=== PATIENT | female | born 1965 | race Caucasian/White ===

== ENCOUNTER → 2016-07-14 08:57 | Day surgery (SDC) | payer BC, MEDICARE ==
[~2016-07-14 08:57] MED LIST: Buffered Lidocaine 1% SYRIN* 3 ML/SYR SYRINGE INTRADERM ONE; Bupivacaine 0.25% EPI 200,000* 30 ML SDV ONE; DiMENhydriNATE IV* 50 MG/ML VIAL IV PUSH PRN; HYDROmorphone* 1 MG/ML 1 ML SYR IV PRN; Insulin REGULAR(*) 1 UNITS UNIT ONE; Midazolam* 1 MG/ML 5 ML VIAL (5 MG) ONE; Ondansetron INJ* 2 MG/ML VIAL IV PRN; fentaNYL* 50 MCG/ML 2 ML VIAL (100 MCG VIAL) IV PRN; fentaNYL* 50 MCG/ML 2 ML VIAL (100 MCG VIAL) ONE; oxyCODONE TAB* 5 MG TAB PO PRN
--- NOTE | 2016-07-14 12:57 | SURGPN ---
Brief Operative Note - Surgery Procedures: Procedures Pre-OP Diagnoses: Unused peritoneal dialysis catheter Post-op Diagnosis: same Procedure: removal of dialysis catheter Surgeon: Cristofer Asst: none Anethesia: local MARLON Cao EBL: minimal IVF: crystalloid Specimen: none Drains: none
[2016-07-14 13:49] VITALS: BP 143/73
--- NOTE | 2016-07-22 14:07 | OP ---
DATE OF OPERATION: 07/14/16 - [facility] DATE OF : 61 SURGEON: Fam Cleveland MD WEB CONTENT MANAGER: None. ANESTHESIOLOGIST: Dr. Cao. ANESTHESIA: Local MAC. PRE-OP DIAGNOSIS: Unused peritoneal dialysis catheter. POST-OP DIAGNOSIS: Unused peritoneal dialysis catheter. OPERATIVE PROCEDURE: Removal of dialysis catheter. ESTIMATED BLOOD LOSS: Minimal blood loss. FLUIDS: Minimal crystalloid fluid given. SPECIMEN: None. DRAINS: None. DESCRIPTION OF PROCEDURE: The patient was identified in the preoperative area, brought to the OR, placed on the operating table in supine position. Gentle sedation was given. The patient's abdomen was prepped and draped in the standard surgical fashion. A time-out was performed. Previously noted peritoneal dialysis catheter was held with gentle tension. We made an incision along the left rectus. This was deepened through the subcutaneous tissue. One cuff was identified in the subcutaneous tissue and cleared off. We entered through the fascia of the rectus pillar and the second cuff was then removed. Catheter was removed in its entirety. The wound was irrigated. Hemostasis achieved and the defect was reapproximated with skin gloria followed by sterile dressing. The patient tolerated the procedure well , was woken up in the OR, and transferred to the PACU in stable condition. CC: [facility]; Dr. Dipak Valiente* [id number]/[facility] #: [id number] MTDD
== END | disposition home or self-care (01) ==
LOC: OR 08:57
PROVIDERS: ATTEND Surgery
DX: N18.6 End stage renal disease (principal); E11.8 Type 2 diabetes mellitus with unspecified complications; Z79.4 Long term (current) use of insulin; J44.9 Chronic obstructive pulmonary disease, unspecified; Z87.891 Personal history of nicotine dependence; Z99.2 Dependence on renal dialysis
CPT/HCPCS: J2250; J3010

== ENCOUNTER 2016-10-09 11:12 | Emergency (ER) | payer BC, MEDICARE ==
[2016-10-09 12:37] LABS: Hematocrit 29 % (35-47); Hemoglobin 9.3 g/dl (12.0-16.0); Mean Corpuscular HGB Conc 33 g/dl (31-36); Mean Corpuscular Hemoglobin 29 pg (27-31); Mean Corpuscular Volume 90 fL (80-97); Mean Platelet Volume 9 um3 (7.4-10.4); Red Blood Count 3.16 10^6/ul (4.0-5.4); Red Cell Distribution Width 16 % (10.5-15); White Blood Count 13.9 10^3/ul (3.5-10.8)
--- NOTE | 2016-10-09 12:52 | RAD ---
HISTORY: Right foot numbness, right leg pain COMPARISONS: None TECHNIQUE: Multiple contiguous axial CT scans were obtained of the lumbar spine without intravenous contrast, with coronal and sagittal multiplanar reformations. FINDINGS: SPINAL CANAL: Evaluation of the central canal is limited on CT technique; however, there is no obvious canalicular mass or epidural hemorrhage. ALIGNMENT: The alignment is normal. VERTEBRAL BODIES: The vertebral bodies are preserved in height. The bones are normal in attenuation. JOINTS: There is facet hypertrophic change along the lower lumbar spine MUSCULATURE: Unremarkable INTERVERTEBRAL DISCS: There is diffuse loss of intervertebral disc height throughout the spine. AXIAL IMAGES: T11-T12: There is no osseous neural foraminal area or central canal stenosis T12-L1: There is no osseous neural foraminal narrowing or central canal stenosis. L1-L2: There is no osseous neural foraminal narrowing or central canal stenosis. L2-L3: There is no osseous neural foraminal narrowing or central canal stenosis. L3-L4: There is no osseous neural foraminal narrowing or central canal stenosis. L4-L5: There is mild disc bulge. There is bilateral facet hypertrophy. There is mild bilateral neural foraminal narrowing. There is mild narrowing of the central canal. L5-S1: There is bilateral facet hypertrophy. There is no significant neural foraminal narrowing or central canal stenosis SOFT TISSUES: The visualized soft tissues of the abdomen are unremarkable. OTHER: None IMPRESSION: DEGENERATIVE DISC DISEASE AND OSTEOARTHRITIS MOST PRONOUNCED AT L4-L5 AND L5-S1. THERE IS MILD NEURAL FORAMINAL NARROWING AND MILD NARROWING OF THE CENTRAL CANAL AT L4-L5.
[2016-10-09 12:53] LABS: Albumin 3.3 g/dL (3.2-5.2); BUN/Creatinine Ratio 8.8 (8-20); Calcium 8.8 mg/dL (8.6-10.3); EGFR African American 22.5 (>60); EGFR Non-African American 17.5 (>60); Globulin 3.7 g/dL (2-4); Magnesium 1.8 mg/dL (1.9-2.7); Potassium 4.5 mmol/L (3.5-5.0); Total Bilirubin 0.2 mg/dL (0.2-1.0)
--- NOTE | 2016-10-09 13:53 | RAD ---
HISTORY: Right calf pain COMPARISONS: None relevant TECHNIQUE: Multiple transverse and longitudinal ultrasound images were obtained of the right lower extremity from the level of the common femoral vein inferiorly through to the infrapopliteal veins using grayscale, color Doppler, and spectral Doppler imaging with and without compression and with augmentation. Comparison images were obtained of the contralateral common femoral vein. FINDINGS: VEINS: The venous system of the right lower extremity is compressible throughout its course, with normal flow on color Doppler imaging and normal response to augmentation on spectral Doppler imaging. SOFT TISSUES: Unremarkable. OTHER FINDINGS: Also noted is a calcified popliteal artery with monophasic arterial flow IMPRESSION: 1. NO RIGHT LOWER EXTREMITY DEEP VEIN THROMBOSIS. 2. PERIPHERAL ARTERIAL DISEASE WITH MONOPHASIC ARTERIAL FLOW NOTED IN THE POPLITEAL ARTERY
--- NOTE | 2016-10-09 14:24 | ED ---
Lower Extremity - HPI Summary HPI Summary: 50F w/ PMH of DM and ESRD presents with right leg numbness for a day. She also noticed some redness to her right calf at dialysis today. She states she has a history of sciatica but no history of back pain. She states that she has been having pain in her calf when she walks. She denies any tingling. She denies any injury to the area. She denies any fever. She denies any tingling. She denies any loss of bowel or bladder or saddle anaesthesia. She denies any fever. She had dialysis today which is her normal day for dialysis. - History of Current Complaint Chief Complaint: EDExtremityLower Stated Complaint: RT LEG NUMBNESS Time Seen by Provider: 10/09/16 11:51 Pain Intensity: 0 - Allergies/Home Medications Allergies/Adverse Reactions: Allergies Allergy/AdvReac Type Severity Reaction Status Date / Time Penicillins [PCN] Allergy Unknown Hives Verified 07/14/16 09:10 PMH/Surg Hx/FS Hx/Imm Hx Endocrine/Hematology History: Reports: Hx Diabetes - TYPE II- ON INSULIN, Hx Anemia - R/T KIDNEY FAILURE Cardiovascular History: Reports: Hx Hypertension - ON MEDS Denies: Hx Angina, Hx Pacemaker/ICD, Other Cardiovascular Problems/Disorders Respiratory History: Reports: Hx Asthma - HX OF WHEN WAS A SMOKER GI History: Reports: Hx Gastroesophageal Reflux Disease - ON MEDICATION FOR Denies: Other GI Disorders History: Reports: Hx Dialysis, Hx Kidney Stones - HX OF, Other Problems/ Disorders - HX OF RIGHT NEPHRECTOMY <1 YEAR OF AGE; ESRD - dialysis Musculoskeletal History: Reports: Hx Arthritis - KNEES, ELBOW, FINGERS Denies: Other Musculoskeletal History Sensory History: Reports: Hx Contacts or Glasses - INSTRUCTS GIVEN Denies: Hx Hearing Aid Opthamlomology History: Reports: Hx Contacts or Glasses - INSTRUCTS GIVEN Neurological History: Denies: Hx CVA Psychiatric History: Reports: Hx Anxiety, Hx Depression - Surgical History Surgery Procedure, Year, and Place: ESWL APPROX 2004. RIGHT NEPHRECTOMY AN INFANT. 2 CARPAL TUNNELS, ONESIMO, 2013 , 2014. HEMODIALYSIS CATH, 12/2015. peritoneal dialysis catheter 01/2016. LUE fistula 11/2015 Hx Anesthesia Reactions: No Infectious Disease History: No Infectious Disease History: Denies: Traveled Outside the [place] in Last 30 Days - Family History Known Family History: Positive: Diabetes - MGF, Father - Social History Alcohol Use: None Substance Use Type: Reports: None Smoking Status (MU): Former Smoker Type: Cigarettes Amount Used/How Often: 1 PPD X 20 YEARS Length of Time of Smoking/Using Tobacco: 34 YEARS Have You Smoked in the Last Year: No Review of Systems Negative: Fever Negative: Chest Pain Negative: Shortness Of Breath Positive: Myalgia - right calf numbness All Other Systems Reviewed And Are Negative: Yes Physical Exam Triage Information Reviewed: Yes Vital Signs On Initial Exam: Initial Vitals Temp Pulse Resp BP Pulse Ox 98.4 F 99 16 169/66 91 10/09/16 11:21 10/09/16 11:21 10/09/16 11:21 10/09/16 11:21 10/09/16 11:21 Vital Signs Reviewed: Yes Appearance: Positive: Well-Appearing Skin: Positive: Warm, Dry, Other - area of erythema on right calf that is not warm to touch Head/Face: Positive: Normal Head/Face Inspection Eyes: Positive: Normal, Conjunctiva Clear Respiratory/Lung Sounds: Positive: Clear to Auscultation, Breath Sounds Present Cardiovascular: Positive: Normal, RRR Musculoskeletal: Positive: Strength/ROM Intact - left leg, Other - good pulses, capillary refill< 2secs, no sensation along medial ascpect of calf, - Suzette Coma Scale Coma Scale Total: 15 Diagnostics - Vital Signs Vital Signs Temp Pulse Resp BP Pulse Ox 10/09/16 11:25 98.6 F 96 16 169/66 90 10/09/16 11:21 98.4 F 99 16 169/66 91 - Laboratory Lab Results: Lab Results 10/09/16 10/09/16 10/09/16 Range/Units 12:25 12:25 12:25 WBC 13.9 H (3.5-10.8) 10^3/ul RBC 3.16 L (4.0-5.4) 10^6/ul Hgb 9.3 L (12.0-16.0) g/dl Hct 29 L (35-47) % MCV 90 (80-97) fL MCH 29 (27-31) pg MCHC 33 (31-36) g/dl RDW 16 H (10.5-15) % Plt Count 398 (150-450) 10^3/ul MPV 9 (7.4-10.4) um3 Neut % (Auto) 77.9 (38-83) % Lymph % (Auto) 10.3 L (25-47) % Larue % (Auto) 9.3 H (1-9) % Eos % (Auto) 1.6 (0-6) % Baso % (Auto) 0.9 (0-2) % Absolute Neuts (auto) 10.8 H (1.5-7.7) 10^3/ul Absolute Lymphs (auto) 1.4 (1.0-4.8) 10^3/ul Absolute Monos (auto) 1.3 H (0-0.8) 10^3/ul Absolute Eos (auto) 0.2 (0-0.6) 10^3/ul Absolute Basos (auto) 0.1 (0-0.2) 10^3/ul Absolute Nucleated RBC 0 10^3/ul Nucleated RBC % 0 INR (Anticoag Therapy) 1.04 (0.89-1.11) Sodium 134 (133-145) mmol/L Potassium 4.5 (3.5-5.0) mmol/L Chloride 94 L (101-111) mmol/L Carbon Dioxide 32 (22-32) mmol/L Anion Gap 8 (2-11) mmol/L BUN 25 H (6-24) mg/dL Creatinine 2.84 H (0.51-0.95) mg/dL Est GFR ( Amer) 22.5 (>60) Est GFR (Non-Af Amer) 17.5 (>60) BUN/Creatinine Ratio 8.8 (8-20) Glucose 183 H (70-100) mg/dL Calcium 8.8 (8.6-10.3) mg/dL Magnesium 1.8 L (1.9-2.7) mg/dL Total Bilirubin 0.20 (0.2-1.0) mg/dL AST 13 (13-39) U/L ALT 9 (7-52) U/L Alkaline Phosphatase 110 H (34-104) U/L C-React Prot High Sens 59.69 mg/L Total Protein 7.0 (6.4-8.9) g/dL Albumin 3.3 (3.2-5.2) g/dL Globulin 3.7 (2-4) g/dL Albumin/Globulin Ratio 0.9 L (1-3) Result Diagrams: 10/09/16 12:25 10/09/16 12:25 Lab Statement: Any lab studies that have been ordered have been reviewed, and results considered in the medical decision making process. - Ultrasound No standard instances Ultrasound Interpretation: Positive (See Comments) - IMPRESSION: 1. NO RIGHT LOWER EXTREMITY DEEP VEIN THROMBOSIS. 2. PERIPHERAL ARTERIAL DISEASE WITH MONOPHASIC ARTERIAL FLOW NOTED IN THE POPLITEAL ARTERY Ultrasound Interpretation Completed By: Radiologist Lower Extremity Course/Dx - Course Course Of Treatment: 50F w/ PMH of DM and ESRD presents with right leg numbness for a day. She also noticed some redness to her right calf at dialysis today. She states she has a history of sciatica but no history of back pain. She states that she has been having pain in her calf when she walks. She denies any tingling. She denies any injury to the area. She denies any fever. She denies any tingling. has neg SLR and back nontender. good pulses, u/s show PAD so will have follow up with vascular. CT shows narrow at L4-L5 which is where numbness is so could be sciatica related numbness. due to redness will treat with cellulitis as is DM. patient understands and agrees with plan - Diagnoses Differential Diagnosis/HQI/PQRI: Positive: Cellulitis, DVT, Fracture (Closed), Sprain, Strain Provider Diagnoses: Peripheral arterial disease, Numbness of right lower extremity, Cellulitis of right leg Discharge - Discharge Plan Condition: Good Disposition: HOME Prescriptions: Clindamycin CAP* [Cleocin 150 MG CAP*] 300 mg PO TID #60 cap Patient Education Materials: Peripheral Vascular Disease (ED) Referrals: Dipak Fontenot MD [Primary Care Provider] - Ashley York MD [Medical Doctor] - Additional Instructions: Follow up with Dr York for peripheral arterial disease Warm compresses for back and stretch Take antibiotic two tablets three times a day for 10 days for possible cellulitis Follow up with primary within 5 days Return to ED if develop fever or any new or worsening symptoms
[2016-10-09 15:42] VITALS: BP 132/88
== END 2016-10-09 15:41 | disposition home or self-care (01) ==
LOC: ED 11:12
DX: I73.9 Peripheral vascular disease, unspecified (principal); M79.1 Myalgia; L03.115 Cellulitis of right lower limb; Z87.891 Personal history of nicotine dependence
CPT/HCPCS: 36415; 72131; 80053; 83735; 85025; 85610; 86141; 99282

== ENCOUNTER 2016-12-13 20:32 | Inpatient (IN) | payer BC, MEDICARE ==
--- NOTE | 2016-12-13 21:45 | RAD ---
Indication: Weakness. Former tobacco use. Hypertension. On dialysis. Comparison: March 02, 2016 Technique: AP and lateral chest views. Report: Cardiomegaly. Prominent ill-defined central pulmonary vasculature. Mild prominence of interstitial markings. Grossly clear pleural spaces. Negative for pneumothorax. IMPRESSION: Mild pulmonary vascular congestion and interstitial edema.
[2016-12-13 22:01] LABS: Hematocrit 15 % (35-47); Mean Corpuscular HGB Conc 33 g/dl (31-36); Mean Corpuscular Hemoglobin 29 pg (27-31); Mean Corpuscular Volume 89 fL (80-97); Mean Platelet Volume 8 um3 (7.4-10.4); Red Blood Count 1.63 10^6/ul (4.0-5.4); Red Cell Distribution Width 18 % (10.5-15); White Blood Count 12.8 10^3/ul (3.5-10.8)
[2016-12-13 22:02] LABS: Comments Flag Yes
--- NOTE | 2016-12-13 22:02 | ED ---
Shira Hanks Emily, scribed for Fritz Singh MD on 12/13/16 at 205 . Complex/Multi-Sys Presentation - HPI Summary HPI Summary: This patient is a 51 year old F BIBA from [facility] accompanied by with a chief complaint of weakness since yesterday. She states I was not able to walk any distance at all my legs would not support me. She reports a bypass in her RLE on 11/24 done at [facility]. The patient rates the pain 0/10 in severity. Symptoms aggravated by nothing. Symptoms alleviated by nothing. Patient reports a fall (this morning getting out of bed and while at dialysis at 1000 today), SOB, disorientation (this morning), right foot pain, and feeling frightened. Patient denies head trauma, syncope, cough, and urinary symptoms. She is currently on 4L NC O2. She is on dialysis 3 times a week. PMHx includes DMII and HTN. - History Of Current Complaint Chief Complaint: EDWeakness Time Seen by Provider: 12/13/16 20:38 Hx Obtained From: Patient Onset/Duration: Sudden Onset, Lasting Days - yesterday, Still Present Timing: Constant Severity Currently: Moderate Severity Initially: Moderate Aggravating Factor(s): Nothing Alleviating Factor(s): Nothing Associated Signs And Symptoms: Positive: Other - fall (this morning getting out of bed and while at dialysis at 1000 today), SOB, disorientation (this morning) , right foot pain, and feeling frightened. Patient denies head trauma, syncope , cough, and urinary symptoms. - Allergies/Home Medications Allergies/Adverse Reactions: Allergies Allergy/AdvReac Type Severity Reaction Status Date / Time Penicillins [PCN] Allergy Unknown Hives Verified 07/14/16 09:10 PMH/Surg Hx/FS Hx/Imm Hx Endocrine/Hematology History: Reports: Hx Diabetes - TYPE II- ON INSULIN, Hx Anemia - R/T KIDNEY FAILURE Cardiovascular History: Reports: Hx Hypertension - ON MEDS Denies: Hx Angina, Hx Pacemaker/ICD, Other Cardiovascular Problems/Disorders Respiratory History: Reports: Hx Asthma - HX OF WHEN WAS A SMOKER GI History: Reports: Hx Gastroesophageal Reflux Disease - ON MEDICATION FOR Denies: Other GI Disorders History: Reports: Hx Dialysis, Hx Kidney Stones - HX OF, Other Problems/ Disorders - HX OF RIGHT NEPHRECTOMY <1 YEAR OF AGE; ESRD - dialysis Musculoskeletal History: Reports: Hx Arthritis - KNEES, ELBOW, FINGERS Denies: Other Musculoskeletal History Sensory History: Reports: Hx Contacts or Glasses - INSTRUCTS GIVEN Denies: Hx Hearing Aid Opthamlomology History: Reports: Hx Contacts or Glasses - INSTRUCTS GIVEN Neurological History: Denies: Hx CVA Psychiatric History: Reports: Hx Anxiety, Hx Depression - Surgical History Surgery Procedure, Year, and Place: ESWL APPROX 2005. RIGHT NEPHRECTOMY AN . 2 CARPAL TUNNELS, ONESIMO, 2013 , 2014. HEMODIALYSIS CATH, 12/2015. peritoneal dialysis catheter 01/2016. LUE fistula 11/2015 Hx Anesthesia Reactions: No Infectious Disease History: Yes Infectious Disease History: Denies: Traveled Outside the [place] in Last 30 Days - Family History Known Family History: Positive: Diabetes - MGF, Father - Social History Alcohol Use: None Substance Use Type: Reports: None Smoking Status (MU): Former Smoker Type: Cigarettes Amount Used/How Often: 1 PPD X 20 YEARS Length of Time of Smoking/Using Tobacco: 34 YEARS Have You Smoked in the Last Year: No Review of Systems Positive: Shortness Of Breath. Negative: Cough Positive: no symptoms reported Positive: Other - fall (this morning getting out of bed and while at dialysis at 1000 today), right foot pain Neurological: Other - weakness, disorientation (this morning), feeling frightened. Negative head trauma, syncope All Other Systems Reviewed And Are Negative: Yes Physical Exam Triage Information Reviewed: Yes Vital Signs On Initial Exam: Initial Vitals Temp Pulse Resp BP Pulse Ox 97.3 F 76 21 103/59 100 12/13/16 20:40 12/13/16 20:40 12/13/16 20:40 12/13/16 20:40 12/13/16 20:40 Vital Signs Reviewed: Yes Appearance: Positive: Well-Appearing, No Pain Distress, Obese Skin: Positive: Warm, Skin Color Reflects Adequate Perfusion, Dry, Other - Healing ulcer at right lateral heel. Head/Face: Positive: Normal Head/Face Inspection Eyes: Positive: Normal ENT: Positive: Normal ENT inspection Neck: Positive: Supple, Nontender Respiratory/Lung Sounds: Positive: Breath Sounds Present, Other - Crackles at left base. Cardiovascular: Positive: RRR, Other - Left sided fistula with a good and thrill bruit. Loud systolic ejection murmur. Abdomen Description: Positive: Nontender, Soft Bowel Sounds: Positive: Present Musculoskeletal: Positive: Normal Neurological: Positive: Normal, Sensory/Motor Intact, Alert, Oriented to Person Place, Time, CN Intact II-III Psychiatric: Positive: Affect/Mood Appropriate Diagnostics - Vital Signs Vital Signs Temp Pulse Resp BP Pulse Ox 12/13/16 20:40 97.3 F 76 21 103/59 100 - Laboratory Lab Statement: Any lab studies that have been ordered have been reviewed, and results considered in the medical decision making process. - Radiology CXR Radiology Interpretation Completed By: Radiologist - Mild pulmonary vascular congestion and interstitial edema. ED physician has reviewed this radiology report and agrees. Complex Multi-Symp Course/Dx Course Of Treatment: Ms. Suero presented C/O weakness for a day or so. Her oxygenation is marginal and she has some rales. She says her diuretic was recently stopped. She is getting W/U for her weakness at this time. - Diagnoses Provider Diagnoses: Weakness, Pulmonary edema - Physician Notifications Discussed Care Of Patient With: Dr. Cornelius at change of shift Discharge - Discharge Plan Condition: Stable Disposition: OTHER Discharge Disposition Comment: Change of Shift The documentation as recorded by the Shira toro Emily accurately reflects the service I personally performed and the decisions made by me, Fritz Singh MD.
[2016-12-13 22:03] LABS: Add Diff/Slide Review? Slide Review Added
[2016-12-13 22:06] LABS: Hemoglobin 4.8 g/dl (12.0-16.0)
[2016-12-13 22:13] LABS: Albumin 2.8 g/dL (3.2-5.2); BUN/Creatinine Ratio 7.9 (8-20); C Reactive Protein 73.3 mg/L (< 5.00); Calcium 7.8 mg/dL (8.6-10.3); EGFR African American 15.9 (>60); EGFR Non-African American 12.4 (>60); Globulin 2.8 g/dL (2-4); Potassium 4.8 mmol/L (3.5-5.0); Total Bilirubin 0.3 mg/dL (0.2-1.0); Total Protein 5.6 g/dL (6.4-8.9)
[2016-12-13 22:36] LABS: TSH (Thyroid Stimulating Horm) 0.91 mcIU/mL (0.34-5.60)
[2016-12-13] MEDS ORDERED: oxyCODONE TAB* 5 MG TAB PO ONE (22:44)
[2016-12-13] MEDS ORDERED: oxyCODONE TAB* 5 MG TAB ONE (22:47)
[2016-12-13] MEDS ORDERED: Ondansetron INJ* 2 MG/ML VIAL IV PRN (23:20)
[2016-12-13] MEDS ORDERED: Cetirizine* 10 MG TAB PO PRN (23:28)
[2016-12-13] MEDS ORDERED: Albuterol HFA INHALER* 8 gm MDI INH PRN (23:28)
[2016-12-13 23:34] LABS: Immature Retic Fraction 0.73
[2016-12-13] MEDS ORDERED: Dextrose 50% Syringe 50 ML* 25 GM/50 ML SYRINGE IV PUSH PRN (23:38)
[2016-12-13 23:52] LABS: Corrected Retic Count 2.5 % (0.5-1.5); Maturation Factor Retic 2.5
[2016-12-14] MEDS: Morphine INJ* 2 MG/ML 1 ML CARPUJECT IV PRN ×4 (01:30→19:57)
[2016-12-14 01:59] LABS: Ferritin 1801.8 ng/mL (11-307)
--- NOTE | 2016-12-14 02:37 | HP ---
HISTORY AND PHYSICAL: ADDENDUM: HISTORY OF PRESENT ILLNESS: Preliminary read from imaging on-call for CT lower extremity indicates 10 x 4 x 2 fluid collection within the medial surgical wound , which may represent abscess or hematoma, but suboptimally evaluated without contrast. [id number]/[facility] #: [id number] [facility]
--- NOTE | 2016-12-14 02:37 | HP ---
ADDENDUM NOW INCLUDED ON THIS REPORT ADMISSION HISTORY AND PHYSICAL: DATE OF ADMISSION: 12/13/16 PRIMARY CARE PROVIDER: Dipak Fontenot MD. RECOVERY SPECIALIST: Sarah Kowalski MD. VASCULAR SURGEON: Dr. York in [facility]. HEALTHCARE PROXY: Her present during this interview. CODE STATUS: Full. Discussed with the patient and her . SOURCE OF INFORMATION: History obtained from interview with the patient and her . RELIABILITY: Fair. CHIEF COMPLAINT: Right leg pain as well as weakness. HISTORY OF PRESENT ILLNESS: This is a 51-year-old female, past medical history includes end-stage renal disease, on hemodialysis Tuesday, Tuesday, Tuesday, who recently underwent a femoropopliteal bypass on 11/24/16 in [place] at [facility]. Was in their hospital for about 1 week and then discharged to [facility] [place] for rehab. She has noted increasing pain in her right leg more located in the ankle and the foot and has been concerned that the leg has not been wrapped appropriately. Yesterday, she felt "extremely weak," was able to stand up; however, used a walker which is unusual for her. Today, she still felt weak which was worse than yesterday, proceeded to hemodialysis and after standing up, she fell to the floor where she remained for about approximately 5 minutes. She noticed that they took off approximately 3.6 L at dialysis today which is slightly more than usual, but she tolerated it well. She went back to [facility] [place] utilizing [employer] and while there wanted to use the bathroom; however, felt too weak to get out of bed, attempted to do so herself and "slid down/collapsed to the floor." She notes increasing swelling in her leg as well as worsening pain, again predominantly located towards the foot and not the thigh or leg. She notes antibiotics approximately 1 week ago secondary to concern for infection in her leg. She denies fevers, chills, or night sweats. She denies any melena; however, notes 1 episode of "possibly blood" in her stool. She had 1 episode of emesis yesterday. No other episodes of nausea or vomiting. No headache, no lightheadedness, no chest pain. She notes intermittent shortness of breath for which she has been utilizing oxygen at [facility] [place]. No abdominal pain, diarrhea, or other skin changes other than noted above for potential infection. PAST MEDICAL HISTORY: 1. End-stage renal disease. The patient has 1 right kidney. The other was removed as an infant. She has a left fistula. 2. Hypertension. 3. Hyperlipidemia. 4. Obesity. 5. Type 2 diabetes. 6. Dyspepsia. 7. Depression. 8. Anxiety. 9. COPD. 10. Tubal ligation. 11. Fem-pop bypass, 11/24/16, Dr. York at [facility]. She had an AV fistula. 12. History of kidney stones. MEDICATIONS: Reviewed. 1. Torsemide 20 mg twice daily, although she thinks she may have been taking a higher dose prior to this. 2. Sevelamer 800 mg 3 times a day with meals. 3. Zoloft 50 mg in the evening. 4. Lyrica 75 mg 3 times a day. 5. Oxycodone IR 5 mg every 6 hours as needed for pain. 6. Omeprazole 20 mg in the morning. 7. Lisinopril 20 mg daily. 8. Lactulose 20 g 3 times daily. 9. Insulin glargine 18 units in the evening. 10. Docusate 100 mg twice daily. 11. Sensipar 60 mg daily. 12. Cetirizine 10 mg as needed in the morning. 13. Aspirin 81 mg daily. 14. Amlodipine 2.5 mg at bedtime. 15. Amitriptyline 25 mg in the evening. 16. Albuterol HFA 2 puffs every 4 hours as needed for shortness of breath. 17. Acetaminophen 975 mg daily as needed. ALLERGIES: PENICILLIN, environmental allergies. FAMILY HISTORY: Type 2 diabetes. Mother with seizures. SOCIAL HISTORY: , unemployed. Quit tobacco in 2013. Previously smoked 1 pack per day for 20 years. No alcohol. REVIEW OF SYSTEMS: As per HPI. Otherwise, all other systems negative. PHYSICAL EXAMINATION GENERAL: Obese woman, lying 30 degrees in bed, interactive, pleasant, no apparent distress. VITAL SIGNS: When seen by this author 122/69, heart rate 77, respiratory rate 16, she is 100% on 2 L nasal cannula, T-max in the emergency room is 98.4. HEENT: Oropharynx is clear. She has dry mucous membranes. Her sclerae are anicteric. She has conjunctival pallor. Non-elevated JVD. No cervical or supraclavicular lymphadenopathy. She has 2/6 systolic ejection murmur, loudest in the left upper sternal border. LUNGS: Have rales in bilateral bases approximately one-quarter of the way up. ABDOMEN: Soft, nontender, nondistended. EXTREMITIES: Her extremities are warm. Dopplerable pulses in bilateral legs, DP and TP. She has 2+ pitting edema, worse on the right up to the inguinal ligament. She has healing surgical site. The site is clean, dry, and intact. Minimal erythema, worse in the thigh. She has an area of firmness in her right lateral thigh. She has fistula in her left forearm. NEUROLOGIC: No apparent anxiety, agitation, or depression. SKIN: Has an ulcer on her right heel as well as surgical incision site from right thigh to calf. DIAGNOSTIC STUDIES/LAB DATA: Pertinent labs reviewed, white blood cell count 12.8 with 81% neutrophils. Her hemoglobin is 4.8, last was 9.3 on October 09. Platelets 384. INR 1.1, BUN 30, creatinine 3.82, lactic acid 0.7, CRP is 73. Chest x-ray, impression: Mild pulmonary vascular congestion and interstitial edema. EKG, sinus tachycardia, ventricular rate 76. Normal limit access. Normal R- wave progression. No ST or T wave changes. ASSESSMENT AND PLAN: This is a 51-year-old female with past medical history of end- stage renal disease, undergoing hemodialysis Tuesday, Tuesday, Tuesday status post recent fem-pop bypass, 11/24/16, presenting with increased right lower extremity pain, found to have significant anemia. 1. Anemia. Except for 1 episode of questionable blood in stool, has not noticed any blood loss. In the setting of recent surgery with potential surgical site infection 1 week ago according to the patient superimposed with chronic kidney disease, potentially decreased production could be contributing. However, would like to rule out blood loss into the right thigh with a CAT scan non-con of the right thigh. We will give 1 unit of packed red blood cells now. Repeat H and H 1 hour after. Check stool for occult blood. Add on iron studies to ED labs prior to blood being collected. 2. Pain. We will continue oxycodone; however, increase to 4 q.4 hours with additional morphine 2 mg IV breakthrough. 3. End-stage renal disease, continue dialysis. 4. Diabetes. Continue Lantus. Add a medium dose lispro sliding scale. Fingersticks with meals and in the evening. 5. Hypertension. Holding home medications except for torsemide. 6. Chronic obstructive pulmonary disease, only on albuterol inhaler, continue. No evidence of exacerbation. 7. Depression and anxiety. Continue amitriptyline and Zoloft. 8. Femoral-popliteal bypass, important to control swelling in the leg. Continue to wrap with Eligio wrap from foot to groin. 9. DVT prophylaxis, holding in the setting of severe anemia. ADDENDUM: HISTORY OF PRESENT ILLNESS: Preliminary read from imaging on-call for CT lower extremity indicates 10 x 4 x 2 fluid collection within the medial surgical wound , which may represent abscess or hematoma, but suboptimally evaluated without contrast. [id number]/[facility]PS #: [id number]/CPS #: [id number] [facility]
[2016-12-14 05:21] LABS: Hematocrit 17 % (35-47)
[2016-12-14 05:23] LABS: Comments Flag Yes
[2016-12-14 05:27] LABS: Hemoglobin 5.5 g/dl (12.0-16.0)
[2016-12-14] MEDS: Sevelamer TAB* 800 MG PO SCH ×3 (07:51→17:27)
[2016-12-14] MEDS: Insulin LISPRO* 1 UNITS UNIT SUBCUT SCH ×4 (08:21→21:20)
--- NOTE | 2016-12-14 08:27 | PN ---
Subjective Date of Service: 12/14/16 Interval History: Pt is feeling ok this AM. Still tired. She has more pain in her R foot than she has been and request improved pain control. Nursing contacted me to evaluate her surgical wound as it was found to be erythematous and with some purulent drainage. Objective Active Medications: Acetaminophen (Tylenol Tab*) 650 mg PO Q4H PRN PRN Reason: FEVER/PAIN Albuterol (Ventolin Hfa Inhaler*) 2 puff INH Q4HR PRN PRN Reason: WHEEZING Amitriptyline HCl (Elavil Tab*) 25 mg PO QPM [facility] Aspirin (Aspirin Ec Low Dose*) 81 mg PO QAM [facility] Cetirizine HCl (Zyrtec*) 10 mg PO QAM PRN PRN Reason: allergies Cinacalcet (Sensipar Tab*) 60 mg PO DAILY [facility] Dextrose (D50w Syringe 50 Ml*) 12.5 gm IV PUSH .FOR FS < 60 - SS PRN PRN Reason: FS < 60 Docusate Sodium (Colace Cap*) 100 mg PO BID [facility] Insulin Glargine (Lantus(*)) 18 units SUBCUT QPM [facility] Insulin Human Lispro (Humalog*) 0 units SUBCUT ACHS [facility] PRN Reason: Protocol Last Admin: 12/14/16 08:21 Dose: Not Given Morphine Sulfate (Morphine Inj (Syringe)*) 2 mg IV Q4H PRN PRN Reason: PAIN Last Admin: 12/14/16 01:30 Dose: 2 mg Omeprazole (Prilosec Cap*) 20 mg PO QAM [facility] Ondansetron HCl (Zofran Inj*) 4 mg IV Q4H PRN PRN Reason: NAUSEA/VOMITING Oxycodone HCl (Roxycodone Tab*) 5 mg PO Q4H PRN PRN Reason: PAIN Pregabalin (Lyrica Cap(*)) 75 mg PO TID [facility] Sertraline HCl (Zoloft*) 50 mg PO QPM [facility] Sevelamer Carbonate (Renvela Tab*) 800 mg PO TID WITH MEALS [facility] Last Admin: 12/14/16 07:51 Dose: 800 mg Torsemide (Demadex*) 20 mg PO BID [facility] Vital Signs 12/14/16 12/14/16 12/14/16 00:07 00:11 01:30 Temperature 97.6 F 97.6 F Pulse Rate 77 77 77 Respiratory 16 16 16 Rate Blood Pressure 118/59 126/67 118/59 (mmHg) O2 Sat by Pulse 99 98 99 Oximetry 12/14/16 12/14/16 12/14/16 01:45 02:30 03:56 Temperature 98.1 F Pulse Rate 78 76 Respiratory 16 16 16 Rate Blood Pressure 121/66 126/51 (mmHg) O2 Sat by Pulse 100 98 Oximetry Oxygen Devices in Use Now: None Appearance: Middle aged female lying in bed, NAD Eyes: No Scleral Icterus Ears/Nose/Mouth/Throat: Mucous Membranes Moist Respiratory: Symmetrical Chest Expansion and Respiratory Effort, Clear to Auscultation - diminished breath sounds in all lung [place] Cardiovascular: RRR, - - III/ systolic murmur, trace-1+ B/L LE pitting edema; R DP pulse 2+ Abdominal: NL Sounds; No Tenderness; No Distention - obese, bruising noted to abdominal wall. Extremities: No Clubbing, Cyanosis Skin: No Nodules or Sclerosis, - - R fem pop bypass incision inspected: distal end sutures are intact with no surrounding erythema or drainage, proximal end of incision has surrounding erythema and scant purulent drainage; R heel with unstagable pressure ulceration and shallow, scabbed over ulcerations noted on dorsum of R foot by toes. Neurological: Alert and Oriented x 3 Result Diagrams: 12/14/16 05:12 12/13/16 21:30 Assess/Plan/Problems-Billing Ms Suero is a 51 yo F with a h/o R fem-pop bypass 11/24/[address] York at [facility], HTN, HLD, type II DM and ESRD who presented to the ER with c/o worsened pain in her R ankle/foot and generalized weakness and was found to be severely anemic with a Hb of 4.8. - Patient Problems (1) Severe anemia Current Visit: Yes Status: Acute Code(s): D64.9 - ANEMIA, UNSPECIFIED SNOMED Code(s): 736979525 Comment: The patient was found to be severely anemic on presentation to the ER. She is anemic at baseline with a Hb around 8-9 likely secondary to her ESRD. CT of the leg revealed a "10.8x4.2x1.8 fluid collection within the medial surgical wound which could represent abscess or hematoma." Given the drop in H/ H I am most suspicious this represents hematoma however the proximal incision appears erythematous and there is some purulence. I have a call out to Dr. York to discuss. She is currently receiving her 2nd unit of blood. Will get follow up CBC 1hr after it completes though I suspect she will need 1-2 units more. (2) Superficial postoperative wound infection Current Visit: Yes Status: Acute Code(s): T81.4XXA - INFECTION FOLLOWING A PROCEDURE, INITIAL ENCOUNTER SNOMED Code(s): 939029970 Comment: I am concerned that the patient's incision is infected given the appearance and mildly elevated WBC count. I have a call out to Dr. York and will request ID consultation especially given the graft material present. Will start ceftriaxone while awaiting the ID evaluation. (3) HTN (hypertension) Current Visit: Yes Status: Acute Code(s): I10 - ESSENTIAL (PRIMARY) HYPERTENSION SNOMED Code(s): 77213147 Comment: BP is under good control. Her lisinopril and amlodipine were held on admission likely secondary to her severe anemia. Will monitor her pressures through today and if BP starts to climb will add them back. (4) HLD (hyperlipidemia) Current Visit: Yes Status: Acute Code(s): E78.5 - HYPERLIPIDEMIA, UNSPECIFIED SNOMED Code(s): 25032982 Comment: The patient's last lipid profile here was 09/2015 and unfavorable with a total cholesterol >300 and LDL >200 and Trig >300. Will recheck and start lipitor as she is not on any lipid lowering medications at this time. (5) Type 2 DM with hypertension and ESRD on dialysis Current Visit: Yes Status: Acute Code(s): E11.22 - TYPE 2 DIABETES MELLITUS W DIABETIC CHRONIC KIDNEY DISEASE; I12.0 - HYP CHR KIDNEY DISEASE W STAGE 5 CHR KIDNEY DISEASE OR ESRD; N18.6 - END STAGE RENAL DISEASE; Z99.2 - DEPENDENCE ON RENAL DIALYSIS SNOMED Code(s): 26975505 Comment: The patient's sugars are under good control on lantus 18units SQ qHS. Continue this and lispro sliding scale. (6) ESRD (end stage renal disease) on dialysis Current Visit: Yes Status: Acute Code(s): N18.6 - END STAGE RENAL DISEASE; Z99.2 - DEPENDENCE ON RENAL DIALYSIS SNOMED Code(s): 992320916 Comment: Continue MWF dialysis. Continue sevelamer and sensipar. (7) COPD (chronic obstructive pulmonary disease) Current Visit: Yes Status: Acute Code(s): J44.9 - CHRONIC OBSTRUCTIVE PULMONARY DISEASE, UNSPECIFIED SNOMED Code(s): 80264175 Comment: No signs of acute exacerbation. Continue prn albuterol. (8) Depression with anxiety Current Visit: Yes Status: Acute Comment: Continue sertraline. (9) DVT prophylaxis Current Visit: Yes Status: Acute Code(s): XAH3768 - SNOMED Code(s): 497613989 Comment: SCD to L leg (not on right given wound) and no heparin secondary to severe anemia. (10) Full code status Current Visit: Yes Status: Acute Code(s): Z78.9 - OTHER SPECIFIED HEALTH STATUS SNOMED Code(s): 442190062
[2016-12-14] MEDS ORDERED: cefTRIAXone VIAL(*) 1,000 MG in NS 0.9% 50 ML* 50 ML IVPB SCH (09:00)
--- NOTE | 2016-12-14 09:16 | RAD ---
Indication: Hematoma, status post femoral-popliteal bypass graft. CT of the right lower extremity was obtained in the axial plane. Coronal and sagittal reconstructed images were obtained. No IV contrast was given. Degenerative changes of the right hip are noted. Subcutaneous edema is noted in the right thigh. In the medial thigh in the region of surgery, there is a fluid collection measuring 10.2 x 4.3 x 1.8 cm. This is nonspecific and may represent seroma, although the possibility of abscess or hematoma is not totally excluded. Extensive vascular calcifications are noted. No evidence of osteomyelitis is noted. The visualized retroperitoneal structures are otherwise unremarkable. IMPRESSION: Diffuse subcutaneous edema. Fluid collection in the medial thigh measures 10.2 x 4.3 x 1.8 cm. This is nonspecific and may represent seroma, hematoma or abscess. This is in the region of prior surgery.
[2016-12-14] MEDS: Pregabalin CAP(*) 25 MG PO SCH ×3 (09:46→21:19)
[2016-12-14] MEDS: Omeprazole CAP* 20 MG PO SCH (09:47)
[2016-12-14] MEDS: Docusate CAP* 100 MG PO SCH ×2 (09:47→21:20)
[2016-12-14] MEDS: Cinacalcet TAB* 30 MG PO SCH (09:47)
[2016-12-14] MEDS: Torsemide TAB* 20 MG PO SCH ×2 (09:48→21:18)
[2016-12-14] MEDS: oxyCODONE TAB* 5 MG TAB PO PRN ×3 (09:54→21:18)
[2016-12-14] MEDS: Aspirin EC Low Dose* 81 MG TAB.EC PO SCH (09:54)
[2016-12-14] MEDS ORDERED: Vancomycin(*) 1,000 MG in NS 0.9% 250 ML* 250 ML IVPB SCH (11:00)
[2016-12-14 11:16] LABS: Hematocrit 20 % (35-47); Mean Platelet Volume 8 um3 (7.4-10.4)
[2016-12-14 11:18] LABS: Mean Corpuscular HGB Conc 31 g/dl (31-36); Mean Corpuscular Hemoglobin 27 pg (27-31); Mean Corpuscular Volume 87 fL (80-97); Red Blood Count 2.24 10^6/ul (4.0-5.4); Red Cell Distribution Width 17 % (10.5-15); White Blood Count 12.7 10^3/ul (3.5-10.8)
[2016-12-14 11:20] LABS: Comments Flag Yes
[2016-12-14] MEDS ORDERED: Vancomycin 1500 MG IV - x ONCE IVPB ONE ×2 (12:00)
--- NOTE | 2016-12-14 16:29 | RAD ---
CPT II Codes: 6100F INDICATION: Fluid collection tracking along the medial thigh musculature and subcutaneous fat identified on same-day CT examination in a woman 10 days status post left femoropopliteal bypass surgery. COMPARISON: CT of the thigh dated December 13, 2016 The benefits and risks of procedure explained to the patient and the patient signed informed consent. Multiple images of the medial left thigh were obtained. The fluid collection in question was identified and a percutaneous tract was determined. A time out was performed before beginning the procedure. The patient was prepped and draped in the usual sterile fashion. The skin and tissue overlying the fluid collection were anesthetized with 1% lidocaine. Percutaneously, approximately 10 mL of serosanguineous fluid was obtained with with a 5-[place] Skater catheter. The catheter was removed and the specimen was labeled and packaged and sent to the laboratory. The post procedure ultrasound demonstrates no evidence for hematoma. The patient tolerated procedure well without incident. IMPRESSION: Uncomplicated ultrasound-guided fine-needle aspiration of left medial thigh postsurgical seroma.
[2016-12-14] MEDS: Insulin GLARGINE(*) 1 UNITS UNIT SUBCUT SCH (18:01)
[2016-12-14] MEDS: Sertraline* 50 MG TAB PO SCH (18:02)
[2016-12-14] MEDS: Amitriptyline TAB* 50 MG PO SCH (18:02)
[2016-12-14] MEDS ORDERED: Atorvastatin* 40 MG TAB PO SCH (21:00)
[2016-12-14 22:09] LABS: Urine Bacteria 3+ (Absent); Urine Bilirubin Negative (Negative); Urine Glucose 1+(50 mg/dL) (Negative); Urine Nitrite Negative (Negative)
--- NOTE | 2016-12-14 23:52 | CONS ---
CONSULTATION REPORT: DATE OF CONSULT: 12/14/16 REQUESTING PHYSICIAN: Dr. Orozco. CONSULTING SERVICE: Infectious Disease. REASON FOR CONSULT: Right leg infection. IMPRESSION: 1. Status post right femoral popliteal bypass, 11/24/16, now with erythema along the length of incision, small amounts of purulent drainage. There is apparently a tribal vein graft and there is no prosthetic graft material present. She had a CT scan of the right leg because of swelling throughout the leg, it showed 10 x 4 x 1.8 cm fluid collection in the medial thigh. It was aspirated under ultrasound guidance today, serous fluid was removed. The fluid analysis included a Gram stain that showed no neutrophils, no organisms. It could be seroma, it could be infected seroma. She does have cellulitis associated with the incision. Given vascular surgery, there is a risk of resistant gram-negatives being part of the microbiologic differential. 2. End-stage renal disease, on hemodialysis via left upper extremity fistula. 3. PENICILLIN ALLERGY, tolerating cephalosporins. 4. Type 2 diabetes. RECOMMENDATION: I agree with broad-spectrum antibiotics, cefepime 1 g once a day, and vancomycin dose for hemodialysis while awaiting blood cultures and results of the right thigh fluid aspiration. We will also need to follow the incisional cellulitis assuming there is no microbiologic data to follow. HISTORY OF PRESENT ILLNESS: This is a 51-year-old on hemodialysis admitted with right leg pain and swelling. She was apparently admitted for weakness, however, and found to have hemoglobin of 4.8. She had a reticulocyte count of 7.6, her bilirubin is normal. She had been transfused. Her hemoglobin is 6 today. Mid November, she had a right femoral popliteal bypass with the tribal vein, was doing well initially, although had right leg swelling and so had various directions from Dr. York on wrapping the leg while she was at [facility]. She also had an oral antibiotic for an outpatient for possible cellulitis. She was admitted because of her weakness and anemia, and incidental note was made of her right leg finding, the CT scan was done with findings above, the fluid collections aspirated today. She thinks the swelling is a little bit less. Her strength is a bit better corresponding with her hemoglobin being up to 6 today. She has had no fevers, chills, or sweats. Her appetite has been good. PAST MEDICAL HISTORY: 1. End-stage renal disease, on hemodialysis via left upper extremity AV fistula. 2. Hypertension. 3. Hyperlipidemia. 4. Obesity. 5. Type 2 diabetes. 6. Gastroesophageal reflux disease. 7. Depression. 8. Anxiety. 9. COPD. 10. Status post tubal ligation. 11. Status post right femoral popliteal bypass, 11/23/16. 12. History of nephrolithiasis. MEDICATIONS: 1. Tylenol. 2. Albuterol. 3. Amitriptyline. 4. Aspirin. 5. Lipitor. 6. Cinacalcet. 7. Insulin glargine. 8. Cefepime 1 g a day. 9. Zofran. 10. Omeprazole. 11. Sertraline. 12. Sevelamer. 13. Oxycodone. ALLERGIES: To PENICILLIN. FAMILY HISTORY: Mother with seizures and diabetes. SOCIAL HISTORY: She lives in [place] with her . She had no travel or sick contacts. She was in a hospital in [place] and then was at [facility] for the last couple of weeks. She is a past smoker. REVIEW OF SYSTEMS: All negative to full review of systems except as noted above. PHYSICAL EXAM: Vital Signs: Temperature 37, heart rate 80, respiratory rate 20 , blood pressure 140/60, and O2 sat 100% on room air. In general, she is awake and not in distress. HEENT: There is no conjunctival hemorrhage. Oropharynx without lesions. Neurologic: She is oriented x3. Follows all commands. Moves all 4 extremities. Neck is supple. Lymph Nodes: There is no cervical, supraclavicular, inguinal, axillary, or epitrochlear lymphadenopathy. Heart has regular rate and rhythm with a systolic murmur, may correspond to her fistula. Lungs: Clear to auscultation bilaterally. Abdomen: Soft, nontender , nondistended. There are bowel sounds present. Skin: There is no rash or splinter hemorrhages. Musculoskeletal: There is no spine tenderness to palpation or joint synovitis. Right thigh incision is intact. There are some areas of eschar in the incision with a rim of intense erythema running along the length of the incision and small amount of seropurulent drainage from the distal aspect. LABORATORY DATA: White blood cell count 12.7, hemoglobin 6, platelets 386, MCV is 87. Creatinine is 3.8, potassium 4.8. CRP 87. Please see impressions and recommendations as outlined above, which I have discussed with Dr. Orozco. Thanks for asking me to see Ms. Suero in consultation. [id number]/[facility] #: [id number] [facility]
[2016-12-15] MEDS: Vancomycin Random Level* NOTE FOLLOW UP SCH (05:46)
[2016-12-15] MEDS: Morphine INJ* 2 MG/ML 1 ML CARPUJECT IV PRN ×4 (06:18→21:55)
[2016-12-15 06:20] LABS: Hematocrit 24 % (35-47); Hemoglobin 8.1 g/dl (12.0-16.0); Mean Corpuscular HGB Conc 33 g/dl (31-36); Mean Corpuscular Hemoglobin 30 pg (27-31); Mean Corpuscular Volume 88 fL (80-97); Mean Platelet Volume 7 um3 (7.4-10.4); Red Blood Count 2.75 10^6/ul (4.0-5.4); Red Cell Distribution Width 17 % (10.5-15); White Blood Count 12.6 10^3/ul (3.5-10.8)
[2016-12-15 06:39] LABS: BUN/Creatinine Ratio 8.5 (8-20); EGFR African American 10.3 (>60); HDL Cholesterol 24.5 mg/dL; Potassium 5.6 mmol/L (3.5-5.0)
[2016-12-15 06:55] LABS: Vancomycin Random 20.6 mcg/mL
[2016-12-15] MEDS: Docusate CAP* 100 MG PO SCH ×2 (08:20→20:47)
[2016-12-15] MEDS: Sevelamer TAB* 800 MG PO SCH ×3 (08:20→18:20)
[2016-12-15] MEDS: Pregabalin CAP(*) 25 MG PO SCH ×3 (08:20→20:45)
[2016-12-15] MEDS: Torsemide TAB* 20 MG PO SCH ×2 (08:20→20:47)
[2016-12-15] MEDS: Omeprazole CAP* 20 MG PO SCH (08:20)
[2016-12-15] MEDS: Aspirin EC Low Dose* 81 MG TAB.EC PO SCH (08:20)
[2016-12-15] MEDS: Insulin LISPRO* 1 UNITS UNIT SUBCUT SCH ×4 (08:24→21:51)
[2016-12-15] MEDS: oxyCODONE TAB* 5 MG TAB PO PRN ×2 (08:28→20:41)
--- NOTE | 2016-12-15 08:50 | PN ---
Subjective Date of Service: 12/15/16 Interval History: Pt is feeling better today than she did yesterday. She feels more awake. She continues to have severe pain in her R foot. She states the dressing overlying the ulcerations is very painful. Objective Active Medications: Acetaminophen (Tylenol Tab*) 650 mg PO Q4H PRN PRN Reason: FEVER/PAIN Albuterol (Ventolin Hfa Inhaler*) 2 puff INH Q4HR PRN PRN Reason: WHEEZING Amitriptyline HCl (Elavil Tab*) 25 mg PO QPM [facility] Last Admin: 12/14/16 18:02 Dose: 25 mg Aspirin (Aspirin Ec Low Dose*) 81 mg PO QAM [facility] Last Admin: 12/14/16 09:54 Dose: 81 mg Atorvastatin Calcium (Lipitor*) 40 mg PO 2100 [facility] Last Admin: 12/14/16 21:19 Dose: 40 mg Cetirizine HCl (Zyrtec*) 10 mg PO QAM PRN PRN Reason: allergies Cinacalcet (Sensipar Tab*) 60 mg PO DAILY [facility] Last Admin: 12/14/16 09:47 Dose: 60 mg Dextrose (D50w Syringe 50 Ml*) 12.5 gm IV PUSH .FOR FS < 60 - SS PRN PRN Reason: FS < 60 Docusate Sodium (Colace Cap*) 100 mg PO BID [facility] Last Admin: 12/14/16 21:20 Dose: 100 mg Cefepime HCl 1 gm/ Sodium (Chloride) 50 mls @ 100 mls/hr IVPB Q24HR [facility] Insulin Glargine (Lantus(*)) 18 units SUBCUT QPM [facility] Last Admin: 12/14/16 18:01 Dose: 18 unit Insulin Human Lispro (Humalog*) 0 units SUBCUT ACHS [facility] PRN Reason: Protocol Last Admin: 12/14/16 21:20 Dose: 1 unit Morphine Sulfate (Morphine Inj (Syringe)*) 2 mg IV Q4H PRN PRN Reason: PAIN Last Admin: 12/15/16 06:18 Dose: 2 mg Omeprazole (Prilosec Cap*) 20 mg PO QAM [facility] Last Admin: 12/14/16 09:47 Dose: 20 mg Ondansetron HCl (Zofran Inj*) 4 mg IV Q4H PRN PRN Reason: NAUSEA/VOMITING Oxycodone HCl (Roxycodone Tab*) 5 mg PO Q4H PRN PRN Reason: PAIN Last Admin: 12/14/16 21:18 Dose: 5 mg Pharmacy Consult (Vancomycin Random Level*) 1 note FOLLOW UP 0600 [facility] Last Admin: 12/15/16 05:46 Dose: Not Given Pregabalin (Lyrica Cap(*)) 75 mg PO TID [facility] Last Admin: 12/14/16 21:19 Dose: 75 mg Sertraline HCl (Zoloft*) 50 mg PO QPM [facility] Last Admin: 12/14/16 18:02 Dose: 50 mg Sevelamer Carbonate (Renvela Tab*) 800 mg PO TID WITH MEALS [facility] Last Admin: 12/14/16 17:27 Dose: 800 mg Torsemide (Demadex*) 20 mg PO BID [facility] Last Admin: 12/14/16 21:18 Dose: 20 mg Vital Signs 12/14/16 12/14/16 12/14/16 09:46 09:52 09:54 Temperature 97.5 F Pulse Rate 81 Respiratory 22 16 22 Rate Blood Pressure 122/63 (mmHg) O2 Sat by Pulse 95 Oximetry 12/14/16 12/14/16 12/14/16 11:12 11:26 12:30 Temperature 97.8 F 98.8 F Pulse Rate 84 80 Respiratory 22 20 16 Rate Blood Pressure 131/67 132/71 (mmHg) O2 Sat by Pulse 95 97 Oximetry 12/14/16 12/14/16 12/14/16 12:46 13:04 13:37 Temperature 98.8 F 98.1 F Pulse Rate 80 81 Respiratory 16 18 16 Rate Blood Pressure 132/71 126/59 (mmHg) O2 Sat by Pulse 97 96 Oximetry 12/14/16 12/14/16 12/14/16 14:00 14:40 14:47 Temperature 97.8 F Pulse Rate 81 Respiratory 16 18 16 Rate Blood Pressure 105/56 (mmHg) O2 Sat by Pulse 100 Oximetry 12/14/16 12/14/16 12/14/16 15:04 15:40 15:56 Temperature 98.2 F Pulse Rate 80 Respiratory 20 20 20 Rate Blood Pressure 140/63 (mmHg) O2 Sat by Pulse 100 Oximetry 12/14/16 12/14/16 12/14/16 16:47 19:44 19:57 Temperature 98.3 F Pulse Rate 77 Respiratory 20 16 18 Rate Blood Pressure 131/65 (mmHg) O2 Sat by Pulse 99 Oximetry 12/14/16 12/14/16 12/14/16 20:25 20:57 21:18 Temperature Pulse Rate Respiratory 18 16 18 Rate Blood Pressure (mmHg) O2 Sat by Pulse Oximetry 12/14/16 12/14/16 12/14/16 21:19 23:10 23:18 Temperature 97.3 F Pulse Rate 80 Respiratory 18 18 16 Rate Blood Pressure 140/75 (mmHg) O2 Sat by Pulse 99 Oximetry 12/14/16 12/15/16 12/15/16 23:19 06:18 06:29 Temperature 98.0 F Pulse Rate 85 Respiratory 16 18 16 Rate Blood Pressure 141/64 (mmHg) O2 Sat by Pulse 95 Oximetry Oxygen Devices in Use Now: None Appearance: Middle aged female sitting up in a chair, NAD Eyes: No Scleral Icterus Ears/Nose/Mouth/Throat: Mucous Membranes Moist Respiratory: Symmetrical Chest Expansion and Respiratory Effort, Clear to Auscultation Cardiovascular: NL Sounds; No Murmurs; No JVD, RRR, - - 2-3+ B/L LE edema Abdominal: NL Sounds; No Tenderness; No Distention - abdominal wall edema Extremities: No Clubbing, Cyanosis Skin: No Nodules or Sclerosis, - - Proximal R thigh incision with increased purulence, persistent erythema of the proximal incision and medial thigh Neurological: Alert and Oriented x 3 - more alert today than yesterday Result Diagrams: 12/15/16 06:13 12/15/16 06:13 Microbiology and Other Data: Microbiology 12/14/16 14:30 Stool Occult Blood ([facility]) - Final Stool 12/14/16 12:45 Gram Stain - Final Misc Fluid (See Comment) - Aspirate Assess/Plan/Problems-Billing Ms Suero is a 51 yo F with a h/o R fem-pop bypass 11/24/[address] York at [facility], HTN, HLD, type II DM and ESRD who presented to the ER with c/o worsened pain in her R ankle/foot and generalized weakness and was found to be severely anemic with a Hb of 4.8. - Patient Problems (1) Severe anemia Current Visit: Yes Status: Acute Code(s): D64.9 - ANEMIA, UNSPECIFIED SNOMED Code(s): 407198693 Comment: H/H improved after 4 units PRBC. The fluid collection in the R thigh is not a hematoma. ? "where the patient's blood went." She has heme positive stool but denies seen bright red blood in her stool or even melena which I would have expected as her H/H dropped so significantly. She may need GI eval (EGD). Will continue omeprazole and consider GI eval tomorrow. Repeat H/ H this afternoon pending. ? marrow suppression secondary to infection as cause of anemia in the setting of chronic anemia secondary to ESRD. (2) Superficial postoperative wound infection Current Visit: Yes Status: Acute Code(s): T81.4XXA - INFECTION FOLLOWING A PROCEDURE, INITIAL ENCOUNTER SNOMED Code(s): 386058330 Comment: Continue broad spectrum Abx per Dr. Recinos. He will follow back up tomorrow. Await culture of aspirated fluid. If she fails to respond the incision may need to be opened up and the fluid collection cleaned out. (3) HTN (hypertension) Current Visit: Yes Status: Acute Code(s): I10 - ESSENTIAL (PRIMARY) HYPERTENSION SNOMED Code(s): 80233899 Comment: BP is moderately elevated today. Will add back amlodipine. If still high tomorrow will add back lisinopril. (4) HLD (hyperlipidemia) Current Visit: Yes Status: Acute Code(s): E78.5 - HYPERLIPIDEMIA, UNSPECIFIED SNOMED Code(s): 37635377 Comment: Lipid profile now is better than 09/2015 but will still continue lipitor. (5) Type 2 DM with hypertension and ESRD on dialysis Current Visit: Yes Status: Acute Code(s): E11.22 - TYPE 2 DIABETES MELLITUS W DIABETIC CHRONIC KIDNEY DISEASE; I12.0 - HYP CHR KIDNEY DISEASE W STAGE 5 CHR KIDNEY DISEASE OR ESRD; N18.6 - END STAGE RENAL DISEASE; Z99.2 - DEPENDENCE ON RENAL DIALYSIS SNOMED Code(s): 46576098 Comment: The patient's sugars are under good control on lantus 18units SQ qHS. Continue this and lispro sliding scale. (6) ESRD (end stage renal disease) on dialysis Current Visit: Yes Status: Acute Code(s): N18.6 - END STAGE RENAL DISEASE; Z99.2 - DEPENDENCE ON RENAL DIALYSIS SNOMED Code(s): 595705430 Comment: Continue MWF dialysis. Continue sevelamer and sensipar. (7) COPD (chronic obstructive pulmonary disease) Current Visit: Yes Status: Acute Code(s): J44.9 - CHRONIC OBSTRUCTIVE PULMONARY DISEASE, UNSPECIFIED SNOMED Code(s): 53962081 Comment: No signs of acute exacerbation. Continue prn albuterol. (8) Depression with anxiety Current Visit: Yes Status: Acute Comment: Continue sertraline. (9) DVT prophylaxis Current Visit: Yes Status: Acute Code(s): [id number] - SNOMED Code(s): 862974237 Comment: SCD to L leg (not on right given wound) and no heparin secondary to severe anemia. (10) Full code status Current Visit: Yes Status: Acute Code(s): Z78.9 - OTHER SPECIFIED HEALTH STATUS SNOMED Code(s): 557267623
[2016-12-15] MEDS: Cinacalcet TAB* 30 MG PO SCH (09:04)
[2016-12-15 14:09] LABS: Albumin 3.1 g/dL (3.2-5.2); Phosphorus 5.3 mg/dL (2.5-5.0)
[2016-12-15] MEDS ORDERED: Epoetin Alfa* 10,000 UNITS/ML VIAL IV ONE (16:00)
[2016-12-15 17:56] LABS: Hematocrit 26 % (35-47); Hemoglobin 8.6 g/dl (12.0-16.0)
[2016-12-15] MEDS: Cefepime(*) 1 GM in NS 0.9% 50 ML* 50 ML IVPB SCH (18:15)
[2016-12-15] MEDS: Amitriptyline TAB* 50 MG PO SCH (18:20)
[2016-12-15] MEDS: Sertraline* 50 MG TAB PO SCH (18:21)
[2016-12-15] MEDS: Insulin GLARGINE(*) 1 UNITS UNIT SUBCUT SCH (18:22)
[2016-12-15] MEDS: amLODIPine TAB* 5 MG PO SCH (20:43)
[2016-12-15] MEDS: Acetaminophen TAB* 325 MG PO PRN (20:46)
[2016-12-15] MEDS: Atorvastatin* 20 MG TAB PO SCH (20:48)
[2016-12-16] MEDS: oxyCODONE TAB* 5 MG TAB PO PRN ×4 (00:41→20:15)
[2016-12-16] MEDS: Morphine INJ* 2 MG/ML 1 ML CARPUJECT IV PRN ×4 (05:41→23:05)
[2016-12-16] MEDS: Vancomycin Random Level* NOTE FOLLOW UP SCH (06:20)
[2016-12-16] MEDS: Aspirin EC Low Dose* 81 MG TAB.EC PO SCH (08:10)
[2016-12-16] MEDS: Torsemide TAB* 20 MG PO SCH ×2 (08:10→20:15)
[2016-12-16] MEDS: Omeprazole CAP* 20 MG PO SCH (08:10)
[2016-12-16] MEDS: Pregabalin CAP(*) 25 MG PO SCH ×3 (08:12→20:14)
[2016-12-16] MEDS: Insulin LISPRO* 1 UNITS UNIT SUBCUT SCH ×4 (08:13→21:09)
[2016-12-16] MEDS: Cefepime(*) 1 GM in NS 0.9% 50 ML* 50 ML IVPB SCH (08:13)
[2016-12-16] MEDS: Docusate CAP* 100 MG PO SCH ×2 (08:13→20:15)
[2016-12-16] MEDS: Sevelamer TAB* 800 MG PO SCH ×3 (09:03→18:02)
[2016-12-16] MEDS ORDERED: Vancomycin(*) 1,000 MG in NS 0.9% 250 ML* 250 ML IVPB ONE (10:30)
--- NOTE | 2016-12-16 11:02 | PN ---
Subjective Date of Service: 12/16/16 Interval History: Pt is feeling about the same today. She continues to complain of severe pain in her R foot (especially the heel). She denies any diarrhea. No SOB or CP. Objective Active Medications: Acetaminophen (Tylenol Tab*) 650 mg PO Q4H PRN PRN Reason: FEVER/PAIN Last Admin: 12/15/16 20:46 Dose: 650 mg Albuterol (Ventolin Hfa Inhaler*) 2 puff INH Q4HR PRN PRN Reason: WHEEZING Amitriptyline HCl (Elavil Tab*) 25 mg PO QPM [facility] Last Admin: 12/15/16 18:20 Dose: 25 mg Amlodipine Besylate (Norvasc Tab*) 2.5 mg PO BEDTIME [facility] Last Admin: 12/15/16 20:43 Dose: 2.5 mg Aspirin (Aspirin Ec Low Dose*) 81 mg PO QAM [facility] Last Admin: 12/16/16 08:10 Dose: 81 mg Atorvastatin Calcium (Lipitor*) 20 mg PO BEDTIME [facility] Last Admin: 12/15/16 20:48 Dose: 20 mg Cetirizine HCl (Zyrtec*) 10 mg PO QAM PRN PRN Reason: allergies Cinacalcet (Sensipar Tab*) 60 mg PO 1700 [facility] Dextrose (D50w Syringe 50 Ml*) 12.5 gm IV PUSH .FOR FS < 60 - SS PRN PRN Reason: FS < 60 Docusate Sodium (Colace Cap*) 100 mg PO BID [facility] Last Admin: 12/16/16 08:13 Dose: 100 mg Cefepime HCl 1 gm/ Sodium (Chloride) 50 mls @ 100 mls/hr IVPB Q24HR [facility] Last Admin: 12/16/16 08:13 Dose: 100 mls/hr Vancomycin HCl 1,000 mg/ (Sodium Chloride) 250 mls @ 166.667 mls/hr IVPB ONCE ONE Stop: 12/16/16 11:59 Insulin Glargine (Lantus(*)) 18 units SUBCUT QPM [facility] Last Admin: 12/15/16 18:22 Dose: 18 unit Insulin Human Lispro (Humalog*) 0 units SUBCUT ACHS [facility] PRN Reason: Protocol Last Admin: 12/16/16 08:13 Dose: Not Given Morphine Sulfate (Morphine Inj (Syringe)*) 2 mg IV Q4H PRN PRN Reason: PAIN Last Admin: 12/16/16 05:41 Dose: 2 mg Omeprazole (Prilosec Cap*) 20 mg PO QAM [facility] Last Admin: 12/16/16 08:10 Dose: 20 mg Ondansetron HCl (Zofran Inj*) 4 mg IV Q4H PRN PRN Reason: NAUSEA/VOMITING Oxycodone HCl (Roxycodone Tab*) 5 mg PO Q4H PRN PRN Reason: PAIN Last Admin: 12/16/16 08:09 Dose: 5 mg Pharmacy Consult (Vancomycin Random Level*) 1 note FOLLOW UP 0600 [facility] Last Admin: 12/16/16 06:20 Dose: Not Given Pregabalin (Lyrica Cap(*)) 75 mg PO TID [facility] Last Admin: 12/16/16 08:12 Dose: 75 mg Sertraline HCl (Zoloft*) 50 mg PO QPM [facility] Last Admin: 12/15/16 18:21 Dose: 50 mg Sevelamer Carbonate (Renvela Tab*) 800 mg PO TID WITH MEALS [facility] Last Admin: 12/16/16 09:03 Dose: 800 mg Torsemide (Demadex*) 20 mg PO BID [facility] Last Admin: 12/16/16 08:10 Dose: 20 mg Vital Signs 12/15/16 12/15/16 12/15/16 11:49 12:20 13:11 Temperature 97.9 F Pulse Rate 83 Respiratory 17 20 20 Rate Blood Pressure 153/66 (mmHg) O2 Sat by Pulse 93 Oximetry 12/15/16 12/15/16 12/15/16 18:10 19:10 20:00 Temperature Pulse Rate Respiratory 20 20 20 Rate Blood Pressure (mmHg) O2 Sat by Pulse Oximetry 12/15/16 12/15/16 12/15/16 20:27 20:41 20:45 Temperature 100.3 F Pulse Rate 95 Respiratory 18 16 16 Rate Blood Pressure 142/78 (mmHg) O2 Sat by Pulse 91 Oximetry 12/15/16 12/15/16 12/15/16 21:55 22:45 22:55 Temperature Pulse Rate Respiratory 20 16 16 Rate Blood Pressure (mmHg) O2 Sat by Pulse Oximetry 12/15/16 12/16/16 12/16/16 23:39 00:41 02:41 Temperature 98.1 F Pulse Rate 92 Respiratory 14 16 16 Rate Blood Pressure 133/59 (mmHg) O2 Sat by Pulse 91 Oximetry 12/16/16 12/16/16 12/16/16 03:35 04:00 05:41 Temperature 98.0 F Pulse Rate 85 85 Respiratory 18 16 16 Rate Blood Pressure 123/62 (mmHg) O2 Sat by Pulse 80 92 Oximetry 12/16/16 12/16/16 12/16/16 06:41 08:09 08:12 Temperature Pulse Rate Respiratory 14 14 14 Rate Blood Pressure (mmHg) O2 Sat by Pulse Oximetry Oxygen Devices in Use Now: None Appearance: Middle aged female sitting up in a chair, walks to bed, NAD Eyes: No Scleral Icterus Ears/Nose/Mouth/Throat: Mucous Membranes Moist Respiratory: Symmetrical Chest Expansion and Respiratory Effort, Clear to Auscultation Cardiovascular: RRR, - - III/ systolic murmur, continued 3+ LE edema Abdominal: NL Sounds; No Tenderness; No Distention Extremities: No Clubbing, Cyanosis Skin: No Nodules or Sclerosis, - - Slightly less erythema of the proximal R thigh incision, still purulence in the incision Neurological: Alert and Oriented x 3 Result Diagrams: 12/15/16 17:00 12/15/16 06:13 Microbiology and Other Data: Microbiology 12/14/16 14:30 Stool Occult Blood ([facility]) - Final Stool 12/14/16 12:45 Gram Stain - Final Misc Fluid (See Comment) - Aspirate Assess/Plan/Problems-Billing Ms Suero is a 51 yo F with a h/o R fem-pop bypass 11/24/[address] York at [facility], HTN, HLD, type II DM and ESRD who presented to the ER with c/o worsened pain in her R ankle/foot and generalized weakness and was found to be severely anemic with a Hb of 4.8. - Patient Problems (1) Severe anemia Current Visit: Yes Status: Acute Code(s): D64.9 - ANEMIA, UNSPECIFIED SNOMED Code(s): 807823442 Comment: The patient has acute on chronic anemia. Her chronic anemia is secondary to ESRD. The cause of her acute anemia is not completely clear. I suspect she has some blood loss secondary to GI loss (heme positive stool) but I also suspect she likely has some marrow suppression secondary to the infection. H/H remains stable after receiving 4 units PRBC. Follow up level for today is pending. Will ask for GI evaluation. (2) Superficial postoperative wound infection Current Visit: Yes Status: Acute Code(s): T81.4XXA - INFECTION FOLLOWING A PROCEDURE, INITIAL ENCOUNTER SNOMED Code(s): 989221086 Comment: The patient's wound infection appears slightly better today. Will continue vancomycin and cefepime for now. Culture from aspirate is still negative. Will watch through the weekened and monitor for continued improvment. (3) HTN (hypertension) Current Visit: Yes Status: Acute Code(s): I10 - ESSENTIAL (PRIMARY) HYPERTENSION SNOMED Code(s): 29776523 Comment: BP is under fair control. Continue amlodipine. Will likely add back lisinopril in next couple days. (4) HLD (hyperlipidemia) Current Visit: Yes Status: Acute Code(s): E78.5 - HYPERLIPIDEMIA, UNSPECIFIED SNOMED Code(s): 24954936 Comment: Lipid profile now is better than 09/2015 but will still continue lipitor. (5) Type 2 DM with hypertension and ESRD on dialysis Current Visit: Yes Status: Acute Code(s): E11.22 - TYPE 2 DIABETES MELLITUS W DIABETIC CHRONIC KIDNEY DISEASE; I12.0 - HYP CHR KIDNEY DISEASE W STAGE 5 CHR KIDNEY DISEASE OR ESRD; N18.6 - END STAGE RENAL DISEASE; Z99.2 - DEPENDENCE ON RENAL DIALYSIS SNOMED Code(s): 44426174 Comment: The patient's sugars are under good control on lantus 18units SQ qHS. Continue this and lispro sliding scale. (6) ESRD (end stage renal disease) on dialysis Current Visit: Yes Status: Acute Code(s): N18.6 - END STAGE RENAL DISEASE; Z99.2 - DEPENDENCE ON RENAL DIALYSIS SNOMED Code(s): 516621782 Comment: Continue MWF dialysis. Continue sevelamer and sensipar. (7) COPD (chronic obstructive pulmonary disease) Current Visit: Yes Status: Acute Code(s): J44.9 - CHRONIC OBSTRUCTIVE PULMONARY DISEASE, UNSPECIFIED SNOMED Code(s): 72570534 Comment: No signs of acute exacerbation. Continue prn albuterol. (8) Depression with anxiety Current Visit: Yes Status: Acute Comment: Continue sertraline. (9) DVT prophylaxis Current Visit: Yes Status: Acute Code(s): LLU5262 - SNOMED Code(s): 633505056 Comment: SCD to L leg (not on right given wound) and no heparin secondary to severe anemia. (10) Full code status Current Visit: Yes Status: Acute Code(s): Z78.9 - OTHER SPECIFIED HEALTH STATUS SNOMED Code(s): 068784622
[2016-12-16 11:36] LABS: Hematocrit 21 % (35-47); Mean Corpuscular HGB Conc 33 g/dl (31-36); Mean Corpuscular Hemoglobin 30 pg (27-31); Mean Corpuscular Volume 90 fL (80-97); Mean Platelet Volume 7 um3 (7.4-10.4); Red Blood Count 2.35 10^6/ul (4.0-5.4); Red Cell Distribution Width 17 % (10.5-15); White Blood Count 8.9 10^3/ul (3.5-10.8)
--- NOTE | 2016-12-16 15:21 | CONS ---
CC: Dr. Fontenot* GASTROENTEROLOGY CONSULTATION DATE OF CONSULTATION: 12/16/2016. REQUESTING PHYSICIAN: Dr. Orozco. REASON FOR CONSULT: Worsening anemia. HISTORY OF PRESENT ILLNESS: Ms. Suero is a 51-year-old female with multiple medical issues who was admitted for weakness and leg pain. She underwent a fem pop bypass a few weeks ago at [facility]. Upon admission, she was found to be more anemic than normal. She had seen Dr. Cohn in the past. He saw her in June of this year for an EGD and colonoscopy for iron deficiency anemia. Colonoscopy was normal except for a small polyp that was benign. No cause for her anemia. Her EGD showed mild erythema. He thought that her anemia was due to chronic PPI use, end-stage renal disease, erythema in the stomach, and the aspirin use. She denied any abdominal pain, no lightheadedness or dizziness. She does take aspirin every day; no other nonsteroidals. PAST MEDICAL HISTORY: Significant for end-stage renal disease, she is on hemodialysis Tuesday, Tuesday and Tuesday, hypertension, obesity, type 2 diabetes, dyspepsia, depression, hyperlipidemia, anxiety, COPD, tubal ligation, fem pop bypass, and kidney stones. PAST SURGICAL HISTORY: Fem pop bypass, AV fistula. MEDICATIONS: Torsemide, Zoloft, Lyrica, Oxycodone, Omeprazole, Lisinopril, Lactulose, insulin, Docusate, Sensipar, Cetirizine, aspirin, Amlodipine, Amitriptyline, Albuterol and acetaminophen. ALLERGIES: PENICILLIN. FAMILY HISTORY: Diabetes and seizures. SOCIAL HISTORY: She smoked for 20 years; she quit in 2013. No alcohol. REVIEW OF SYSTEMS: Twelve systems were reviewed. Other than that mentioned in the HPI were unremarkable. PHYSICAL EXAM: General: Chronically ill-appearing female who appears her stated age. Alert, oriented, pleasant, fluent, slightly sleepy. Vital signs: Temperature 98.0, blood pressure 123/62, pulse 85. HEENT : Mucus membranes are moist. Heart: Regular rate and rhythm. Lungs: Clear to auscultation. Skin: Warm and dry. Abdomen: Obese, positive bowel sounds, soft, nontender, nondistended. Extremities: She has a large fem pop scar on her right lower extremity. DIAGNOSTIC STUDIES/LAB DATA: Labs of note: Hemoglobin 4.8, her baseline is around 8, white count 8.9, platelets 305. INR 1.18. ASSESSMENT AND PLAN: Vefef[age]srbep[age]-old female with a work-up for iron deficiency anemia in June which included EGD and colonoscopy with no real significant findings. She is admitted now for weakness and other issues, however was found to be much more anemic than before. I think at this point we should repeat her endoscopy since that is where there was some slight erythema in the past. If this is unremarkable, we should consider capsule endoscopy. [id number]/[facility] #: [id number] [facility]
[2016-12-16] MEDS: Cinacalcet TAB* 30 MG PO SCH (18:01)
[2016-12-16] MEDS: Amitriptyline TAB* 50 MG PO SCH (18:02)
[2016-12-16] MEDS: Insulin GLARGINE(*) 1 UNITS UNIT SUBCUT SCH (18:03)
[2016-12-16] MEDS: Sertraline* 50 MG TAB PO SCH (18:04)
[2016-12-16 19:30] LABS: Hematocrit 23 % (35-47); Hemoglobin 7.7 g/dl (12.0-16.0)
[2016-12-16] MEDS: amLODIPine TAB* 5 MG PO SCH (20:14)
[2016-12-16] MEDS: Atorvastatin* 20 MG TAB PO SCH (20:15)
[2016-12-17] MEDS: Vancomycin Random Level* NOTE FOLLOW UP SCH ×2 (00:23→12:02)
[2016-12-17 06:48] LABS: Hematocrit 24 % (35-47); Mean Corpuscular HGB Conc 33 g/dl (31-36); Mean Corpuscular Hemoglobin 30 pg (27-31); Mean Corpuscular Volume 90 fL (80-97); Mean Platelet Volume 8 um3 (7.4-10.4); Red Blood Count 2.71 10^6/ul (4.0-5.4); Red Cell Distribution Width 18 % (10.5-15); White Blood Count 9.8 10^3/ul (3.5-10.8)
[2016-12-17 07:06] LABS: BUN/Creatinine Ratio 7.8 (8-20); EGFR African American 10.1 (>60); EGFR Non-African American 7.8 (>60)
[2016-12-17 07:26] LABS: Vancomycin Random 21.8 mcg/mL
[2016-12-17] MEDS: Insulin LISPRO* 1 UNITS UNIT SUBCUT SCH ×4 (08:06→22:06)
[2016-12-17] MEDS: Pregabalin CAP(*) 25 MG PO SCH ×3 (08:36→21:45)
[2016-12-17] MEDS: Torsemide TAB* 20 MG PO SCH ×2 (08:37→21:44)
[2016-12-17] MEDS: oxyCODONE TAB* 5 MG TAB PO PRN ×2 (08:38→21:53)
[2016-12-17] MEDS: Sevelamer TAB* 800 MG PO SCH ×3 (08:38→18:51)
[2016-12-17] MEDS: Docusate CAP* 100 MG PO SCH ×2 (08:38→21:44)
[2016-12-17] MEDS: Aspirin EC Low Dose* 81 MG TAB.EC PO SCH (08:38)
[2016-12-17] MEDS: Omeprazole CAP* 20 MG PO SCH (08:38)
[2016-12-17] MEDS: Cefepime(*) 1 GM in NS 0.9% 50 ML* 50 ML IVPB SCH (09:26)
[2016-12-17] MEDS: Morphine INJ* 2 MG/ML 1 ML CARPUJECT IV PRN (12:53)
[2016-12-17] MEDS ORDERED: Meperidine SYRINGE* 50 MG/ML ONE (14:32)
[2016-12-17] MEDS ORDERED: Midazolam* 1 MG/ML 10 ML VIAL (10 MG) ONE (14:33)
[2016-12-17] MEDS ORDERED: Epoetin Alfa* 10,000 UNITS/ML VIAL IV ONE (18:00)
[2016-12-17] MEDS: Amitriptyline TAB* 50 MG PO SCH (18:51)
[2016-12-17] MEDS: Insulin GLARGINE(*) 1 UNITS UNIT SUBCUT SCH (18:51)
[2016-12-17] MEDS: Cinacalcet TAB* 30 MG PO SCH (18:51)
[2016-12-17] MEDS: Sertraline* 50 MG TAB PO SCH (18:53)
--- NOTE | 2016-12-17 20:33 | PN ---
Subjective Date of Service: 12/17/16 Interval History: Pt is feeling ok. She is sleepy as she recently completed her EGD. She continues to c/o pain in her R heel. She denies any chest pain or SOB. Objective Active Medications: Acetaminophen (Tylenol Tab*) 650 mg PO Q4H PRN PRN Reason: FEVER/PAIN Last Admin: 12/15/16 20:46 Dose: 650 mg Albuterol (Ventolin Hfa Inhaler*) 2 puff INH Q4HR PRN PRN Reason: WHEEZING Amitriptyline HCl (Elavil Tab*) 25 mg PO QPM [facility] Last Admin: 12/17/16 18:51 Dose: 25 mg Amlodipine Besylate (Norvasc Tab*) 2.5 mg PO BEDTIME [facility] Last Admin: 12/16/16 20:14 Dose: 2.5 mg Aspirin (Aspirin Ec Low Dose*) 81 mg PO QAM [facility] Last Admin: 12/17/16 08:38 Dose: 81 mg Atorvastatin Calcium (Lipitor*) 20 mg PO BEDTIME [facility] Last Admin: 12/16/16 20:15 Dose: 20 mg Cetirizine HCl (Zyrtec*) 10 mg PO QAM PRN PRN Reason: allergies Cinacalcet (Sensipar Tab*) 60 mg PO 1700 [facility] Last Admin: 12/17/16 18:51 Dose: 60 mg Dextrose (D50w Syringe 50 Ml*) 12.5 gm IV PUSH .FOR FS < 60 - SS PRN PRN Reason: FS < 60 Docusate Sodium (Colace Cap*) 100 mg PO BID [facility] Last Admin: 12/17/16 08:38 Dose: 100 mg Cefepime HCl 1 gm/ Sodium (Chloride) 50 mls @ 100 mls/hr IVPB Q24HR [facility] Last Admin: 12/17/16 09:26 Dose: 100 mls/hr Vancomycin HCl 1,000 mg/ (Sodium Chloride) 250 mls @ 166.667 mls/hr IVPB 1200 ONE Stop: 12/18/16 13:29 Insulin Glargine (Lantus(*)) 18 units SUBCUT QPM [facility] Last Admin: 12/17/16 18:51 Dose: 18 unit Insulin Human Lispro (Humalog*) 0 units SUBCUT ACHS [facility] PRN Reason: Protocol Last Admin: 12/17/16 16:58 Dose: Not Given Morphine Sulfate (Morphine Inj (Syringe)*) 2 mg IV Q4H PRN PRN Reason: PAIN Last Admin: 12/17/16 12:53 Dose: 2 mg Omeprazole (Prilosec Cap*) 20 mg PO QAM [facility] Last Admin: 12/17/16 08:38 Dose: 20 mg Ondansetron HCl (Zofran Inj*) 4 mg IV Q4H PRN PRN Reason: NAUSEA/VOMITING Oxycodone HCl (Roxycodone Tab*) 5 mg PO Q4H PRN PRN Reason: PAIN Last Admin: 12/17/16 08:38 Dose: 5 mg Pharmacy Consult (Vancomycin Random Level*) 1 note FOLLOW UP 0600 [facility] Last Admin: 12/17/16 12:02 Dose: 1 note Pregabalin (Lyrica Cap(*)) 75 mg PO TID [facility] Last Admin: 12/17/16 16:57 Dose: Not Given Sertraline HCl (Zoloft*) 50 mg PO QPM [facility] Last Admin: 12/17/16 18:53 Dose: 50 mg Sevelamer Carbonate (Renvela Tab*) 800 mg PO TID WITH MEALS [facility] Last Admin: 12/17/16 18:51 Dose: 800 mg Torsemide (Demadex*) 20 mg PO BID [facility] Last Admin: 12/17/16 08:37 Dose: 20 mg Vital Signs 12/16/16 12/16/16 12/16/16 20:56 22:14 22:15 Temperature 97.9 F Pulse Rate 79 Respiratory 16 16 16 Rate Blood Pressure 124/56 (mmHg) O2 Sat by Pulse 99 Oximetry 12/16/16 12/16/16 12/17/16 23:05 23:30 00:05 Temperature 98.1 F Pulse Rate 82 Respiratory 16 16 16 Rate Blood Pressure 119/56 (mmHg) O2 Sat by Pulse 92 Oximetry 12/17/16 12/17/16 12/17/16 03:28 08:00 08:03 Temperature 99.1 F 98.4 F Pulse Rate 81 80 Respiratory 16 17 17 Rate Blood Pressure 127/62 132/59 (mmHg) O2 Sat by Pulse 96 98 Oximetry 12/17/16 12/17/16 12/17/16 08:36 08:38 10:36 Temperature Pulse Rate Respiratory 16 16 16 Rate Blood Pressure (mmHg) O2 Sat by Pulse Oximetry 12/17/16 12/17/16 12:17 12:53 Temperature 98.0 F Pulse Rate 81 Respiratory 14 18 Rate Blood Pressure 109/51 (mmHg) O2 Sat by Pulse 100 Oximetry Oxygen Devices in Use Now: None Appearance: Middle aged female sitting in dialysis chair, receiving dialysis, NAD Eyes: No Scleral Icterus Ears/Nose/Mouth/Throat: Mucous Membranes Moist Respiratory: Symmetrical Chest Expansion and Respiratory Effort, Clear to Auscultation - anteriorly Cardiovascular: NL Sounds; No Murmurs; No JVD, RRR, - - marked lower extremity edema Abdominal: NL Sounds; No Tenderness; No Distention Extremities: No Clubbing, Cyanosis Skin: - - R leg wound not inspected today as pt seen during dialysis Neurological: - - sleepy but arousable Result Diagrams: 12/17/16 06:15 12/17/16 06:15 Microbiology and Other Data: Microbiology 12/14/16 14:30 Stool Occult Blood (MADAY) - Final Stool 12/14/16 12:45 Gram Stain - Final Misc Fluid (See Comment) - Aspirate Assess/Plan/Problems-Billing Ms Suero is a 51 yo F with a h/o R fem-pop bypass 11/24/[address] York at [facility], HTN, HLD, type II DM and ESRD who presented to the ER with c/o worsened pain in her R ankle/foot and generalized weakness and was found to be severely anemic with a Hb of 4.8. - Patient Problems (1) Severe anemia Current Visit: Yes Status: Acute Code(s): D64.9 - ANEMIA, UNSPECIFIED SNOMED Code(s): 995744712 Comment: Pt underwent EGD which showed gastritis. Dr. Cohn questioned early watermelon stomach. ? need for colonoscopy. Continue to follow H/H. (2) Superficial postoperative wound infection Current Visit: Yes Status: Acute Code(s): T81.4XXA - INFECTION FOLLOWING A PROCEDURE, INITIAL ENCOUNTER SNOMED Code(s): 457976905 Comment: The patient's wound was not inspected today as she was seen in dialysis. Plan will be for the patient to receive IV Abx through the weekend and reassess with Dr. Recinos on 12/20/16. The aspirated fluid from the R thigh collection did not grow any bacteria. (3) HTN (hypertension) Current Visit: Yes Status: Acute Code(s): I10 - ESSENTIAL (PRIMARY) HYPERTENSION SNOMED Code(s): 59569408 Comment: BP is under fair control. Continue amlodipine. Monitor BP. (4) HLD (hyperlipidemia) Current Visit: Yes Status: Acute Code(s): E78.5 - HYPERLIPIDEMIA, UNSPECIFIED SNOMED Code(s): 29320894 Comment: Lipid profile now is better than 09/2015 but will still continue lipitor. (5) Type 2 DM with hypertension and ESRD on dialysis Current Visit: Yes Status: Acute Code(s): E11.22 - TYPE 2 DIABETES MELLITUS W DIABETIC CHRONIC KIDNEY DISEASE; I12.0 - HYP CHR KIDNEY DISEASE W STAGE 5 CHR KIDNEY DISEASE OR ESRD; N18.6 - END STAGE RENAL DISEASE; Z99.2 - DEPENDENCE ON RENAL DIALYSIS SNOMED Code(s): 08096888 Comment: The patient's sugars are under good control on lantus 18units SQ qHS. Continue this and lispro sliding scale. (6) ESRD (end stage renal disease) on dialysis Current Visit: Yes Status: Acute Code(s): N18.6 - END STAGE RENAL DISEASE; Z99.2 - DEPENDENCE ON RENAL DIALYSIS SNOMED Code(s): 809567337 Comment: Continue MWF dialysis. Continue sevelamer and sensipar. (7) COPD (chronic obstructive pulmonary disease) Current Visit: Yes Status: Acute Code(s): J44.9 - CHRONIC OBSTRUCTIVE PULMONARY DISEASE, UNSPECIFIED SNOMED Code(s): 79645082 Comment: No signs of acute exacerbation. Continue prn albuterol. (8) Depression with anxiety Current Visit: Yes Status: Acute Comment: Continue sertraline. (9) DVT prophylaxis Current Visit: Yes Status: Acute Code(s): QVS7560 - SNOMED Code(s): 559591023 Comment: SCD to L leg (not on right given wound) and no heparin secondary to severe anemia. (10) Full code status Current Visit: Yes Status: Acute Code(s): Z78.9 - OTHER SPECIFIED HEALTH STATUS SNOMED Code(s): 948161487
[2016-12-17] MEDS: Atorvastatin* 20 MG TAB PO SCH (21:44)
[2016-12-17] MEDS: amLODIPine TAB* 5 MG PO SCH (21:45)
[2016-12-17] MEDS: Acetaminophen TAB* 325 MG PO PRN (21:54)
[2016-12-18] MEDS: oxyCODONE TAB* 5 MG TAB PO PRN ×5 (07:06→17:41)
[2016-12-18] MEDS: Insulin LISPRO* 1 UNITS UNIT SUBCUT SCH ×4 (08:38→21:50)
[2016-12-18] MEDS: Omeprazole CAP* 20 MG PO SCH (08:55)
[2016-12-18] MEDS: Vancomycin Random Level* NOTE FOLLOW UP SCH (08:55)
[2016-12-18] MEDS: Cefepime(*) 1 GM in NS 0.9% 50 ML* 50 ML IVPB SCH (08:55)
[2016-12-18] MEDS: Sevelamer TAB* 800 MG PO SCH ×3 (08:56→17:39)
[2016-12-18] MEDS: Pregabalin CAP(*) 25 MG PO SCH ×3 (08:56→21:29)
[2016-12-18] MEDS: Torsemide TAB* 20 MG PO SCH ×2 (08:56→21:29)
[2016-12-18] MEDS: Docusate CAP* 100 MG PO SCH ×2 (08:56→21:30)
[2016-12-18] MEDS: Aspirin EC Low Dose* 81 MG TAB.EC PO SCH (08:56)
[2016-12-18] MEDS: Morphine INJ* 2 MG/ML 1 ML CARPUJECT IV PRN ×3 (10:29→21:24)
[2016-12-18] MEDS ORDERED: oxyCODONE TAB* 5 MG TAB PO PRN (10:36)
--- NOTE | 2016-12-18 10:40 | PRO ---
DATE: 12/17/16 - ROOM #422 REFERRING PHYSICIAN: Dipak Valiente * PROCEDURE: Upper gastrointestinal endoscopy to the distal duodenum. INDICATION: This 51-year-old woman who has been on hemodialysis since December 2015, developed profound weakness while in rehab, convalescing from an aortofemoral bypass 3 weeks ago. She had the bypass at [facility] 11/24/[address] Ashley York. After a week, she was transferred to [facility] where she has been convalescing until transferred to [facility] for admission when she was weak and syncopal. CBCs in the dialysis unit document that her hemoglobin on 11/23 the day before surgery was 7.9; on 12/02, 7.1; and on 12/08, 6.4. In the emergency room here on 12/13/16, hemoglobin was 4.8. She has been transfused back to 8.0. She had been known to have a declining hemoglobin and iron saturation in the spring and thus had bidirectional endoscopy in June that showed mild antral erythema (possible early vascular ectasias) and an unremarkable colonoscopy where diverticula were not seen and no blood was seen. She has been getting Venofer every 2 weeks 200 mg during dialysis but also receiving Venofer sequential infusions 200 mg x5 sessions on 2 occasions. Nonetheless, her iron saturations have been running low at 11% to 13% according to Dr. Valiente. At the rehab facility, she has been eating okay and had no vomiting until the day of admission and she was quite weak. She had been having regular stools and says there was no blood, except for once just a couple of days before admission. ENDOSCOPIST: Dr. Cohn. MEDICATIONS: Midazolam 3, meperidine 25. FINDINGS: She is an overweight woman appearing older than stated age and in chronically ill health as expected. She has been diabetic since at least 2004. ESOPHAGOGASTRODUODENOSCOPY: Larynx - symmetric, limited views. Esophagus - easily entered. Mucosa is normal in the upper, mid, and lower esophagus, the EG junction at 39 to 40, having no hiatal hernia and no erosions. Stomach - mucosa appears generally normal with no erosions in the cardia, fundus , or body. In the antrum, there is some minimal erythema but no erosions and no ulcer. There is a small amount of retained food in the gastric fundus. Duodenum - the pylorus, bulb, and second through fourth portions appear normal. Digital rectal exam revealed maroon greasy stool. IMPRESSION: 1. Antral gastritis -a still early vascular ectasia is a consideration. 2. Chronic anemia and iron deficiency - which suggests a very slow leak and other sources in the small bowel or right colonic arteriovenous malformation is a consideration. 3. Gastrointestinal bleeding acuity unclear - although she has maroon stool. She has not had a bowel movement per nursing notes in 2-1/2 to 3 days. The appearance of the stool suggests a more acute bleed (her historythan her chronic hemoglobin drift downward would suggest. This will be tracked. Another colonoscopy may be in order as right colonic arteriovenous malformations cannot always be ruled out with a single procedure. [id number]/CPS #: [id number] [facility]
--- NOTE | 2016-12-18 10:43 | PN ---
Subjective Date of Service: 12/18/16 Interval History: Pt is feeling ok. She continues to have severe pain in her R foot. She requests her pain medication regimen be looked at. She denies any SOB. After the dressing is removed, she thinks the edema may be slightly better. Objective Active Medications: Acetaminophen (Tylenol Tab*) 650 mg PO Q4H PRN PRN Reason: FEVER/PAIN Last Admin: 12/17/16 21:54 Dose: 650 mg Albuterol (Ventolin Hfa Inhaler*) 2 puff INH Q4HR PRN PRN Reason: WHEEZING Amitriptyline HCl (Elavil Tab*) 25 mg PO QPM [facility] Last Admin: 12/17/16 18:51 Dose: 25 mg Amlodipine Besylate (Norvasc Tab*) 2.5 mg PO BEDTIME [facility] Last Admin: 12/17/16 21:45 Dose: 2.5 mg Aspirin (Aspirin Ec Low Dose*) 81 mg PO QAM [facility] Last Admin: 12/18/16 08:56 Dose: 81 mg Atorvastatin Calcium (Lipitor*) 20 mg PO BEDTIME [facility] Last Admin: 12/17/16 21:44 Dose: 20 mg Cetirizine HCl (Zyrtec*) 10 mg PO QAM PRN PRN Reason: allergies Cinacalcet (Sensipar Tab*) 60 mg PO 1700 [facility] Last Admin: 12/17/16 18:51 Dose: 60 mg Dextrose (D50w Syringe 50 Ml*) 12.5 gm IV PUSH .FOR FS < 60 - SS PRN PRN Reason: FS < 60 Docusate Sodium (Colace Cap*) 100 mg PO BID [facility] Last Admin: 12/18/16 08:56 Dose: 100 mg Cefepime HCl 1 gm/ Sodium (Chloride) 50 mls @ 100 mls/hr IVPB Q24HR [facility] Last Admin: 12/18/16 08:55 Dose: 100 mls/hr Vancomycin HCl 1,000 mg/ (Sodium Chloride) 250 mls @ 166.667 mls/hr IVPB 1200 ONE Stop: 12/18/16 13:29 Insulin Glargine (Lantus(*)) 18 units SUBCUT QPM [facility] Last Admin: 12/17/16 18:51 Dose: 18 unit Insulin Human Lispro (Humalog*) 0 units SUBCUT ACHS [facility] PRN Reason: Protocol Last Admin: 12/18/16 08:38 Dose: Not Given Morphine Sulfate (Morphine Inj (Syringe)*) 2 mg IV Q4H PRN PRN Reason: PAIN Last Admin: 12/18/16 10:29 Dose: 2 mg Omeprazole (Prilosec Cap*) 20 mg PO QAM [facility] Last Admin: 12/18/16 08:55 Dose: 20 mg Ondansetron HCl (Zofran Inj*) 4 mg IV Q4H PRN PRN Reason: NAUSEA/VOMITING Oxycodone HCl (Roxycodone Tab*) 5 mg PO Q4H PRN PRN Reason: PAIN Last Admin: 12/18/16 07:06 Dose: 5 mg Pharmacy Consult (Vancomycin Random Level*) 1 note FOLLOW UP 0600 [facility] Last Admin: 12/18/16 08:55 Dose: 1 note Pregabalin (Lyrica Cap(*)) 75 mg PO TID [facility] Last Admin: 12/18/16 08:56 Dose: 75 mg Sertraline HCl (Zoloft*) 50 mg PO QPM [facility] Last Admin: 12/17/16 18:53 Dose: 50 mg Sevelamer Carbonate (Renvela Tab*) 800 mg PO TID WITH MEALS [facility] Last Admin: 12/18/16 08:56 Dose: 800 mg Torsemide (Demadex*) 20 mg PO BID [facility] Last Admin: 12/18/16 08:56 Dose: 20 mg Vital Signs 12/17/16 12/17/16 12/17/16 10:36 12:17 12:53 Temperature 98.0 F Pulse Rate 81 Respiratory 16 14 18 Rate Blood Pressure 109/51 (mmHg) O2 Sat by Pulse 100 Oximetry 12/17/16 12/17/16 12/17/16 21:45 21:53 22:00 Temperature 98.5 F Pulse Rate 89 Respiratory 16 18 17 Rate Blood Pressure 126/53 (mmHg) O2 Sat by Pulse 97 Oximetry 12/17/16 12/17/16 12/18/16 23:45 23:53 03:31 Temperature Pulse Rate 76 Respiratory 17 17 18 Rate Blood Pressure 100/45 (mmHg) O2 Sat by Pulse 100 Oximetry 12/18/16 12/18/16 12/18/16 03:58 07:06 08:00 Temperature Pulse Rate Respiratory 18 18 Rate Blood Pressure 106/46 (mmHg) O2 Sat by Pulse Oximetry 12/18/16 12/18/16 12/18/16 08:03 08:56 09:06 Temperature 98.0 F Pulse Rate 82 Respiratory 22 18 20 Rate Blood Pressure 122/58 (mmHg) O2 Sat by Pulse 100 Oximetry 12/18/16 10:29 Temperature Pulse Rate Respiratory 20 Rate Blood Pressure (mmHg) O2 Sat by Pulse Oximetry Oxygen Devices in Use Now: None Appearance: Middle aged female sitting up in a chair, NAD Eyes: No Scleral Icterus Ears/Nose/Mouth/Throat: Mucous Membranes Moist Respiratory: Symmetrical Chest Expansion and Respiratory Effort, Clear to Auscultation Cardiovascular: RRR, - - III/ systolic murmur, continued marked LE edema, ? slightly better today-thigh is softer Extremities: No Clubbing, Cyanosis Skin: No Nodules or Sclerosis, - - perhaps slightly less erythema of the R medial thigh, the incision is no worse proximally, there remains slough in the incision and incisional ulcers, ulcerations to the dorsum of the R foot and heel are dry, there is eschar present Neurological: Alert and Oriented x 3 Result Diagrams: 12/17/16 06:15 12/17/16 06:15 Microbiology and Other Data: Microbiology 12/14/16 14:30 Stool Occult Blood (MADAY) - Final Stool 12/14/16 12:45 Gram Stain - Final Misc Fluid (See Comment) - Aspirate Assess/Plan/Problems-Billing Ms Suero is a 51 yo F with a h/o R fem-pop bypass 11/24/[address] York at [facility], HTN, HLD, type II DM and ESRD who presented to the ER with c/o worsened pain in her R ankle/foot and generalized weakness and was found to be severely anemic with a Hb of 4.8. - Patient Problems (1) Severe anemia Current Visit: Yes Status: Acute Code(s): D64.9 - ANEMIA, UNSPECIFIED SNOMED Code(s): 886865126 Comment: Pt underwent EGD which showed gastritis. Dr. Cohn questioned early watermelon stomach. Will likely get prepped for colonoscopy for tomorrow. Will need to discuss the need for this with the patient as she is hesitant because of her lack of motility. Repeat H/H tomorrow AM. (2) Superficial postoperative wound infection Current Visit: Yes Status: Acute Code(s): T81.4XXA - INFECTION FOLLOWING A PROCEDURE, INITIAL ENCOUNTER SNOMED Code(s): 319917837 Comment: Wound looks slightly better today. Less erythema of the proximal medial R thigh. There is new erythema of the R calf. Continue cefepime and vancomycin. She will be on Abx through the weekend and will re-evaluate Tuesday for continued improvement. Will get wound consult. (3) HTN (hypertension) Current Visit: Yes Status: Acute Code(s): I10 - ESSENTIAL (PRIMARY) HYPERTENSION SNOMED Code(s): 56881761 Comment: BP is under fair control. Continue amlodipine. Monitor BP. (4) HLD (hyperlipidemia) Current Visit: Yes Status: Acute Code(s): E78.5 - HYPERLIPIDEMIA, UNSPECIFIED SNOMED Code(s): 11739212 Comment: Lipid profile now is better than 09/2015 but will still continue lipitor. (5) Type 2 DM with hypertension and ESRD on dialysis Current Visit: Yes Status: Acute Code(s): E11.22 - TYPE 2 DIABETES MELLITUS W DIABETIC CHRONIC KIDNEY DISEASE; I12.0 - HYP CHR KIDNEY DISEASE W STAGE 5 CHR KIDNEY DISEASE OR ESRD; N18.6 - END STAGE RENAL DISEASE; Z99.2 - DEPENDENCE ON RENAL DIALYSIS SNOMED Code(s): 23388002 Comment: The patient's sugars are under good control on lantus 18units SQ qHS. Continue this and lispro sliding scale. (6) ESRD (end stage renal disease) on dialysis Current Visit: Yes Status: Acute Code(s): N18.6 - END STAGE RENAL DISEASE; Z99.2 - DEPENDENCE ON RENAL DIALYSIS SNOMED Code(s): 460372735 Comment: Continue MWF dialysis. Continue sevelamer and sensipar. (7) COPD (chronic obstructive pulmonary disease) Current Visit: Yes Status: Acute Code(s): J44.9 - CHRONIC OBSTRUCTIVE PULMONARY DISEASE, UNSPECIFIED SNOMED Code(s): 94341820 Comment: No signs of acute exacerbation. Continue prn albuterol. (8) Depression with anxiety Current Visit: Yes Status: Acute Comment: Continue sertraline. (9) DVT prophylaxis Current Visit: Yes Status: Acute Code(s): HDD7100 - SNOMED Code(s): 705330691 Comment: SCD to L leg (not on right given wound) and no heparin secondary to severe anemia. (10) Full code status Current Visit: Yes Status: Acute Code(s): Z78.9 - OTHER SPECIFIED HEALTH STATUS SNOMED Code(s): 094460425
[2016-12-18] MEDS ORDERED: Vancomycin(*) 1,000 MG in NS 0.9% 250 ML* 250 ML IVPB ONE (12:00)
[2016-12-18 12:27] LABS: Hematocrit 27 % (35-47); Hemoglobin 8.8 g/dl (12.0-16.0); Mean Corpuscular HGB Conc 33 g/dl (31-36); Mean Corpuscular Hemoglobin 30 pg (27-31); Mean Corpuscular Volume 90 fL (80-97); Mean Platelet Volume 7 um3 (7.4-10.4); Red Blood Count 2.95 10^6/ul (4.0-5.4); Red Cell Distribution Width 17 % (10.5-15); White Blood Count 9.8 10^3/ul (3.5-10.8)
--- NOTE | 2016-12-18 16:11 | RAD ---
HISTORY: Right lower extremity pain and edema. The patient has surgical history includes recent right femoral bypass surgery TECHNIQUE: Multiple transverse and longitudinal ultrasound images were obtained of the veins of the right lower extremity using grayscale, color Doppler, and spectral Doppler imaging with and without compression and with augmentation. FINDINGS: VEINS: The common femoral vein, deep femoral vein, proximal and mid level femoral vein and popliteal vein are compressible throughout their course, with normal flow on color Doppler imaging and normal response to augmentation on spectral Doppler imaging. Due to overlying edema reliable visualization of the mid-level and distal femoral vein could not be acquired. SOFT TISSUES: There is subcutaneous edema with a 1 cm thick fluid collection between the perimuscular fascia and subcutaneous fat. IMPRESSION: 1. No sonographic evidence of deep vein thrombosis although the mid-level and distal femoral vein are incompletely evaluated due to overlying edema. 2. Subcutaneous edema with persistent fluid collection between the subcutaneous fat and perimuscular fascia.
[2016-12-18] MEDS: Cinacalcet TAB* 30 MG PO SCH (17:38)
[2016-12-18] MEDS: Sertraline* 50 MG TAB PO SCH (17:38)
[2016-12-18] MEDS: Amitriptyline TAB* 50 MG PO SCH (17:39)
[2016-12-18] MEDS: Insulin GLARGINE(*) 1 UNITS UNIT SUBCUT SCH (17:41)
[2016-12-18] MEDS: PEG 3000 GI LAVAGE* 1 GALLON PO SCH ×2 (20:00→23:47)
[2016-12-18] MEDS: Atorvastatin* 20 MG TAB PO SCH (21:29)
[2016-12-18] MEDS: amLODIPine TAB* 5 MG PO SCH (21:30)
[2016-12-19] MEDS: Morphine INJ* 2 MG/ML 1 ML CARPUJECT IV PRN ×2 (02:40→10:20)
[2016-12-19 05:32] LABS: Hematocrit 24 % (35-47); Hemoglobin 7.8 g/dl (12.0-16.0); Mean Corpuscular HGB Conc 33 g/dl (31-36); Mean Corpuscular Hemoglobin 30 pg (27-31); Mean Corpuscular Volume 89 fL (80-97); Mean Platelet Volume 8 um3 (7.4-10.4); Red Blood Count 2.64 10^6/ul (4.0-5.4); Red Cell Distribution Width 17 % (10.5-15); White Blood Count 9.2 10^3/ul (3.5-10.8)
[2016-12-19 05:47] LABS: BUN/Creatinine Ratio 6.5 (8-20); Calcium 7.6 mg/dL (8.6-10.3); EGFR Non-African American 8.5 (>60); Potassium 4.1 mmol/L (3.5-5.0); Vancomycin Random 21.5 mcg/mL
[2016-12-19] MEDS: Vancomycin Random Level* NOTE FOLLOW UP SCH (05:52)
[2016-12-19] MEDS: Aspirin EC Low Dose* 81 MG TAB.EC PO SCH (07:37)
[2016-12-19] MEDS: oxyCODONE TAB* 5 MG TAB PO PRN ×3 (07:38→17:20)
[2016-12-19] MEDS: Pregabalin CAP(*) 25 MG PO SCH ×3 (07:38→21:14)
[2016-12-19] MEDS: Sevelamer TAB* 800 MG PO SCH ×4 (07:38→17:19)
[2016-12-19] MEDS: Docusate CAP* 100 MG PO SCH ×2 (07:39→21:15)
[2016-12-19] MEDS: Torsemide TAB* 20 MG PO SCH ×2 (07:39→21:15)
[2016-12-19] MEDS: Omeprazole CAP* 20 MG PO SCH (07:39)
[2016-12-19] MEDS: Insulin LISPRO* 1 UNITS UNIT SUBCUT SCH ×4 (08:35→22:08)
--- NOTE | 2016-12-19 10:17 | PN ---
Subjective Date of Service: 12/19/16 Interval History: Pt is feeling ok. She has been drinking the golytely but has not had a BM yet. She states she did notice some blood on the toilet paper when she tried to go earlier this AM. The pain in her heel is slightly better today with the increased dose of oxycodone. Objective Active Medications: Acetaminophen (Tylenol Tab*) 650 mg PO Q4H PRN PRN Reason: FEVER/PAIN Last Admin: 12/17/16 21:54 Dose: 650 mg Albuterol (Ventolin Hfa Inhaler*) 2 puff INH Q4HR PRN PRN Reason: WHEEZING Amitriptyline HCl (Elavil Tab*) 25 mg PO QPM [facility] Last Admin: 12/18/16 17:39 Dose: 25 mg Amlodipine Besylate (Norvasc Tab*) 2.5 mg PO BEDTIME [facility] Last Admin: 12/18/16 21:30 Dose: 2.5 mg Aspirin (Aspirin Ec Low Dose*) 81 mg PO QAM [facility] Last Admin: 12/19/16 07:37 Dose: 81 mg Atorvastatin Calcium (Lipitor*) 20 mg PO BEDTIME [facility] Last Admin: 12/18/16 21:29 Dose: 20 mg Cetirizine HCl (Zyrtec*) 10 mg PO QAM PRN PRN Reason: allergies Cinacalcet (Sensipar Tab*) 60 mg PO 1700 [facility] Last Admin: 12/18/16 17:38 Dose: 60 mg Dextrose (D50w Syringe 50 Ml*) 12.5 gm IV PUSH .FOR FS < 60 - SS PRN PRN Reason: FS < 60 Docusate Sodium (Colace Cap*) 100 mg PO BID [facility] Last Admin: 12/19/16 07:39 Dose: 100 mg Cefepime HCl 1 gm/ Sodium (Chloride) 50 mls @ 100 mls/hr IVPB Q24HR [facility] Last Admin: 12/18/16 08:55 Dose: 100 mls/hr Insulin Glargine (Lantus(*)) 18 units SUBCUT QPM [facility] Last Admin: 12/18/16 17:41 Dose: 18 unit Insulin Human Lispro (Humalog*) 0 units SUBCUT ACHS KEVIN PRN Reason: Protocol Last Admin: 12/19/16 08:35 Dose: Not Given Morphine Sulfate (Morphine Inj (Syringe)*) 2 mg IV Q4H PRN PRN Reason: PAIN Last Admin: 12/19/16 02:40 Dose: 2 mg Omeprazole (Prilosec Cap*) 20 mg PO QAM [facility] Last Admin: 12/19/16 07:39 Dose: 20 mg Ondansetron HCl (Zofran Inj*) 4 mg IV Q4H PRN PRN Reason: NAUSEA/VOMITING Oxycodone HCl (Roxycodone Tab*) 5 mg PO Q4H PRN PRN Reason: Pain 1-5 Last Admin: 12/18/16 17:41 Dose: 5 mg Oxycodone HCl (Roxycodone Tab*) 10 mg PO Q4H PRN PRN Reason: Pain 6-10 Last Admin: 12/19/16 07:38 Dose: 10 mg Pharmacy Consult (Vancomycin Random Level*) 1 note FOLLOW UP 0600 [facility] Last Admin: 12/19/16 05:52 Dose: 1 note Polyethylene Glycol/Electrolytes (Golytely*) 0 ml PO ONCE [facility] Stop: 12/19/16 12:00 Last Admin: 12/18/16 20:00 Dose: 4,000 ml Pregabalin (Lyrica Cap(*)) 75 mg PO TID [facility] Last Admin: 12/19/16 07:38 Dose: 75 mg Sertraline HCl (Zoloft*) 50 mg PO QPM [facility] Last Admin: 12/18/16 17:38 Dose: 50 mg Sevelamer Carbonate (Renvela Tab*) 800 mg PO TID WITH MEALS [facility] Last Admin: 12/19/16 08:35 Dose: Not Given Torsemide (Demadex*) 20 mg PO BID [facility] Last Admin: 12/19/16 07:39 Dose: 20 mg Vital Signs 12/18/16 12/18/16 12/18/16 10:29 12:06 12:34 Temperature 98.7 F Pulse Rate 81 Respiratory 20 20 20 Rate Blood Pressure 130/59 (mmHg) O2 Sat by Pulse 100 Oximetry 12/18/16 12/18/16 12/18/16 12:35 13:15 15:09 Temperature Pulse Rate Respiratory 20 20 22 Rate Blood Pressure (mmHg) O2 Sat by Pulse Oximetry 12/18/16 12/18/16 12/18/16 16:09 16:22 17:40 Temperature 99.1 F Pulse Rate 87 Respiratory 18 18 22 Rate Blood Pressure 128/59 (mmHg) O2 Sat by Pulse 100 Oximetry 12/18/16 12/18/16 12/18/16 17:41 19:40 19:41 Temperature Pulse Rate Respiratory 22 16 16 Rate Blood Pressure (mmHg) O2 Sat by Pulse Oximetry 12/18/16 12/18/16 12/18/16 20:00 20:24 21:24 Temperature 98.9 F Pulse Rate 84 Respiratory 16 20 18 Rate Blood Pressure 129/56 (mmHg) O2 Sat by Pulse 96 Oximetry 12/18/16 12/18/16 12/18/16 21:29 22:24 23:29 Temperature Pulse Rate Respiratory 17 15 15 Rate Blood Pressure (mmHg) O2 Sat by Pulse Oximetry 12/18/16 12/19/16 12/19/16 23:33 02:40 03:40 Temperature 98.4 F Pulse Rate 78 Respiratory 16 16 14 Rate Blood Pressure 107/51 (mmHg) O2 Sat by Pulse 91 Oximetry 12/19/16 12/19/16 03:47 07:38 Temperature 98.0 F Pulse Rate 73 Respiratory 16 16 Rate Blood Pressure 117/55 (mmHg) O2 Sat by Pulse 91 Oximetry Oxygen Devices in Use Now: None Appearance: Middle aged female sitting up in bed, NAD Eyes: No Scleral Icterus Ears/Nose/Mouth/Throat: Mucous Membranes Moist Respiratory: Symmetrical Chest Expansion and Respiratory Effort, Clear to Auscultation Cardiovascular: NL Sounds; No Murmurs; No JVD, RRR, - - marked LE edema-no better Abdominal: NL Sounds; No Tenderness; No Distention Extremities: No Clubbing, Cyanosis Skin: No Nodules or Sclerosis, - - erythema at proximal R thigh incision slightly better today, the R groin is very moist, ulcerations on feet essentially unchanged Neurological: Alert and Oriented x 3 Result Diagrams: 12/19/16 04:57 12/19/16 04:57 Microbiology and Other Data: Microbiology 12/14/16 14:30 Stool Occult Blood (MADAY) - Final Stool 12/14/16 12:45 Gram Stain - Final Misc Fluid (See Comment) - Aspirate Assess/Plan/Problems-Billing Ms Suero is a 51 yo F with a h/o R fem-pop bypass 11/24/[address] York at [facility], HTN, HLD, type II DM and ESRD who presented to the ER with c/o worsened pain in her R ankle/foot and generalized weakness and was found to be severely anemic with a Hb of 4.8. - Patient Problems (1) Severe anemia Current Visit: Yes Status: Acute Code(s): D64.9 - ANEMIA, UNSPECIFIED SNOMED Code(s): 240203439 Comment: Plan is for colonoscopy today however the patient has not had a BM yet today however and I do not think she will be able to under go colonoscopy today. Continue to follow H/H. (2) Superficial postoperative wound infection Current Visit: Yes Status: Acute Code(s): T81.4XXA - INFECTION FOLLOWING A PROCEDURE, INITIAL ENCOUNTER SNOMED Code(s): 188548850 Comment: Wound looks slightly better today. Less erythema of the proximal medial R thigh. Continue cefepime and vanco. She has mild erythema of the R calf that is more today than yesterday. Await further recommendations from Dr. Recinos. Wound consult pending. (3) HTN (hypertension) Current Visit: Yes Status: Acute Code(s): I10 - ESSENTIAL (PRIMARY) HYPERTENSION SNOMED Code(s): 28333179 Comment: BP is under good control. Continue amlodipine. Monitor BP. (4) HLD (hyperlipidemia) Current Visit: Yes Status: Acute Code(s): E78.5 - HYPERLIPIDEMIA, UNSPECIFIED SNOMED Code(s): 32888734 Comment: Lipid profile now is better than 09/2015 but will still continue lipitor. (5) Type 2 DM with hypertension and ESRD on dialysis Current Visit: Yes Status: Acute Code(s): E11.22 - TYPE 2 DIABETES MELLITUS W DIABETIC CHRONIC KIDNEY DISEASE; I12.0 - HYP CHR KIDNEY DISEASE W STAGE 5 CHR KIDNEY DISEASE OR ESRD; N18.6 - END STAGE RENAL DISEASE; Z99.2 - DEPENDENCE ON RENAL DIALYSIS SNOMED Code(s): 22209744 Comment: The patient's sugars are low this AM. If they remain low or if she is not going to get scoped will start D5 or let the patient have clears. (6) ESRD (end stage renal disease) on dialysis Current Visit: Yes Status: Acute Code(s): N18.6 - END STAGE RENAL DISEASE; Z99.2 - DEPENDENCE ON RENAL DIALYSIS SNOMED Code(s): 011343581 Comment: Continue MWF dialysis. Continue sevelamer and sensipar. (7) COPD (chronic obstructive pulmonary disease) Current Visit: Yes Status: Acute Code(s): J44.9 - CHRONIC OBSTRUCTIVE PULMONARY DISEASE, UNSPECIFIED SNOMED Code(s): 48733636 Comment: No signs of acute exacerbation. Continue prn albuterol. (8) Depression with anxiety Current Visit: Yes Status: Acute Comment: Continue sertraline. (9) DVT prophylaxis Current Visit: Yes Status: Acute Code(s): XPL4895 - SNOMED Code(s): 312894716 Comment: SCD to L leg (not on right given wound) and no heparin secondary to severe anemia. (10) Full code status Current Visit: Yes Status: Acute Code(s): Z78.9 - OTHER SPECIFIED HEALTH STATUS SNOMED Code(s): 070684834
[2016-12-19] MEDS: Cefepime(*) 1 GM in NS 0.9% 50 ML* 50 ML IVPB SCH (10:20)
[2016-12-19] MEDS ORDERED: Midazolam* 1 MG/ML 10 ML VIAL (10 MG) ONE (14:03)
[2016-12-19] MEDS ORDERED: Meperidine SYRINGE* 50 MG/ML ONE (14:03)
--- NOTE | 2016-12-19 14:06 | RAD ---
Indication: Severe anemia. Abdominal pain. Evaluate for volume of stool in colon. Comparison: November 03, 2016 CT. Technique: Supine and upright views of the abdomen. Report: No radiographic evidence for free air. Unremarkable bowel gas pattern. Moderate stool in the colon without significant rectal distension. Suggestion of a few fluid levels at the transverse and LEFT colon on the upright view. Peripheral vascular calcifications noted. Unremarkable soft tissue contours accounting for large body habitus. IMPRESSION: Only a moderate volume of stool is visualized within the colon. Suggestion of a few fluid levels at the transverse and descending colon; consider potential gastroenteritis.
[2016-12-19] MEDS: Cinacalcet TAB* 30 MG PO SCH (17:15)
[2016-12-19] MEDS: Amitriptyline TAB* 50 MG PO SCH (17:20)
[2016-12-19] MEDS: Sertraline* 50 MG TAB PO SCH (17:20)
[2016-12-19] MEDS: amLODIPine TAB* 5 MG PO SCH (21:15)
[2016-12-19] MEDS: Atorvastatin* 20 MG TAB PO SCH (21:15)
[2016-12-19] MEDS: Insulin GLARGINE(*) 1 UNITS UNIT SUBCUT SCH (22:07)
[2016-12-20] MEDS: Vancomycin Random Level* NOTE FOLLOW UP SCH (06:41)
[2016-12-20] MEDS: Insulin LISPRO* 1 UNITS UNIT SUBCUT SCH ×4 (07:16→22:30)
[2016-12-20] MEDS: oxyCODONE TAB* 5 MG TAB PO PRN ×3 (07:29→17:01)
[2016-12-20] MEDS: Aspirin EC Low Dose* 81 MG TAB.EC PO SCH (07:30)
[2016-12-20] MEDS: Torsemide TAB* 20 MG PO SCH ×2 (07:30→22:27)
[2016-12-20] MEDS: Sevelamer TAB* 800 MG PO SCH ×3 (07:30→16:55)
[2016-12-20] MEDS: Pregabalin CAP(*) 25 MG PO SCH ×3 (07:30→22:30)
[2016-12-20] MEDS: Docusate CAP* 100 MG PO SCH ×2 (07:30→22:29)
[2016-12-20] MEDS: Omeprazole CAP* 20 MG PO SCH (07:30)
[2016-12-20] MEDS: Cefepime(*) 1 GM in NS 0.9% 50 ML* 50 ML IVPB SCH (07:37)
--- NOTE | 2016-12-20 09:17 | PRO ---
DATE: 12/19/16 - ROOM #422 REFERRING PHYSICIANS: Dr. Dipak Fontenot, Dr. Dipak Valiente * PROCEDURES: Colonoscopy to cecum and non-electrified snare excision ileocecal bifid, 7 mm polyp with subsequent clipping. INDICATION: This 51-year-old woman has had hemoglobin trend downward, it has been unexplained. It has been slow and sequential and then during this hospitalization digital rectal has revealed a maroon stool. This has potentially suggested patterns of bleeding. A colonoscopy June 2016, which was somewhat limited and difficult, did not disclose any source of chronic gastrointestinal blood loss or potential acute blood loss. Upper endoscopy yesterday likewise showed a little bit of gastric retention, but no source of any kind of blood loss. Colonoscopy in June 2016, which was somewhat limited and difficult, did not disclose any source of chronic gastrointestinal blood loss or potential acute blood loss. Upper endoscopy yesterday and likewise showed a little bit of gastric retention , but no source of any kind of blood loss. ENDOSCOPIST: Dr. Cohn. MEDICATIONS: Midazolam 4, meperidine 25. FINDINGS: She is a chronically ill-appearing woman, moderately overweight. She had been given CoLyte last night and took it. She had 1 small stool. She was drinking this morning, then it was observed that she was not having any stool. She was given extra time and encouraged to complete the prep. Stools began occurring at around 9:30 and then 10 and 10:30 a.m. She was given an additional time. She had multiple passages. I could say that it was clear, but it was a liquid. As a diabetic with interruption in her diet, which is important to finds a independent infection in her leg and elected to get whatever information was possible at this time at around 2:30 p.m. the procedure began. She was positioned left side down. Small amount of sedative was given. Initial views showed a poor prep, but the stool is liquid. Extensive suctioning done and views appeared adequate to exclude any active bleeding, recent clots, obstructing lesion or major polyp. Passing through the sigmoid, some lavage did reveal small diverticuli. The extent could not be accurately said, but would either be mild to mild to moderate. No haustral changes consistent with severe diverticulosis were seen. The scope advanced into the descending then transverse and right colon. There were areas with deep of fluid that did have particulate debris and thus views were probably 85 to 90%. Over the ileocecal valve a bifid small clearly benign appearing polyp is seen 7 to 8 mm. Views are obtained of the cecum with patient taking a deep breath and cecal views were 90% seen. No blood was seen and no AVM. Lavage was done. The polyps were removed and there was an expected 30 to 45 seconds of blood oozing. The bleeding ceased. Given her dialysis and anticipated need for anticoagulation at times 2 clips were applied for prevention. This was at a time with no active bleeding, but for prevention. During slow withdrawal, as best could be done, no additional lesions were seen. IMPRESSION: 1. Mild sigmoid diverticulosis. 2. Ileocecal polyp - removed and clipped. 3. Anemia and gastrointestinal bleeding - interplay of factors causing them remained to be determined and follow up hemoccults will be important along with the course of her hemoglobin. [id number]/CPS #: [id number] LILLY
--- NOTE | 2016-12-20 09:42 | PN ---
Subjective Date of Service: 12/20/16 Interval History: Pt seen in dialysis. She asks that I get ahold of her nurse to ask her to bring morphine IV to her as her heel pain is currently bad. She denies any SOB. No other issues. Objective Active Medications: Acetaminophen (Tylenol Tab*) 650 mg PO Q4H PRN PRN Reason: FEVER/PAIN Last Admin: 12/17/16 21:54 Dose: 650 mg Albuterol (Ventolin Hfa Inhaler*) 2 puff INH Q4HR PRN PRN Reason: WHEEZING Amitriptyline HCl (Elavil Tab*) 25 mg PO QPM [facility] Last Admin: 12/19/16 17:20 Dose: 25 mg Amlodipine Besylate (Norvasc Tab*) 2.5 mg PO BEDTIME [facility] Last Admin: 12/19/16 21:15 Dose: 2.5 mg Aspirin (Aspirin Ec Low Dose*) 81 mg PO QAM [facility] Last Admin: 12/20/16 07:30 Dose: 81 mg Atorvastatin Calcium (Lipitor*) 20 mg PO BEDTIME [facility] Last Admin: 12/19/16 21:15 Dose: 20 mg Cetirizine HCl (Zyrtec*) 10 mg PO QAM PRN PRN Reason: allergies Cinacalcet (Sensipar Tab*) 60 mg PO 1700 [facility] Last Admin: 12/19/16 17:15 Dose: 60 mg Dextrose (D50w Syringe 50 Ml*) 12.5 gm IV PUSH .FOR FS < 60 - SS PRN PRN Reason: FS < 60 Docusate Sodium (Colace Cap*) 100 mg PO BID [facility] Last Admin: 12/20/16 07:30 Dose: 100 mg Cefepime HCl 1 gm/ Sodium (Chloride) 50 mls @ 100 mls/hr IVPB Q24HR [facility] Last Admin: 12/20/16 07:37 Dose: 100 mls/hr Insulin Glargine (Lantus(*)) 18 units SUBCUT QPM [facility] Last Admin: 12/19/16 22:07 Dose: Not Given Insulin Human Lispro (Humalog*) 0 units SUBCUT ACHS KEVIN PRN Reason: Protocol Last Admin: 12/20/16 07:16 Dose: Not Given Methadone HCl (Dolophine Tab*) 5 mg PO Q12H [facility] Morphine Sulfate (Morphine Inj (Syringe)*) 2 mg IV Q4H PRN PRN Reason: PAIN Last Admin: 12/19/16 10:20 Dose: 2 mg Omeprazole (Prilosec Cap*) 20 mg PO QAM [facility] Last Admin: 12/20/16 07:30 Dose: 20 mg Ondansetron HCl (Zofran Inj*) 4 mg IV Q4H PRN PRN Reason: NAUSEA/VOMITING Oxycodone HCl (Roxycodone Tab*) 5 mg PO Q4H PRN PRN Reason: Pain 1-5 Last Admin: 12/18/16 17:41 Dose: 5 mg Oxycodone HCl (Roxycodone Tab*) 10 mg PO Q4H PRN PRN Reason: Pain 6-10 Last Admin: 12/20/16 07:29 Dose: 10 mg Pharmacy Consult (Vancomycin Random Level*) 1 note FOLLOW UP 0600 [facility] Last Admin: 12/20/16 06:41 Dose: Not Given Pregabalin (Lyrica Cap(*)) 75 mg PO TID [facility] Last Admin: 12/20/16 07:30 Dose: 75 mg Sertraline HCl (Zoloft*) 50 mg PO QPM [facility] Last Admin: 12/19/16 17:20 Dose: 50 mg Sevelamer Carbonate (Renvela Tab*) 800 mg PO TID WITH MEALS [facility] Last Admin: 12/20/16 07:30 Dose: 800 mg Torsemide (Demadex*) 20 mg PO BID [facility] Last Admin: 12/20/16 07:30 Dose: 20 mg Vital Signs 12/19/16 12/19/16 12/19/16 09:38 10:20 11:41 Temperature Pulse Rate Respiratory 16 16 16 Rate Blood Pressure (mmHg) O2 Sat by Pulse Oximetry 12/19/16 12/19/16 12/19/16 12:54 17:20 19:20 Temperature Pulse Rate Respiratory 19 16 16 Rate Blood Pressure (mmHg) O2 Sat by Pulse Oximetry 12/19/16 12/19/16 12/19/16 19:46 20:00 21:14 Temperature 97.7 F Pulse Rate 84 Respiratory 16 16 16 Rate Blood Pressure 120/57 (mmHg) O2 Sat by Pulse 93 Oximetry 12/19/16 12/19/16 12/19/16 23:14 23:20 23:30 Temperature 98.0 F Pulse Rate 81 Respiratory 16 16 16 Rate Blood Pressure 132/59 (mmHg) O2 Sat by Pulse 100 Oximetry 12/20/16 12/20/16 12/20/16 03:23 07:29 07:30 Temperature 98.0 F Pulse Rate 76 Respiratory 16 22 22 Rate Blood Pressure 125/63 (mmHg) O2 Sat by Pulse 97 Oximetry 12/20/16 12/20/16 12/20/16 07:31 07:48 07:54 Temperature 98.4 F Pulse Rate 84 Respiratory 21 20 20 Rate Blood Pressure 144/66 (mmHg) O2 Sat by Pulse 95 Oximetry Oxygen Devices in Use Now: None Appearance: Middle aged female sitting up in the dialysis chair currently receiving her treatment, NAD Eyes: No Scleral Icterus Ears/Nose/Mouth/Throat: Mucous Membranes Moist Respiratory: Symmetrical Chest Expansion and Respiratory Effort, Clear to Auscultation Cardiovascular: - - RRR, III/ systolic murmur, marked LE edema unchanged from prior. Abdominal: NL Sounds; No Tenderness; No Distention Extremities: No Clubbing, Cyanosis Skin: No Nodules or Sclerosis, - - Wounds not inspected at this time as she is in dialysis. Will see pt later today to re-evaluate her wounds Neurological: Alert and Oriented x 3 Result Diagrams: 12/19/16 04:57 12/19/16 04:57 Microbiology and Other Data: Microbiology 12/14/16 14:30 Stool Occult Blood (MADAY) - Final Stool 12/14/16 12:45 Gram Stain - Final Misc Fluid (See Comment) - Aspirate Assess/Plan/Problems-Billing Ms Suero is a 51 yo F with a h/o R fem-pop bypass 11/24/[address] York at [facility], HTN, HLD, type II DM and ESRD who presented to the ER with c/o worsened pain in her R ankle/foot and generalized weakness and was found to be severely anemic with a Hb of 4.8. - Patient Problems (1) Severe anemia Current Visit: Yes Status: Acute Code(s): D64.9 - ANEMIA, UNSPECIFIED SNOMED Code(s): 569140947 Comment: No clear source of bleeding has been identified. Repeat H/H being sent down now. Will get repeat stool guaiac with next BM. (2) Superficial postoperative wound infection Current Visit: Yes Status: Acute Code(s): T81.4XXA - INFECTION FOLLOWING A PROCEDURE, INITIAL ENCOUNTER SNOMED Code(s): 199124513 Comment: Await further recommendations from Dr. Recinos on duration of therapy (IV and oral). Wound consult pending for today. Will see the patient again later today to eval the wounds. (3) HTN (hypertension) Current Visit: Yes Status: Acute Code(s): I10 - ESSENTIAL (PRIMARY) HYPERTENSION SNOMED Code(s): 08594485 Comment: BP is under good control. Continue amlodipine. Monitor BP. (4) HLD (hyperlipidemia) Current Visit: Yes Status: Acute Code(s): E78.5 - HYPERLIPIDEMIA, UNSPECIFIED SNOMED Code(s): 33481711 Comment: Continue lipitor. (5) Type 2 DM with hypertension and ESRD on dialysis Current Visit: Yes Status: Acute Code(s): E11.22 - TYPE 2 DIABETES MELLITUS W DIABETIC CHRONIC KIDNEY DISEASE; I12.0 - HYP CHR KIDNEY DISEASE W STAGE 5 CHR KIDNEY DISEASE OR ESRD; N18.6 - END STAGE RENAL DISEASE; Z99.2 - DEPENDENCE ON RENAL DIALYSIS SNOMED Code(s): 88942049 Comment: Sugars are under good control today despite not getting lantus last night due to low sugars. Will monitor and resume lantus tonight. (6) ESRD (end stage renal disease) on dialysis Current Visit: Yes Status: Acute Code(s): N18.6 - END STAGE RENAL DISEASE; Z99.2 - DEPENDENCE ON RENAL DIALYSIS SNOMED Code(s): 771264311 Comment: Continue MWF dialysis. Continue sevelamer and sensipar. (7) COPD (chronic obstructive pulmonary disease) Current Visit: Yes Status: Acute Code(s): J44.9 - CHRONIC OBSTRUCTIVE PULMONARY DISEASE, UNSPECIFIED SNOMED Code(s): 71409595 Comment: No signs of acute exacerbation. Continue prn albuterol. (8) Depression with anxiety Current Visit: Yes Status: Acute Comment: Continue sertraline. (9) DVT prophylaxis Current Visit: Yes Status: Acute Code(s): [id number] - SNOMED Code(s): 796105438 Comment: SCD to L leg (not on right given wound) and no heparin secondary to severe anemia. (10) Full code status Current Visit: Yes Status: Acute Code(s): Z78.9 - OTHER SPECIFIED HEALTH STATUS SNOMED Code(s): 924397819
[2016-12-20] MEDS: Morphine INJ* 4 MG/ML 1 ML CARPUJECT IV PRN ×2 (09:47→15:29)
[2016-12-20 09:56] LABS: Hematocrit 24 % (35-47); Hemoglobin 8.1 g/dl (12.0-16.0)
[2016-12-20] MEDS ORDERED: Epoetin Alfa* 10,000 UNITS/ML VIAL IV ONE (10:00)
[2016-12-20 10:11] LABS: Albumin 2.8 g/dL (3.2-5.2); BUN/Creatinine Ratio 6.2 (8-20); Calcium 7.5 mg/dL (8.6-10.3); EGFR African American 8.9 (>60); EGFR Non-African American 6.9 (>60); Globulin 3.1 g/dL (2-4); One Over Creatinine 0.15 mg/dL (0.51-0.95); Phosphorus 6.4 mg/dL (2.5-5.0); Potassium 4.9 mmol/L (3.5-5.0); Total Bilirubin 0.4 mg/dL (0.2-1.0); Total Protein 5.9 g/dL (6.4-8.9)
[2016-12-20] MEDS: Methadone TAB* 5 MG PO SCH ×2 (10:12→22:27)
[2016-12-20] MEDS ORDERED: Vancomycin(*) 1,000 MG in NS 0.9% 250 ML* 250 ML IVPB ONE (14:00)
[2016-12-20] MEDS: Insulin GLARGINE(*) 1 UNITS UNIT SUBCUT SCH (16:55)
[2016-12-20] MEDS: Cinacalcet TAB* 30 MG PO SCH (16:55)
[2016-12-20] MEDS: Sertraline* 50 MG TAB PO SCH (16:55)
[2016-12-20] MEDS: Amitriptyline TAB* 50 MG PO SCH (16:55)
--- NOTE | 2016-12-20 20:58 | PN ---
Progress Note - Progress Note Date of Service: 12/20/16 Note: Brief Surgery Note (consult dictated): S: asked to see this 51 yo female, now almost 4 wks s/p femoral-popliteal bypass w/ Dr. York (in situ saph vein?) w/ concerns re: her surgical wounds. Seen earlier by [facility] RN (see separate note). Patient's main c/o is pain in the R foot where there appear to be a couple of chronic-appearing ischemic wounds. She was admitted after a couple of falls and found to be severely anemic and also w/ signs of cellulitis of the RLE. She is currently receiving Vanco and Cefipime. Current wound dsg had been Aquacel Ag and JASON wrap to entire LE. Recommendation by RN was for change to Santyl and consider removing some of her sutures. O: patient seen and her RLE was examined. The foot is warm but tender to palp, such that patient does not want me to attempt to palpate a DP pulse. There are wounds of the right foot, especially at the heal and small wound on the dorsum of the foot. There is some dull erythema of both the leg as well as the medial thigh where there is a healing surgical wound with intact sutures. Proximally, near the groin, there is an open wound measuring ~ 2cm in diameter w/ some fibrinous slough in the base. There appears to be some serous drainage. There is no significant tenderness. Somewhat more distal is a smaller (1cm) open wound with similar appearance. The remainder of the surgical wound is intact, though most in the distal thigh has intact dried eschar present. There is no evidence of undrained infection. In the medial thigh is an indurated, mildly tender "mass", previously imaged and aspirated by Dr. Lewis, likely a resolving hematoma/seroma. Overall, per the patient, the previous erythema of both proximal and distal LE has improved. A/P: open surgical wound Right proximal thigh. Agree w/ current abx therapy and JASON wrap of entire LE. Would encourage gradual increase in ambulation as tolerated. I do not have a strong feeling that we need to change her open wound to Santyl, though it would an appropriate choice. Because of the slow healing in the face of significant edema and recent infection, I would leave her sutures intact for the near future. At this point they are not interferring with her wound healing. Case was discussed w/ Dr. Colin. Will follow while she is in house.
--- NOTE | 2016-12-20 22:18 | CONS ---
CC: Dr. Fontenot; Dr. York, Vascular Surgery at [facility] * SURGICAL CONSULT NOTE: DATE OF CONSULT: 12/20/16 ATTENDING SURGEON: Dr. Roland Colin. CHIEF COMPLAINT: Right lower extremity wounds. HISTORY OF PRESENT ILLNESS: This is a 51-year-old female, who underwent right femoral popliteal bypass on 11/24/[address] York at [facility]. She has been at [facility] for rehab, but had 2 recent falls and was admitted on 12/13/16 and found to be severely anemic with a hemoglobin of 4.8. She has received blood transfusions and undergone workup for her acute anemia. She was also found on admission to have erythema of the right lower extremity indicating probable cellulitis and/or wound infection. She has been on vancomycin and cefepime. We were asked to take a look at the wound as well as the wound care clinic nurse, who saw the patient earlier today (see separate note). The patient's main complaint is pain in the right foot, which was present prior to her bypass. She denies any significant pain in the leg or thigh. The open wound in the proximal thigh has been dressed with Aquacel Ag and the entire leg has been wrapped with Eligio wraps to help control her moderately severe edema. She did undergo CT of the extremity on 12/13/16 showing a 10.2 x 4.3 x 1.8 cm collection. This was aspirated the following day for 10 mL of serosanguineous fluid. Culture showed no growth. PHYSICAL EXAM: She is afebrile with stable vital signs. Exam is otherwise limited to the right lower extremity, where the right foot is notable for multiple chronic- appearing wounds including one on the heel and lateral hindfoot as well as one on the dorsum of the foot. The foot itself is warm, but tender enough that she does not permit me to attempt to palpate the dorsalis pedis pulse. Pulses have apparently been dopplerable. There is some dull erythema in the leg itself but no significant tenderness. The thigh is notable for some mild erythema and a palpable indurated mass in the mid thigh consistent with resolving hematoma/seroma; this is mildly tender. There are two open wounds, one proximally almost at the groin measuring 2 cm in diameter and with some fibrinous slough in the base. There is a similar appearing wound measuring approximately 1 cm, somewhat distal. Sutures are intact. The remainder of the medial thigh surgical wound is covered with dry eschar without significant drainage and without evidence of active infection. IMPRESSION: Surgical wound with open areas as noted above. Infection appears to be well-controlled with current vancomycin and cefepime regimen. PLAN: Agree with current antibiotic therapy as well as Eligio wrap of the entire lower extremity to help control edema. Local wound care could be continued with the Aquacel Ag though Santyl as recommended by the wound care nurse would not be inappropriate. At this point, sutures will be left in place as they are not interfering with wound healing. Case was discussed with Dr. Colin. We will follow her while she is an inpatient. IVAN GUIDRY [id number]/C[facility] #: [id number] MTDD
[2016-12-20] MEDS: Atorvastatin* 20 MG TAB PO SCH (22:27)
[2016-12-20] MEDS: amLODIPine TAB* 5 MG PO SCH (22:28)
[2016-12-21] MEDS: oxyCODONE TAB* 5 MG TAB PO PRN ×4 (04:10→21:38)
[2016-12-21 05:48] LABS: Hematocrit 25 % (35-47); Mean Corpuscular HGB Conc 32 g/dl (31-36); Mean Corpuscular Hemoglobin 29 pg (27-31); Mean Corpuscular Volume 89 fL (80-97); Mean Platelet Volume 8 um3 (7.4-10.4); Red Blood Count 2.76 10^6/ul (4.0-5.4); Red Cell Distribution Width 17 % (10.5-15); White Blood Count 8.9 10^3/ul (3.5-10.8)
[2016-12-21 06:04] LABS: BUN/Creatinine Ratio 4.9 (8-20); Calcium 7.8 mg/dL (8.6-10.3); EGFR African American 11.8 (>60); EGFR Non-African American 9.2 (>60); Potassium 3.9 mmol/L (3.5-5.0)
[2016-12-21 06:07] LABS: Vancomycin Random 23.6 mcg/mL
[2016-12-21] MEDS: Vancomycin Random Level* NOTE FOLLOW UP SCH (06:16)
[2016-12-21] MEDS: Morphine INJ* 4 MG/ML 1 ML CARPUJECT IV PRN (06:20)
[2016-12-21] MEDS: Omeprazole CAP* 20 MG PO SCH (07:22)
[2016-12-21] MEDS: Aspirin EC Low Dose* 81 MG TAB.EC PO SCH (07:22)
[2016-12-21] MEDS: Sevelamer TAB* 800 MG PO SCH ×3 (07:23→17:39)
[2016-12-21] MEDS: Torsemide TAB* 20 MG PO SCH ×2 (07:23→21:31)
[2016-12-21] MEDS: Cefepime(*) 1 GM in NS 0.9% 50 ML* 50 ML IVPB SCH (07:23)
[2016-12-21] MEDS: Docusate CAP* 100 MG PO SCH ×2 (07:23→21:34)
[2016-12-21] MEDS: Pregabalin CAP(*) 25 MG PO SCH ×3 (07:23→21:31)
[2016-12-21] MEDS: Insulin LISPRO* 1 UNITS UNIT SUBCUT SCH ×4 (07:24→21:23)
--- NOTE | 2016-12-21 09:03 | PN ---
Subjective Date of Service: 12/21/16 Interval History: C/O "excrutiating" pain R foot. No bowel c/o. Less SOB after her HD yesterday. Objective Active Medications: Acetaminophen (Tylenol Tab*) 650 mg PO Q4H PRN PRN Reason: FEVER/PAIN Last Admin: 12/17/16 21:54 Dose: 650 mg Albuterol (Ventolin Hfa Inhaler*) 2 puff INH Q4HR PRN PRN Reason: WHEEZING Amitriptyline HCl (Elavil Tab*) 25 mg PO QPM [facility] Last Admin: 12/20/16 16:55 Dose: 25 mg Amlodipine Besylate (Norvasc Tab*) 2.5 mg PO BEDTIME [facility] Last Admin: 12/20/16 22:28 Dose: 2.5 mg Aspirin (Aspirin Ec Low Dose*) 81 mg PO QAM [facility] Last Admin: 12/21/16 07:22 Dose: 81 mg Atorvastatin Calcium (Lipitor*) 20 mg PO BEDTIME [facility] Last Admin: 12/20/16 22:27 Dose: 20 mg Cetirizine HCl (Zyrtec*) 10 mg PO QAM PRN PRN Reason: allergies Cinacalcet (Sensipar Tab*) 60 mg PO 1700 [facility] Last Admin: 12/20/16 16:55 Dose: 60 mg Dextrose (D50w Syringe 50 Ml*) 12.5 gm IV PUSH .FOR FS < 60 - SS PRN PRN Reason: FS < 60 Docusate Sodium (Colace Cap*) 100 mg PO BID [facility] Last Admin: 12/21/16 07:23 Dose: 100 mg Cefepime HCl 1 gm/ Sodium (Chloride) 50 mls @ 100 mls/hr IVPB Q24HR [facility] Last Admin: 12/21/16 07:23 Dose: 100 mls/hr Insulin Glargine (Lantus(*)) 16 units SUBCUT QPM [facility] Insulin Human Lispro (Humalog*) 0 units SUBCUT ACHS KEVIN PRN Reason: Protocol Last Admin: 12/21/16 07:24 Dose: Not Given Methadone HCl (Dolophine Tab*) 5 mg PO Q12H [facility] Last Admin: 12/20/16 22:27 Dose: 5 mg Omeprazole (Prilosec Cap*) 20 mg PO QAM [facility] Last Admin: 12/21/16 07:22 Dose: 20 mg Ondansetron HCl (Zofran Inj*) 4 mg IV Q4H PRN PRN Reason: NAUSEA/VOMITING Oxycodone HCl (Roxycodone Tab*) 5 mg PO Q4H PRN PRN Reason: Pain 1-5 Last Admin: 12/20/16 12:21 Dose: 5 mg Oxycodone HCl (Roxycodone Tab*) 10 mg PO Q4H PRN PRN Reason: Pain 6-10 Last Admin: 12/21/16 04:10 Dose: 10 mg Pharmacy Consult (Vancomycin Random Level*) 1 note FOLLOW UP 0600 [facility] Last Admin: 12/21/16 06:16 Dose: 1 note Pregabalin (Lyrica Cap(*)) 75 mg PO TID [facility] Last Admin: 12/21/16 07:23 Dose: 75 mg Sertraline HCl (Zoloft*) 50 mg PO QPM [facility] Last Admin: 12/20/16 16:55 Dose: 50 mg Sevelamer Carbonate (Renvela Tab*) 800 mg PO TID WITH MEALS [facility] Last Admin: 12/21/16 07:23 Dose: 800 mg Torsemide (Demadex*) 20 mg PO BID [facility] Last Admin: 12/21/16 07:23 Dose: 20 mg Vital Signs 12/20/16 12/20/16 12/20/16 09:29 09:30 09:47 Temperature Pulse Rate Respiratory 20 20 20 Rate Blood Pressure (mmHg) O2 Sat by Pulse Oximetry 12/20/16 12/20/16 12/20/16 10:12 10:47 12:12 Temperature Pulse Rate Respiratory 20 20 20 Rate Blood Pressure (mmHg) O2 Sat by Pulse Oximetry 12/20/16 12/20/16 12/20/16 12:21 14:05 14:21 Temperature Pulse Rate Respiratory 20 20 20 Rate Blood Pressure (mmHg) O2 Sat by Pulse Oximetry 12/20/16 12/20/16 12/20/16 15:13 15:29 15:45 Temperature 98.3 F Pulse Rate 95 Respiratory 20 18 20 Rate Blood Pressure 138/65 (mmHg) O2 Sat by Pulse 93 Oximetry 12/20/16 12/20/16 12/20/16 16:29 17:01 19:01 Temperature Pulse Rate Respiratory 20 20 18 Rate Blood Pressure (mmHg) O2 Sat by Pulse Oximetry 12/20/16 12/20/16 12/20/16 19:48 22:27 22:30 Temperature 99.2 F Pulse Rate 94 Respiratory 20 18 18 Rate Blood Pressure 125/60 (mmHg) O2 Sat by Pulse 95 Oximetry 12/20/16 12/21/16 12/21/16 23:25 00:27 00:30 Temperature 98.1 F Pulse Rate 82 Respiratory 16 16 16 Rate Blood Pressure 106/50 (mmHg) O2 Sat by Pulse 99 Oximetry 12/21/16 12/21/16 12/21/16 03:50 03:54 04:10 Temperature 98.1 F Pulse Rate 83 Respiratory 16 16 18 Rate Blood Pressure 127/58 (mmHg) O2 Sat by Pulse 97 Oximetry 12/21/16 12/21/16 12/21/16 06:10 06:20 07:23 Temperature Pulse Rate Respiratory 18 18 20 Rate Blood Pressure (mmHg) O2 Sat by Pulse Oximetry Oxygen Devices in Use Now: None Appearance: Alert, in a chair. In good spirits. Looks comfortable. Eyes: No Scleral Icterus Neck: NL Appearance and Movements; NL JVP, No Thyroid Enlargement, Masses Respiratory: Symmetrical Chest Expansion and Respiratory Effort, Clear to Auscultation, Clear to Percussion Cardiovascular: RRR, No Edema, - - 3/6 systolic murmur R>L Extremities: No Edema, No Clubbing, Cyanosis Skin: No Nodules or Sclerosis, - - Incision above wrapping sl red. Neurological: Alert and Oriented x 3, NL Sensation Result Diagrams: 12/21/16 05:20 12/21/16 05:20 Microbiology and Other Data: Microbiology 12/14/16 14:30 Stool Occult Blood (MADAY) - Final Stool 12/14/16 12:45 Gram Stain - Final Misc Fluid (See Comment) - Aspirate Assess/Plan/Problems-Billing Ms Suero is a 51 yo F with a h/o R fem-pop bypass 11/24/[address] York at [facility], HTN, HLD, type II DM and ESRD who presented to the ER with c/o worsened pain in her R ankle/foot and generalized weakness and was found to be severely anemic with a Hb of 4.8. - Patient Problems (1) Superficial postoperative wound infection Current Visit: Yes Status: Acute Code(s): T81.4XXA - INFECTION FOLLOWING A PROCEDURE, INITIAL ENCOUNTER SNOMED Code(s): 085252225 Comment: Continue cefepime and vanco. Check vanco level post-hd 12/22. I will examine wound when all dressings removed 12/21. (2) COPD (chronic obstructive pulmonary disease) Current Visit: Yes Status: Acute Code(s): J44.9 - CHRONIC OBSTRUCTIVE PULMONARY DISEASE, UNSPECIFIED SNOMED Code(s): 95832556 Comment: No signs of acute exacerbation. Continue prn albuterol. Quit smoking 3 yrs ago. (3) ESRD (end stage renal disease) on dialysis Current Visit: Yes Status: Acute Code(s): N18.6 - END STAGE RENAL DISEASE; Z99.2 - DEPENDENCE ON RENAL DIALYSIS SNOMED Code(s): 040957813 Comment: Continue MWF dialysis. Continue sevelamer and sensipar. (4) Severe anemia Current Visit: Yes Status: Acute Code(s): D64.9 - ANEMIA, UNSPECIFIED SNOMED Code(s): 049145235 Comment: No clear source of bleeding has been identified. Had 3 U PC's 12/14. Re-check H&H about 12/28. (5) Type 2 DM with hypertension and ESRD on dialysis Current Visit: Yes Status: Acute Code(s): E11.22 - TYPE 2 DIABETES MELLITUS W DIABETIC CHRONIC KIDNEY DISEASE; I12.0 - HYP CHR KIDNEY DISEASE W STAGE 5 CHR KIDNEY DISEASE OR ESRD; N18.6 - END STAGE RENAL DISEASE; Z99.2 - DEPENDENCE ON RENAL DIALYSIS SNOMED Code(s): 38710589 Comment: Lantus reduced to 16 U 12/21. Continue SSI and Lantus. (6) HTN (hypertension) Current Visit: Yes Status: Acute Code(s): I10 - ESSENTIAL (PRIMARY) HYPERTENSION SNOMED Code(s): 07325794 Comment: BP is under good control. Continue amlodipine. Monitor BP.
[2016-12-21] MEDS: Methadone TAB* 5 MG PO SCH ×2 (09:41→21:32)
--- NOTE | 2016-12-21 15:48 | PN ---
Progress Note - Progress Note Date of Service: 12/21/16 SOAP: Subjective: CC: R leg infection HPI: 51 yo woman recent RLE bypass with vein; incision is intact had some drainage and rim of redness proximally. Redness and pain better. No fever, rash, or diarrhea. Objective: [] Vital Signs Temp 36.9 C 12/21/16 10:59 Pulse 79 12/21/16 10:59 Resp 20 12/21/16 14:07 BP 118/50 12/21/16 10:59 Pulse Ox 94 12/21/16 12:50 Intake & Output 12/20/16 12/21/16 12/21/16 18:59 06:59 18:59 Intake Total 90 0 250 Output Total 0 Balance 90 0 250 Weight 216 lb 3.2 oz Intake: Oral 90 0 250 Output: Urine 0 Other: # Bowel Movements 0 1 Estimated Stool Amount Small # Voids 0 Gen:awake, no distress HEENT:PERRL, MMM Neck:Supple Heart:RRR no murmur Lungs:CTA BL Abd:+BS NTND soft Skin: No rash; R medial leg incision intact, sutures, thin rim erythema top 1/ Laboratory Results - last 24 hr 12/20/16 12/20/16 12/21/16 16:19 20:33 05:20 WBC RBC Hgb Hct MCV MCH MCHC RDW Plt Count MPV Sodium 127 L Potassium 3.9 Chloride 85 L Carbon Dioxide 34 H Anion Gap 8 BUN 24 Creatinine 4.94 H Est GFR ( Amer) 11.8 Est GFR (Non-Af Amer) 9.2 BUN/Creatinine Ratio 4.9 L Glucose 121 H POC Glucose (mg/dL) 144 H 161 H Calcium 7.8 L Random Vancomycin 23.6 12/21/16 12/21/16 12/21/16 05:20 07:21 12:02 WBC 8.9 RBC 2.76 L Hgb 8.0 L Hct 25 L MCV 89 MCH 29 MCHC 32 RDW 17 H Plt Count 354 MPV 8 Sodium Potassium Chloride Carbon Dioxide Anion Gap BUN Creatinine Est GFR ( Amer) Est GFR (Non-Af Amer) BUN/Creatinine Ratio Glucose POC Glucose (mg/dL) 129 H 107 H Calcium Random Vancomycin Assessment: 1. Right leg incision, cellulitis, slowly improving 2. R thigh seroma 3. PAD s/p fem-pop bypass; no prosthetic material 4. T2DM 4. ESRD/HD Plan: 1. change vanco to doxycycline 100 mg po bid, change cefepime to levaquin 750 mg Q48hrs for discharge; follow up with Dr York scheduled for this week.
--- NOTE | 2016-12-21 16:14 | PN ---
Progress Note - Progress Note Date of Service: 12/21/16 SOAP: Subjective: Patient seen and examined at bedside. Reports no new complaints. Still has right heel pain on and off, relived with narcotics. Denies fever or chills. Objective: Awake and alert, in NAD VSS, afebrile RLE with multiple small wounds along prior fem-pop bypass incision, covered with scanty fibrino-purulent exudate. Minimal mid-incision erythema and induration noted. No active discharge. Assessment: Multiple RLE wounds after a fem-pop bypass at [facility] 2 weeks ago Plan: Continue wound management with Aquacell Ag 3 times weekly. D/C plans per medicine Would like patient to F/U with wound clinic after d/c
[2016-12-21] MEDS: Cinacalcet TAB* 30 MG PO SCH (17:38)
[2016-12-21] MEDS: Sertraline* 50 MG TAB PO SCH (17:38)
[2016-12-21] MEDS: Amitriptyline TAB* 50 MG PO SCH (17:39)
[2016-12-21] MEDS ORDERED: Insulin GLARGINE(*) 1 UNITS UNIT SUBCUT SCH (18:00)
[2016-12-21] MEDS: amLODIPine TAB* 5 MG PO SCH (21:33)
[2016-12-21] MEDS: Atorvastatin* 20 MG TAB PO SCH (21:34)
[2016-12-22] MEDS: Insulin LISPRO* 1 UNITS UNIT SUBCUT SCH ×2 (08:06→12:24)
[2016-12-22] MEDS: Pregabalin CAP(*) 25 MG PO SCH ×2 (08:30→14:15)
[2016-12-22] MEDS: Omeprazole CAP* 20 MG PO SCH (08:30)
[2016-12-22] MEDS: Sevelamer TAB* 800 MG PO SCH ×2 (08:30→12:21)
[2016-12-22] MEDS: Docusate CAP* 100 MG PO SCH (08:30)
[2016-12-22] MEDS: Torsemide TAB* 20 MG PO SCH (08:30)
[2016-12-22] MEDS: Aspirin EC Low Dose* 81 MG TAB.EC PO SCH (08:30)
[2016-12-22] MEDS: Cefepime(*) 1 GM in NS 0.9% 50 ML* 50 ML IVPB SCH (08:30)
[2016-12-22] MEDS ORDERED: DOXYcycline CAP(*) 100 MG PO SCH (09:00)
[2016-12-22] MEDS: Methadone TAB* 5 MG PO SCH (09:33)
[2016-12-22] MEDS: oxyCODONE TAB* 5 MG TAB PO PRN (09:33)
--- NOTE | 2016-12-22 11:52 | PN ---
Progress Note - Progress Note Date of Service: 12/22/16 Note: Time spent on discharge 55 minutes.
--- NOTE | 2016-12-22 11:57 | DCNOTE ---
Subjective Date of Service: 12/22/16 Interval History: No new c/o. Anxious to go home. Objective Active Medications: Acetaminophen (Tylenol Tab*) 650 mg PO Q4H PRN PRN Reason: FEVER/PAIN Last Admin: 12/17/16 21:54 Dose: 650 mg Albuterol (Ventolin Hfa Inhaler*) 2 puff INH Q4HR PRN PRN Reason: WHEEZING Amitriptyline HCl (Elavil Tab*) 25 mg PO QPM [facility] Last Admin: 12/21/16 17:39 Dose: 25 mg Amlodipine Besylate (Norvasc Tab*) 2.5 mg PO BEDTIME [facility] Last Admin: 12/21/16 21:33 Dose: 2.5 mg Aspirin (Aspirin Ec Low Dose*) 81 mg PO QAM [facility] Last Admin: 12/22/16 08:30 Dose: 81 mg Atorvastatin Calcium (Lipitor*) 20 mg PO BEDTIME [facility] Last Admin: 12/21/16 21:34 Dose: 20 mg Cetirizine HCl (Zyrtec*) 10 mg PO QAM PRN PRN Reason: allergies Cinacalcet (Sensipar Tab*) 60 mg PO 1700 [facility] Last Admin: 12/21/16 17:38 Dose: 60 mg Dextrose (D50w Syringe 50 Ml*) 12.5 gm IV PUSH .FOR FS < 60 - SS PRN PRN Reason: FS < 60 Docusate Sodium (Colace Cap*) 100 mg PO BID [facility] Last Admin: 12/22/16 08:30 Dose: 100 mg Doxycycline Hyclate (Vibramycin Cap(*)) 100 mg PO BID [facility] Last Admin: 12/22/16 08:31 Dose: 100 mg Cefepime HCl 1 gm/ Sodium (Chloride) 50 mls @ 100 mls/hr IVPB Q24HR [facility] Last Admin: 12/22/16 08:30 Dose: 100 mls/hr Insulin Glargine (Lantus(*)) 16 units SUBCUT QPM [facility] Last Admin: 12/21/16 17:46 Dose: 16 units Insulin Human Lispro (Humalog*) 0 units SUBCUT ACHS KEVIN PRN Reason: Protocol Last Admin: 12/22/16 08:06 Dose: Not Given Methadone HCl (Dolophine Tab*) 5 mg PO Q12H [facility] Last Admin: 12/22/16 09:33 Dose: 5 mg Omeprazole (Prilosec Cap*) 20 mg PO QAM [facility] Last Admin: 12/22/16 08:30 Dose: 20 mg Ondansetron HCl (Zofran Inj*) 4 mg IV Q4H PRN PRN Reason: NAUSEA/VOMITING Oxycodone HCl (Roxycodone Tab*) 5 mg PO Q4H PRN PRN Reason: Pain 1-5 Last Admin: 12/22/16 09:33 Dose: 5 mg Oxycodone HCl (Roxycodone Tab*) 10 mg PO Q4H PRN PRN Reason: Pain 6-10 Last Admin: 12/21/16 21:38 Dose: 10 mg Pregabalin (Lyrica Cap(*)) 75 mg PO TID [facility] Last Admin: 12/22/16 08:30 Dose: 75 mg Sertraline HCl (Zoloft*) 50 mg PO QPM [facility] Last Admin: 12/21/16 17:38 Dose: 50 mg Sevelamer Carbonate (Renvela Tab*) 800 mg PO TID WITH MEALS [facility] Last Admin: 12/22/16 08:30 Dose: 800 mg Torsemide (Demadex*) 20 mg PO BID [facility] Last Admin: 12/22/16 08:30 Dose: 20 mg Vital Signs 12/21/16 12/21/16 12/21/16 12:23 12:50 13:27 Temperature Pulse Rate Respiratory 20 20 Rate Blood Pressure (mmHg) O2 Sat by Pulse 94 Oximetry 12/21/16 12/21/16 12/21/16 14:07 15:12 15:27 Temperature 98.2 F Pulse Rate 84 Respiratory 20 18 20 Rate Blood Pressure 126/61 (mmHg) O2 Sat by Pulse 95 Oximetry 12/21/16 12/21/16 12/21/16 19:23 21:31 21:32 Temperature 98.9 F Pulse Rate 83 Respiratory 20 16 16 Rate Blood Pressure 106/48 (mmHg) O2 Sat by Pulse 94 Oximetry 12/21/16 12/21/16 12/21/16 21:38 21:46 23:27 Temperature 98.3 F Pulse Rate 80 Respiratory 18 18 16 Rate Blood Pressure 116/60 (mmHg) O2 Sat by Pulse 91 Oximetry 12/21/16 12/21/16 12/21/16 23:31 23:32 23:38 Temperature Pulse Rate Respiratory 18 16 16 Rate Blood Pressure (mmHg) O2 Sat by Pulse Oximetry 12/22/16 12/22/16 12/22/16 02:00 02:02 02:28 Temperature 98.1 F 97.6 F Pulse Rate 93 85 82 Respiratory 17 16 16 Rate Blood Pressure 160/85 133/69 126/64 (mmHg) O2 Sat by Pulse 96 94 100 Oximetry 12/22/16 12/22/16 12/22/16 02:45 02:55 03:24 Temperature Pulse Rate 82 84 81 Respiratory 16 16 14 Rate Blood Pressure 123/54 125/56 125/61 (mmHg) O2 Sat by Pulse 89 87 79 Oximetry 12/22/16 12/22/16 12/22/16 03:59 04:58 08:30 Temperature Pulse Rate 82 85 Respiratory 16 16 17 Rate Blood Pressure 134/65 131/70 (mmHg) O2 Sat by Pulse 80 81 Oximetry 12/22/16 09:33 Temperature Pulse Rate Respiratory 19 Rate Blood Pressure (mmHg) O2 Sat by Pulse Oximetry Oxygen Devices in Use Now: None Appearance: Alert, in a chair. In good spirits. Looks comfortable. Extremities: No Edema, No Clubbing, Cyanosis Neurological: Alert and Oriented x 3, NL Sensation Result Diagrams: 12/21/16 05:20 12/21/16 05:20 Microbiology and Other Data: Microbiology 12/14/16 14:30 Stool Occult Blood (MADAY) - Final Stool 12/14/16 12:45 Gram Stain - Final Misc Fluid (See Comment) - Aspirate Assess/Plan/Problems-Billing Ms Suero is a 51 yo F with a h/o R fem-pop bypass 11/24/[address] York at [facility], HTN, HLD, type II DM and ESRD who presented to the ER with c/o worsened pain in her R ankle/foot and generalized weakness and was found to be severely anemic with a Hb of 4.8. - Patient Problems (1) Superficial postoperative wound infection Current Visit: Yes Status: Acute Code(s): T81.4XXA - INFECTION FOLLOWING A PROCEDURE, INITIAL ENCOUNTER SNOMED Code(s): 410766660 Comment: I examined wound 12/21 along with the surgical PA. He recommended dressing changes tiw as outpt, fup in Wound Clinic, oral antibiotics. I advised pt to use the minimum amount of oxycodone she can and to try to taper it. (2) COPD (chronic obstructive pulmonary disease) Current Visit: Yes Status: Acute Code(s): J44.9 - CHRONIC OBSTRUCTIVE PULMONARY DISEASE, UNSPECIFIED SNOMED Code(s): 85591477 Comment: No signs of acute exacerbation. Continue prn albuterol. Quit smoking 3 yrs ago. (3) ESRD (end stage renal disease) on dialysis Current Visit: Yes Status: Acute Code(s): N18.6 - END STAGE RENAL DISEASE; Z99.2 - DEPENDENCE ON RENAL DIALYSIS SNOMED Code(s): 104438084 Comment: Continue MWF dialysis. Continue sevelamer and sensipar. (4) Severe anemia Current Visit: Yes Status: Acute Code(s): D64.9 - ANEMIA, UNSPECIFIED SNOMED Code(s): 606808733 Comment: No clear source of bleeding has been identified. Had 3 U PC's 12/14. Re-check H&H about 12/28. (5) Type 2 DM with hypertension and ESRD on dialysis Current Visit: Yes Status: Acute Code(s): E11.22 - TYPE 2 DIABETES MELLITUS W DIABETIC CHRONIC KIDNEY DISEASE; I12.0 - HYP CHR KIDNEY DISEASE W STAGE 5 CHR KIDNEY DISEASE OR ESRD; N18.6 - END STAGE RENAL DISEASE; Z99.2 - DEPENDENCE ON RENAL DIALYSIS SNOMED Code(s): 82566651 Comment: Lantus reduced to 16 U 12/21. Continue SSI and Lantus. (6) HTN (hypertension) Current Visit: Yes Status: Acute Code(s): I10 - ESSENTIAL (PRIMARY) HYPERTENSION SNOMED Code(s): 51636699 Comment: BP is under good control. Continue amlodipine. Monitor BP. (7) Hypoxia Current Visit: Yes Status: Acute Code(s): R09.02 - HYPOXEMIA SNOMED Code(s ): 130219394 Comment: OVernight oximetry showed she desaturated under 80% 18.8% of the time. Home O2 arranged. Status and Disposition: Discharge after HD session today. Full supply of doxy and levo to be dispensed here, plus 2 methadone tabs and 4 oxycodone tabs. Fup Drs. York, Corie, and Wound Clinic.
[2016-12-22 13:48] VITALS: BP 114/60
[2016-12-22] MEDS ORDERED: Epoetin Alfa* 10,000 UNITS/ML VIAL IV ONE (16:00)
--- NOTE | 2016-12-23 04:29 | DS ---
CC: Dr. Fontenot; Dr. Escobedo * DISCHARGE SUMMARY: DATE OF ADMISSION: 12/13/16 DATE OF DISCHARGE: 12/22/16 HISTORY: This 51-year-old woman presented with right leg pain and weakness. She had a femoropopliteal bypass on 11/24/16 at [facility] in [place]. She was discharged to [facility] after about a week for rehabilitation. At [facility], she noted increased pain in her right leg and felt extremely weak. She had her scheduled hemodialysis and on returning back to [facility], felt too weak to get out of the bed and collapsed to the floor. There was increased swelling and pain on her leg. She was very anemic with hematocrit of 15 and had 3 units of packed cells transfused. She was found to have infection of her right leg. She was seen in consultation by both Dr. Escobedo and by the surgical PA, Margarito Puentes. Dr. Escobedo noted that she had a workup for iron deficiency anemia in June of this year including EGD and colonoscopy with no significant findings. Dr. Cohn did a colonoscopy on 12/19/16. There was mild sigmoid diverticulosis and an ileocecal polyp was removed and clipped. The patient was treated with intravenous antibiotics since the surgical staff felt that she could be treated with wound dressing changes and oral antibiotics. She is referred to the wound clinic as well as she will be seen by her surgeon within a week of discharge. She should follow up with Dr. Escobedo and Dr. Cohn for possible capsule endoscopy. I note her hematocrit with transfusion olga from 15 to 25, which is her usual range. She had hemodialysis throughout her hospital stay. She had overnight oximetry on room air, which showed she desaturated below 80%, 18.8% of the time, home oxygen was arranged. At some time, a formal sleep lab evaluation would be recommended. FINAL DIAGNOSES: 1. Postoperative wound infection. 2. Chronic obstructive pulmonary disease. 3. End-stage renal disease. 4. Anemia with iron deficiency. 5. Diabetes. 6. Hypertension. 7. Hypoxia. DISCHARGE MEDICATIONS: 1. Acetaminophen 650 mg every 4 hours p.r.n. 2. Atorvastatin 20 mg h.s. 3. Methadone 5 mg b.i.d. 4. Oxycodone 5 mg every 4 hours p.r.n. 5. Levofloxacin 750 mg every 48 hours for 4 doses. 6. Doxycycline 100 mg b.i.d. for 8 days. 7. Sertraline 50 mg h.s. 8. Amitriptyline 25 mg h.s. 9. Pregabalin 75 mg t.i.d. 10. Aspirin 81 mg daily. 11. Lisinopril 20 mg daily. 12. Glargine insulin 18 units subcu every evening. 13. Sevelamer 800 mg t.i.d. with meals. 14. Omeprazole 20 mg daily. 15. Torsemide 20 mg b.i.d. 16. Cetirizine 10 mg q.a.m. p.r.n. 17. Docusate 100 mg b.i.d. 18. Lactulose 20 mg t.i.d. 19. Cinacalcet 60 mg daily. 20. Amlodipine 2.5 mg daily. [id number]/[facility] #: [id number] MTDD
== END 2016-12-22 17:30 | disposition home health service (06) | DRG 711 ==
LOC: ED 20:32 → MED 23:20
PROVIDERS: ADMIT Internal Medicine; ATTEND Internal Medicine
PROC: 30233N1 Transfusion of Nonautologous Red Blood Cells into Peripheral Vein, Percutaneous Approach (ICD-10-PCS; 2016-12-14)
PROC: 0J9M3ZX Drainage of Left Upper Leg Subcutaneous Tissue and Fascia, Percutaneous Approach, Diagnostic (ICD-10-PCS; 2016-12-14)
PROC: 5A1D60Z (ICD-10-PCS; principal; 2016-12-15)
PROC: 0DJ08ZZ Inspection of Upper Intestinal Tract, Via Natural or Artificial Opening Endoscopic (ICD-10-PCS; 2016-12-17)
PROC: 0DBC8ZZ Excision of Ileocecal Valve, Via Natural or Artificial Opening Endoscopic (ICD-10-PCS; 2016-12-19)
DX: T81.4XXA Infection following a procedure, initial encounter (principal); N18.6 End stage renal disease; E11.22 Type 2 diabetes mellitus with diabetic chronic kidney disease; L76.34 Postprocedural seroma of skin and subcutaneous tissue following other procedure; I12.0 Hypertensive chronic kidney disease with stage 5 chronic kidney disease or end stage renal disease; K92.2 Gastrointestinal hemorrhage, unspecified; Z68.41 Body mass index [BMI] 40.0-44.9, adult; L03.115 Cellulitis of right lower limb; E78.5 Hyperlipidemia, unspecified; E66.9 Obesity, unspecified; J44.9 Chronic obstructive pulmonary disease, unspecified; W17.89XA Other fall from one level to another, initial encounter; M17.0 Bilateral primary osteoarthritis of knee; M19.029 Primary osteoarthritis, unspecified elbow; M19.049 Primary osteoarthritis, unspecified hand; F41.8 Other specified anxiety disorders; D63.1 Anemia in chronic kidney disease; E11.51 Type 2 diabetes mellitus with diabetic peripheral angiopathy without gangrene; K21.9 Gastro-esophageal reflux disease without esophagitis; K57.30 Diverticulosis of large intestine without perforation or abscess without bleeding; K63.5 Polyp of colon; K29.70 Gastritis, unspecified, without bleeding; Y83.2 Surgical operation with anastomosis, bypass or graft as the cause of abnormal reaction of the patient, or of later complication, without mention of misadventure at the time of the procedure; R09.02 Hypoxemia; D50.9 Iron deficiency anemia, unspecified; Y92.9 Unspecified place or not applicable; Z99.81 Dependence on supplemental oxygen; Z79.82 Long term (current) use of aspirin; Z79.4 Long term (current) use of insulin; Z99.2 Dependence on renal dialysis; Z90.5 Acquired absence of kidney; Z98.51 Tubal ligation status; Z87.442 Personal history of urinary calculi; Z88.0 Allergy status to penicillin; Z91.048 Other nonmedicinal substance allergy status; Z83.3 Family history of diabetes mellitus; Z82.0 Family history of epilepsy and other diseases of the nervous system; Z56.0 Unemployment, unspecified; Z87.891 Personal history of nicotine dependence; Y92.89 Other specified places as the place of occurrence of the external cause
CPT/HCPCS: 10022; 36415; 71020; 74020; 76942; 80048; 80053; 80061; 80202; 81003; 81015; 82040; 82272; 82728; 83036; 83540; 83550; 83605; 83735; 84100; 84443; 84484; 85014; 85018; 85025; 85027; 85045; 85060; 85610; 86140; 86850; 86900; 86901; 86922; 87040; 87070; 87086; 87205; 88305; 90935; 93005; 94762; 99156; 99157; A9270-GY; G0257; J0692; J0696; J0885; J2250; J2270; J2310; J3370; P9040

== ENCOUNTER → 2016-12-28 08:58 | Emergency (ER) | payer BC, MEDICARE ==
[~2016-12-28 08:58] MED LIST changes: +Acetaminophen TAB* 325 MG PO PRN; -Buffered Lidocaine 1% SYRIN* 3 ML/SYR SYRINGE INTRADERM ONE; -Bupivacaine 0.25% EPI 200,000* 30 ML SDV ONE; +Cefepime(*) 1 GM in NS 0.9% 50 ML* 50 ML IVPB SCH; +Dextrose 50% Syringe 50 ML* 25 GM/50 ML SYRINGE IV PUSH PRN; -DiMENhydriNATE IV* 50 MG/ML VIAL IV PUSH PRN; -HYDROmorphone* 1 MG/ML 1 ML SYR IV PRN; +Insulin LISPRO* 1 UNITS UNIT SUBCUT SCH; -Insulin REGULAR(*) 1 UNITS UNIT ONE; -Midazolam* 1 MG/ML 5 ML VIAL (5 MG) ONE; +NS 0.9% 1000 ML* 1,000 ML IV ONE; +Vancomycin 1500 MG IV - x ONCE IVPB ONE; +Vancomycin(*) 1,000 MG in NS 0.9% 250 ML* 250 ML IVPB SCH; -fentaNYL* 50 MCG/ML 2 ML VIAL (100 MCG VIAL) IV PRN; -fentaNYL* 50 MCG/ML 2 ML VIAL (100 MCG VIAL) ONE; -oxyCODONE TAB* 5 MG TAB PO PRN
[2016-12-28 09:45] LABS: Comments Flag Yes; Hematocrit 25 % (35-47); Hemoglobin 7.9 g/dl (12.0-16.0); Mean Corpuscular HGB Conc 32 g/dl (31-36); Mean Corpuscular Hemoglobin 29 pg (27-31); Mean Corpuscular Volume 90 fL (80-97); Mean Platelet Volume 8 um3 (7.4-10.4); Red Blood Count 2.77 10^6/ul (4.0-5.4); Red Cell Distribution Width 17 % (10.5-15); White Blood Count 11.5 10^3/ul (3.5-10.8)
[2016-12-28 09:59] LABS: Albumin 3.2 g/dL (3.2-5.2); BUN/Creatinine Ratio 5.4 (8-20); C Reactive Protein 105.76 mg/L (< 5.00); Calcium 8.3 mg/dL (8.6-10.3); EGFR African American 11.8 (>60); EGFR Non-African American 9.1 (>60); Globulin 3.1 g/dL (2-4); Total Bilirubin 0.3 mg/dL (0.2-1.0); Total Protein 6.3 g/dL (6.4-8.9)
[2016-12-28 14:10] VITALS: BP 133/60
--- NOTE | 2016-12-28 14:12 | ED ---
Lucrecia Hanks Thomas, scribed for Sandoval Méndez MD on 12/28/16 at 1003 . Lower Extremity - HPI Summary HPI Summary: The pt is a 51 y/o F presenting to the ED c/o a reopening of her incision site in her RLE from a Fem-pop bypass on 11/24/16. The wound did not excessively bleed until this AM at 07:30. The wound has had a dressing since the surgery. She was admitted [place] [facility] [place] 12[place]13[place]16 for anemia, for which she was given blood transfusion. Per patient, workup was negative for findings regarding etiology. There are incisions to her right groin and her upper medial RLE. She rates her pain 7/10. She also complains of an infection to the toes of her right foot. She was given antibiotics on 12/13/16 for this infection. Pt additionally c/o tiredness, pallor, diaphoresis, and pain to her upper thigh. Pt denies CP, SOB, and lightheadedness. She is a dialysis patient on , although they were going to do an extra one today. She sees Dr. Valiente. PMHx: DM, HTN, dialysis. PSHx: fem-pop bypass (11/24/16). SHx: former smoker (quit 3 years ago), rare alcohol use, no illicit drug use. FHx: DM. - History of Current Complaint Chief Complaint: EDExtremityLower Stated Complaint: INCESION SITE REOPENED Hx Obtained From: Patient Onset of Pain: Hours - onset this AM Onset/Duration: Still Present Pain Intensity: 7 Pain Scale Used: 0-10 Numeric Timing: Constant Location: Is Discrete @ - RLE Associated Signs And Symptoms: Positive: Weakness, Other - POS: tiredness, pallor, diaphoresis, pain to upper thigh; NEG: CP, SOB, lightheadedness Aggravating Factor(s): Nothing Alleviating Factor(s): Nothing - Allergies/Home Medications Allergies/Adverse Reactions: Allergies Allergy/AdvReac Type Severity Reaction Status Date / Time Penicillins [PCN] Allergy Unknown Hives Verified 12/28/16 09:16 PMH/Surg Hx/FS Hx/Imm Hx Previously Healthy: No Endocrine/Hematology History: Reports: Hx Diabetes, Hx Anemia - R/T KIDNEY FAILURE Cardiovascular History: Reports: Hx Hypertension Denies: Hx Angina, Hx Pacemaker/ICD, Other Cardiovascular Problems/Disorders Respiratory History: Reports: Hx Asthma - HX OF WHEN WAS A SMOKER, Hx Chronic Obstructive Pulmonary Disease (COPD) GI History: Reports: Hx Gastroesophageal Reflux Disease - ON MEDICATION FOR Denies: Other GI Disorders History: Reports: Hx Dialysis, Hx Kidney Stones - HX OF, Other Problems/ Disorders - HX OF RIGHT NEPHRECTOMY <1 YEAR OF AGE; ESRD - dialysis Musculoskeletal History: Reports: Hx Arthritis - KNEES, ELBOW, FINGERS Denies: Other Musculoskeletal History Sensory History: Reports: Hx Contacts or Glasses Denies: Hx Cataracts, Hx Hearing Aid Opthamlomology History: Reports: Hx Contacts or Glasses Denies: Hx Cataracts Neurological History: Denies: Hx CVA Psychiatric History: Reports: Hx Anxiety, Hx Depression - Surgical History Surgery Procedure, Year, and Place: ESWL APPROX 2004. RIGHT NEPHRECTOMY AN . 2 CARPAL TUNNELS, [place], 2013 , 2014. HEMODIALYSIS CATH, 12/2015. peritoneal dialysis catheter 01/2016. LUE fistula 11/2015 Hx Anesthesia Reactions: No Infectious Disease History: No Infectious Disease History: Denies: Traveled Outside the [place] in Last 30 Days - Family History Known Family History: Positive: Diabetes - MGF, Father - Social History Alcohol Use: Rare Substance Use Type: Reports: None Smoking Status (MU): Former Smoker Type: Cigarettes Amount Used/How Often: 1 PPD X 20 YEARS Length of Time of Smoking/Using Tobacco: 34 YEARS Have You Smoked in the Last Year: No Review of Systems Positive: Skin Diaphoresis, Other - POS: pallor. Negative: Fever Negative: Chest Pain Negative: Shortness Of Breath Positive: Other - POS: bleeding incision site to RLE, pain to upper thigh Neurological: Other - POS: tiredness; NEG: lightheadedness All Other Systems Reviewed And Are Negative: Yes Physical Exam - Summary Physical Exam Summary: The patient is well-nourished in no acute distress and in no acute pain. The skin is warm and diaphoretic. She looks pale HEENT: ~The head is normocephalic and atraumatic. The pupils are equal and reactive. The conjunctivae are clear and without drainage. ~The sclera is pale. Nares are patent and without drainage. ~Mouth reveals dry mucous membranes and the throat is without erythema and exudate. ~The external ears are intact. The ear canals are patent and without drainage. The tympanic membranes are intact. Neck is supple with full range of motion and non-tender. There are no carotid bruits. ~There is no neck vein distension. Respiratory: Chest is non-tender. ~Lungs are clear to auscultation and breath sounds are symmetrical and equal. Cardiovascular: Heart is regular rate and rhythm. ~There is no murmur or rub auscultated. ~~There is no peripheral edema and pulses are symmetrical and equal. Abdomen: The abdomen is obese, soft and non-tender. ~There are normal bowel sounds heard in all four quadrants and there is no organomegaly palpated. Musculoskeletal: There is no back pain noted. ~Extremities are non-tender with full range of motion. ~There is good capillary refill. ~There is no peripheral edema or calf tenderness elicited. In the distal right thigh, there is an area of erythema on the proximal aspect and there is a wound that is actively bleeding. Below her knees, she has an area of open wound. The rest of the wound is OK. There is a wound on her hell. There is a wound on the dorsum of her foot with dry skin. Neurological: Patient is alert and oriented to person, place and time. ~The patient has symmetrical motor strength in all four extremities. ~Cranial nerves are grossly intact. Deep tendon reflexes are symmetrical and equal in all four extremities. Psychiatric: The patient has an appropriate affect and does not exhibit any anxiety or depression. Triage Information Reviewed: Yes Vital Signs On Initial Exam: Initial Vitals Temp Pulse Resp BP Pulse Ox 98.7 F 79 16 134/67 91 12/28/16 09:17 12/28/16 09:17 12/28/16 09:17 12/28/16 09:17 12/28/16 09:17 Vital Signs Reviewed: Yes Diagnostics - Vital Signs Vital Signs Temp Pulse Resp BP Pulse Ox 12/28/16 09: 98.7 F 79 16 134/67 91 - Laboratory Lab Results: Lab Results 12/28/16 12/28/16 12/28/16 Range/Units 09:00 09:00 09:00 WBC 11.5 H (3.5-10.8) 10^3/ul RBC 2.77 L (4.0-5.4) 10^6/ul Hgb 7.9 L (12.0-16.0) g/dl Hct 25 L (35-47) % MCV 90 (80-97) fL MCH 29 (27-31) pg MCHC 32 (31-36) g/dl RDW 17 H (10.5-15) % Plt Count 351 (150-450) 10^3/ul MPV 8 (7.4-10.4) um3 Neut % (Auto) 70.4 (38-83) % Lymph % (Auto) 11.8 L (25-47) % Grainger % (Auto) 14.6 H (1-9) % Eos % (Auto) 2.2 (0-6) % Baso % (Auto) 1.0 (0-2) % Absolute Neuts (auto) 8.1 H (1.5-7.7) 10^3/ul Absolute Lymphs (auto) 1.4 (1.0-4.8) 10^3/ul Absolute Monos (auto) 1.7 H (0-0.8) 10^3/ul Absolute Eos (auto) 0.2 (0-0.6) 10^3/ul Absolute Basos (auto) 0.1 (0-0.2) 10^3/ul Absolute Nucleated RBC 0.01 10^3/ul Nucleated RBC % 0 INR (Anticoag Therapy) 1.25 H (0.89-1.11) APTT 40.5 H (26.0-36.3) seconds Sodium 134 (133-145) mmol/L Potassium 5.0 (3.5-5.0) mmol/L Chloride 91 L (101-111) mmol/L Carbon Dioxide 33 H (22-32) mmol/L Anion Gap 10 (2-11) mmol/L BUN 27 H (6-24) mg/dL Creatinine 4.96 H (0.51-0.95) mg/dL Est GFR ( Amer) 11.8 (>60) Est GFR (Non-Af Amer) 9.1 (>60) BUN/Creatinine Ratio 5.4 L (8-20) Glucose 126 H (70-100) mg/dL Lactic Acid (0.5-2.0) mmol/L Calcium 8.3 L (8.6-10.3) mg/dL Total Bilirubin 0.30 (0.2-1.0) mg/dL AST 10 L (13-39) U/L ALT 6 L (7-52) U/L Alkaline Phosphatase 91 (34-104) U/L Troponin I 0.00 (<0.04) ng/mL C-Reactive Protein 105.76 H (< 5.00) mg/L Total Protein 6.3 L (6.4-8.9) g/dL Albumin 3.2 (3.2-5.2) g/dL Globulin 3.1 (2-4) g/dL Albumin/Globulin Ratio 1.0 (1-3) Lipase 36 (11.0-82.0) U/L 12/28/16 Range/Units 09:00 WBC (3.5-10.8) 10^3/ul RBC (4.0-5.4) 10^6/ul Hgb (12.0-16.0) g/dl Hct (35-47) % MCV (80-97) fL MCH (27-31) pg MCHC (31-36) g/dl RDW (10.5-15) % Plt Count (150-450) 10^3/ul MPV (7.4-10.4) um3 Neut % (Auto) (38-83) % Lymph % (Auto) (25-47) % Grainger % (Auto) (1-9) % Eos % (Auto) (0-6) % Baso % (Auto) (0-2) % Absolute Neuts (auto) (1.5-7.7) 10^3/ul Absolute Lymphs (auto) (1.0-4.8) 10^3/ul Absolute Monos (auto) (0-0.8) 10^3/ul Absolute Eos (auto) (0-0.6) 10^3/ul Absolute Basos (auto) (0-0.2) 10^3/ul Absolute Nucleated RBC 10^3/ul Nucleated RBC % INR (Anticoag Therapy) (0.89-1.11) APTT (26.0-36.3) seconds Sodium (133-145) mmol/L Potassium (3.5-5.0) mmol/L Chloride (101-111) mmol/L Carbon Dioxide (22-32) mmol/L Anion Gap (2-11) mmol/L BUN (6-24) mg/dL Creatinine (0.51-0.95) mg/dL Est GFR ( Amer) (>60) Est GFR (Non-Af Amer) (>60) BUN/Creatinine Ratio (8-20) Glucose (70-100) mg/dL Lactic Acid 0.7 (0.5-2.0) mmol/L Calcium (8.6-10.3) mg/dL Total Bilirubin (0.2-1.0) mg/dL AST (13-39) U/L ALT (7-52) U/L Alkaline Phosphatase (34-104) U/L Troponin I (<0.04) ng/mL C-Reactive Protein (< 5.00) mg/L Total Protein (6.4-8.9) g/dL Albumin (3.2-5.2) g/dL Globulin (2-4) g/dL Albumin/Globulin Ratio (1-3) Lipase (11.0-82.0) U/L Result Diagrams: 12/28/16 09:00 12/28/16 09:00 Lab Statement: Any lab studies that have been ordered have been reviewed, and results considered in the medical decision making process. - EKG 09:48 Cardiac Rate: NL - 77 BPM EKG Interpretation: Normal sinus. Nml axis. Poor R wave progression. No STEMI. Lower Extremity Course/Dx - Course Assessment/Plan: The pt is a 51 y/o F presenting to the ED c/o a reopening of her incision site in her RLE from a Fem-pop bypass on 11/24/16. The wound did not excessively bleed until this AM at 07:30. The wound has had a dressing since the surgery. She was admitted [place] [facility] [place]16 for anemia, for which she was given blood transfusion. Per patient, workup was negative for findings regarding etiology. There are incisions to her right groin and her upper medial RLE. She rates her pain 7/10. She also complains of an infection to the toes of her right foot. She was given antibiotics on 12/13/16 for this infection. Pt additionally c/o tiredness, pallor, diaphoresis, and pain to her upper thigh. Pt denies CP, SOB, and lightheadedness. She is a dialysis patient on /, although they were going to do an extra one today. She sees Dr. Valiente. PMHx : DM, HTN, dialysis. PSHx: fem-pop bypass (11/24/16). SHx: former smoker (quit 3 years ago), rare alcohol use, no illicit drug use. FHx: DM. In the ED course the patient was given IV fluids. Bloodwork was obtained and it shows WBC 11.5, RBC 2.77, INR 1.25, chloride 91, CO2 33, BUN 27, creatinine 4.96, calcium 8.3, CRP 105.76, BNP 635. EKG shows NSR with no ST elevations, poor R wave progression, and no STEMI. I consulted with Dr. Marin, who will come to the ED to assess if the patient will be admitted to [facility] or not. After hospitalists assessed the patient, they recommended she be transferred to higher level of care. She is diagnosed with infected wound right leg, right leg bleeding, chronic renal failure, and anemia. She will be transferred to [facility] for higher level of care. - Diagnoses Differential Diagnosis/HQI/PQRI: Positive: Cellulitis, Infection, Other - open wound, bleeding right leg, poor hemeostasis, abscess, poor circulation Provider Diagnoses: Infected wound, right leg, Bleeding from right leg, CRF (chronic renal failure) , Anemia - Physician Notifications Discussed Care Of Patient With: Sanjuanita Marin Time Discussed With Above Provider: 11:22 Instructed by Provider To: Other - I consulted with Dr. Marin, hospitalist, regarding patient care. She will come to the ED to evaluate the patient. She advises transfer. - Critical Care Time Critical Care Time: 30-74 min - 45 minutes Discharge - Discharge Plan Condition: Fair Disposition: OTHER Discharge Disposition Comment: Transferred to higher level of care to [facility] Referrals: Dipak Fontenot MD [Primary Care Provider] - The documentation as recorded by the Lucrecia toro Thomas accurately reflects the service I personally performed and the decisions made by me, Sandoval Méndez MD.
--- NOTE | 2016-12-28 16:29 | CONS ---
CC: Dr. Méndez; Dr. York; Dr. Fontenot; Dr. Recinos; Dr. Valiente * CONSULTATION REPORT: DATE OF CONSULT: 12/28/16 - EMERGENCY DEPT REQUESTING PHYSICIAN FOR CONSULT: Dr. Méndez. ACCEPTING PHYSICIAN IN TRANSFER: Dr. York at [facility]. PRIMARY CARE PROVIDER: Dr. Fontenot. MY ATTENDING PHYSICIAN WHILE IN THE HOSPITAL: Sanjuanita Augustine MD (report dictated by Harjeet Rousseau NP). REASON FOR MEDICAL CONSULTATION: Evaluation for admission. HISTORY OF PRESENT ILLNESS: Mrs. Suero is a 51-year-old female patient, who about a month ago underwent a fem-pop bypass under the care of Dr. York. She was doing well initially postoperatively, she went to [facility], but after being discharged from [facility], it was noted that she was profoundly anemic. She actually was admitted here on 12/14/16 and she was discharged a week ago on 12/22/16. She saw Dr. York on 12/24/16 who gave her and the wound care explicit wound care instructions. The patient was going to the wound center today on 12/28/16 and to get dialysis. Unfortunately, the patient noticed that her dress was sticking to her leg and to her dressing and she noticed that she was having a significant amount of blood coming from the dressing that was dripping and she had blood in her house. She was concerned and came into the hospital. She was evaluated by Dr. Méndez in the ED, the dressing was removed by Dr. Méndez and the patient's bleeding was controlled and there was concern because it appeared that the wound appeared to be infected again. She was here again last week, was found to have an infection, put on antibiotics, sent home on doxycycline and Levaquin, but despite this, it appears that she has another infection. The patient when asking her if she has noticed any erythema, she said no, the wound has been dressed. She has not noticed any pus coming out of the wound and there was concern because of infection. The patient does state that she did not have any fevers, but we were asked to evaluate in admission for wound care and treatment of a possible cellulitis surrounding the wound. PAST MEDICAL HISTORY: Significant for: 1. End-stage renal disease. 2. Hypertension. 3. Hyperlipidemia. 4. Obesity. 5. Diabetes. 6. Dyspepsia. 7. Depression. 8. Anxiety. 9. COPD. 10. History of nephrolithiasis. 11. . PAST SURGICAL HISTORY: 1. She has had an AV fistula. 2. Tubal ligation. 3. Fem-pop bypass on 11/24/16. MEDICATIONS: According to our records include: 1. Oxycodone 5 mg every 4 hours as needed. 2. Demadex 20 mg p.o. b.i.d. 3. Renvela 800 mg p.o. t.i.d. with meals. 4. Zoloft 50 mg daily. 5. Lyrica 75 mg p.o. t.i.d. 6. Omeprazole 20 mg daily. 7. Methadone 5 mg every 12 hours. 8. Lisinopril 20 mg daily. 9. Levaquin 750 mg p.o. every 48 hours. 10. Lactulose 20 mg p.o. t.i.d. 11. Lantus 18 units subcu q.p.m. 12. Colace 100 mg p.o. b.i.d. 13. Doxycycline 100 mg p.o. b.i.d. 14. Sensipar 60 mg daily. 15. Cetirizine 10 mg daily. 16. Lipitor 20 mg daily. 17. Aspirin 81 mg daily. 18. Norvasc 2.5 mg at bedtime. 19. Amitriptyline 25 mg daily. 20. Ventolin 2 puffs inhaled every 4 hours as needed. 21. Tylenol 650 mg every 4 hours as needed. ALLERGIES TO MEDICATIONS: Include PENICILLIN. FAMILY HISTORY: Mother had a history of seizures and epilepsy. Father had a history of diabetes. SOCIAL HISTORY: She is a former smoker, does not drink alcohol. She is . Surrogate decision maker is her . REVIEW OF SYSTEMS: The patient denies any documented fever. She is unaware of any weight changes. She denies having any double vision, no ear discharge, no rhinorrhea. No sore throat. No thyroid enlargement. She denies having any chest pain. No orthopnea. No nocturnal dyspnea. There is no abdominal pain. There was no nausea or vomiting. No dysuria. No frequency. No loss of consciousness. No pruritus and no skin ulcerations. Review of 14 systems completed, all others negative. PHYSICAL EXAM: Vital Signs: Blood pressure 131/70, pulse of 88, respirations 18, O2 sat 96%, temperature 98.7. General: At this time, Mrs. Suero is a 51- year-old female patient. She is chronically ill appearing. She is sitting in the ER stretcher. She does not appear to be in any acute distress. HEENT: Head is atraumatic. Eyes: EOMs are intact. Sclerae anicteric. Neck: Supple. Throat: Oral mucosa appears to be moist. No oropharyngeal erythema. Heart: Sounds S1, S2. Regular rate and rhythm. She did have a grade 2 to 3 aortic murmur. Lungs: Clear to auscultation. No wheezes, rales, or rhonchi. Abdomen: Soft, flat, and nontender. Extremities: Pulses were dopplerable on the right lower extremity, on the posterior tibial and the dorsalis pedis. She does have a wound extending from the groin just above the knee on the right leg that is again medial. The wound at its widest is approximately 2 cm. It does appear to be above 2 cm deep and it runs again the length from the groin down to the knee. She does have erythema surrounding the lower extremity. She also does have erythema on the top part of the wound as well and there does appear to be some necrosis along the edges of the wound as well. No sudha bleeding or pus was noted, otherwise, and she does have ulcers noted to the dorsum of her foot. Neurologically, she is awake, alert, and oriented x3. Skin is otherwise intact with the exception of the aforementioned wound. DIAGNOSTIC STUDIES/LABORATORY DATA: Her labs reveal WBC of 11.5, RBC 2.77, hemoglobin 7.5, hematocrit 25, platelets count of 351,000. INR 1.25, PTT of 40.5. The sodium of 144, potassium 5, chloride 91, bicarb 33, BUN 27, creatinine 4.96, glucose 126, lactic 0.7, calcium 8.3, total bili 0.3. AST 10, ALT 6, alk phos 91, troponin 0.00, CRP 105, albumin of 3.2. She did have an EKG obtained today as well, which revealed normal sinus rhythm, rate 77, no ST elevations or T-wave inversions. Old medical records were reviewed. ASSESSMENT AND PLAN: Mrs. Suero is a 51-year-old female patient with a complex wound from a fem-pop bypass about a month ago, now appearing to have a recurrent infection and possible worsening dehiscence secondary to the patient' s noncompliance, though she does have significant positive gain of weight and noncompliance due to fluid restriction secondary to her end-stage renal disease. Initially, I was going to accept the patient and put her on IV antibiotics. Unfortunately, in discussion further with Dr. Recinos, it was felt that the wound may need to be further explored by Dr. York, the patient's primary vascular surgeon. I touched base with Dr. York who graciously accepted the patient as she felt that she could better manage the patient herself with the patient in [facility]. She felt that the patient may need wound debridement, which she would not expect our surgeons to perform down here. She performed the surgery about a month ago, so she accepted the patient. I did touch base with Dr. Méndez who will be transferring the patient to the ED and then Dr. York will be taking the patient in the ED. In the meantime, Dr. York had recommend putting Aquacel silver along the wound edge and covering that with ABDs, wrapping in Kerlix and Eligio bandages. I did relay these instructions to Dr. Méndez and the patient will be transferred to [facility]. TIME SPENT: On the consult was approximately 90 minutes, greater than half that time was spent [id number] with the patient obtaining my history and physical, the other half of the time spent was planning, coordinating the care for the patient. HARJEET ROUSSEAU NP [id number]/[facility] #: [id number] LILLY
== END ==
LOC: ED 08:58
DX: S81.801D Unspecified open wound, right lower leg, subsequent encounter (principal); Z87.891 Personal history of nicotine dependence; D64.9 Anemia, unspecified; N18.9 Chronic kidney disease, unspecified; L08.9 Local infection of the skin and subcutaneous tissue, unspecified; X58.XXXD Exposure to other specified factors, subsequent encounter
CPT/HCPCS: 36415; 80053; 83605; 83690; 83880; 84484; 85025; 85610; 85730; 86140; 86850; 86900; 86901; 87040; 93005; 96365; 99284; J0692; J3370

== ENCOUNTER 2017-01-13 18:17 | Observation (INO) | payer BC, MEDICARE ==
--- NOTE | 2017-01-13 20:21 | RAD ---
INDICATION: Shortness of breath COMPARISON: Chest x-ray dated December 13, 2016 TECHNIQUE: Single AP portable view of the chest was obtained. FINDINGS: Image quality is compromised due to the relative inferiority of a portable chest x-ray. There is been slight interval worsening of the degree of cardiomegaly. The pulmonary vasculature is engorged and indistinct. There are linear densities overlying the right lower lung. Bilaterally there is costophrenic angle blunting. Visualized bones are normal for the patient's age. IMPRESSION: Chest x-ray findings are most consistent with cardiogenic pulmonary edema.
[2017-01-13 20:29] LABS: Albumin 3.7 g/dL (3.2-5.2); BUN/Creatinine Ratio 5.8 (8-20); C Reactive Protein 73.18 mg/L (< 5.00); Calcium 8.6 mg/dL (8.6-10.3); EGFR African American 12.6 (>60); EGFR Non-African American 9.8 (>60); Globulin 3.4 g/dL (2-4); Potassium 4.7 mmol/L (3.5-5.0); Total Bilirubin 0.5 mg/dL (0.2-1.0); Total Protein 7.1 g/dL (6.4-8.9)
[2017-01-13 20:31] LABS: Troponin I 0.01 ng/mL (<0.04)
[2017-01-13 20:35] LABS: Hematocrit 26 % (35-47); Hemoglobin 8.5 g/dl (12.0-16.0); Mean Corpuscular HGB Conc 32 g/dl (31-36); Mean Corpuscular Hemoglobin 29 pg (27-31); Mean Corpuscular Volume 89 fL (80-97); Mean Platelet Volume 8 um3 (7.4-10.4); Red Blood Count 2.94 10^6/ul (4.0-5.4); Red Cell Distribution Width 17 % (10.5-15); White Blood Count 14.3 10^3/ul (3.5-10.8)
[2017-01-13] MEDS ORDERED: Iodixanol* (CONTRAST) 320 MG/ML 100 ML SDV IV ONE (21:12)
--- NOTE | 2017-01-13 22:04 | RAD ---
INDICATION: Difficulty breathing in a dialysis patient. COMPARISON: Noncontrast CT the chest dated July 19, 2007 TECHNIQUE: Axial source images were acquired following the administration of 85 mL Visipaque [address] angiographic technique. Coronal and sagittal reconstructed images were constructed and reviewed. FINDINGS: There there are no filling defects in the pulmonary arteries to indicate acute pulmonary embolic disease. The lungs exhibit diffuse mild groundglass density with pleural-based more confluent densities in the bilateral lung bases. There are small bilateral pleural effusions. The heart is mildly enlarged. There is coarse calcification at the mitral valve, coronary arteries, aortic ring and arch of the aorta. Mildly enlarged mediastinal lymph nodes include a preaortic lymph node measuring just under 1 cm in short access diameter (image 100). A subcarinal lymph node measures 1.7 x 2.8 cm in the axial plane (image 131). A right of midline posterior tracheal lymph node measures 9 mm in short access (image 60). A right hilar lymph node measures 1.1 cm in short axis diameter (image 120). Multilevel degenerative changes of the thoracic spine includes loss of intervertebral disc height and mild marginal osteophyte formation. Limited views of the upper abdomen show no abnormalities. IMPRESSION: 1. No CT of evidence of pulmonary embolism. 2. There is been interval development of mild mediastinal lymphadenopathy relative to the July 19, 2007 CT of the chest. 3. CT findings are most indicative, considering the patient's dialysis status, of fluid overload pulmonary edema with small bibasilar pleural effusions. 4. Additional chronic and degenerative changes are described in more detail the by the report.
[2017-01-13] MEDS ORDERED: Albuterol HFA INHALER* 8 gm MDI INH PRN (23:13)
[2017-01-13] MEDS ORDERED: Acetaminophen TAB* 325 MG PO PRN (23:17)
[2017-01-13] MEDS ORDERED: Melatonin (NF) 3 MG TAB PO PRN (23:17)
[2017-01-13] MEDS ORDERED: Morphine INJ* 2 MG/ML 1 ML SYRINGE (TWO MG - NEW SYRINGE VERSION) IV PRN (23:18)
[2017-01-13] MEDS ORDERED: Ondansetron INJ* 2 MG/ML VIAL IV PRN (23:18)
--- NOTE | 2017-01-13 23:40 | HP ---
H&P (Free Text) History and Physical: PCP: Shivani Fontenot MD Nephrology: Shivani Valiente MD Date/Time: 01/13/2017 2200 CC: SOB HPI: Mrs Suero is a 51YO female HX ESRD-HD, DM2, COPD, PAOD s/p R fem-pop bypass complicated by RLE wound infection currently with wound vac who noted exertional dyspnea this AM for which she started using her home oxygen. At Dr Recinos's office she was noted to have an saO2 reportedly in the 70% range and referred to [facility] where work up reveals volume overload and hypoxia. She had some abdominal cramping through the day, but denies chest pain, palpitations, F/ C, cough/congestion, N/V, diarrhea, or other issues. She reports compliance with her 1500cc daily fluid restriction, sodium avoidance, and dialysis attendance. PMedHx ESRD-HD HTN PAOD/HLD DM2 GERD COPD urolithiasis depression anxiety Ambulatory Orders Albuterol HFA INHALER* [Ventolin HFA Inhaler*] 2 puff INH Q4HR PRN 09/14/12 Amitriptyline TAB* [Elavil TAB*] 25 mg PO QPM 09/14/12 Sertraline* [Zoloft*] 50 mg PO QPM 09/14/12 Pregabalin CAP(*) [Lyrica CAP(*)] 150 mg PO TID 12/26/14 Aspirin [Aspirin Adult Low Dose 81 MG] 81 mg PO QAM 01/09/15 Lisinopril [Lisinopril 20 MG-] 20 mg PO DAILY 08/19/15 Insulin GLARGINE(*) [Lantus(*)] 20 units SUBCUT QPM #0 11/14/15 Cetirizine HCl [Zyrtec Allergy 10 MG TAB] 10 mg PO QAM 02/04/16 Omeprazole CAP* [Prilosec CAP* 20 MG] 20 mg PO QAM 02/04/16 Sevelamer TAB* [Renvela TAB*] 2,400 mg PO TID WITH MEALS 02/04/16 Torsemide TAB* [Demadex 20 MG*] 80 mg PO BID 02/04/16 Amlodipine Besylate [Norvasc 2.5 mg tab] 2.5 mg PO BEDTIME 12/13/16 Acetaminophen TAB* [Tylenol TAB*] 650 mg PO Q4H PRN #0 tab 12/22/16 Albuterol Sulfate [Proventil Hfa] 90 mcg IN Q4HR PRN 01/13/17 Gemfibrozil TAB* [Lopid TAB*] 600 mg PO BID 01/13/17 Insulin Lispro [Humalog] 20 unit SUBCUT AC 01/13/17 Levofloxacin TAB* [Levaquin 750 MG TAB*] 500 mg PO EVERY OTHER DAY 01/13/17 Metolazone 5 mg PO DAILY 01/13/17 Metronidazole [Flagyl 500 MG TAB] 500 mg PO Q8HR 01/13/17 Ondansetron ODT TAB* [Zofran 4 MG Odt TAB*] 4 mg PO Q8H PRN 01/13/17 Allergies Penicillins [PCN] Allergy (Unknown, Verified 01/13/17 21:41) Hives Gabapentin [From Neurontin] Allergy (Verified 01/13/17 22:52) Hallucinations PSurgHx L nephrectomy as an infant RLE fem-pop bypass complicated by wound infection 11/2016 tubal ligation SocHx: quit smoking [id number], denies alcohol and recreational drugs; lives with her ; unemployed; full code status FamHx: positive for seizures, DM2 ROS: as above, otherwise reviewed and all were negative vitals: Vital Signs Temp 37.4 C 01/13/17 18:20 Pulse 95 01/14/17 00:01 Resp 21 01/14/17 00:01 BP 165/77 01/14/17 00:01 Pulse Ox 97 01/14/17 00:01 Intake & Output 01/13/17 01/13/17 01/14/17 11:59 23:59 11:59 Weight 91.626 kg Constitutional: NAD, normally developed, obese white female HEENM: atraumatic; sclera/conjunctiva: non-icteric/clear; hearing: clinically intact; oropharynx: clear, mucosa moist Neck: soft tissue: non-tender; thyroid: normal Pulmonary: fine cellophane crackles B bases, fair to good aeration, no accessory muscle use CV: RR/RR, normal S1S2, no carotid bruit, no jugular venous distention, 2+ B DP/ PT, 2-3+ RLE edema Abdominal: soft, non-distended, non-tender, no rebound/guarding/rigidity, normoactive bowel sounds, no hepatosplenomegaly or masses, no costovertebral angle tenderness Musculoskeletal: general: grossly intact; gait: stable Integumental: RLE with extensive length wound and wound vac in place, RLE is swollen and mildly tender throughout Psychiatric orientation: AA&O to PPS affect: calm mood: cooperative eye contact: fair to good content: reliable responses: timely insight: fair Testing: Lab Results 01/13/17 01/13/17 01/13/17 Range/Units 20:03 20:03 20:03 WBC (3.5-10.8) 10^3/ul RBC (4.0-5.4) 10^6/ul Hgb (12.0-16.0) g/dl Hct (35-47) % MCV (80-97) fL MCH (27-31) pg MCHC (31-36) g/dl RDW (10.5-15) % Plt Count (150-450) 10^3/ul MPV (7.4-10.4) um3 Neut % (Auto) (38-83) % Lymph % (Auto) (25-47) % [place] % (Auto) (1-9) % Eos % (Auto) (0-6) % Baso % (Auto) (0-2) % Absolute Neuts (auto) (1.5-7.7) 10^3/ul Absolute Lymphs (auto) (1.0-4.8) 10^3/ul Absolute Monos (auto) (0-0.8) 10^3/ul Absolute Eos (auto) (0-0.6) 10^3/ul Absolute Basos (auto) (0-0.2) 10^3/ul Absolute Nucleated RBC 10^3/ul Nucleated RBC % INR (Anticoag Therapy) 1.11 (0.89-1.11) APTT 43.3 H (26.0-36.3) seconds D-Dimer, Quantitative 452 H (Less Than 230) ng/mL Sodium 137 (133-145) mmol/L Potassium 4.7 (3.5-5.0) mmol/L Chloride 98 L (101-111) mmol/L Carbon Dioxide 29 (22-32) mmol/L Anion Gap 10 (2-11) mmol/L BUN 27 H (6-24) mg/dL Creatinine 4.67 H (0.51-0.95) mg/dL Est GFR ( Amer) 12.6 (>60) Est GFR (Non-Af Amer) 9.8 (>60) BUN/Creatinine Ratio 5.8 L (8-20) Glucose 194 H (70-100) mg/dL Lactic Acid (0.5-2.0) mmol/L Calcium 8.6 (8.6-10.3) mg/dL Total Bilirubin 0.50 (0.2-1.0) mg/dL AST 8 L (13-39) U/L ALT 4 L (7-52) U/L Alkaline Phosphatase 102 (34-104) U/L Total Creatine Kinase 55 (10-223) U/L CK-MB (CK-2) 3.6 (0.6-6.3) ng/mL Troponin I 0.01 (<0.04) ng/mL C-Reactive Protein 73.18 H (< 5.00) mg/L B-Natriuretic Peptide 1675 H ( - 100) pg/mL Total Protein 7.1 (6.4-8.9) g/dL Albumin 3.7 (3.2-5.2) g/dL Globulin 3.4 (2-4) g/dL Albumin/Globulin Ratio 1.1 (1-3) Influenza A (Rapid) (Negative) Influenza B (Rapid) (Negative) 01/13/17 01/13/17 01/13/17 Range/Units 20:03 20:03 21:06 WBC 14.3 H (3.5-10.8) 10^3/ul RBC 2.94 L (4.0-5.4) 10^6/ul Hgb 8.5 L (12.0-16.0) g/dl Hct 26 L (35-47) % MCV 89 (80-97) fL MCH 29 (27-31) pg MCHC 32 (31-36) g/dl RDW 17 H (10.5-15) % Plt Count 441 (150-450) 10^3/ul MPV 8 (7.4-10.4) um3 Neut % (Auto) 77.6 (38-83) % Lymph % (Auto) 9.5 L (25-47) % [place] % (Auto) 11.7 H (1-9) % Eos % (Auto) 0.5 (0-6) % Baso % (Auto) 0.7 (0-2) % Absolute Neuts (auto) 11.1 H (1.5-7.7) 10^3/ul Absolute Lymphs (auto) 1.4 (1.0-4.8) 10^3/ul Absolute Monos (auto) 1.7 H (0-0.8) 10^3/ul Absolute Eos (auto) 0.1 (0-0.6) 10^3/ul Absolute Basos (auto) 0.1 (0-0.2) 10^3/ul Absolute Nucleated RBC 0.01 10^3/ul Nucleated RBC % 0.1 INR (Anticoag Therapy) (0.89-1.11) APTT (26.0-36.3) seconds D-Dimer, Quantitative (Less Than 230) ng/mL Sodium (133-145) mmol/L Potassium (3.5-5.0) mmol/L Chloride (101-111) mmol/L Carbon Dioxide (22-32) mmol/L Anion Gap (2-11) mmol/L BUN (6-24) mg/dL Creatinine (0.51-0.95) mg/dL Est GFR ( Amer) (>60) Est GFR (Non-Af Amer) (>60) BUN/Creatinine Ratio (8-20) Glucose (70-100) mg/dL Lactic Acid 0.7 (0.5-2.0) mmol/L Calcium (8.6-10.3) mg/dL Total Bilirubin (0.2-1.0) mg/dL AST (13-39) U/L ALT (7-52) U/L Alkaline Phosphatase (34-104) U/L Total Creatine Kinase (10-223) U/L CK-MB (CK-2) (0.6-6.3) ng/mL Troponin I (<0.04) ng/mL C-Reactive Protein (< 5.00) mg/L B-Natriuretic Peptide ( - 100) pg/mL Total Protein (6.4-8.9) g/dL Albumin (3.2-5.2) g/dL Globulin (2-4) g/dL Albumin/Globulin Ratio (1-3) Influenza A (Rapid) Negative (Negative) Influenza B (Rapid) Negative (Negative) ECG, personally reviewed: NSR rate 92, no ischemia CXR, personally reviewed: IMPRESSION: Chest x-ray findings are most consistent with cardiogenic pulmonary edema. CTA chest, personally reviewed: IMPRESSION: 1. No CT of evidence of pulmonary embolism. 2. There is been interval development of mild mediastinal lymphadenopathy relative to the July 19, 2007 CT of the chest. 3. CT findings are most indicative, considering the patient's dialysis status , of fluid overload pulmonary edema with small bibasilar pleural effusions. 4. Additional chronic and degenerative changes are described in more detail the by the report. Impression: 51F HX ESRD-HD MWF presents with volume overload and hypoxia DIAGNOSIS & PLAN Primary volume overload w/ hypoxia : HX ESRD-HD MWF : supplemental oxygen : change fluid restriction from 1500cc/day to 1200cc/day : supportive care : Shivani Valiente MD consulted by Shea Resendez MD ED; will arrange inpatient dialysis in AM Secondary HTN : review meds once reconciled PAOD/HLD : review meds once reconciled DM2 : review meds once reconciled : A1c 12/2016 6.0 : continue glargine : consistent carbohydrate diet : correctional insulin GERD : review meds once reconciled COPD : review meds once reconciled depression : review meds once reconciled anxiety : review meds once reconciled Admission Rational: observation for volume overload w/ hypoxia DVTp: heparin SQ Code Status: full HCP:
[2017-01-14] MEDS ORDERED: metroNIDAZOLE TAB* 250 MG PO SCH
[2017-01-14] MEDS: metroNIDAZOLE TAB* 250 MG PO SCH ×2 (05:14→14:32)
[2017-01-14] MEDS: Heparin VIAL(*) 5000 UNITS/ML VIAL (FIVE THOUSAND) SUBCUT SCH ×2 (05:14→14:33)
[2017-01-14 06:14] LABS: BUN/Creatinine Ratio 6.5 (8-20); Calcium 8.7 mg/dL (8.6-10.3); EGFR African American 11.5 (>60); EGFR Non-African American 8.9 (>60); Magnesium 2.1 mg/dL (1.9-2.7); Phosphorus 5.1 mg/dL (2.5-5.0); Potassium 4.6 mmol/L (3.5-5.0)
[2017-01-14 06:27] LABS: Hematocrit 31 % (35-47); Hemoglobin 9.7 g/dl (12.0-16.0); Mean Corpuscular HGB Conc 31 g/dl (31-36); Mean Corpuscular Hemoglobin 28 pg (27-31); Mean Corpuscular Volume 90 fL (80-97); Mean Platelet Volume 8 um3 (7.4-10.4); Red Blood Count 3.46 10^6/ul (4.0-5.4); Red Cell Distribution Width 17 % (10.5-15); White Blood Count 14.6 10^3/ul (3.5-10.8)
[2017-01-14] MEDS ORDERED: Docusate CAP* 100 MG PO SCH (09:00)
[2017-01-14] MEDS ORDERED: Metolazone TAB* 5 MG PO SCH (09:00)
[2017-01-14] MEDS ORDERED: Aspirin EC Low Dose* 81 MG TAB.EC PO SCH (09:00)
[2017-01-14] MEDS ORDERED: Omeprazole CAP* 20 MG PO SCH (09:00)
[2017-01-14] MEDS ORDERED: Gemfibrozil TAB* 600 MG PO SCH (09:00)
[2017-01-14] MEDS: Insulin LISPRO* 1 UNITS UNIT SUBCUT SCH ×3 (09:00→17:19)
[2017-01-14] MEDS ORDERED: Torsemide TAB* 20 MG PO SCH (09:00)
[2017-01-14] MEDS: Sevelamer TAB* 800 MG PO SCH ×3 (09:00→17:54)
[2017-01-14] MEDS ORDERED: Lisinopril TAB* 10 MG PO SCH (09:00)
[2017-01-14] MEDS: Pregabalin CAP(*) 50 MG PO SCH ×2 (09:02→14:32)
[2017-01-14] MEDS ORDERED: Epoetin Alfa* 4,000 UNITS/ML VIAL IV ONE (11:00)
[2017-01-14] MEDS ORDERED: Heparin DIALYSIS ONLY(*) 1,000 UNITS/ML VIAL DIALYSIS ONE (11:00)
--- NOTE | 2017-01-14 14:35 | ED ---
Oscar Hanks Rebecca, scribed for Vidya Resendez MD on 01/13/17 at 1951 . Shortness of Breath - HPI Summary HPI Summary: Pt is a 51 y/o F who presents to ED after being referred by Dr. Recinos for SOB. SOB characterized as dyspnea at rest/very mild exertion, of sudden onset at 0900, stating that is when she first noticed the sx, while walking. Sx aggravated by nothing, alleviated by O2. Denies any CP. PSHx bypass in the upper RLE due to an angioplasty being ineffective, per pt. She has been seen multiple times for complications and in the last few weeks, the wound has opened and begun bleeding. She was seen by Dr. Recinos today for E. Coli growth in the wound, though he was unable to give her much information as he sent her to the ED due to O2 saturation being in the 80s. She is on 2 Abx ( Levaquin and Metronidazole) and Zofran. Pt is currently on dialysis with her last treatment yesterday, as she has it done on , and . Her dry weight is 91.5 kg and she came off dialysis at 91.8 kg yesterday. - History of Current Complaint Chief Complaint: EDShortnessOfBreath Time Seen by Provider: 01/13/17 19:37 Hx Obtained From: Patient Onset/Duration: Lasting Hours, Still Present Dyspnea At: Rest Aggrevating Factors: Nothing Alleviating Factors: Oxygen - Allergy/Home Medications Allergies/Adverse Reactions: Allergies Allergy/AdvReac Type Severity Reaction Status Date / Time Penicillins [PCN] Allergy Unknown Hives Verified 01/13/17 21:41 Gabapentin [From Neurontin] Allergy Hallucinati Verified 01/13/17 22:52 ons Home Medications: Home Medications Albuterol Sulfate [Proventil Hfa] 90 mcg IN Q4HR PRN 01/13/17 [History Confirmed 01/13/17] Gemfibrozil TAB* [Lopid TAB*] 600 mg PO BID 01/13/17 [History Confirmed ] Insulin Lispro [Humalog] 20 unit SUBCUT AC 01/13/17 [History Confirmed 01/13/17] Levofloxacin TAB* [Levaquin 750 MG TAB*] 500 mg PO EVERY OTHER DAY 01/13/17 [ History Confirmed 01/13/17] Metolazone 5 mg PO DAILY 01/13/17 [History Confirmed 01/13/17] Metronidazole [Flagyl 500 MG TAB] 500 mg PO Q8HR 01/13/17 [History Confirmed 08/25] Ondansetron ODT TAB* [Zofran 4 MG Odt TAB*] 4 mg PO Q8H PRN 01/13/17 [History Confirmed 01/13/17] PMH/Surg Hx/FS Hx/Imm Hx Endocrine/Hematology History: Reports: Hx Diabetes, Hx Anemia - R/T KIDNEY FAILURE Cardiovascular History: Reports: Hx Hypertension Denies: Hx Angina, Hx Pacemaker/ICD, Other Cardiovascular Problems/Disorders Respiratory History: Reports: Hx Asthma - HX OF WHEN WAS A SMOKER, Hx Chronic Obstructive Pulmonary Disease (COPD) GI History: Reports: Hx Gastroesophageal Reflux Disease - ON MEDICATION FOR Denies: Other GI Disorders History: Reports: Hx Dialysis, Hx Kidney Stones - HX OF, Other Problems/ Disorders - HX OF RIGHT NEPHRECTOMY <1 YEAR OF AGE; ESRD - dialysis Musculoskeletal History: Reports: Hx Arthritis - KNEES, ELBOW, FINGERS Denies: Other Musculoskeletal History Sensory History: Reports: Hx Contacts or Glasses Denies: Hx Cataracts, Hx Hearing Aid Opthamlomology History: Reports: Hx Contacts or Glasses Denies: Hx Cataracts Neurological History: Denies: Hx CVA Psychiatric History: Reports: Hx Anxiety, Hx Depression - Surgical History Surgery Procedure, Year, and Place: ESWL APPROX 2004. RIGHT NEPHRECTOMY AN . 2 CARPAL TUNNELS, ONESIMO, 2013 , 2014. HEMODIALYSIS CATH, 12/2015. peritoneal dialysis catheter 01/2016. LUE fistula 11/2015 Hx Anesthesia Reactions: No Infectious Disease History: No Infectious Disease History: Denies: Traveled Outside the [place] in Last 30 Days - Family History Known Family History: Positive: Diabetes - MGF, Father - Social History Alcohol Use: Rare Substance Use Type: Reports: None Smoking Status (MU): Former Smoker Type: Cigarettes Amount Used/How Often: 1 PPD X 20 YEARS Length of Time of Smoking/Using Tobacco: 34 YEARS Have You Smoked in the Last Year: No Review of Systems Negative: Chest Pain Positive: Shortness Of Breath All Other Systems Reviewed And Are Negative: Yes Physical Exam Triage Information Reviewed: Yes Vital Signs On Initial Exam: Initial Vitals Temp Pulse Resp BP Pulse Ox 99.3 F 99 20 156/72 92 01/13/17 18:20 01/13/17 18:20 01/13/17 18:20 01/13/17 18:20 01/13/17 18:20 Vital Signs Reviewed: Yes Appearance: Positive: No Pain Distress, Well-Nourished, Ill-Appearing Skin: Positive: Warm, Other - Edema and redness with diffuse swelling of the right lower leg laceration with a wound vac in place that is operational and the surgical site is covered with Tegaderm with no drainage. Head/Face: Positive: Normal Head/Face Inspection Eyes: Positive: Conjunctiva Clear ENT: Positive: Normal ENT inspection Neck: Positive: Supple Respiratory/Lung Sounds: Positive: Clear to Auscultation, Breath Sounds Present , Other - No respiratory distress, her O2 saturation was 97 during evaluation while on O2 Cardiovascular: Positive: RRR, Pulses are Symmetrical in both Upper and Lower Extremities, Other - Brisk capillary refill. Negative: Murmur Abdomen Description: Positive: Nontender, Soft Bowel Sounds: Positive: Present Musculoskeletal: Positive: Strength/ROM Intact, Other - Fistula in the L arm that has a good thrill Neurological: Positive: Sensory/Motor Intact, Alert, Oriented to Person Place, Time, Facial Symmetry, Speech Normal Psychiatric: Positive: Normal - Suzette Coma Scale Coma Scale Total: 15 Diagnostics - Vital Signs Vital Signs Temp Pulse Resp BP Pulse Ox 01/13/17 19:10 20 01/13/17 18:20 99.3 F 99 20 156/72 92 - Laboratory Lab Results: Lab Results 01/13/17 01/13/17 01/13/17 Range/Units 20:03 20:03 20:03 WBC (3.5-10.8) 10^3/ul RBC (4.0-5.4) 10^6/ul Hgb (12.0-16.0) g/dl Hct (35-47) % MCV (80-97) fL MCH (27-31) pg MCHC (31-36) g/dl RDW (10.5-15) % Plt Count (150-450) 10^3/ul MPV (7.4-10.4) um3 Neut % (Auto) (38-83) % Lymph % (Auto) (25-47) % [place] % (Auto) (1-9) % Eos % (Auto) (0-6) % Baso % (Auto) (0-2) % Absolute Neuts (auto) (1.5-7.7) 10^3/ul Absolute Lymphs (auto) (1.0-4.8) 10^3/ul Absolute Monos (auto) (0-0.8) 10^3/ul Absolute Eos (auto) (0-0.6) 10^3/ul Absolute Basos (auto) (0-0.2) 10^3/ul Absolute Nucleated RBC 10^3/ul Nucleated RBC % INR (Anticoag Therapy) 1.11 (0.89-1.11) APTT 43.3 H (26.0-36.3) seconds D-Dimer, Quantitative 452 H (Less Than 230) ng/mL Sodium 137 (133-145) mmol/L Potassium 4.7 (3.5-5.0) mmol/L Chloride 98 L (101-111) mmol/L Carbon Dioxide 29 (22-32) mmol/L Anion Gap 10 (2-11) mmol/L BUN 27 H (6-24) mg/dL Creatinine 4.67 H (0.51-0.95) mg/dL Est GFR ( Amer) 12.6 (>60) Est GFR (Non-Af Amer) 9.8 (>60) BUN/Creatinine Ratio 5.8 L (8-20) Glucose 194 H (70-100) mg/dL Lactic Acid (0.5-2.0) mmol/L Calcium 8.6 (8.6-10.3) mg/dL Total Bilirubin 0.50 (0.2-1.0) mg/dL AST 8 L (13-39) U/L ALT 4 L (7-52) U/L Alkaline Phosphatase 102 (34-104) U/L Total Creatine Kinase 55 (10-223) U/L CK-MB (CK-2) 3.6 (0.6-6.3) ng/mL Troponin I 0.01 (<0.04) ng/mL C-Reactive Protein 73.18 H (< 5.00) mg/L B-Natriuretic Peptide 1675 H ( - 100) pg/mL Total Protein 7.1 (6.4-8.9) g/dL Albumin 3.7 (3.2-5.2) g/dL Globulin 3.4 (2-4) g/dL Albumin/Globulin Ratio 1.1 (1-3) Influenza A (Rapid) (Negative) Influenza B (Rapid) (Negative) 01/13/17 01/13/17 01/13/17 Range/Units 20:03 20:03 21:06 WBC 14.3 H (3.5-10.8) 10^3/ul RBC 2.94 L (4.0-5.4) 10^6/ul Hgb 8.5 L (12.0-16.0) g/dl Hct 26 L (35-47) % MCV 89 (80-97) fL MCH 29 (27-31) pg MCHC 32 (31-36) g/dl RDW 17 H (10.5-15) % Plt Count 441 (150-450) 10^3/ul MPV 8 (7.4-10.4) um3 Neut % (Auto) 77.6 (38-83) % Lymph % (Auto) 9.5 L (25-47) % [place] % (Auto) 11.7 H (1-9) % Eos % (Auto) 0.5 (0-6) % Baso % (Auto) 0.7 (0-2) % Absolute Neuts (auto) 11.1 H (1.5-7.7) 10^3/ul Absolute Lymphs (auto) 1.4 (1.0-4.8) 10^3/ul Absolute Monos (auto) 1.7 H (0-0.8) 10^3/ul Absolute Eos (auto) 0.1 (0-0.6) 10^3/ul Absolute Basos (auto) 0.1 (0-0.2) 10^3/ul Absolute Nucleated RBC 0.01 10^3/ul Nucleated RBC % 0.1 INR (Anticoag Therapy) (0.89-1.11) APTT (26.0-36.3) seconds D-Dimer, Quantitative (Less Than 230) ng/mL Sodium (133-145) mmol/L Potassium (3.5-5.0) mmol/L Chloride (101-111) mmol/L Carbon Dioxide (22-32) mmol/L Anion Gap (2-11) mmol/L BUN (6-24) mg/dL Creatinine (0.51-0.95) mg/dL Est GFR ( Amer) (>60) Est GFR (Non-Af Amer) (>60) BUN/Creatinine Ratio (8-20) Glucose (70-100) mg/dL Lactic Acid 0.7 (0.5-2.0) mmol/L Calcium (8.6-10.3) mg/dL Total Bilirubin (0.2-1.0) mg/dL AST (13-39) U/L ALT (7-52) U/L Alkaline Phosphatase (34-104) U/L Total Creatine Kinase (10-223) U/L CK-MB (CK-2) (0.6-6.3) ng/mL Troponin I (<0.04) ng/mL C-Reactive Protein (< 5.00) mg/L B-Natriuretic Peptide ( - 100) pg/mL Total Protein (6.4-8.9) g/dL Albumin (3.2-5.2) g/dL Globulin (2-4) g/dL Albumin/Globulin Ratio (1-3) Influenza A (Rapid) Negative (Negative) Influenza B (Rapid) Negative (Negative) Result Diagrams: 01/14/17 04:52 01/14/17 04:52 Lab Statement: Any lab studies that have been ordered have been reviewed, and results considered in the medical decision making process. - Radiology CXR Xray Interpretation: Positive (See Comments) - Chest x-ray findings are most consistent with cardiogenic pulmonary edema. ED physician reviewed radiology report and agrees. Radiology Interpretation Completed By: Radiologist - CT Chest/Thorax CTA CT Interpretation: No Acute Changes - 1. No CT of evidence of pulmonary embolism. 2. There is been interval development of mild mediastinal lymphadenopathy relative to the July 19, 2007 CT of the chest. 3. CT findings are most indicative, considering the patient's dialysis status, of fluid overload pulmonary edema with small bibasilar pleural effusions. 4. Additional chronic and degenerative changes are described in more detail the by the report. ED physician reviewed radiology report and agrees. CT Interpretation Completed By: Radiologist - EKG 2003 Cardiac Rate: NL - 92 bpm EKG Rhythm: Sinus Rhythm EKG Interpretation: Nl AV/IV CT, nl QTC, nl axis EKG Comparison: No Significant Change - Unchanged from EKG on 12/28/2016 Re-Evaluation - Re-Evaluation First Eval Re-Evaluation Time: 22:14 Change: Improved Comment: Discussed CTA results with the pt. She confirms that her RLE is not more swollen or painful than it is at baseline. Pt denies feeling SOB at this moment and has continued to be free of chest pain. O2 saturation is between 93 and 95. Reports she has a visiting nurse coming tomorrow to change her wound dressing and that she has O2 at home. Answered all questions that the pt had. Second Eval Re-Evaluation Time: 22:44 Change: Worse Comment: Pt has an O2 sat of 86% on RA with no CP and repsirations are unlabored.Calling Dr. Valiente to determine disposition. Course/Dx - Course Assessment/Plan: Pt is a 51 y/o F who presents to ED after being referred by Dr. Recinos for SOB. SOB characterized as dyspnea at rest/very mild exertion, of sudden onset at 0900, stating that is when she first noticed the sx, while walking. Sx aggravated by nothing, alleviated by O2. Denies any CP. PSHx bypass in the upper RLE due to an angioplasty being ineffective, per pt. She has been seen multiple times for complications and in the last few weeks, the wound has opened and begun bleeding. She was seen by Dr. Recinos today for E. Coli growth in the wound, though he was unable to give her much information as he sent her to the ED due to O2 saturation being in the 80s. She is on 2 Abx ( Levaquin and Metronidazole) and Zofran. Pt is currently on dialysis with her last treatment yesterday, as she has it done on , and . Her dry weight is 91.5 kg and she came off dialysis at 91.8 kg yesterday. CXR reveals cardiogenic pulmonary edema. Chest/thorax CTA is negative for PE. EKG is sinus rhythm with no acute changes. Influenza A and B were both negative. Discussed care of pt with Dr. Recinos who reported that the patient was tachycardic and hypoxic in the low 80s while in the office today. Discussed care of pt with Dr. Valiente at 2057 who stated that because Visipaque is being used for the CTA she does not need to be dialysed after it. He stated that if the CTA is negative, she is alright to be D/C to home and follow up tomorrow for outpatient dialysis, as scheduled. On reevaluation, pt's O2 saturation is between 93 and 95. Prior to discharge her O2 saturation dropped to 86% on RA. Discussed care of pt with Dr. Valeinte again who advised admission. Discussed with Dr. Martinez who accepts pt for admission. Pt will be admitted with Dx of hypoxia and CHF. She understands and agrees. Allergies noted. High BP noted. Pt medications reviewed this visit. - Diagnoses Provider Diagnoses: Elevated BP under poor control, CHF (congestive heart failure), Hypoxia - Physician Notifications Discussed Care of Patient With: Kkie Recinos MD Time Discussed With Above Provider: 20:53 Instructed by Provider To: Other - He reported that the patient was tachycardic and hypoxic in the low 80s while in the office today. Discussed care of pt with Dr. Valiente at 2057 who stated that because Visipaque is being used for the CTA she does not need to be dialysed after it. He stated that if the CTA is negative , she is alright to be D/C to home and follow up tomorrow for outpatient dialysis, as scheduled. Discussed care of pt with Dr. Valiente again at 2246 who advised admission. Discussed care of pt with Dr. Martinez at 2307 who accepts pt for admission. Discharge - Discharge Plan Condition: Stable Disposition: ADMITTED TO [facility] The documentation as recorded by the Oscar toro Rebecca accurately reflects the service I personally performed and the decisions made by me, Vidya Resendez MD.
[2017-01-14] MEDS ORDERED: Vancomycin(*) 1,000 MG in NS 0.9% 250 ML* 250 ML IVPB ONE (15:00)
[2017-01-14 16:15] VITALS: BP 162/78
--- NOTE | 2017-01-14 17:57 | DCNOTE ---
Patient seen on HD and again later in the day. After HD breathing is much improved however still requiring O2. Reported some dysuria today. On exam (on HD), rales in B/L lower lung [place], B/L LE edema, RRR, [place], R thigh wound vac in place, does not appear to have active infection Patient eager to go home. She has home O2 that she usually uses prn. OK to discharge with continued increased UF removal with HD. Having trouble providing urine sample at this time but unlikely she has UTI with her broad spectrum ABx.
[2017-01-14] MEDS ORDERED: Amitriptyline TAB* 25 MG PO SCH (18:00)
[2017-01-14] MEDS ORDERED: Sertraline* 50 MG TAB PO SCH (18:00)
[2017-01-14] MEDS ORDERED: Insulin GLARGINE(*) 1 UNITS UNIT SUBCUT SCH (18:00)
[2017-01-14] MEDS ORDERED: amLODIPine TAB* 5 MG PO SCH (21:00)
--- NOTE | 2017-01-15 07:46 | DS ---
CC: Dr. Fontenot * DISCHARGE SUMMARY: DATE OF ADMISSION: 01/13/17. DATE OF DISCHARGE: 01/14/17. PRIMARY CARE PHYSICIAN: Dr. Fontenot. PRINCIPAL DISCHARGE DIAGNOSIS: Acute hypoxic respiratory failure secondary to fluid overload. SECONDARY DIAGNOSES: 1. End-stage renal disease, on hemodialysis. 2. Hypertension. 3. Peripheral artery disease. 4. Recent fem-pop bypass complicated by right lower extremity wound infection with wound VAC in place. STUDIES DONE DURING HOSPITALIZATION: Chest x-ray impression: Chest x-rays findings are most consistent with cardiogenic pulmonary edema. CTA of the chest, impression: No CT evidence of pulmonary embolism, interval development of mild mediastinal lymphadenopathy, relative to the 07/19/07 CT of the chest. CT findings most indicative considering the patient's dialysis status of fluid overload, pulmonary edema, with small bibasilar pleural effusions, additional chronic and degenerative changes are described in more detail by the report. HISTORY OF PRESENT ILLNESS AND HOSPITAL SUMMARY: Please see the full history and physical by Dr. Gwyn Martinez for full details. Briefly, Ms. Suero is a 51- year-old female with a past medical history as above who presented to the hospital with exertional dyspnea and was found to be hypoxic at an outpatient physician appointment. She was sent to the hospital and had evidence of fluid overload on exam as well as significantly elevated B-natriuretic peptide, which was up 1000 points from just a month ago. It was felt that the patient was fluid overloaded, however, it is unclear what the trigger was. She has been compliant with her HD appointments. She underwent dialysis as scheduled today on 01/14/17 with additional fluid removed, specifically 2.5 L of ultrafiltrate. After dialysis, her symptoms improved significantly. She did not feel short of breath, however, she was still requiring oxygen. At home, she normally uses oxygen as needed and at night, but I felt it was fine for her to go home on oxygen at this time and she may potentially need additional fluids removed in her next hemodialysis session. The patient did complain of one episode of dysuria during the hospitalization; however, with her broad spectrum antibiotics, I think it is unlikely she has any kind of urinary tract infection. She did not want to stay any longer to give a urine sample. DISCHARGE MEDICATIONS REGIMEN: 1. Tylenol 650 mg by mouth every 4 hours as needed for pain. 2. Albuterol two puffs inhaled every 4 hours as needed for shortness of breath or wheezing. 3. Amitriptyline 25 mg by mouth nightly. 4. Amlodipine 2.5 mg by mouth at bedtime. 5. Aspirin 81 mg by mouth daily. 6. Cetirizine 10 mg by mouth daily. 7. Gemfibrozil 600 mg by mouth three times daily. 8. Lantus 20 units subcutaneous every night. 9. Lispro 20 units subcutaneous with each meal. 10. Levaquin 500 mg by mouth every other day. 11. Lisinopril 20 mg by mouth daily. 12. Metolazone 5 mg by mouth daily. 13. Flagyl 500 mg by mouth every 8 hours. 14. Omeprazole 20 mg by mouth daily. 15. Zofran 4 mg by mouth every 8 hours as needed for nausea. 16. Lyrica 150 mg by mouth three times daily. 17. Zoloft 50 mg by mouth daily. 18. Sevelamer 2400 mg by mouth 3 times daily with meals. 19. Torsemide 80 mg by mouth 2 times daily. 20. Vancomycin to be given after dialysis, Tuesday, Tuesday, and Tuesday. TIME SPENT: Total time spent on this discharge is 50 minutes. This is a summary of this hospitalization. Please see the full medical record for further details. [id number]/[facility] #: [id number] MTDD
[2017-01-15] MEDS ORDERED: Levofloxacin TAB* 500 MG PO SCH (09:00)
[2017-01-17] MEDS ORDERED: Vancomycin Random Level* NOTE FOLLOW UP ONE (06:00)
[2017-01-17] MEDS ORDERED: Vancomycin(*) 1,000 MG in NS 0.9% 250 ML* 250 ML IVPB SCH (15:00)
== END 2017-01-14 20:05 | disposition home or self-care (01) ==
LOC: ED 18:17 → MEDTELE 23:07
PROVIDERS: ADMIT Hospitalist; ATTEND Hospitalist
DX: J96.01 Acute respiratory failure with hypoxia (principal); E87.70 Fluid overload, unspecified; E78.5 Hyperlipidemia, unspecified; R06.02 Shortness of breath; E11.9 Type 2 diabetes mellitus without complications; K21.9 Gastro-esophageal reflux disease without esophagitis; J44.9 Chronic obstructive pulmonary disease, unspecified; F32.9 Major depressive disorder, single episode, unspecified; F41.9 Anxiety disorder, unspecified; I73.9 Peripheral vascular disease, unspecified; I12.0 Hypertensive chronic kidney disease with stage 5 chronic kidney disease or end stage renal disease; N18.6 End stage renal disease; Z99.2 Dependence on renal dialysis; Z79.899 Other long term (current) drug therapy; Z79.4 Long term (current) use of insulin; Z79.82 Long term (current) use of aspirin; Z87.891 Personal history of nicotine dependence
CPT/HCPCS: 36415; 71010; 71275; 80048; 80053; 82550; 82553; 83605; 83735; 83880; 84100; 84484; 85025; 85379; 85610; 85730; 86140; 87040; 87502; 90935; 93005; 96365; 96372; 99284; A9270-GY; G0378; J0885; J1644; J3370; Q9967

== ENCOUNTER 2017-01-26 12:31 | Inpatient (IN) | payer BC, MEDICARE ==
[2017-01-26 13:27] LABS: Albumin 3.7 g/dL (3.2-5.2); BUN/Creatinine Ratio 9.4 (8-20); C Reactive Protein 11.28 mg/L (< 5.00); EGFR African American 11.1 (>60); EGFR Non-African American 8.6 (>60); Globulin 3.5 g/dL (2-4); Total Bilirubin 0.4 mg/dL (0.2-1.0); Total Protein 7.2 g/dL (6.4-8.9)
[2017-01-26 13:40] LABS: Hematocrit 32 % (35-47); Hemoglobin 10.4 g/dl (12.0-16.0); Mean Corpuscular HGB Conc 32 g/dl (31-36); Mean Corpuscular Hemoglobin 29 pg (27-31); Mean Corpuscular Volume 89 fL (80-97); Mean Platelet Volume 9 um3 (7.4-10.4); Red Blood Count 3.64 10^6/ul (4.0-5.4); Red Cell Distribution Width 18 % (10.5-15); White Blood Count 8.8 10^3/ul (3.5-10.8)
[2017-01-26] MEDS ORDERED: Insulin REGULAR(*) 1 UNITS UNIT IV PUSH ONE (14:01)
[2017-01-26] MEDS ORDERED: Dextrose 50% Syringe 50 ML* 25 GM/50 ML SYRINGE IV PUSH PRN ×2 (14:01→17:08)
--- NOTE | 2017-01-26 14:06 | RAD ---
Indication: Shortness of breath. Dialysis on Tuesday and do again today. Former tobacco use. Chronic obstructive pulmonary disease. Comparison: January 13, [address] Technique: Sitting AP and lateral chest views. Report: Upper normal heart size. Mild prominence of the central pulmonary vasculature decreased from the prior exam. Mild to moderate prominence of the mid to basilar interstitial markings with interval improvement. Minimal pleural effusions without gross change. IMPRESSION: Mild pulmonary vascular congestion and interstitial edema with improvement compared with the January 13, 2017 exams. Persistent small pleural effusions.
[2017-01-26 15:40] LABS: Urine Bacteria Absent (Absent); Urine Bilirubin Negative (Negative); Urine Glucose 3+(>=500 mg/dL) (Negative); Urine Nitrite Negative (Negative)
[2017-01-26] MEDS ORDERED: LORazepam INJ* 2 MG/ML 1 ML VIAL ONE (16:27)
[2017-01-26] MEDS ORDERED: Ondansetron INJ* 2 MG/ML VIAL IV PRN (17:08)
[2017-01-26] MEDS ORDERED: oxyCODONE TAB* 5 MG TAB PO PRN (17:10)
[2017-01-26] MEDS ORDERED: Albuterol HFA INHALER* 8 gm MDI INH PRN (17:28)
[2017-01-26] MEDS ORDERED: Vancomycin(*) 1,000 MG in NS 0.9% 250 ML* 250 ML IVPB ONE (18:00)
[2017-01-26 18:56] LABS: Potassium 5.9 mmol/L (3.5-5.0)
[2017-01-26 18:57] LABS: Troponin I 0.07 ng/mL (<0.04)
[2017-01-26] MEDS: metroNIDAZOLE TAB* 250 MG PO SCH ×2 (19:46→20:08)
[2017-01-26] MEDS: Docusate CAP* 100 MG PO SCH (20:06)
[2017-01-26] MEDS ORDERED: Torsemide TAB* 20 MG PO SCH (21:00)
[2017-01-26] MEDS: Torsemide TAB* 20 MG PO SCH (21:00)
[2017-01-26] MEDS ORDERED: Pregabalin CAP(*) 50 MG PO SCH (21:00)
[2017-01-26] MEDS ORDERED: Methadone TAB* 5 MG PO SCH (21:00)
[2017-01-26] MEDS: Gemfibrozil TAB* 600 MG PO SCH (21:01)
[2017-01-26] MEDS: Amitriptyline TAB* 25 MG PO SCH (21:01)
[2017-01-26] MEDS: Pregabalin CAP(*) 50 MG PO SCH (21:01)
[2017-01-26] MEDS: Atorvastatin* 20 MG TAB PO SCH (21:01)
[2017-01-26] MEDS: Sertraline* 50 MG TAB PO SCH (21:01)
[2017-01-26] MEDS: Levofloxacin TAB* 500 MG PO SCH (21:01)
[2017-01-26] MEDS: Acetaminophen TAB* 325 MG PO PRN (21:06)
[2017-01-26] MEDS: Sevelamer TAB* 800 MG PO SCH (21:07)
[2017-01-26] MEDS: Heparin VIAL(*) 5000 UNITS/ML VIAL (FIVE THOUSAND) SUBCUT SCH (21:50)
--- NOTE | 2017-01-26 23:06 | HP ---
CC: Dr. Fontenot; Dr. Valiente * HISTORY AND PHYSICAL: DATE OF ADMISSION: 01/26/17 PRIMARY CARE PROVIDER: Dr. Fontenot. ATTENDING PHYSICIAN WHILE IN THE HOSPITAL: Dr. Coleman * (report dictated by Augie Rousseau NP). CHIEF COMPLAINT: Shortness of breath. HISTORY OF PRESENT ILLNESS: Mrs. Suero is a 51-year-old female patient with an extensive past medical history who most recently has been recovering from a recent I and D from a fem-pop bypass surgery. She has a wound VAC now intact and has been doing well at home. Unfortunately though, she came in today with complaints of shortness of breath. She does have a history of end-stage renal disease, diabetes type 2, COPD, peripheral arterial disease, again hyperlipidemia, history of chronic pain, GERD, hypertension, depression, anxiety and again chronic wound. She underwent a fem-pop bypass earlier this fall in December. She was seen here in the middle of December. She was sent back up to [facility] for further evaluation. The wound was opened up and a wound VAC was placed and the wound is healing now with the wound VAC. She states today that she was getting the wound VAC changed. She was on her back for 2 hours straight with her 1 leg elevated on pillows as they were changing it. The initial nurse that was there was not really familiar with the dressing change, so it took her some time. She actually ended up having to call someone in to help her. The patient noted that after being quiet for so long that she was feeling more short of breath. She was having no chest pressure. She states that she has not been feeling short of breath until today. She does state that she was concerned because last night she ate a bowl full of grapes and was worried about the extra fluid. She denies having any abdominal pain or nausea, vomiting. No fevers, no cough and she says that days leading up to this , she had been feeling well. She does state her allergies have been acting up. She states she has been having running nose at times and watery itchy eyes. She came into the ED. She had unfortunately missed her dialysis appointment today because the dressing change had taken so long. She called dialysis and tried to get the dialysis appointment changed, but because of the shortness of breath she actually checked her oxygen levels twice at home and they were noted to be in the 70s, so she became concerned obviously and called 911 and she came into the ED. She was evaluated in the ED and it was felt that she required dialysis. She was sent upstairs for dialysis treatment. While up there in dialysis, she had an episode where she became altered. She had staring off, was minimally responsive for about 20 seconds and it was noted that her sugar was 47. An amp of D50 was given and she improved dramatically. She was given insulin and D50 in the ED for hyperkalemia because of the missed dialysis. Because of the need for dialysis, the shortness of breath and the fact that she had this episode upstairs, we were asked to evaluate in consult for admission. PAST MEDICAL HISTORY: Significant for: 1. End-stage renal disease. 2. Diabetes. 3. COPD. 4. Peripheral arterial disease. 5. Hyperlipidemia. 6. History of GERD. 7. Depression. 8. Anxiety. 9. Hypertension. PAST SURGICAL HISTORY: 1. She has had a fem-pop bypass, now status post I and D with a wound VAC intact. 2. AV fistula. 3. Tubal ligation. HOME MEDICATIONS: According to the last discharge summary on the include: 1. Amlodipine 2.5 mg daily. 2. Vancomycin 1000 mg IV with dialysis days. 3. Demadex 80 mg p.o. twice a day. 4. Sodium polystyrene 15 g p.o., take as directed. 5. Renvela 2400 mg p.o. t.i.d. with meals. 6. Zoloft 50 mg at bedtime. 7. Lyrica 150 mg p.o. t.i.d. 8. Zofran ODT 4 mg every 8 hours as needed for nausea. 9. Prilosec 20 mg daily. 10. Multivitamin one tablet daily. 11. Flagyl 500 mg p.o. t.i.d. 12. Zaroxolyn 5 mg daily. 13. Lisinopril 20 mg daily. 14. EMLA one application topically 3 times a week prior to dialysis. 15. Levaquin 500 mg every 48 hours. 16. Insulin lispro 20 units subcu q.a.c. 17. Lantus 20 units subcu q.p.m. 18. Lopid 600 mg t.i.d. 19. Colace 100 mg p.o. b.i.d. 20. Sensipar 60 mg daily. 21. Zyrtec 10 mg daily. 22. Lipitor 20 mg daily. 23. Aspirin 81 mg daily. 24. Amitriptyline 25 mg at bedtime. 25. Ventolin 2 puffs inhaled every 4 hours as needed. 26. Tylenol 650 mg every 4 hours as needed. ALLERGIES: Include PENICILLIN and GABAPENTIN. FAMILY HISTORY: Mother had a history of seizures. Father had diabetes. SOCIAL HISTORY: She is a former smoker. She no longer smokes, she does not drink alcohol. Surrogate decision maker is her . REVIEW OF SYSTEMS: There is no documented fever. She denied having any significant weight change. There was no double vision. She denies having any ear discharge. There is no rhinorrhea. There is no sore throat, no thyroid enlargement. She denied any chest pain currently. She denies having any abdominal pain. There was no nausea. There is no vomiting. There is no dysuria. She denied having any loss of conscious, no pruritus. She denied having any skin ulcerations. Again, there was the altered mental status noticed upstairs. She denied having any recent seizure-like activity. Review of 14 systems completed, all others negative. PHYSICAL EXAMINATION GENERAL: At this time, Mrs. Suero is a 51-year-old female patient. She is sitting in the dialysis bed. She does not appear to be in any acute distress. VITAL SIGNS: Blood pressure 159/74, pulse 90, respirations 18, O2 sat 98%, and temperature 98.6. HEENT: Head: Atraumatic, normocephalic. Eyes: EOMs intact. Sclerae anicteric, not pale. Throat: Oral mucosa appears to be dry. No oropharyngeal erythema. NECK: Supple. LUNGS: Clear. No wheezes, rales or rhonchi. HEART: Sounds S1, S2. She does have a pansystolic murmur noted. No rubs, or gallops. ABDOMEN: Soft, flat, nontender. Bowel sounds were present. EXTREMITIES: Pulses 2+ throughout. She had no edema noted here today. She had 5/5 strength. NEUROLOGIC: She is awake, alert and oriented x3. No gross focal deficits. SKIN: Intact. LABORATORY DATA/DIAGNOSTIC DATA: WBC is 8.8, RBC is 3.64, hemoglobin 10.4, hematocrit 32, platelet count 375,000. Sodium 138, potassium was noted to be 5.9, chloride was 95, bicarb 32, BUN 49, creatinine 5.21, glucose 136, calcium 8 , total bili 0.4, AST 9, ALT 4, alk phos 91, CK 80. Troponin was 0.07. BNP was 1066. Albumin 3.7. Urine obtained was negative. She had a chest x-ray obtained today, impression: Mild pulmonary vascular congestion and interstitial edema with improvement compared to 01/13/17 exam. She had an EKG obtained today, which showed normal sinus rhythm, rate of 82, no ST elevations or T-wave inversions were noted. It was reviewed with the previous EKG, it appears to be similar. Old medical records were reviewed. PLAN/RECOMMENDATIONS: Mrs. Suero is a 51-year-old female patient coming into the ED today with complaints of shortness of breath. On evaluation today, we did see that she had some pulmonary edema on x-ray. She will be admitted under observation status for: 1. Shortness of breath. Again, this could be from pulmonary edema secondary to missing the dialysis; however, she was flat on her back for an extended period of time with her legs elevated. That certainly could have caused this episode. She is going to get dialysis today. It has been scheduled. I do feel that we should an echo and cycle her troponins, I do want to make sure that there is not anything else going on cardiac ortiz. We will get the echo, if the EF is low, I will get a cardiology consult, we will dialyze her, re- evaluate her tomorrow. We also will check her O2 saturations with ambulation on room air. She may need O2 consistently. We also may need to consider pulmonology consult, but that could be done probably outpatient. 2. Altered mental status probably secondary to the patient's hypoglycemia. We will monitor. Should she have any more episodes, I would certainly get imaging of her brain. She has improved rapidly after we corrected her sugar. I would consider imaging of the brain and neuro consult if she does not improve. 3. End-stage renal disease. She is getting dialyzed now. 4. Status post fem-pop bypass with chronic wound. Wound VAC is being changed out today through our system. She is also going to continue her antibiotics and she can follow with Dr. Recinos, Dr. York in the outpatient setting. 5. Peripheral arterial disease. Continue her meds as described. 6. Diabetes. Again, lispro sliding scale has been ordered. I am holding on her Lantus because this was low today. 7. Chronic obstructive pulmonary disease. P.r.n. albuterol is made available. 8. Hyperlipidemia. Continue statin therapy. 9. Gastroesophageal reflux disease. PPI therapy has been ordered. 10. Depression and anxiety. Continue meds as prescribed. 11. Hypertension. Continue meds as prescribed. 12. DVT prophylaxis. She is high risk and we will place her on heparin subcu. 13. Code status. She is a full code. 14. Fluids, electrolytes, and nutrition. She can have a renal diet. TIME SPENT: Time spent on admission was 60 minutes, greater than half that time was spent [id number] with the patient obtaining my history and physical, the other half time was spent going over the plan of care with the patient and implementing plan of care. I did discuss the plan of care with my attending, Dr. Coleman, he is in agreement. AUGIE ROUSSEAU, ANDREA [id number]/[facility] #: [id number] LILLY
[2017-01-27] MEDS: Heparin VIAL(*) 5000 UNITS/ML VIAL (FIVE THOUSAND) SUBCUT SCH ×3 (06:04→21:04)
[2017-01-27 07:03] LABS: Hematocrit 32 % (35-47); Hemoglobin 10.2 g/dl (12.0-16.0); Mean Corpuscular HGB Conc 32 g/dl (31-36); Mean Corpuscular Hemoglobin 29 pg (27-31); Mean Corpuscular Volume 89 fL (80-97); Mean Platelet Volume 9 um3 (7.4-10.4); Red Blood Count 3.53 10^6/ul (4.0-5.4); Red Cell Distribution Width 18 % (10.5-15); White Blood Count 5.9 10^3/ul (3.5-10.8)
[2017-01-27 07:18] LABS: BUN/Creatinine Ratio 8.4 (8-20); Calcium 8.1 mg/dL (8.6-10.3); EGFR African American 15.5 (>60); Potassium 4.7 mmol/L (3.5-5.0)
[2017-01-27] MEDS: amLODIPine TAB* 5 MG PO SCH (07:20)
[2017-01-27] MEDS: Sevelamer TAB* 800 MG PO SCH ×4 (07:21→21:00)
[2017-01-27] MEDS: Torsemide TAB* 20 MG PO SCH ×2 (07:22→20:55)
[2017-01-27] MEDS: metroNIDAZOLE TAB* 250 MG PO SCH ×3 (07:22→21:04)
[2017-01-27] MEDS: Pregabalin CAP(*) 50 MG PO SCH ×3 (07:22→21:01)
[2017-01-27] MEDS: Docusate CAP* 100 MG PO SCH ×2 (07:23→21:04)
[2017-01-27] MEDS: Metolazone TAB* 5 MG PO SCH (07:23)
[2017-01-27] MEDS: Cetirizine* 10 MG TAB PO SCH (07:23)
[2017-01-27] MEDS: Omeprazole CAP* 20 MG PO SCH (07:23)
[2017-01-27] MEDS: Aspirin EC Low Dose* 81 MG TAB.EC PO SCH (07:23)
[2017-01-27] MEDS: Lisinopril TAB* 10 MG PO SCH (07:23)
[2017-01-27] MEDS ORDERED: Sevelamer TAB* 800 MG PO SCH (08:00)
[2017-01-27] MEDS: Insulin LISPRO* 1 UNITS UNIT SUBCUT SCH ×3 (08:36→16:48)
[2017-01-27] MEDS: Cinacalcet TAB* 30 MG PO SCH (08:36)
[2017-01-27] MEDS: Gemfibrozil TAB* 600 MG PO SCH ×3 (08:36→21:02)
--- NOTE | 2017-01-27 08:36 | ED ---
Larry Hanks Angela, scribed for Jonatan Barboza MD on 01/26/17 at 1249 . Shortness of Breath - HPI Summary HPI Summary: This pt is a 51 y/o female presenting to [facility] c/o SOB since today. Pt reports that while she was getting her dressing changed by a visiting nurse this morning and was laying on her back. The nurse was unable to change her dressing after 40 minutes of laying down, and the pt began to feel SOB. The visiting nurse called a second nurse to change the dressing. At this point, pt called dialysis to re-schedule her dialysis for tomorrow. The second nurse came to change her dressing and pt spent another 40 minutes on her back. She states she had increased SOB again. Pt notes her SOB is alleviated when sitting up. Pt had a vascular surgery bypass on November 24, 2016 (in [facility]) . Pt notes she saw her surgeon 2 days ago. She last had dialysis 2 days ago and was scheduled for one today but she had to reschedule for tomorrow. PMHx: COPD, diabetes. - History of Current Complaint Chief Complaint: EDShortnessOfBreath Time Seen by Provider: 01/26/17 12:33 Hx Obtained From: Patient Onset/Duration: Lasting Hours, Still Present Timing: Intermittent Episodes Lasting: - while laying down Dyspnea At: Orthopena Aggrevating Factors: Recumbent Position Alleviating Factors: Upright Position - Allergy/Home Medications Allergies/Adverse Reactions: Allergies Allergy/AdvReac Type Severity Reaction Status Date / Time Penicillins [PCN] Allergy Unknown Hives Verified 01/26/17 12:34 Gabapentin [From Neurontin] Allergy Hallucinati Verified 01/26/17 12:34 ons Home Medications: Home Medications Albuterol HFA INHALER* [Ventolin HFA Inhaler*] 2 puff INH Q4H PRN 01/26/17 [ History Confirmed 01/26/17] Amitriptyline TAB* [Elavil TAB*] 25 mg PO BEDTIME 01/26/17 [History Confirmed ] Aspirin EC Low Dose* [Ecotrin EC Low Dose 81 MG*] 81 mg PO DAILY 01/26/17 [ History Confirmed 01/26/17] Atorvastatin* [Lipitor*] 20 mg PO BEDTIME 01/26/17 [History Confirmed 01/26/17] Cetirizine* [ZyrTEC 10 MG TAB*] 10 mg PO QAM 01/26/17 [History Confirmed ] Cinacalcet TAB* [Sensipar TAB*] 60 mg PO DAILY 01/26/17 [History Confirmed 01/26] Docusate CAP* [Colace Cap*] 100 mg PO BID 01/26/17 [History Confirmed 01/26/17] Gemfibrozil TAB* [Lopid TAB*] 600 mg PO TID 01/26/17 [History Confirmed ] Insulin Lispro [Humalog Kwikpen] 20 unit SUBCUT AC 01/26/17 [History Confirmed 01/26/17] Levofloxacin TAB* [Levaquin TAB*] 500 mg PO Q48H 01/26/17 [History Confirmed ] Lidocaine 2.5%/Prilocain 2.5%* [Emla 5 GM*] 1 applic TOPICAL .3 TIMES A WEEK [History Confirmed 01/26/17] Lisinopril TAB* [Prinivil TAB*] 20 mg PO DAILY 01/26/17 [History Confirmed 01/26] Metolazone TAB* [Zaroxolyn TAB*] 5 mg PO DAILY 01/26/17 [History Confirmed 01/26] Metronidazole [Flagyl 500 MG TAB] 500 mg PO TID 01/26/17 [History Confirmed ] Multivitamins/Minerals TAB* [Theragran/minerals TAB*] 1 tab PO DAILY 01/26/17 [ History Confirmed 01/26/17] Ondansetron ODT TAB* [Zofran 4 MG Odt TAB*] 4 mg PO Q8H PRN 01/26/17 [History Confirmed 01/26/17] Pregabalin CAP(*) [Lyrica CAP(*)] 150 mg PO TID 01/26/17 [History Confirmed ] Sodium Polystyrene Sulfonate [Sps] 15 gm PO SEE INSTRUCTIONS 01/26/17 [History Confirmed 01/26/17] Vancomycin(*) 1,000 mg IV SEE INSTRUCTIONS 01/26/17 [History Confirmed 01/26/17] amLODIPine TAB* [Norvasc 5 mg TAB*] 2.5 mg PO DAILY 01/26/17 [History Confirmed 01/26/17] PMH/Surg Hx/FS Hx/Imm Hx Endocrine/Hematology History: Reports: Hx Diabetes, Hx Anemia - R/T KIDNEY FAILURE Cardiovascular History: Reports: Hx Hypertension Denies: Hx Angina, Hx Pacemaker/ICD, Other Cardiovascular Problems/Disorders Respiratory History: Reports: Hx Asthma - HX OF WHEN WAS A SMOKER, Hx Chronic Obstructive Pulmonary Disease (COPD) GI History: Reports: Hx Gastroesophageal Reflux Disease - ON MEDICATION FOR Denies: Other GI Disorders History: Reports: Hx Chronic Renal Failure, Hx Dialysis, Hx Kidney Stones - HX OF, Other Problems/Disorders - HX OF RIGHT NEPHRECTOMY <1 YEAR OF AGE; ESRD - dialysis Musculoskeletal History: Reports: Hx Arthritis - KNEES, ELBOW, FINGERS Denies: Other Musculoskeletal History Sensory History: Reports: Hx Contacts or Glasses Denies: Hx Cataracts, Hx Hearing Aid Opthamlomology History: Reports: Hx Contacts or Glasses Denies: Hx Cataracts Neurological History: Denies: Hx CVA Psychiatric History: Reports: Hx Anxiety, Hx Depression - Surgical History Surgery Procedure, Year, and Place: ESWL APPROX 2004. RIGHT NEPHRECTOMY AN INFANT. 2 CARPAL TUNNELS, ONESIMO, 2013 , 2014. HEMODIALYSIS CATH, 12/2015. peritoneal dialysis catheter 01/2016. LUE fistula 11/2015 Hx Anesthesia Reactions: No Infectious Disease History: No Infectious Disease History: Denies: Traveled Outside the [place] in Last 30 Days - Family History Known Family History: Positive: Diabetes - MGF, Father - Social History Alcohol Use: Rare Substance Use Type: Reports: None Smoking Status (MU): Former Smoker Type: Cigarettes Amount Used/How Often: 1 PPD X 20 YEARS Length of Time of Smoking/Using Tobacco: 34 YEARS Have You Smoked in the Last Year: No Review of Systems Negative: Fever, Chills Eyes: Negative ENT: Negative Negative: Chest Pain Positive: Shortness Of Breath Genitourinary: Negative Positive: Other - healing wound on right thigh Skin: Negative All Other Systems Reviewed And Are Negative: Yes Physical Exam - Summary Physical Exam Summary: VITAL SIGNS: Reviewed. GENERAL: Patient is a well-developed and nourished female who is lying comfortable in the stretcher. Patient is not in any acute respiratory distress. Pt is comfortable now and is able to speak in full sentences. Pt's saturation is 98% on 3 L of O2. HEAD AND FACE: No signs of trauma. No ecchymosis, hematomas or skull depressions. No sinus tenderness. EYES: PERRLA, EOMI x 2, No injected conjunctiva, no nystagmus. EARS: Hearing grossly intact. Ear canals and tympanic membranes are within normal limits. MOUTH: Oropharynx within normal limits. NECK: Supple, trachea is midline, no adenopathy, no JVD, no carotid bruit, no c- spine tenderness, neck with full ROM. CHEST: Symmetric, no tenderness at palpation LUNGS: Clear to auscultation bilaterally. No wheezing or crackles. CVS: Regular rate and rhythm, S1 and S2 present, no murmurs or gallops appreciated. ABDOMEN: Soft, non-tender. No signs of distention. No rebound no guarding, and no masses palpated. Bowel sounds are normal. EXTREMITIES: FROM in all major joints, no edema, no cyanosis or clubbing. RLE: wound is healing. There is wound vac dressing on right thigh. There are good distal pulses. NEURO: Alert and oriented x 3. No acute neurological deficits. Speech is normal and follows commands. SKIN: Dry and warm Triage Information Reviewed: Yes Vital Signs On Initial Exam: Initial Vitals Temp Pulse Resp BP Pulse Ox 98.6 F 92 18 164/92 97 01/26/17 12:32 01/26/17 12:32 01/26/17 12:32 01/26/17 12:32 01/26/17 12:32 Vital Signs Reviewed: Yes Diagnostics - Vital Signs Vital Signs Temp Pulse Resp BP Pulse Ox 01/26/17 12:39 18 01/26/17 12:32 98.6 F 92 18 164/92 97 - Laboratory Lab Results: Lab Results 01/26/17 01/26/17 01/26/17 Range/Units 13:00 13:00 13:00 WBC 8.8 (3.5-10.8) 10^3/ul RBC 3.64 L (4.0-5.4) 10^6/ul Hgb 10.4 L (12.0-16.0) g/dl Hct 32 L (35-47) % MCV 89 (80-97) fL MCH 29 (27-31) pg MCHC 32 (31-36) g/dl RDW 18 H (10.5-15) % Plt Count 375 (150-450) 10^3/ul MPV 9 (7.4-10.4) um3 Neut % (Auto) 72.6 (38-83) % Lymph % (Auto) 11.9 L (25-47) % Hooker % (Auto) 12.3 H (1-9) % Eos % (Auto) 2.5 (0-6) % Baso % (Auto) 0.7 (0-2) % Absolute Neuts (auto) 6.4 (1.5-7.7) 10^3/ul Absolute Lymphs (auto) 1.0 (1.0-4.8) 10^3/ul Absolute Monos (auto) 1.1 H (0-0.8) 10^3/ul Absolute Eos (auto) 0.2 (0-0.6) 10^3/ul Absolute Basos (auto) 0.1 (0-0.2) 10^3/ul Absolute Nucleated RBC 0 10^3/ul Nucleated RBC % 0 Sodium 138 (133-145) mmol/L Potassium 5.9 H (3.5-5.0) mmol/L Chloride 95 L (101-111) mmol/L Carbon Dioxide 32 (22-32) mmol/L Anion Gap 11 (2-11) mmol/L BUN 49 H (6-24) mg/dL Creatinine 5.21 H (0.51-0.95) mg/dL Est GFR ( Amer) 11.1 (>60) Est GFR (Non-Af Amer) 8.6 (>60) BUN/Creatinine Ratio 9.4 (8-20) Glucose 136 H (70-100) mg/dL POC Glucose (mg/dL) (70-100) mg/dL Calcium 8.0 L (8.6-10.3) mg/dL Total Bilirubin 0.40 (0.2-1.0) mg/dL AST 9 L (13-39) U/L ALT 4 L (7-52) U/L Alkaline Phosphatase 91 (34-104) U/L Total Creatine Kinase 80 (10-223) U/L Troponin I 0.07 H* (<0.04) ng/mL C-Reactive Protein 11.28 H (< 5.00) mg/L B-Natriuretic Peptide 1066 H ( - 100) pg/mL Total Protein 7.2 (6.4-8.9) g/dL Albumin 3.7 (3.2-5.2) g/dL Globulin 3.5 (2-4) g/dL Albumin/Globulin Ratio 1.1 (1-3) Urine Color Urine Appearance Urine pH (5-9) Ur Specific [place] (1.010-1.030) Urine Protein (Negative) Urine Ketones (Negative) Urine Blood (Negative) Urine Nitrate (Negative) Urine Bilirubin (Negative) Urine Urobilinogen (Negative) Ur Leukocyte Esterase (Negative) Urine WBC (Auto) (Absent) Urine RBC (Auto) (Absent) Ur Squamous Epith Cells (Absent) Urine Bacteria (Absent) Urine Glucose (Negative) 01/26/17 01/26/17 Range/Units 14:59 15:20 WBC (3.5-10.8) 10^3/ul RBC (4.0-5.4) 10^6/ul Hgb (12.0-16.0) g/dl Hct (35-47) % MCV (80-97) fL MCH (27-31) pg MCHC (31-36) g/dl RDW (10.5-15) % Plt Count (150-450) 10^3/ul MPV (7.4-10.4) um3 Neut % (Auto) (38-83) % Lymph % (Auto) (25-47) % Hooker % (Auto) (1-9) % Eos % (Auto) (0-6) % Baso % (Auto) (0-2) % Absolute Neuts (auto) (1.5-7.7) 10^3/ul Absolute Lymphs (auto) (1.0-4.8) 10^3/ul Absolute Monos (auto) (0-0.8) 10^3/ul Absolute Eos (auto) (0-0.6) 10^3/ul Absolute Basos (auto) (0-0.2) 10^3/ul Absolute Nucleated RBC 10^3/ul Nucleated RBC % Sodium (133-145) mmol/L Potassium (3.5-5.0) mmol/L Chloride (101-111) mmol/L Carbon Dioxide (22-32) mmol/L Anion Gap (2-11) mmol/L BUN (6-24) mg/dL Creatinine (0.51-0.95) mg/dL Est GFR ( Amer) (>60) Est GFR (Non-Af Amer) (>60) BUN/Creatinine Ratio (8-20) Glucose (70-100) mg/dL POC Glucose (mg/dL) 109 H (70-100) mg/dL Calcium (8.6-10.3) mg/dL Total Bilirubin (0.2-1.0) mg/dL AST (13-39) U/L ALT (7-52) U/L Alkaline Phosphatase (34-104) U/L Total Creatine Kinase (10-223) U/L Troponin I (<0.04) ng/mL C-Reactive Protein (< 5.00) mg/L B-Natriuretic Peptide ( - 100) pg/mL Total Protein (6.4-8.9) g/dL Albumin (3.2-5.2) g/dL Globulin (2-4) g/dL Albumin/Globulin Ratio (1-3) Urine Color Yellow Urine Appearance Clear Urine pH 8.0 (5-9) Ur Specific [place] 1.006 L (1.010-1.030) Urine Protein 3+(>=500 mg/dl) H (Negative) Urine Ketones Negative (Negative) Urine Blood Negative (Negative) Urine Nitrate Negative (Negative) Urine Bilirubin Negative (Negative) Urine Urobilinogen Negative (Negative) Ur Leukocyte Esterase Negative (Negative) Urine WBC (Auto) Absent (Absent) Urine RBC (Auto) Absent (Absent) Ur Squamous Epith Cells Present H (Absent) Urine Bacteria Absent (Absent) Urine Glucose 3+(>=500 mg/dl) H (Negative) Result Diagrams: 01/27/17 06:22 01/27/17 06:22 Lab Statement: Any lab studies that have been ordered have been reviewed, and results considered in the medical decision making process. - Radiology Chest XR Xray Interpretation: Positive (See Comments) - IMPRESSION: Mild pulmonary vascular congestion and interstitial edema with improvement compared with the January 13, 2017 exams. Persistent small pleural effusions. ED physician has reviewed this radiology report and agrees. Radiology Interpretation Completed By: Radiologist - EKG 1300 Cardiac Rate: NL - 87 bpm EKG Rhythm: Sinus Rhythm EKG Interpretation: No ST elevation Course/Dx - Course Assessment/Plan: This pt is a 51 y/o female presenting to [facility] c/o SOB since today. Pt reports that while she was getting her dressing changed by a visiting nurse this morning and was laying on her back. The nurse was unable to change her dressing after 40 minutes of laying down, and the pt began to feel SOB. The visiting nurse called a second nurse to change the dressing. At this point, pt called dialysis to re-schedule her dialysis for tomorrow. The second nurse came to change her dressing and pt spent another 40 minutes on her back. She states she had increased SOB again. Pt notes her SOB is alleviated when sitting up. Pt had a vascular surgery bypass on November 24, 2016 (in [facility]) . Pt notes she saw her surgeon 2 days ago. She last had dialysis 2 days ago and was scheduled for one today but she had to reschedule for tomorrow. PMHx: COPD , diabetes. Test results shows slight chronic anemia, potassium is 5.9, chronic renal failure, BNP of 1066. 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 He recommends the pt to be treated for hyperkalemia with calcium gluconate, insulin and dextrose. He recommended for the pt to be admitted to the hospitalist for dialysis. I discussed the my findings and results with the pt. She refuses to stay in the hospital, because her wound vac is going to run out of batteries. She understands the risk of leaving AMA. The pt accepted to get admitted. Therefore, I discussed the case with Dr. Coleman, who accepted the pt for admission. Pt is hemodynamically stable, alert and oriented x3. - Diagnoses Provider Diagnoses: CHF exacerbation, Hyperkalemia, ESRD (end stage renal disease), Dialysis patient - Physician Notifications Discussed Care of Patient With: Dipak Valiente Time Discussed With Above Provider: 15:01 Instructed by Provider To: Other - I discussed pt care with Dr. Valiente. He recommends to admit the pt to the hospitalist and do dialysis today. [15:36] - I discussed the pt's case with Dr. Coleman, who has accepted the pt for admission. Discharge - Discharge Plan Condition: Stable Disposition: ADMITTED TO [facility] The documentation as recorded by the Larry toro Angela accurately reflects the service I personally performed and the decisions made by me, Jonatan Barboza MD.
[2017-01-27] MEDS ORDERED: amLODIPine TAB* 5 MG PO SCH (09:00)
[2017-01-27] MEDS ORDERED: Cinacalcet TAB* 30 MG PO SCH (09:00)
--- NOTE | 2017-01-27 11:39 | ECHO ---
Patient: [facility]QUIN [facility] Rec#: [id number] : 1965 Date: 01/27/2017 Age: 51y Height: 154.9 cm / 61.0 in Weight: 84.8 kg / 186.9 lbs Sex: F BSA: 1.84 Room#: 408 Admit Date#: 01/26/2017 Referring: Harjeet Rousseau NP Reading: Earl Velez MD Pipe [employer]itter [employer]: Lesley Barboza RN RDCS CC: Dipak Fontenot MD Transthoracic Echocardiogram Indication: Shortness of breath, elevated troponin levels BP: 145/68 HR: 74 Rhythm: NSR Findings History: HTN, HLD, DM, PAD, ESRD, COPD, former smoker, fem-pop bypass 12/2016 Technical Comments: The study quality is fair. The study is technically limited due to patient body habitus. The study was technically limited due to the patient's inability to lay in the left lateral decubitus position. The study was performed with the patient sitting in a lounge chair. Completed at 1000. Left Ventricle: The left ventricular chamber size is normal. Mild to moderate concentric left ventricular hypertrophy is observed. Global left ventricular wall motion and contractility are within normal limits. There is normal left ventricular systolic function. The estimated ejection fraction is 55-60%. There is no consistent Doppler evidence of clinically significant diastolic dysfunction. Left Atrium: The left atrium is mildly dilated. Right Ventricle: The right ventricular chamber size and systolic function are within normal limits. Right Atrium: The right atrial cavity size is normal. Aortic Valve: The aortic valve is trileaflet. The aortic valve leaflets are moderately thickened. Systolic excursion of the aortic valve cusps is reduced. There is no evidence of aortic regurgitation. There is moderate aortic stenosis. The mean gradient of the aortic valve is 21.1 mmHg. The peak instantaneous gradient of the aortic valve is 36 mmHg. The aortic valve area, by peak velocities, is calculated at 1.5 cm2. The aortic valve area, by VTI's, is calculated at 1.4 cm2. Highest aortic valve velocity was acquired with Pedoff in right sternal border position. Mitral Valve: Severe mitral annular calcification present. The anterior leaflet of the mitral valve is thickened. There is an abnormal bright somewhat mobile mass seen involved with the anterior leaflettoward the LV outflow tract seen in the parasternal long axis view and 4 and 2 chamber apical view measuring 1x.8cm. Mitral valve posterior leaflet calcification is visualized. , there appears to be significant restriction to the posterior leaflet motion. There is mild to moderate mitral regurgitation. There is mild mitral stenosis. Tricuspid Valve: The tricuspid valve structure is not well visualized. There is trace tricuspid regurgitation. Unable to estimate the right ventricular systolic pressure. There is no tricuspid stenosis. Pulmonic Valve: The pulmonic valve structure is not well visualized. There is no evidence of pulmonic regurgitation. There is no pulmonic stenosis. Pericardium: There is no significant pericardial effusion. A pericardial fat pad is visualized. Aorta: There is no dilatation of the ascending aorta. There is no dilatation of the aortic arch. There is no dilation of the aortic root. Pulmonary Artery: The main pulmonary artery is not well visualized. Venous: The inferior vena cava is dilated. There is less than 50% respiratory change in the inferior vena cava dimension. Conclusions Mild to moderate concentric left ventricular hypertrophy is observed. There is normal left ventricular systolic function. The estimated ejection fraction is 55-60%. The left atrium is mildly dilated. There is moderate aortic stenosis. Severe mitral annular calcification present. The anterior leaflet of the mitral valve is thickened. There is an abnormal bright somewhat mobile mass seen involved with the anterior leaflettoward the LV outflow tract seen in the parasternal long axis view and 4 and 2 chamber apical view measuring 1x.8cm. Mitral valve posterior leaflet calcification is visualized. , there appears to be significant restriction to the posterior leaflet motion. There is mild to moderate mitral regurgitation. There is mild mitral stenosis. There is trace tricuspid regurgitation. Compared to report of study from 08/09/2016, there is mild worsening of the aortic valve mean gradient suggesting mild worsening of the aortic sstenosis. The mitral valve stensis is less (was moderate) No comment regarding the abnormal structure near /on the anterior mitral valve leaflet was noted on prior report. If a more defintive assessment of the abnormal lesion is needed suggest SHANAE. Measurements Name Value Normal Range RVIDd (AP) 2D 3.1 cm (0.9 - 2.6) RVDdMajor (2D) 4.1 cm (2.2 - 4.4) RAd ISD 4CH 4.8 cm (3.4 - 4.9) RA (A4C)W 4.2 cm (2.9 - 4.6) IVSd (2D) 1.3 cm (0.6 - 1) LVPWd (2D) 1.3 cm (0.6 - 1) LVIDd (2D) 4.9 cm (3.6 - 5.4) LVIDs (2D) 3.5 cm - LV FS (2D) 28 % (25 - 45) Aortic Annulus 2.1 cm (1.4 - 2.6) Ao root diameter (2D) 2.9 cm (2.1 - 3.5) Ascending Ao 3.2 cm (2.1 - 3.4) Aortic arch 2.2 cm (1.8 - 3.4) LA dimension (AP) 2D 3.7 cm (2.3 - 3.8) LAd ISD 4CH 5.3 cm (2.9 - 5.3) LA ISD 4CH W 4.9 cm (2.5 - 4.5) Name Value Normal Range LA ESV SP 4CH (A/L) 75 ml - LA ESV SP 2CH (A/L) 68 ml - LA ESV BP (A/L) 72 ml - LA ESV BP (A/L) index 39.4 ml/m2 - LA ESV SP 4CH (MOD) 72 ml - LA ESV SP 2CH (MOD) 63 ml - Name Value Normal Range MV E-wave Vmax 1.4 m/sec - MV deceleration time 220 msec - MV A-wave Vmax 1.5 m/sec - MV E:A ratio 0.98 ratio - LV septal e' Vmax 0.05 m/sec - LV lateral e' Vmax 0.05 m/sec - LV E:e' septal ratio 28 ratio - LV E:e' lateral ratio 28 ratio - Name Value Normal Range AV Vmax 3 m/sec - AV VTI 78.9 cm - AV peak gradient 36 mmHg - AV mean gradient 21.1 mmHg - LVOT diameter 2 cm - LVOT Vmax 1.4 m/sec - LVOT VTI 35.5 cm - LVOT peak gradient 8 mmHg - LVOT mean gradient 5.2 mmHg - DOI (VTI) 0.45 ratio - DOI (Vmax) 0.47 ratio - SV LVOT 111.5 ml - CO LVOT 8.3 l/min - Cardiac index 4.5 l/min/m2 - YUMIKO (continuity Vmax) 1.5 cm2 - YUMIKO (continuity VTI) 1.4 cm2 - VERITO Vmax 1.1 m/sec - Name Value Normal Range MV Vmax 16 m/sec - MV VTI 33.9 cm - MV peak gradient 10.4 mmHg - MV mean gradient 5 mmHg - MV PHT 60 msec - MVA (PHT) 3.6 cm2 - MVA (continuity VTI) 3.3 cm2 - Name Value Normal Range IVC diameter 2.6 cm - Name Value Normal Range PV Vmax 0.91 m/sec -
--- NOTE | 2017-01-27 17:24 | PN ---
Subjective Date of Service: 01/27/17 Interval History: SOB had resolved after HD. But patient unable to lie flat for significant period of time for more than a year. ECHO obtained and shows 1.0*0.8 cm mobile mass on anterior mitral leaflet. Objective Active Medications: Acetaminophen (Tylenol Tab*) 650 mg PO Q4H PRN PRN Reason: FEVER/PAIN Last Admin: 01/26/17 21:06 Dose: 650 mg Albuterol (Ventolin Hfa Inhaler*) 2 puff INH Q4H PRN PRN Reason: SOB/WHEEZING Amitriptyline HCl (Elavil Tab*) 25 mg PO BEDTIME [facility] Last Admin: 01/26/17 21:01 Dose: 25 mg Amlodipine Besylate (Norvasc Tab*) 2.5 mg PO DAILY [facility] Last Admin: 01/27/17 07:20 Dose: 2.5 mg Aspirin (Aspirin Ec Low Dose*) 81 mg PO DAILY [facility] Last Admin: 01/27/17 07:23 Dose: 81 mg Atorvastatin Calcium (Lipitor*) 20 mg PO BEDTIME [facility] Last Admin: 01/26/17 21:01 Dose: 20 mg Cetirizine HCl (Zyrtec*) 10 mg PO QAM [facility] PRN Reason: Protocol Last Admin: 01/27/17 07:23 Dose: 10 mg Cinacalcet (Sensipar Tab*) 60 mg PO DAILY [facility] Last Admin: 01/27/17 08:36 Dose: 60 mg Dextrose (D50w Syringe 50 Ml*) 12.5 gm IV PUSH .FOR FS < 60 - SS PRN PRN Reason: FS < 60 Docusate Sodium (Colace Cap*) 100 mg PO BID [facility] Last Admin: 01/27/17 07:23 Dose: Not Given Gemfibrozil (Lopid Tab*) 600 mg PO TID [facility] Last Admin: 01/27/17 13:46 Dose: 600 mg Heparin Sodium (Porcine) (Heparin Vial(*)) 5,000 units SUBCUT Q8HR [facility] Last Admin: 01/27/17 15:14 Dose: Not Given Insulin Human Lispro (Humalog*) 0 units SUBCUT AC KEVIN PRN Reason: Protocol Last Admin: 01/27/17 16:48 Dose: Not Given Levofloxacin (Levaquin Tab*) 500 mg PO Q48H [facility] Last Admin: 01/26/17 21:01 Dose: 500 mg Lisinopril (Prinivil Tab*) 20 mg PO DAILY [facility] Last Admin: 01/27/17 07:23 Dose: 20 mg Metolazone (Zaroxolyn Tab*) 5 mg PO DAILY [facility] Last Admin: 01/27/17 07:23 Dose: 5 mg Metronidazole (Flagyl Tab*) 500 mg PO TID [facility] Last Admin: 01/27/17 13:46 Dose: 500 mg Omeprazole (Prilosec Cap*) 20 mg PO QAM [facility] Last Admin: 01/27/17 07:23 Dose: 20 mg Ondansetron HCl (Zofran Inj*) 4 mg IV Q6H PRN PRN Reason: NAUSEA Pregabalin (Lyrica Cap(*)) 150 mg PO TID [facility] Last Admin: 01/27/17 13:46 Dose: 150 mg Sertraline HCl (Zoloft*) 50 mg PO BEDTIME [facility] Last Admin: 01/26/17 21:01 Dose: 50 mg Sevelamer Carbonate (Renvela Tab*) 2,400 mg PO TID WITH MEALS [facility] Last Admin: 01/27/17 16:45 Dose: 2,400 mg Torsemide (Demadex*) 80 mg PO BID [facility] Last Admin: 01/27/17 07:22 Dose: 80 mg Vital Signs 01/27/17 01/27/17 01/27/17 13:46 15:20 15:21 Temperature 98.1 F Pulse Rate 80 79 Respiratory 18 Rate Blood Pressure 133/62 133/62 (mmHg) O2 Sat by Pulse 98 98 Oximetry 01/27/17 15:46 Temperature Pulse Rate Respiratory 18 Rate Blood Pressure (mmHg) O2 Sat by Pulse Oximetry Appearance: NAD, sitting in chair. Eyes: No Scleral Icterus, PERRLA Ears/Nose/Mouth/Throat: Mucous Membranes Moist Neck: NL Appearance and Movements; NL JVP Respiratory: Symmetrical Chest Expansion and Respiratory Effort, Clear to Auscultation Cardiovascular: NL Sounds; No Murmurs; No JVD, RRR Abdominal: NL Sounds; No Tenderness; No Distention, No Hepatosplenomegaly Extremities: - - 1+ edema and additional nonpitting swelling right leg; wound vac along medial aspect Skin: - - wound vacc as below Neurological: Alert and Oriented x 3, NL Muscle Strength and Tone Nutrition: Taking PO's Result Diagrams: 01/27/17 06:22 01/27/17 06:22 Additional Lab and Data: Laboratory Results - last 24 hr 01/26/17 01/26/17 01/26/17 13:00 16:25 16:35 WBC RBC Hgb Hct MCV MCH MCHC RDW Plt Count MPV Neut % (Auto) Lymph % (Auto) [place] % (Auto) Eos % (Auto) Baso % (Auto) Absolute Neuts (auto) Absolute Lymphs (auto) Absolute Monos (auto) Absolute Eos (auto) Absolute Basos (auto) Absolute Nucleated RBC Nucleated RBC % APTT Sodium 138 Potassium 5.9 H Chloride 95 L Carbon Dioxide 32 Anion Gap 11 BUN 49 H Creatinine 5.21 H Est GFR ( Amer) 11.1 Est GFR (Non-Af Amer) 8.6 BUN/Creatinine Ratio 9.4 Glucose 136 H POC Glucose (mg/dL) 47 L 104 H Calcium 8.0 L Total Bilirubin 0.40 AST 9 L ALT 4 L Alkaline Phosphatase 91 Total Creatine Kinase 80 Troponin I 0.07 H* C-Reactive Protein 11.28 H Total Protein 7.2 Albumin 3.7 Globulin 3.5 Albumin/Globulin Ratio 1.1 01/26/17 01/26/17 01/26/17 17:45 18:09 18:35 WBC RBC Hgb Hct MCV MCH MCHC RDW Plt Count MPV Neut % (Auto) Lymph % (Auto) [place] % (Auto) Eos % (Auto) Baso % (Auto) Absolute Neuts (auto) Absolute Lymphs (auto) Absolute Monos (auto) Absolute Eos (auto) Absolute Basos (auto) Absolute Nucleated RBC Nucleated RBC % APTT 44.8 H Sodium Potassium Chloride Carbon Dioxide Anion Gap BUN Creatinine Est GFR ( Amer) Est GFR (Non-Af Amer) BUN/Creatinine Ratio Glucose POC Glucose (mg/dL) 58 L Calcium Total Bilirubin AST ALT Alkaline Phosphatase Total Creatine Kinase Troponin I 0.07 H* C-Reactive Protein Total Protein Albumin Globulin Albumin/Globulin Ratio 01/26/17 01/26/17 01/26/17 18:43 21:05 22:17 WBC RBC Hgb Hct MCV MCH MCHC RDW Plt Count MPV Neut % (Auto) Lymph % (Auto) [place] % (Auto) Eos % (Auto) Baso % (Auto) Absolute Neuts (auto) Absolute Lymphs (auto) Absolute Monos (auto) Absolute Eos (auto) Absolute Basos (auto) Absolute Nucleated RBC Nucleated RBC % APTT Sodium Potassium Chloride Carbon Dioxide Anion Gap BUN Creatinine Est GFR ( Amer) Est GFR (Non-Af Amer) BUN/Creatinine Ratio Glucose POC Glucose (mg/dL) 94 159 H Calcium Total Bilirubin AST ALT Alkaline Phosphatase Total Creatine Kinase Troponin I 0.06 H* C-Reactive Protein Total Protein Albumin Globulin Albumin/Globulin Ratio 01/27/17 01/27/17 01/27/17 06:22 06:22 07:33 WBC 5.9 RBC 3.53 L Hgb 10.2 L Hct 32 L MCV 89 MCH 29 MCHC 32 RDW 18 H Plt Count 352 MPV 9 Neut % (Auto) 52.2 Lymph % (Auto) 24.5 L [place] % (Auto) 16.0 H Eos % (Auto) 6.0 Baso % (Auto) 1.3 Absolute Neuts (auto) 3.1 Absolute Lymphs (auto) 1.4 Absolute Monos (auto) 0.9 H Absolute Eos (auto) 0.4 Absolute Basos (auto) 0.1 Absolute Nucleated RBC 0 Nucleated RBC % 0 APTT Sodium 134 Potassium 4.7 Chloride 92 L Carbon Dioxide 31 Anion Gap 11 BUN 33 H Creatinine 3.91 H Est GFR ( Amer) 15.5 Est GFR (Non-Af Amer) 12.0 BUN/Creatinine Ratio 8.4 Glucose 132 H POC Glucose (mg/dL) 137 H Calcium 8.1 L Total Bilirubin AST ALT Alkaline Phosphatase Total Creatine Kinase Troponin I C-Reactive Protein Total Protein Albumin Globulin Albumin/Globulin Ratio 01/27/17 01/27/17 11:47 16:46 WBC RBC Hgb Hct MCV MCH MCHC RDW Plt Count MPV Neut % (Auto) Lymph % (Auto) [place] % (Auto) Eos % (Auto) Baso % (Auto) Absolute Neuts (auto) Absolute Lymphs (auto) Absolute Monos (auto) Absolute Eos (auto) Absolute Basos (auto) Absolute Nucleated RBC Nucleated RBC % APTT Sodium Potassium Chloride Carbon Dioxide Anion Gap BUN Creatinine Est GFR ( Amer) Est GFR (Non-Af Amer) BUN/Creatinine Ratio Glucose POC Glucose (mg/dL) 179 H 120 H Calcium Total Bilirubin AST ALT Alkaline Phosphatase Total Creatine Kinase Troponin I C-Reactive Protein Total Protein Albumin Globulin Albumin/Globulin Ratio Assess/Plan/Problems-Billing Assessment: 51 yo female PMH ESRD HD MWF (x1 year), DMT2, HTN, COPD, HLD, anxiety, depression, PVD s/p fem-pop bypass with non-artificial vein graft c/b reportedly Ecoli infection ([facility], Dr. Ashley Mccain vascular surgeon), has been on wound vac, vanc, levaquin, flagyl. P/w acute SOB after lying flat 2 hours during wound vac change. symptoms relieved with HD but TTE showing 1.0x0.8 mobile mass anterior mitral valve. - Patient Problems (1) Endocarditis Current Visit: Yes Status: Acute Code(s): I38 - ENDOCARDITIS, VALVE UNSPECIFIED SNOMED Code(s): 52757308 Comment: concern given intravascular infection hx and newly discovered 1.0x0.8cm mobile mass on anterior leaflet. ID has been consulted. Consider SHANAE to further evaluate 2 blood cultures drawn Continue vancomysin with HD. Patient has also been on levaquin 500 q48 and flagyl 500mg TID as outpatient and here. Likely need to switch to IV GN coverage but await ID input. (2) Hypoxia Current Visit: No Status: Acute Code(s): R09.02 - HYPOXEMIA SNOMED Code(s) : 971870325 Comment: Desat to 77 at home after lying flat 2 hours. Likely mixed etiology CHF and ESRD. Improved with HD. continue HD and torsemide 50mg BID, metolazone 500mg daily. (3) ESRD (end stage renal disease) on dialysis Current Visit: No Status: Acute Code(s): N18.6 - END STAGE RENAL DISEASE; Z99.2 - DEPENDENCE ON RENAL DIALYSIS SNOMED Code(s): 474979518 Comment: Continue MWF dialysis. Continue sevelamer and sensipar. (4) HLD (hyperlipidemia) Current Visit: No Status: Acute Code(s): E78.5 - HYPERLIPIDEMIA, UNSPECIFIED SNOMED Code(s): 79462300 Comment: Continue lipitor. (5) HTN (hypertension) Current Visit: No Status: Acute Code(s): I10 - ESSENTIAL (PRIMARY) HYPERTENSION SNOMED Code(s): 90253450 Comment: BP better controlled after HD 01/26. Continue torsemide, metolazone , amlodipine 2.5, lisinopril 20mg. 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 Continue SSI for now. POCT qac qhs hold home lantus 20U qhs for now. (7) COPD (chronic obstructive pulmonary disease) Current Visit: No Status: Acute Code(s): J44.9 - CHRONIC OBSTRUCTIVE PULMONARY DISEASE, UNSPECIFIED SNOMED Code(s): 66262172 Comment: Continue prn albuterol. Quit smoking 3 yrs ago. Not currently wheezing, no cough Status and Disposition: changed to medicine inpatient for further evaluation of potential endocarditis. Attending: Ravinder Dobbs
[2017-01-27] MEDS: Acetaminophen TAB* 325 MG PO PRN (21:02)
[2017-01-27] MEDS: Atorvastatin* 20 MG TAB PO SCH (21:03)
[2017-01-27] MEDS: Sertraline* 50 MG TAB PO SCH (21:03)
[2017-01-27] MEDS: Amitriptyline TAB* 25 MG PO SCH (21:03)
[2017-01-28] MEDS: Heparin VIAL(*) 5000 UNITS/ML VIAL (FIVE THOUSAND) SUBCUT SCH ×3 (06:05→22:43)
[2017-01-28] MEDS ORDERED: Midazolam* 1 MG/ML 5 ML VIAL (5 MG) ONE (09:12)
[2017-01-28] MEDS ORDERED: fentaNYL* 50 MCG/ML 2 ML VIAL (100 MCG VIAL) ONE (09:12)
[2017-01-28] MEDS ORDERED: Flumazenil* 0.1 MG/ML 5 ML MDV ONE (09:13)
[2017-01-28] MEDS ORDERED: Naloxone* 0.4 MG/ML 1 ML VIAL ONE (09:13)
[2017-01-28] MEDS ORDERED: Lidocaine 2% VISCOUS* 15 ML UDC ONE (09:13)
[2017-01-28] MEDS: Insulin LISPRO* 1 UNITS UNIT SUBCUT SCH ×3 (11:02→17:22)
[2017-01-28] MEDS: Sevelamer TAB* 800 MG PO SCH ×3 (12:12→18:08)
[2017-01-28] MEDS: Torsemide TAB* 20 MG PO SCH ×2 (12:43→22:34)
[2017-01-28] MEDS: Metolazone TAB* 5 MG PO SCH (12:43)
[2017-01-28] MEDS: Pregabalin CAP(*) 50 MG PO SCH ×3 (12:43→22:35)
[2017-01-28] MEDS: Aspirin EC Low Dose* 81 MG TAB.EC PO SCH (12:44)
[2017-01-28] MEDS: amLODIPine TAB* 5 MG PO SCH (12:44)
[2017-01-28] MEDS: metroNIDAZOLE TAB* 250 MG PO SCH ×3 (12:44→22:36)
[2017-01-28] MEDS: Lisinopril TAB* 10 MG PO SCH (12:44)
[2017-01-28] MEDS: Docusate CAP* 100 MG PO SCH ×2 (12:54→22:42)
[2017-01-28] MEDS: Omeprazole CAP* 20 MG PO SCH (12:56)
[2017-01-28] MEDS: Cinacalcet TAB* 30 MG PO SCH ×2 (12:56→18:14)
[2017-01-28] MEDS: Gemfibrozil TAB* 600 MG PO SCH ×3 (12:56→22:40)
[2017-01-28] MEDS: Cetirizine* 10 MG TAB PO SCH (12:56)
--- NOTE | 2017-01-28 13:39 | TEE ---
Patient: [facility] JOAQUIN [facility] Rec#: [id number] : 1965 Date: 01/28/2017 Age: 51y Height: 154.94 cm / 61.0 in Weight: 84.82 kg / 186.9 lbs Sex: F BSA: 1.84 Room#: 408 Type: Inpatient Referring: Ravinder Dobbs Performing: Mono Martinez MD Reading: Mono Martinez MD Junior Programmer: Suze Howe RDCS Nurse: Elizabeth Arambula RN CC: Dipak Fontenot MD Transesophageal Echocardiogram Indication: Mitral Valve disorder BP: 152/73 HR: 86 Rhythm: NSR Findings History: HTN, HLD, DM, PAD, ESRD, COPD, former smoker, fem-pop bypass 12/26. Technical Comments: The study quality is good. Left Ventricle: The left ventricular chamber size is normal. Global left ventricular wall motion and contractility are within normal limits. There is normal left ventricular systolic function. The estimated ejection fraction is 55-60%. Left Atrium: The left atrium is mildly dilated. No thrombus is visualized within the left atrium. There is no thrombus visualized in the left atrial appendage. Right Ventricle: The right ventricular cavity size is normal. The right ventricular global systolic function is normal. Right Atrium: The right atrial cavity size is normal. Interatrial septum appears intact without evidence of shunting. The bubble study is negative. A patent foramen ovale is not demonstrated with color Doppler and agitated contrast. Aortic Valve: The aortic valve is trileaflet. Mild aortic leaflet calcification is visualized. There is a trace of aortic regurgitation. There is mild aortic stenosis.by 2 d morphologically. Mitral Valve: There is mitral annular calcification. Mitral valve posterior leaflet calcification is visualized. There is thickening of the AMV leaflet. There is a bright mobile echodensity attached to the AMV leaflet, possible significant calcification of the leaflets, can not r/o vegetation or a scar tissue. There is mild mitral regurgitation. There is borderline mitral stenosis. Tricuspid Valve: The tricuspid valve leaflets are normal. There is trace tricuspid regurgitation. There is no tricuspid stenosis. Pulmonic Valve: The pulmonic valve appears normal. There is no evidence of pulmonic regurgitation. There is no pulmonic stenosis. Pericardium: There is no significant pericardial effusion. Aorta: There is no dilatation of the ascending aorta. The aortic root is normal in size. There is plaque visualized in the transverse aorta. There is minimal atherosclerotic plaque in the visualized segments of the aorta. Pulmonary Artery: The main pulmonary artery appears normal. Venous: The bicaval view was obtained and appears normal. The pulmonary veins appear normal. 3 of 4 visualized. The pulmonary veins appear normal in size. SHANAE Procedures: All standard views were attempted within the limitations of patient tolerance and safety. History and physical as well as labs were reviewed. The patient was in a fasting state. Risks and benefits of the procedure, including alternatives, were discussed and written informed consent was obtained. The patient and/or their health care parts sales representative expressed understanding of the procedure, risks and benefits. Baseline and continuous monitoring of blood pressure, heart rate, pulse oximetry and heart rhythm was performed throughout the procedure. The appropriate time-out procedure was performed as per [facility] protocol. The patient was placed in the left lateral decubitus position. The patient's posterior pharynx was anesthetized with 20ml of 2% viscous lidocaine. The patient received IV Midazolam with a total dose of 4 mg. The patient received IV Fentanyl with a total dose of 50 mcg. An oral bite block was inserted for protection of oral dentition. The multiplane transesophageal echocardiogram probe was inserted through the posterior oropharynx and advanced into the esophagus without difficulty. Multiple 2D images were obtained of the heart and its related structures. Color flow Doppler was used for evaluation. Spectral Doppler was also used. The atrial septum was interrogated with color flow Doppler. At the conclusion of the procedure the probe was removed with continuous suction without complications. The patient tolerated the procedure with no apparent complications. Contrast: Normal saline was used as contrast for the bubble study. Image 50. Intravenous contrast was used to help determine presence of intracardiac shunting. Conclusions The left ventricular chamber size is normal. Global left ventricular wall motion and contractility are within normal limits. The estimated ejection fraction is 55-60%. The left atrium is mildly dilated. No thrombus is visualized within the left atrium. There is no thrombus visualized in the left atrial appendage. Interatrial septum appears intact without evidence of shunting. A patent foramen ovale is not demonstrated with color Doppler and agitated contrast. Mild aortic leaflet calcification is visualized. There is a trace of aortic regurgitation. There is mitral annular calcification. Mitral valve posterior leaflet calcification is visualized. There is mild mitral regurgitation. Mitral valve posterior leaflet calcification is visualized. There is thickening of the AMV leaflet. There is a bright mobile echodensity attached to the AMV leaflet, possible significant calcification of the leaflets, can not r/o vegetation or a scar tissue. There is borderline mitral stenosis. There is trace tricuspid regurgitation. There is plaque visualized in the transverse aorta. There is minimal atherosclerotic plaque in the visualized segments of the aorta. Measurements Name Value Normal Range Aortic Annulus 1.7 cm (1.4 - 2.6) Ao root diameter (2D) 3.2 cm (2.1 - 3.5) Ascending Ao 3 cm (2.1 - 3.4) Name Value Normal Range MV E-wave Vmax 1.4 m/sec - MV deceleration time 67.4 msec - MV A-wave Vmax 1.3 m/sec - MV E:A ratio 1.14 ratio -
--- NOTE | 2017-01-28 17:50 | PN ---
Subjective Date of Service: 01/28/17 Interval History: got SHANAE showing same mobile mass on anterior mitral valve leaflet. Irate about delay in getting lunch immediately after the procedure. Blood Cultures negative. Wound Care consulted to help do wound vac change but after investigation (and calling Vascular Surgeon at [facility] Dr. Mccain) they did not feel like it was appropriate to place back on given sloughing. ID and Wound Care wanting a Surgical consult to look at wound and consider sharp vs wet debridement. Dr. Cleveland called. Objective Active Medications: Acetaminophen (Tylenol Tab*) 650 mg PO Q4H PRN PRN Reason: FEVER/PAIN Last Admin: 01/27/17 21:02 Dose: 650 mg Albuterol (Ventolin Hfa Inhaler*) 2 puff INH Q4H PRN PRN Reason: SOB/WHEEZING Amitriptyline HCl (Elavil Tab*) 25 mg PO BEDTIME [facility] Last Admin: 01/27/17 21:03 Dose: 25 mg Amlodipine Besylate (Norvasc Tab*) 2.5 mg PO DAILY [facility] Last Admin: 01/28/17 12:44 Dose: 2.5 mg Aspirin (Aspirin Ec Low Dose*) 81 mg PO DAILY [facility] Last Admin: 01/28/17 12:44 Dose: 81 mg Atorvastatin Calcium (Lipitor*) 20 mg PO BEDTIME [facility] Last Admin: 01/27/17 21:03 Dose: 20 mg Bacitracin (Bacitracin Ointment*) 1 applic TOPICAL BID [facility] Cetirizine HCl (Zyrtec*) 10 mg PO QAM [facility] PRN Reason: Protocol Last Admin: 01/28/17 12:56 Dose: Not Given Cinacalcet (Sensipar Tab*) 60 mg PO DAILY [facility] Last Admin: 01/28/17 12:56 Dose: Not Given Dextrose (D50w Syringe 50 Ml*) 12.5 gm IV PUSH .FOR FS < 60 - SS PRN PRN Reason: FS < 60 Docusate Sodium (Colace Cap*) 100 mg PO BID [facility] Last Admin: 01/28/17 12:54 Dose: Not Given Gemfibrozil (Lopid Tab*) 600 mg PO TID [facility] Last Admin: 01/28/17 12:56 Dose: Not Given Heparin Sodium (Porcine) (Heparin Vial(*)) 5,000 units SUBCUT Q8HR [facility] Last Admin: 01/28/17 14:26 Dose: Not Given Vancomycin HCl 1,000 mg/ (Sodium Chloride) 250 mls @ 166.667 mls/hr IVPB ONCE ONE Stop: 01/28/17 19:29 Insulin Human Lispro (Humalog*) 0 units SUBCUT AC [facility] PRN Reason: Protocol Last Admin: 01/28/17 17:22 Dose: Not Given Levofloxacin (Levaquin Tab*) 500 mg PO Q48H [facility] Last Admin: 01/26/17 21:01 Dose: 500 mg Lisinopril (Prinivil Tab*) 20 mg PO DAILY [facility] Last Admin: 01/28/17 12:44 Dose: 20 mg Metolazone (Zaroxolyn Tab*) 5 mg PO DAILY [facility] Last Admin: 01/28/17 12:43 Dose: 5 mg Metronidazole (Flagyl Tab*) 500 mg PO TID [facility] Last Admin: 01/28/17 12:44 Dose: 500 mg Omeprazole (Prilosec Cap*) 20 mg PO QAM [facility] Last Admin: 01/28/17 12:56 Dose: Not Given Ondansetron HCl (Zofran Inj*) 4 mg IV Q6H PRN PRN Reason: NAUSEA Pregabalin (Lyrica Cap(*)) 150 mg PO TID [facility] Last Admin: 01/28/17 14:46 Dose: Not Given Sertraline HCl (Zoloft*) 50 mg PO BEDTIME [facility] Last Admin: 01/27/17 21:03 Dose: 50 mg Sevelamer Carbonate (Renvela Tab*) 2,400 mg PO TID WITH MEALS [facility] Last Admin: 01/28/17 12:52 Dose: 2,400 mg Torsemide (Demadex*) 80 mg PO BID [facility] Last Admin: 01/28/17 12:43 Dose: 80 mg Vital Signs 01/27/17 01/27/17 01/27/17 19:09 20:00 21:01 Temperature 98.3 F Pulse Rate 84 Respiratory 20 20 16 Rate Blood Pressure 152/83 (mmHg) O2 Sat by Pulse 96 Oximetry 01/27/17 01/27/17 01/28/17 22:59 23:01 03:21 Temperature 98.2 F 98.5 F Pulse Rate 84 83 Respiratory 20 16 16 Rate Blood Pressure 153/73 152/73 (mmHg) O2 Sat by Pulse 96 99 Oximetry 01/28/17 01/28/17 01/28/17 07:32 07:42 08:00 Temperature 97.9 F Pulse Rate 86 Respiratory 20 18 Rate Blood Pressure 169/80 158/85 (mmHg) O2 Sat by Pulse 100 Oximetry 01/28/17 01/28/17 01/28/17 10:26 11:16 12:43 Temperature 97.9 F 98.1 F Pulse Rate 81 77 Respiratory 16 20 16 Rate Blood Pressure 160/79 151/76 (mmHg) O2 Sat by Pulse 99 96 Oximetry Appearance: NAD Eyes: No Scleral Icterus, PERRLA Ears/Nose/Mouth/Throat: NL Teeth, Lips, Gums, Mucous Membranes Moist Neck: NL Appearance and Movements; NL JVP Respiratory: Symmetrical Chest Expansion and Respiratory Effort, - - trace rales Cardiovascular: NL Sounds; No Murmurs; No JVD, RRR Abdominal: NL Sounds; No Tenderness; No Distention, No Hepatosplenomegaly Extremities: - - R>L edema. wound to medial calf, thigh up to groin. In many areas well approximated/closed scar but at thigh (and seemingly near groin) open ~.5cm with some fibrinous tissue. No drainage. Skin: No Nodules or Sclerosis Neurological: Alert and Oriented x 3, NL Muscle Strength and Tone Nutrition: Taking PO's Result Diagrams: 01/27/17 06:22 01/27/17 06:22 Additional Lab and Data: Laboratory Results - last 24 hr 01/28/17 01/28/17 01/28/17 07:38 12:21 17:01 POC Glucose (mg/dL) 152 H 103 H 110 H 01/28/17 01/28/17 17:43 21:09 POC Glucose (mg/dL) 104 H 155 H Microbiology and Other Data: Microbiology 01/27/17 15:25 Blood Venous Aerobic Blood Culture - Preliminary No Growth Day 1 01/27/17 15:25 Blood Venous Anaerobic Blood Culture - Preliminary No Growth Day 1 01/27/17 13:52 Blood Venous Aerobic Blood Culture - Preliminary No Growth Day 1 01/27/17 13:52 Blood Venous Anaerobic Blood Culture - Preliminary No Growth Day 1 Assess/Plan/Problems-Billing Assessment: 51 yo female PMH ESRD HD MWF (x1 year), DMT2, HTN, COPD, HLD, anxiety, depression, PVD s/p right fem-pop bypass (11/24/16 Dr. Ashley Mccain, @[facility], [place] vein graft) c/b right leg infection (reportedly Ecoli), has been on wound vac, vanc 1g MWF, levaquin, flagyl. P/w acute SOB after lying flat 2 hours during wound vac change. symptoms relieved with HD but TTE and SHANAE showing 1.0x0.8cm mobile mass on anterior mitral valve not commented on 08/09/16 ECHO. ID and wound care wanting general surgery evaluation for potential sharp ( vs chemical) debridement. - Patient Problems (1) Endocarditis Current Visit: Yes Status: Acute Code(s): I38 - ENDOCARDITIS, VALVE UNSPECIFIED SNOMED Code(s): 74660355 Comment: concern for intravascular infection/partially treated Infective Endocarditis given newly discovered 1.0x0.8cm mobile mass on anterior leaflet not seen on 08/09/16 ECHO. ?groin wound original source. Pt reports Ecoli appreciate ID recs SHANAE with same mass 2 blood cultures drawn adn have been negative 01/27, 01/13 CRP improving 11 from 73(01/13), 105 (12/28), 87 (12/14) Continue vancomysin with HD. Patient has also been on levaquin 500 q48 and flagyl 500mg TID as outpatient and here. (2) Hypoxia Current Visit: No Status: Acute Code(s): R09.02 - HYPOXEMIA SNOMED Code(s) : 808788572 Comment: Desat to 77 at home after lying flat 2 hours. Likely mixed etiology related to volume overload 2/2 CHF and ESRD. Improved with HD. continue HD and torsemide 50mg BID, metolazone 500mg daily. makes good urine on above. outpatient Pulm f/u continue albuterol 2puff q4 prn (3) ESRD (end stage renal disease) on dialysis Current Visit: No Status: Acute Code(s): N18.6 - END STAGE RENAL DISEASE; Z99.2 - DEPENDENCE ON RENAL DIALYSIS SNOMED Code(s): 041233581 Comment: Continue MWF dialysis. Continue sevelamer and sensipar. (4) HLD (hyperlipidemia) Current Visit: No Status: Acute Code(s): E78.5 - HYPERLIPIDEMIA, UNSPECIFIED SNOMED Code(s): 53279084 Comment: Continue lipitor. (5) HTN (hypertension) Current Visit: No Status: Acute Code(s): I10 - ESSENTIAL (PRIMARY) HYPERTENSION SNOMED Code(s): 05781167 Comment: BP better controlled after HD 01/26. Continue torsemide, metolazone , amlodipine 2.5, lisinopril 20mg. 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 Continue SSI for now. POCT qac qhs hold home lantus 20U qhs for now. (7) COPD (chronic obstructive pulmonary disease) Current Visit: No Status: Acute Code(s): J44.9 - CHRONIC OBSTRUCTIVE PULMONARY DISEASE, UNSPECIFIED SNOMED Code(s): 37812855 Comment: Continue prn albuterol. Quit smoking 3 yrs ago. Not currently wheezing, no cough Status and Disposition: medicine inpatient Attending: Ravinder Dobbs
[2017-01-28] MEDS ORDERED: Vancomycin(*) 1,000 MG in NS 0.9% 250 ML* 250 ML IVPB SCH (18:00)
[2017-01-28] MEDS ORDERED: Vancomycin(*) 1,000 MG in NS 0.9% 250 ML* 250 ML IVPB ONE (18:00)
[2017-01-28] MEDS: Levofloxacin TAB* 500 MG PO SCH (22:37)
[2017-01-28] MEDS: Amitriptyline TAB* 25 MG PO SCH (22:37)
[2017-01-28] MEDS: Atorvastatin* 20 MG TAB PO SCH (22:37)
[2017-01-28] MEDS: Sertraline* 50 MG TAB PO SCH (22:37)
--- NOTE | 2017-01-28 22:45 | CONS ---
CONSULTATION REPORT: DATE OF CONSULT: 01/28/17 REQUESTING PHYSICIAN: Dr. Dobbs. CONSULTING SERVICE: Infectious Disease. REASON FOR CONSULTATION: Abnormal echocardiogram. IMPRESSION: 1. Admitted with dyspnea. A transthoracic echocardiogram was done on 01/26/17 that showed a 1 x 0. 8 cm bright, somewhat mobile mass, anterior leaflet of mitral valve with some calcification of the l eaflet. A transesophageal echocardiogram done today showed thickening of the anterior mitral valve leaflet, bright mobile echodensity attached to the anterior mitral valve leaflet, possible significa nt calcification of leaflet, cannot rule out vegetation or a scar tissue. She has no systemic sympt oms. She has a moderately low CRP, which is improved from few weeks ago, it is 11 now and was 105 o n 12/28/16, 783 back on 01/13/17. She has been on vancomycin, Levaquin, and Flagyl for about a corey h. The differential diagnosis includes infective endocarditis, which is untreated though I think th at is less likely given the improving CRP and lack of systemic versus a partially treated infective endocarditis that was coincidentally being treated unbeknownst to her previous antibiotic prescriber s. At the same time, she was being treated for the right leg wound infection versus a noninfective endocarditis i.e., marantic endocarditis versus an echocardiographic abnormality unrelated to vegeta tion versus an old finding not seen on previous echo. By report, a transthoracic echo in August did no t show this finding, but I do not have that available to confirm that. 2. Right femoropopliteal bypass in 2017 complicated by wound infection due to E. coli abscess, whic h was drained on 12/29/16, has been on broad-spectrum antibiotics since then. With the persistent w ound, had a WAC dressing off now. 3. End-stage renal disease, on hemodialysis. 4. PENICILLIN allergy. RECOMMENDATION: Continue broad-spectrum antibiotics for her wound and I will try to get hold of pre vious echocardiogram reports here and/or at [facility] to compare to this recent finding. Her blood cu ltures are negative at this point. I will add another set for completeness sake. We will add some serology for the culture negative endocarditis workup. HISTORY OF PRESENT ILLNESS: This is a 51-year-old woman with end-stage renal disease, on hemodialys is over the summer, had a right femoropopliteal bypass with a vein which was complicated by wound in [facility], admitted here on broad-spectrum antibiotics, improved, discharged on oral antibiotics, had some worsening again and so was accepted at [facility] where she had incision and debridement. The wou nd grew E. coli. She was seen by Infectious Disease there and discharged on vancomycin IV after pasquale lysis and Levaquin and Flagyl. She has tolerated that well, though has had an admission [facility] for volume overload and then presented again on 01/26/17 with dyspnea. She had no cough, fever, chills, sweats, weight loss. Appetite was great. She was not missing doses of her antibioti cs. She had been following with Dr. Mccain, who had placed a wound VAC dressing in the right thigh wound a nd was having minimal drainage that was removed here. She was seen by the wound team. She had an e chocardiographic evaluations noted above and discussed the case with Dr. Dobbs yesterday, recommended a transesophageal echocardiogram, which was obtained today. She tolerated that well. She has no f christy while she has been here. Her CRP is 11 and she is seen today in dialysis. PAST MEDICAL HISTORY: 1. End-stage renal disease, on hemodialysis. 2. Peripheral vascular disease, status post right femoropopliteal bypass with a vein graft. 3. Diabetes. 4. COPD. 5. Hyperlipidemia. 6. Gastroesophageal reflux disease. 7. Depression. 8. Anxiety. 9. Hypertension. 10. AV fistula. 11. Status post tubal ligation. ALLERGIES: PENICILLIN and GABAPENTIN. MEDICATIONS: 1. Tylenol. 2. Amitriptyline. 3. Aspirin. 4. Lipitor. 5. Gemfibrozil. 6. Heparin subcutaneous injection. 7. Levaquin 500 mg by mouth every 48 hours. 8. Lisinopril. 9. Omeprazole. 10. Sertraline. 11. Sevelamer. 12. Vancomycin a gram postdialysis. 13. Flagyl 500 mg by mouth 3 times a day. 14. Amlodipine. SOCIAL HISTORY: Past smoker. No alcohol. Lives with her . FAMILY HISTORY: Mother with seizure, father with diabetes. REVIEW OF SYSTEMS: A 14-point review of systems was negative except as noted above. PHYSICAL EXAM: Vital Signs: Temperature 36.7, heart rate 77, respiratory rate 20, blood pressure 1 51/76, O2 sat 96% on room air. In general, she is awake, not in distress. Neurologic: She is orie nted x3, follows all commands, moves all extremities. HEENT: There is no conjunctival hemorrhage. Oropharynx without lesions. Neck is supple without nuchal rigidity. Lymph Nodes: There is no ing uinal, axillary, or epitrochlear lymphadenopathy. Heart is regular rate and rhythm without murmurs, rubs, or gallops. Lungs are clear to auscultation bilaterally. Abdomen: Soft, nontender, nondist ended. There are bowel sounds present. Skin: There is no rash or splinter hemorrhages. Musculosk eletal: There is a left upper extremity AV fistula, which is accessed. There is no spine tendernes s to palpation. There is no joint synovitis. On the right thigh, there is a linear wound from the groin down to the knee with a couple areas of healing in between. In general, it is open about 0.5 cm with granulation tissue at the base and some fibrinous debris. No surrounding erythema. There i s diffuse induration without fluctuance. LABORATORY DATA: White blood cell count 5.9, hemoglobin 10.2, platelets 352. Creatinine is 3.9. Po tassium 4.7. Urinalysis, no blood or white cells. Blood cultures were negative for 24 hours drawn on 01/27/17. Blood cultures on the 01/13/17 were negative x2. Please see impressions and recommendations outlined above which I have discussed with Dr. Dobbs. Thank you for asking me to see Colleen Pio in consultation. [id number]/[facility] #: [id number]
[2017-01-29] MEDS: Collagenase 250 MG/GM OINT* 30 GM TOPICAL SCH ×2 (00:30→09:45)
[2017-01-29] MEDS: Heparin VIAL(*) 5000 UNITS/ML VIAL (FIVE THOUSAND) SUBCUT SCH ×2 (05:35→13:19)
[2017-01-29] MEDS: Bacitracin OINTMENT* 1 TUBE TOPICAL SCH ×2 (06:15→09:45)
[2017-01-29 06:26] LABS: Hematocrit 33 % (35-47); Hemoglobin 10.5 g/dl (12.0-16.0); Mean Corpuscular HGB Conc 32 g/dl (31-36); Mean Corpuscular Hemoglobin 29 pg (27-31); Mean Corpuscular Volume 89 fL (80-97); Mean Platelet Volume 8 um3 (7.4-10.4); Red Blood Count 3.68 10^6/ul (4.0-5.4); Red Cell Distribution Width 17 % (10.5-15); White Blood Count 6.2 10^3/ul (3.5-10.8)
[2017-01-29] MEDS: Insulin LISPRO* 1 UNITS UNIT SUBCUT SCH ×2 (08:20→12:15)
[2017-01-29] MEDS ORDERED: Collagenase 250 MG/GM OINT* 30 GM TOPICAL SCH (09:00)
[2017-01-29] MEDS: Sevelamer TAB* 800 MG PO SCH ×2 (09:40→13:16)
[2017-01-29] MEDS: metroNIDAZOLE TAB* 250 MG PO SCH ×2 (09:41→13:16)
[2017-01-29] MEDS: Torsemide TAB* 20 MG PO SCH (09:41)
[2017-01-29] MEDS: Cetirizine* 10 MG TAB PO SCH (09:41)
[2017-01-29] MEDS: Lisinopril TAB* 10 MG PO SCH (09:42)
[2017-01-29] MEDS: Metolazone TAB* 5 MG PO SCH (09:42)
[2017-01-29] MEDS: Omeprazole CAP* 20 MG PO SCH (09:42)
[2017-01-29] MEDS: Aspirin EC Low Dose* 81 MG TAB.EC PO SCH (09:43)
[2017-01-29] MEDS: Pregabalin CAP(*) 50 MG PO SCH ×2 (09:43→13:17)
[2017-01-29] MEDS: Cinacalcet TAB* 30 MG PO SCH (09:43)
[2017-01-29] MEDS: Gemfibrozil TAB* 600 MG PO SCH ×2 (09:43→13:17)
[2017-01-29] MEDS: amLODIPine TAB* 5 MG PO SCH (09:44)
[2017-01-29] MEDS: Docusate CAP* 100 MG PO SCH (09:45)
[2017-01-29] MEDS: Acetaminophen TAB* 325 MG PO PRN (10:29)
[2017-01-29] MEDS ORDERED: Calcium Carbonate CHEW TAB* 500 MG (TUMS) PO PRN (13:35)
--- NOTE | 2017-01-29 14:07 | PN ---
PROGRESS NOTE: DATE OF SERVICE: HISTORY: Ms. Suero is feeling somewhat better today than she had in the last few days; however, gita mirza has not attempted to lie flat in bed. She is not complaining of any shortness of breath now sitti ng upright and she is not using oxygen. She has no chest pain. She is eating well and has a good a ppetite. She is afebrile. PHYSICAL EXAMINATION: Her blood pressure is /69, pulse is 83. Her weight is down almost 2 kg from yesterday, but she did receive dialysis yesterday. She has trace edema to her non-wound leg, w hich is an appropriate amount of fluid for her. LABORATORY DATA: White count is 6.2, hemoglobin of 10.5. ASSESSMENT AND PLAN: From my point of view, she is doing reasonably well. I told her to test herse lf, lie flat today for a couple of hours to see what her breathing was like in order to be able to m roland a decision with regard to discharge. She can receive continued wound management as an outpatien t. I will be discussing the case with Dr. Dobbs. [id number]/[facility] #: [id number]
[2017-01-29 17:14] VITALS: BP 150/70
--- NOTE | 2017-01-30 06:56 | DS ---
DISCHARGE SUMMARY: DATE OF ADMISSION: 01/26/17 DATE OF DISCHARGE: 01/29/17 PROVIDER: Harjeet Rousseau NP. ATTENDING PHYSICIAN: Ravinder Dobbs MD. PRIMARY CARE PROVIDER: Dr. Fontenot. PRIMARY ENTREPRENEURIAL FINANCE PROFESSOR: Dr. Valiente. PRIMARY VASCULAR SURGEON: Dr. Ashley York of [facility]. PRIMARY INFECTIOUS DISEASE: Dr. Kike Recinos. CHIEF COMPLAINT: Shortness of breath. PRINCIPAL DIAGNOSIS: Acute hypoxic respiratory failure in the setting of volume overload. SECONDARY DIAGNOSES: 1. End-stage renal disease. 2. Insulin dependent diabetes mellitus. 3. Chronic obstructive pulmonary disease. 4. Peripheral vascular disease. 5. Hyperlipidemia. 6. Gastroesophageal reflux disease. 7. Anxiety. 8. Depression. 9. Hypertension. 10. Fem-pop bypass in November 2016, complicated by infection, status post I and D and now wound VAC. HISTORY OF PRESENT ILLNESS AND HOSPITAL COURSE: Verito Suero is a 51-year-old female with past medical history as above, who was getting a wound VAC change on day of admission, was lying down flat for two hours straight with her one leg elevated on pillows, this took longer than anticipated given visited nurses inexperienced with her particular wound VAC and injury. The patient being more more short of breath and presented with pulse ox at home in the 70s. She presented to emergency room and of note she had missed the hemodialysis appointment because of the extended dressing change. She then received hemodialysis and was noted to become altered, minimally response for about 20 seconds and her blood sugar was checked and noted to be 47. Mental status improved dramatically after an ampule of dextrose 50 was given. She had been given insulin and D50 in the emergency room for hyperkalemia because of the missed dialysis of note. The patient was admitted for the episode of acute hypoxic respiratory failure. Of note, she has been getting wound VAC changes, Tuesday, Tuesday and Tuesday for this complication of her fem-pop bypass which happened in November [address] Ashley Mccain. The patient had an echocardiogram on day of admission given the shortness of breath and elevated troponin levels. Her ejection fraction was noted to be 55% to 60%, diastolic dysfunction was not able to be assessed clinically. Of note, the mitral valve showed severe annular calcification. The anterior leaflet of the mitral valve was thickened and there was an abnormal bright somewhat mobile mass seen on the anterior leaflet toward the LV outflow tract seen in the parasternal long view 4 and 2-chamber apical views. This mobile mass measured 1 x 0.8 cm, mitral valve posterior leaflet calcification was also visualized and appeared to be significant restriction to the posterior leaflet motion. There was mild to moderate mitral regurg and mild mitral stenosis. There was moderate aortic stenosis with a mean gradient aortic valve with 21.1 mmHg. The aortic valve area was 1.5 cm by peak velocities and by VTI was 1.[address] Velez noted that the mitral valve mobile mass was not commented on from the previously available report of 08/09/16 and suggested a SHANAE for more definitive assessment was clinically indicated. Given her history of endovascular procedure, complicated by infection, this indeed was considered indicated and next day SHANAE was performed by Dr. Martinez. Again, ejection fraction 55% to 60 %, the mitral valve posterior leaflet was again calcified, there was mitral annular calcification, thickening of the anterior mitral valve leaflets with a bright mobile echodensity attacted to the anterior mitral valve leaflet, possibly significant calcification of leaflets, cannot rule out vegetation or a scar tissue, mild mitral regurgitation, borderline mitral stenosis. Two blood cultures were drawn on 01/27/17 with report of initial TTE, those are being no growth to date x48 hours. Infectious disease physician, Dr. Kike Recinos was consulted and additional blood culture was drawn on 01/28/17, which is pending. He also sent for rheumatoid factor, Q fever antibody IgG, IgM, chlamydia antibody panel, varicella antibody IgG, IgM as well as add-on CRP, which was noted to be 11.3 on 01/26/17 down from 73.2 on 01/13/17 and 105.8 on 12/28/16. His differential included infective endocarditis though he thought unlikely given improving CRP and lack of systemic signs versus a partially treated infective endocarditis (given that patient has been getting vancomycin 1 g Tuesday, Tuesday, Tuesday with dialysis, Levaquin and Flagyl for about a month) that had been coincidently being treated for her wound infection versus a noninfective endocarditis i.e marantic endocarditis versus echocardiographic abnormality unrelated to bacterial vegetation versus chronic finding that just happened to be missed on the original 08/09/16 echo. His recommendation was to continue the current broad-spectrum antibiotics while additional workup as noted above was performed. The patient's wound VAC was due to be changed Tuesday , 01/28/17. Wound care consult was placed to assist in this. The patient was seen by nurse Mercedes Contreras who removed the wound VAC and discovered a large amount of slough covering the wound. They felt that the wound VAC was not appropriate to put back on until the slough was debrided either by chemical or sharp methods and recommended getting the surgical consult comment on those options, they until then recommended Santyl, Vaseline gauze, ABD and rolled gauze with daily changes until debridement occurs and wound VAC would be more appropriately restarted. Dr. Fam Cleveland, surgeon evaluated the patient on morning of discharge and recommended alginate dressing to the upper thigh and popliteal site 4 x 4 and paper tape. On day of admission, the patient was able to lie down completely flat for over two hours with no signs of respiratory distress, satting 93% at the end of this trial, moving well around the room and was eager for discharge with followup with her own vascular surgeon, Dr. Ashley York to be arranged in the coming week and patient had also contacted Dr. York who recommended replacement of the wound VAC as soon as could be arranged. The patient was arranged to have her visiting nursing service come on Tuesday day after admission to reapply the wound VAC. The patient will be given prescription for collagenase in case there are delays in that process. The patient should follow with Dr. Recinos to follow up on the both infective endocarditis and other labs that were drawn. The patient was very interested in following up with grinder hardboard because she has had multiple episodes of shortness of breath albeit when her volume status was even worse than it was leading up to this recent hospitalization in the setting of dietary noncompliance over the summer. She was recommended to make an appointment with Dr. Rosas at her convenience. She follows up with Dr. Valiente and needs to see Dr. Fontenot as well, her primary care physician. I should note that additionally previous blood cultures drawn at this hospital on 01/13/17 and were no growth for five days each albeit in the setting of already being on the three antibiotics listed above. MEDICATIONS ON DISCHARGE: Include, 1. Albuterol two puffs inhaler q.4 hours p.r.n. 2. Amitriptyline 25 mg p.o. at bedtime. 3. Aspirin 81 mg daily. 4. Atorvastatin 20 mg p.o. at bedtime. 5. Cetirizine 10 mg p.o. q.a.m. 6. Sensipar 60 mg p.o. daily. 7. Collagenase 250 mg/g ointment apply topical daily (to be used in case of delays in getting the wound VAC replaced per Dr. York's recommendation). 8. Docusate 100 mg p.o. b.i.d. 9. Gemfibrozil 600 mg p.o. t.i.d. 10. Lisinopril 20 mg p.o. daily. 11. Metolazone 5 mg p.o. daily. 12. Omeprazole 20 mg p.o. q.a.m. 13. Pregabalin 150 mg p.o. t.i.d. 14. Sertraline 50 mg p.o. at bedtime. 15. Torsemide 80 mg p.o. b.i.d. 16. Metronidazole 500 mg p.o. t.i.d. 17. Insulin glargine 20 units q.p.m. 18. Sliding scale insulin. 19. Lispro insulin q.a.c. 20. Levofloxacin 500 mg p.o. every 48 hours. 21. Multivitamin one tab p.o. daily. 22. Zofran ODT tab 4 mg p.o. q.8 hours p.r.n. 23. Sevelamer 2400 mg p.o. t.i.d. with meals. 24. Sodium polystyrene sulfonate 15 g p.o. 25. Vancomycin 1000 mg IV Tuesday, Tuesday, Tuesday with dialysis. 26. Amlodipine 2.5 mg p.o. daily. DIET: Carbohydrate consistent low potassium. ACTIVITY: No restrictions. FOLLOWUP: With Dr. Recinos, Dr. Fontenot, Dr. Valiente, Dr. Ashley York and Dr. Ping Rosas ([facility], [facility] on 01/30/17 and [facility]. TIME SPENT: Time spent on discharge was 40 minutes. [id number]/[facility] #: [id number] [facility]
[2017-02-01 13:16] LABS: Rheumatoid Factor <15 IU/mL (<15)
== END 2017-01-29 18:00 | disposition home health service (06) | DRG 133 ==
LOC: ED 12:31 → MED 15:39 → OBSVTOIN 01-27 13:18
PROVIDERS: ADMIT Hospitalist; ATTEND Internal Medicine
PROC: 5A1D70Z Performance of Urinary Filtration, Intermittent, Less than 6 Hours Per Day (ICD-10-PCS; principal; 2017-01-27)
PROC: 5A1D70Z Performance of Urinary Filtration, Intermittent, Less than 6 Hours Per Day (ICD-10-PCS; 2017-01-27)
PROC: B24BZZ4 Ultrasonography of Heart with Aorta, Transesophageal (ICD-10-PCS; 2017-01-27)
DX: J96.01 Acute respiratory failure with hypoxia (principal); E11.22 Type 2 diabetes mellitus with diabetic chronic kidney disease; E11.51 Type 2 diabetes mellitus with diabetic peripheral angiopathy without gangrene; I12.0 Hypertensive chronic kidney disease with stage 5 chronic kidney disease or end stage renal disease; I38 Endocarditis, valve unspecified; N18.6 End stage renal disease; E87.70 Fluid overload, unspecified; Z99.2 Dependence on renal dialysis; Z91.15 Patient's noncompliance with renal dialysis; J44.9 Chronic obstructive pulmonary disease, unspecified; E78.5 Hyperlipidemia, unspecified; K21.9 Gastro-esophageal reflux disease without esophagitis; F32.9 Major depressive disorder, single episode, unspecified; F41.9 Anxiety disorder, unspecified; Z98.51 Tubal ligation status; Z88.0 Allergy status to penicillin; Z88.8 Allergy status to other drugs, medicaments and biological substances; Z87.891 Personal history of nicotine dependence; Z83.3 Family history of diabetes mellitus; Z82.0 Family history of epilepsy and other diseases of the nervous system; Z87.442 Personal history of urinary calculi; M17.0 Bilateral primary osteoarthritis of knee; M19.022 Primary osteoarthritis, left elbow; M19.021 Primary osteoarthritis, right elbow; M19.042 Primary osteoarthritis, left hand; M19.041 Primary osteoarthritis, right hand; E87.5 Hyperkalemia; E11.649 Type 2 diabetes mellitus with hypoglycemia without coma; Z79.82 Long term (current) use of aspirin; I08.0 Rheumatic disorders of both mitral and aortic valves; Z79.4 Long term (current) use of insulin
CPT/HCPCS: 36415; 71020; 80048; 80053; 81003; 81015; 82550; 83880; 84484; 85025; 85730; 86140; 86431; 86622; 86631; 86632; 86638; 87040; 90935; 93005; 93306; 93312; 93325; 99156; 99157; A9270-GY; G0257; G0378; J0610; J1644; J2060; J2250; J2310; J3010; J3370

== ENCOUNTER 2017-03-21 06:52 | Day surgery (SDC) | payer BC, MEDICARE ==
[~2017-03-21 06:52] MED LIST changes: +Buffered Lidocaine 0.9% SYRIN* 5 ML/SYR SYRINGE INTRADERM ONE; -Cefepime(*) 1 GM in NS 0.9% 50 ML* 50 ML IVPB SCH; -Dextrose 50% Syringe 50 ML* 25 GM/50 ML SYRINGE IV PUSH PRN; -Insulin LISPRO* 1 UNITS UNIT SUBCUT SCH; -NS 0.9% 1000 ML* 1,000 ML IV ONE; -Ondansetron INJ* 2 MG/ML VIAL IV PRN; -Vancomycin 1500 MG IV - x ONCE IVPB ONE; -Vancomycin(*) 1,000 MG in NS 0.9% 250 ML* 250 ML IVPB SCH
[2017-03-21] MEDS ORDERED: fentaNYL* 50 MCG/ML 2 ML VIAL (100 MCG VIAL) ONE (07:39)
[2017-03-21] MEDS ORDERED: Midazolam* 1 MG/ML 2 ML VIAL (2 MG) ONE (07:39)
--- NOTE | 2017-03-21 08:55 | OP ---
DATE OF OPERATION: 03/21/17 [facility] DATE OF : 61 SURGEON: Isidoro Shay MD. ANESTHESIA: Monitored anesthesia care. PRE-OP DIAGNOSIS: Cataract, right eye. POST-OP DIAGNOSIS: Cataract, right eye. OPERATIVE PROCEDURE: Extracapsular cataract extraction of the right eye with intraocular lens implant. IMPLANTS: SN60WF 22.0 diopter lens to the right eye. COMPLICATIONS: None. DESCRIPTION OF PROCEDURE: The patient was given phenylephrine 2.5% and cyclopentolate 1% eyedrops to the operative eye in the preoperative area. The patient was brought to the operating room where a time-out was taken to identify the correct patient, site, and side of surgery. The patient's right eye was prepped and draped in the usual sterile fashion with 5% Betadine. A second time- out was taken to verify the correct patient, site, and side of surgery, and correct lens selection. A lid speculum was placed to the right eye. A 1-mm paracentesis blade was used to make a clear corneal incision in the superotemporal position. Preservative free 1% lidocaine was injected into the anterior chamber. DisCoVisc was then injected into the anterior chamber. A 2.75-mm keratome blade was used to make a triplanar incision at the inferotemporal position. A cystotome initiated a capsulorrhexis which was completed with Utrata forceps in a continuous and curvilinear manner. Hydrodissection of the lens was performed with BSS on a cannula. The lens could be spun in the capsular bag. Phacoemulsification handpiece was used with a [id number] technique to remove the nucleus in its entirety. The I/A handpiece then removed the residual cortical lens material. DisCoVisc was injected to inflate the capsular bag. The planned SN60WF 22.0 diopter lens was injected into the capsular bag. The residual DisCoVisc was removed from the eye with the I/A handpiece. The corneal incisions were hydrated and no leaks occurred at physiologic pressure around 20 mmHg per palpation. The lid speculum was removed and drapes removed. Maxitrol ointment was placed to the surface of the operative eye. An adhesive patch and shield was then placed on the operative eye. The patient was taken to the postoperative area in stable condition. [id number]/[facility] #: [id number] MTDD
[2017-03-21 09:23] VITALS: BP 154/88
[2017-03-21] MEDS ORDERED: Lidocaine 1% MPF* 2 ML VIAL ONE (10:12)
[2017-03-21] MEDS ORDERED: Tropicamide 1% OPTH.SOL* BTL ONE (10:12)
[2017-03-21] MEDS ORDERED: acetaZOLAMIDE TAB* 250 MG ONE (10:12)
[2017-03-21] MEDS ORDERED: Cyclopentolate 1% OPTH.SOL* 2 ML BTL ONE (10:12)
[2017-03-21] MEDS ORDERED: Povidone Iodine 5% OPTH* 30 ML BTL ONE (10:12)
[2017-03-21] MEDS ORDERED: Neomycin/Polymy/Dex OPHTH.OIN* 3.5 GM ONE (10:12)
[2017-03-21] MEDS ORDERED: Phenylephrine 2.5% OPTH.SOL* 2 ML BTL ONE (10:12)
[2017-03-21] MEDS ORDERED: Tetracaine 0.5% OPTH.SOL 4 ML* 1 DROP BTL ONE (10:12)
[2017-03-21] MEDS ORDERED: Ketorolac 0.5% OPHTH (NF) 0.5 % 5 ML BTL ONE (10:12)
== END 2017-03-21 09:53 | disposition home or self-care (01) ==
LOC: OREAST 06:52
PROVIDERS: ATTEND Student in an Organized Health Care Education/Training Program
DX: H25.11 Age-related nuclear cataract, right eye (principal); S05.02XD Injury of conjunctiva and corneal abrasion without foreign body, left eye, subsequent encounter; E11.3293 Type 2 diabetes mellitus with mild nonproliferative diabetic retinopathy without macular edema, bilateral; Z79.4 Long term (current) use of insulin; Z87.891 Personal history of nicotine dependence; J45.909 Unspecified asthma, uncomplicated; K21.9 Gastro-esophageal reflux disease without esophagitis; J44.9 Chronic obstructive pulmonary disease, unspecified; I10 Essential (primary) hypertension; R01.1 Cardiac murmur, unspecified; F41.8 Other specified anxiety disorders; D64.9 Anemia, unspecified
CPT/HCPCS: A9270-GY; J2250; J3010; V2632

== ENCOUNTER 2017-04-10 23:26 | Inpatient (IN) | payer BC, MEDICARE ==
[2017-04-10] MEDS ORDERED: nitroGLYCERIN DRIP* 25,000 MCG/250 ML BTL IV ONE (23:30)
[2017-04-10] MEDS ORDERED: Albuterol/Ipratropium NEB.SOL* Albuterol 2.5 MG/Ipratropium 0.5 MG 3 ML INH ONE (23:30)
[2017-04-10] MEDS ORDERED: Albuterol/Ipratropium NEB.SOL* Albuterol 2.5 MG/Ipratropium 0.5 MG 3 ML ONE (23:31)
[2017-04-10 23:47] LABS: ABS Basophils 0.1 10^3/ul (0-0.2); ABS Eosinophils 0.3 10^3/ul (0-0.6); ABS Lymphocytes 2.3 10^3/ul (1.0-4.8); ABS Monocytes 1.2 10^3/ul (0-0.8); ABS Neutrophils 11.4 10^3/ul (1.5-7.7); ABS Nucleated RBC 0.01 10^3/ul; Eosinophil % 2.1 % (0-6); Hematocrit 37 % (35-47); Hemoglobin 11.9 g/dl (12.0-16.0); Lymphocyte % 15.3 % (25-47); Mean Corpuscular HGB Conc 33 g/dl (31-36); Mean Corpuscular Hemoglobin 30 pg (27-31); Mean Corpuscular Volume 92 fL (80-97); Mean Platelet Volume 9 um3 (7.4-10.4); Nucleated Red Blood Cells % 0.1; Platelet Count 340 10^3/ul (150-450); Red Blood Count 3.98 10^6/ul (4.0-5.4); Red Cell Distribution Width 15 % (10.5-15); White Blood Count 15.4 10^3/ul (3.5-10.8)
[2017-04-10 23:56] LABS: INR 0.98 (0.77-1.02)
[2017-04-11 00:03] LABS: EGFR Non-African American 7.5 (>60)
[2017-04-11] MEDS ORDERED: Cefepime(*) 2 GM in NS 0.9% 50 ML* 50 ML IVPB ONE (00:15)
[2017-04-11] MEDS ORDERED: Ciprofloxacin 400MG IVPREMIX(* 400 MG/200 ML BAG IVPB ONE (00:15)
--- OUTSIDE RECORDS SUMMARY | 2017-04-11 00:16 | XMS REPORT ---
:1965 External Reference #:[id number] [facility] Address [address] [place] [address] Phone [phone] Care Team Providers Name Role Phone Isidoro Shay M.D. Care Team Information Logger All Round Unavailable Payers Type Date Identification Numbers Payment Provider Subscriber Commercial Effective: Policy Number: BS [employer] [employer] Verito Suero 2015 [id number] PayID: [id number] [place] [phone] Problems Date Description Provider Status Onset: Type 2 diabetes mellitus Active Note: 2000 Onset: Seasonal allergy Active Onset: Asthma Active Onset: Gastroesophageal reflux disease Active Onset: Left kidney absent Active Onset: Essential hypertension Active Onset: Osteoarthritis Active Onset: 01/15/2016 Combined form of senile cataract Isidoro Shay M.D. Active Onset: 01/15/2016 Tear film insufficiency Isidoro Shay M.D. Active Onset: 01/15/2016 Type 2 diab with severe nonp rtnop Isidoro Shay M.D. Active with macular edema, unsp Onset: 01/27/2016 Type 2 diab with mild nonp rtnop Isidoro Shay M.D. Active without macular edema, bi Onset: 01/27/2016 Type 2 diab with mod nonp rtnop Isidoro Shay M.D. Active without macular edema, bi Onset: 02/08/2017 Nuclear senile cataract Isidoro Shay M.D. Active Onset: 02/08/2017 Inj conjunctiva and corneal abrasion Isidoro Shay M.D. Active w/o fb, left eye, init Onset: 03/22/2017 Presence of intraocular lens Isidoro Shay M.D. Active Onset: 04/07/2017 Bilateral primary open angle glaucoma Isidoro Shay M.D. 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 night Artificial 10/27/ Active Solution 1.4% 1 drop Isidoro Tears 2017 Both eyes Zablocki, 2-3 times M.D. a day Amitriptyline / Active Tablets 25mg Unknown HCL 0000 Gemfibrozil / Active Tablets 600mg Unknown 0000 Lisinopril / Active Tablets 20mg Unknown 0000 Lyrica / Active Capsules 50mg Unknown 0000 Torsemide / Active Tablets 20mg Unknown 0000 Amlodipine / Active Tablets 2.5mg Unknown Besylate 0000 Humalog Kwikpen / Active Solution 100Unit/ML Unknown 0000 Pen-Inject Renvela / Active Packet 2.4gm Unknown 0000 Omeprazole / Active Capsules DR 20mg Unknown 0000 Zoloft / Active Tablets 50mg 2 tabs Unknown 0000 once daily Zyrtec Allergy / Active Tablets 10mg Unknown 0000 Aspirin Low / Active Chewtabs 81mg Unknown Strength 0000 Multi For Her / Active Tablets Unknown 50+ 0000 Ventolin HFA / Active Aerosol 108(90Base Unknown 0000 ) mcg/Act Spiriva / Active Aerosol 1.25mcg/Ac 2 puff Unknown Respimat 0000 t once a day Refresh / Active Solution 1% 30ml 1 drop Isidoro Liquigel 0000 both eyes , before M.D. bed Ciprofloxacin 03/15/ Hx Solution 0.3% 10ml instill Isidoro HCL 2017 - one drop Zablocki, 04/06/ in the M.D. 2017 right eye three times a day, start the day before surgery Ketorolac 03/15/ Hx Solution 0.4% 5ml instill Isidoro Tromethamine 2017 - one drop Zablocki, 04/06/ in the M.D. 2017 right eye three times a day starting the day before surgery Prednisolone 03/15/ Hx Suspension 1% 15ml 1 drops Isidoro Acetate 2016 - right eye blocki, 04/06/ three M.D. 2017 times a day. taper as directed Refresh Optive 02/23/ Hx Gel 1-0.9% 1-2 times Isidoro 2016 - a day as block, 04/06/ needed M.D. 2016 Calcium Acetate / Hx Capsules 667mg Unknown (Phos Binder) 2016 Sertraline HCL /00/ Hx Tablets 50mg Unknown 2016 Metolazone /00/ Hx Tablets 5mg Unknown 2016 Sodium 00/00/ Hx Tablets 650mg Unknown Bicarbonate 2016 Hydrocodone-Eligio 00/ Hx Tablets 5-325mg Unknown taminophen 2016 Furosemide /00/ Hx Tablets 40mg Unknown 2016 Victoza 00/00/ Hx Solution 18mg/3ML Unknown 0000 - Pen-Inject 2016 Lantus Solostar 00/00/ Hx Solution 100Unit/ML Unknown 0000 - Pen-Inject 2016 Levofloxacin 00/00/ Hx Tablets 750mg Unknown 2016 Doxycycline 00/00/ Hx Capsules 100mg Unknown Hyclate 2016 Methadone HCL 00/00/ Hx Solution 5mg/5ML Unknown 2016 Oxycodone HCL 00/00/ Hx Capsules 5mg Unknown - 2016 Results Test Date Test Result H/L Range Note Laboratory test finding 03/21/2017 Point of Care Glucose 131 mg/dL High 70 -100 1 Laboratory test finding 03/21/2017 Point of Care Glucose 150 mg/dL High 70 -100 2 1 Corporate Human Resources Manager: [id number] Corporate Human Resources Manager: [id number] Procedures Date CPT Code Description Status 03/21/2017 65188 Extracapsular Cataract Extraction W/Intraocular Lens Completed 03/15/2017 49458 Ophthalmic Biometry Completed 02/08/2017 63274 Est Patient Comprehensive Exam Completed 10/28/2016 47536 Scanning Computerized Opthalmic Diagnostic Posterior Completed Seg Retina 10/28/2016 19593 Determination Of Refractive State Completed 10/28/2016 32262 Est Patient Comprehensive Exam Completed 01/27/2016 69691 Scanning Computerized Opthalmic Diagnostic Posterior Completed Seg Retina 01/15/2016 21611 Est Patient Comprehensive Exam Completed 09/05/2013 59009 Scanning Computerized Opthalmic Diagnostic Posterior Completed Seg Retina 09/05/2013 13263 New Patient Comprehensive Exam Completed 09/05/2013 66508 Pachymetry Completed Encounters Type Date Location Provider CPT E/M Dx Office Visit 03/15/2017 2:45p Dipak Stauffer MD, Isidoro Shay, 45062 H25.11 john Foster S05.02xD E11.3293 Office Visit 02/24/2017 10:00a Dipak Stauffer MD, Isidoro Shay M.D. 36744 H25.13 S05.02xD E11.3293 Office Visit 01/27/2016 12:00p Isidoro Arenas, 57012 E11.3393 , john Foster H04.123 Plan of Care 04/07/2017 - Isidoro Shay M.D.Z96.1 Presence of intraocular lensComments: Smoking can increase the risk of developing or worsening any eye related disease , as well as affect your overall health. If you are a smoker, we strongly recommend that you quit.If you are not a smoker, we strongly recommend that you do not start. Your lens implant looks stable in your right eye at this time. You should be done, or almost done with your drops at this time according to your surgical calendar. I have given you a prescription for glasses. If you have any questions, please feel free to call our office at [phone].A08.4881 Primary open-angle glaucoma, bilateral, moderate stageNew Medication:Latanoprost 0.005 %Comments:Smoking can increase the risk of developing or worsening any eye related disease, as well as affect your overall health. If you are a smoker, we strongly recommend that you quit.If you are not a smoker, we strongly recommend that you do not start. USE THE GLAUCOMA DROP TO BOTH EYES AT NIGHT BEFORE BED TO HELP LOWER THE EYE [id number] Dry eye syndrome of bilateral lacrimal glandsComments:Both of your eyes appear to be dry. Use artificial tears as directed. You can use the tears more often if you are reading a book or are on the computer, as we tend to blink less, making our eyes dry out more.[facility] offers a few items in our optical department to help alleviate dry eye symptoms.
--- OUTSIDE RECORDS SUMMARY | 2017-04-11 00:17 | XMS REPORT ---
:1965 External Reference #:[id number] Author Organization [facility] Address [address] [place] [address] Phone [phone] Care Team Providers Name Role Phone Isidoro Shay M.D. Care Team Information Sales & Service Associate Unavailable Payers Type Date Identification Numbers Payment Provider Subscriber Commercial Effective: Policy Number: BS [employer] Verito Suero 2013 [id number] PayID: [id number] [place] [address] Problems Date Description Provider Status Onset: Type [...] M.D. Active without macular edema, bi Onset: 03/22/2017 Presence of intraocular lens Isidoro Shay M.D. Active Onset: 02/08/2017 Inj conjunctiva and corneal abrasion Isidoro Shay M.D. Active w/o fb, left eye, init Onset: 02/08/2017 Nuclear senile cataract Isidoro Shay M.D. Active Family History Date [...] Form Strength Qnty SIG Indications Ordering Provider Ciprofloxacin 03/15/ Active Solution 0.3% 10ml instill Isidoor HCL 2017 one drop Zablocki, in the M.D. right eye three times a day, start the day before surgery Ketorolac 03/15/ Active Solution 0.4% 5ml instill Isidoro Tromethamine 2017 one drop Jaspal, in the M.D. right eye three times a day starting the day before surgery Prednisolone 03/15/ Active Suspension 1% 15ml 1 drops Isidoro Acetate 2017 right eye Zablocki, three M.D. times a day. taper as directed Refresh Optive 02/23/ Active Gel 1-0.9% 1-2 times Isidoro 2017 a day as Jaspal, needed M.D. Artificial 10/27/ Active Solution 1.4% 1 drop Isidoro Tears 2017 Both eyes Jaspal, 2-3 times M.D. a day Amitriptyline / [...] Active Capsules DR 20mg Unknown 0000 Zoloft 00/00/ Active Tablets 50mg 2 tabs Unknown 0000 once daily Zyrtec Allergy 0000/ Active Tablets 10mg Unknown 0000 Aspirin Low / Active Chewtabs 81mg Unknown Strength 0000 Multi For Her 00/ Active Tablets Unknown 50+ 0000 Ventolin HFA / Active Aerosol 108(90Base Unknown 0000 ) mcg/Act Spiriva / Active Aerosol 1.25mcg/Ac 2 puff Unknown Respimat 0000 t once a day Calcium Acetate / Hx Capsules 667mg Unknown (Phos Binder) 2016 Sertraline HCL / Hx Tablets 50mg Unknown - 2016 Metolazone / Hx Tablets 5mg Unknown - 2016 Sodium 00/ Hx Tablets 650mg Unknown Bicarbonate 2016 Hydrocodone-Eligio / Hx Tablets 5-325mg Unknown taminophen 2016 Furosemide // Hx Tablets 40mg Unknown 2016 Victoza / Hx Solution 18mg/3ML Unknown 0000 - Pen-Inject 2016 Lantus Solostar / Hx Solution 100Unit/ML Unknown 0000 - Pen-Inject 2016 Levofloxacin / Hx Tablets 750mg Unknown 2016 Doxycycline /00/ Hx Capsules 100mg Unknown Hyclate 2016 Methadone HCL /00/ Hx Solution 5mg/5ML Unknown 2016 Oxycodone HCL 00/ Hx Capsules 5mg Unknown 2016 Results Test Date Test Result H/L Range Note Laboratory test finding 03/21/2017 Point of Care Glucose 131 mg/dL High 70 -100 1 Laboratory test finding 03/21/2017 Point of Care Glucose 150 mg/dL High 70 -100 2 1 Therapist Rrt: [id number] Therapist Rrt: [id number] Procedures Date CPT Code Description Status 03/15/2017 37162 Ophthalmic Biometry Completed 02/08/2017 04243 Est Patient Comprehensive Exam Completed 10/28/2016 76158 Scanning Computerized Opthalmic Diagnostic Posterior Completed Seg Retina 10/28/2016 80514 Determination Of Refractive State Completed 10/28/2016 98117 Est Patient Comprehensive Exam Completed 01/27/2016 68129 Scanning Computerized Opthalmic Diagnostic Posterior Completed Seg Retina 01/15/2016 42645 Est Patient Comprehensive Exam Completed 09/05/2013 82209 Scanning Computerized Opthalmic Diagnostic Posterior Completed Seg Retina 09/05/2013 97724 New Patient Comprehensive Exam Completed 09/05/2013 02814 Pachymetry Completed Encounters Type Date Location Provider CPT E/M Dx Office Visit 03/15/2017 2:45p Dipak Stauffer MD, Isidoro Shay, 19153 H25.11 john Foster S05.02xD E11.3293 Office Visit 02/24/2017 10:00a Dipak Stauffer MD, Isidoro Shay M.D. 84793 H25.13 pc S05.02xD E11.3293 Office Visit 01/27/2016 12:00p Isidoro Arenas, 72553 E11.3393 , john Foster H04.123 Plan of Care Future Appointment(s):04/07/2017 10:00 am - [facility] at Dipak Stauffer MD, 04/07/2017 10:45 am - Isidoro Shay M.D. at Dipak Stauffer MD, [id number] - Isidoro Shay M.D.Z96.1 Presence of intraocular lensComments:The artifical lens implant in your right eye appears to be stable. Since this is the first day after surgery, your right eye is still dilated and the vision will still be slightly blurry. The dilation will go down over the next day or two. Continue taking your eye drops as directed on the surgical calendar. If you have any questions, please call our office.Follow up:as scheduled for VF 24- 2 and post op exam
--- OUTSIDE RECORDS SUMMARY | 2017-04-11 00:17 | XMS REPORT ---
:1965 External Reference #:[id number] Author Organization [facility] Address [address] [address] Phone [phone] Care Team Providers Name Role Phone Dipak Fontenot MD Primary Care Physician Unavailable Payers Type Date Identification Numbers Payment Provider Subscriber Commercial Effective: Policy Number: [employer] Verito Suero 2013 [id number] PayID: [id number] [address] [address] [place] [address] [facility] Policy Number: [id number] Medicare Verito Suero PayID: [id number] [address] [place] [address] Problems Description No Information Family History Date Family Member(s) Problem(s) Comments General Diabetes Father Diabetes Type II Mother Seizure Disorder Mother due to Unknown Causes () - ? 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 Cigarette Use Former Cigarette Smoker ETOH Use Denies alcohol use Recreational Drug Use Denies Drug Use Smoking Patient is a former smoker Daily Caffeine Consumes on average 8oz of soda per day Exercise Type/Frequency Does not exercise Allergies, Adverse Reactions, Alerts Date Description Reaction Status Severity Comments 04/30/2014 Penicillin active 01/13/2017 Neurontin hallucinations active Medications Medication Date Status Form Strength Qnty SIG Indications Ordering Provider Spirometer 03/07 Active Kit 1unit incentive R06.02 s spirometerAlison MD use as instructed Prilosec Active Capsules 20mg 1 by mouth Unknown /0000 DR every day Amitriptyline Active Tablets 25mg 30tab 1 by mouth Unknown HCL s every day Gemfibrozil Active Tablets 600mg 180ta 1 by mouth Unknown bs twice a day Multivitamin Active daily Unknown Lyrica Active Capsules 150mg 1 by mouth Unknown three times a day Lisinopril Active Tablets 20mg 1 po daily Unknown Aranesp Active Solution 60mcg/ML once monthly Unknown (Albumin Free) Humalog Active Solution 100Unit/M coverage/slidi Unknown L ng scale before meals Torsemide Active Tablets 20mg 4 tabs qam and Unknown qpm (managed by Dr. Valiente) Aspirin Adult Active Tablets 81mg take one Unknown Low Strength 0000 DR tablet by mouth daily. Renvela Active Tablets 800mg 3 tablets with Unknown / each meal Metolazone Active Tablets 5mg once daily Unknown Amlodipine Active Tablets 2.5mg 1 by mouth Unknown Besylate every day Zoloft Active Tablets 50mg 1 by mouth Unknown every day Zyrtec Allergy Active Tablets 10mg 1 by mouth Unknown every day Ventolin HFA Active Aerosol 108(90Bas as needed Unknown 0000 e) mcg/Act Flovent HFA Active Aerosol 110mcg/Ac bid Breiman, / t MD Dipak Spiriva Active Aerosol 2 puffs once Unknown Respimat 0000 daily (sample from Dr Rosas's office per pt) Ondansetron 01/13 Hx Tablets 4mg 30tab 1 tab dissolve R11.0 Kike D. /2016 Dispers s under tongue Macqueen, - every 8 hours M.D. 03/07 as needed /2016 Hydrocodone-Ac 02/02 Hx Tablets 5-325mg 20tab 1 Tab PO Q4H Bailey etaminophen /2015 s prn Pain B. ANDREA Stokes Keflex 01/15 Hx Capsules 500mg 15cap 1 tab by mouth Bailey /2015 s three times a B. day ANDREA Stokes [place] 12/17 Hx Tablets 5-325mg 30tab 1-2 by mouth Khloe /2014 s every 4 hours Esparza-You as needed Kristin taylor [place] 05/28 Hx Tablets 5-325mg 20tab 1-2 by mouth Khloe /2014 s every 4 hours Esparza-You - as needed Kristin taylor 07/31 Lantus Hx Solution 20 units sq Unknown Solostar /0000 Pen-Injec daily - t 03/07 Metformin HCL Hx Tablets 1000mg 180ta 1 by mouth Unknown /0000 bs twice a day Januvia Hx Tablets 100mg 90tab 1 by mouth Unknown /0000 s every day - 06/27 Benicar Hx Tablets 20mg 90tab 1 by mouth Unknown /0000 s every day Loratadine Hx Tablets 10mg 30tab 1 by mouth Unknown /0000 s every day Albuterol Hx 2 puffs every Unknown Inhaler /0000 6 hours as - needed 11/17 Victoza Hx Solution 18mg/3ML inject 0.6 mg Unknown /0000 Pen-Injec subcutaneously - t in the morning 06/27 Metolazone Hx Tablets 5mg Unknown /0000 Tricor Hx Tablets 145mg 1 po qd Unknown /0000 - 06/27 Sodium Hx Tablets 650mg 3 tabs tid Unknown Bicarbonate /0000 Flovent HFA Hx Aerosol 44mcg/Act inhale 2 puffs Unknown /0000 twice a day - 01/12 Levaquin Hx Tablets 500mg 1 by mouth Unknown /0000 every other - day x 6 wks 03/07 (per [facility] DC summary) Metronidazole 00 Hx Tablets 500mg one tablet by Unknown /0000 mouth every 8 - hrs x 6 wks 03/16 (per [facility] /2016 DC summary) Vancomycin HCL Hx Solution 1000mg 1000 mg iv Unknown /0000 Rec every IV every - other day at 03/07 dialysis x wks (per [facility] DC summary) Vital Signs Date Vital Result Comment 03/16/2017 Height 61 inches 5'1" Weight 189.00 lb Heart Rate 84 /min BP Systolic Sitting 144 mmHg BP Diastolic Sitting 78 mmHg Respiratory Rate 16 /min Body Temperature 96.9 F BMI (Body Mass Index) 35.7 kg/m2 03/07/2017 Height 61 inches 5'1" Weight 188.00 lb with shoes Heart Rate 78 /min BP Systolic Sitting 168 mmHg Rue reg cuff BP Diastolic Sitting 88 mmHg Rue reg cuff Respiratory Rate 16 /min O2 % BldC Oximetry 99 % On Ra BMI (Body Mass Index) 35.5 kg/m2 Neck Circumference in inches 15 01/13/2017 Height 61 inches 5'1" Weight 200.38 lb per pt Heart Rate 96 /min BP Systolic Sitting 162 mmHg BP Diastolic Sitting 80 mmHg Respiratory Rate 18 /min Body Temperature 99.5 F O2 % BldC Oximetry 84 % improved to 97% w/ 2Lo2 NC BMI (Body Mass Index) 37.9 kg/m2 2016 Height 61 inches 5'1" Weight 208.75 lb with shoes Heart Rate 90 /min BP Systolic Sitting 144 mmHg Ra reg cuff BP Diastolic Sitting 72 mmHg Ra reg cuff BMI (Body Mass Index) 39.4 kg/m2 09/27/2016 Height 61 inches 5'1" Weight 205.50 lb no shoes Heart Rate 102 /min BP Systolic Sitting 156 mmHg Rue reg cuff BP Diastolic Sitting 90 mmHg Rue reg cuff BP Systolic Standing 160 mmHg Rue reg cuff BP Diastolic Standing 92 mmHg Rue reg cuff Respiratory Rate 18 /min BMI (Body Mass Index) 38.8 kg/m2 Ejection Fraction 55-60% 08/09/2016-echo 07/29/2016 Heart Rate 72 /min BP Systolic 152 mmHg BP Diastolic 76 mmHg Respiratory Rate 16 /min Body Temperature 97.8 F 06/28/2016 Height 62 inches 5'2" Weight 214.00 lb with boots and coat Heart Rate 90 /min BP Systolic Sitting 148 mmHg Ra reg cuff BP Diastolic Sitting 86 mmHg Ra reg cuff BMI (Body Mass Index) 39.1 kg/m2 06/24/2016 Heart Rate 84 /min BP Systolic 146 mmHg BP Diastolic 78 mmHg Respiratory Rate 18 /min Body Temperature 98.7 F 06/03/2016 Heart Rate 84 /min Respiratory Rate 18 /min Body Temperature 99.3 F 05/24/2016 Heart Rate 78 /min BP Systolic 160 mmHg BP Diastolic 90 mmHg Respiratory Rate 18 /min Body Temperature 98.1 F 02/19/2016 Heart Rate 72 /min BP Systolic 148 mmHg BP Diastolic 86 mmHg Respiratory Rate 18 /min Body Temperature 98.0 F 02/03/2016 Height 62 inches 5'2" Weight 212.00 lb Heart Rate 84 /min BP Systolic 148 mmHg BP Diastolic 82 mmHg Respiratory Rate 18 /min Body Temperature 98.6 F BMI (Body Mass Index) 38.8 kg/m2 01/16/2016 Height 62 inches 5'2" Weight 212.00 lb Heart Rate 102 /min BP Systolic Sitting 154 mmHg BP Diastolic Sitting 70 mmHg Respiratory Rate 18 /min Body Temperature 99.3 F BMI (Body Mass Index) 38.8 kg/m2 01/16/2016 Height 62 inches 5'2" Weight 218.00 lb Heart Rate 84 /min BP Systolic 150 mmHg BP Diastolic 80 mmHg Respiratory Rate 18 /min Body Temperature 97.2 F BMI (Body Mass Index) 39.9 kg/m2 02/18/2015 Height 62 inches 5'2" Weight 210.00 lb Pain Level 0 BMI (Body Mass Index) 38.4 kg/m2 01/21/2015 Height 62 inches 5'2" Weight 210.00 lb Pain Level 5 BMI (Body Mass Index) 38.4 kg/m2 12/17/2014 Height 62 inches 5'2" Weight 210.00 lb Heart Rate 94 /min BP Systolic 155 mmHg BP Diastolic 76 mmHg BMI (Body Mass Index) 38.4 kg/m2 07/31/2014 Height 62 inches 5'2" Weight 195.00 lb Pain Level 0 BMI (Body Mass Index) 35.7 kg/m2 07/03/2014 Height 62 inches 5'2" Weight 195.00 lb Pain Level 0 BMI (Body Mass Index) 35.7 kg/m2 06/07/2014 Height 62 inches 5'2" Weight 195.00 lb Body Temperature 97.7 F BMI (Body Mass Index) 35.7 kg/m2 04/30/2014 Height 62 inches 5'2" Weight 195.00 lb Heart Rate 91 /min BP Systolic 133 mmHg BP Diastolic 97 mmHg BMI (Body Mass Index) 35.7 kg/m2 Results Test Date Test Result H/L Range Note Xray 03/09/2017 CT Chest W/O <pending> Laboratory test 12/28/2016 Lactic Acid 0.4 mmol/L Low 0.5-2.0 1 finding Laboratory test 12/28/2016 Blood Culture SEE RESULT BELOW 2 finding Type & Screen 12/13/2016 Patient Blood Type A Positive Antibody Screen NEGATIVE Laboratory test 12/13/2016 Packed Cells SEE RESULTS BELO 3 finding <SEE NOTE> Laboratory test 07/14/2016 Point of Care 274 mg/dL High 74-106 4 finding Glucose Laboratory test 07/14/2016 Point of Care 231 mg/dL High 74-106 5 finding Glucose Laboratory test 07/14/2016 Point of Care 174 mg/dL High 74-106 6 finding Glucose Laboratory test 03/01/2016 Point of Care 263 mg/dL High 74-106 7 finding Glucose Laboratory test 02/11/2016 Point of Care 189 mg/dL High 74-106 8 finding Glucose Laboratory test 01/07/2016 Point of Care 112 mg/dL High 74-106 9 finding Glucose Laboratory test 01/07/2016 Point of Care 119 mg/dL High 74-106 10 finding Glucose Laboratory test 01/09/2015 Point of Care 142 mg/dL High 74-106 11 finding Glucose Laboratory test 01/09/2015 Point of Care 232 mg/dL High 74-106 12 finding Glucose 1 [facility] Severe Sepsis and Septic Shock Management Bundle Measure requires all lactic acids initially measuring >2.0 mmol/L be repeated. 2 SEE RESULT BELOW Name: VERITO SUERO : [address]: Sandoval Méndez DO Acct: [id number] Unit: [id number] AGE: 51 Location: ED Re12/28/16 SEX: F Status: REG ER SPEC: [id number] DAVID: 12/28/[address] [facility] [address]: Harjeet Rousseau LANDSCAPE GARDENER REQ: [id number] RECD: 12/28/16 STATUS: DAVID WHIPPLE DR: Kike Valiente MD _ SOURCE: BLOOD,VENO SPDES: ORDERED: Blood Cult Procedure Result Reported Site Aerobic Culture Bottle Final 01/02/17- 1234 ML No Growth Day 5 Anaerobic Culture Bottle Final 01/02/17- 1234 ML No Growth Day 5 * ML - MAIN LAB ([facility]) . END OF REPORT * ML=Testing performed at Main Lab DEPARTMENT OF PATHOLOGY, [address] [place] [address] Salo Stephens M.D. Director [facility] # [id number] 3 SEE RESULTS BELOW [id number] AP PC TRANSFUSED 12/14/16 0103 [id number] AP PC TRANSFUSED 12/14/16 1811 [id number] AP PC TRANSFUSED 12/14/16 1319 [id number] AP PC TRANSFUSED 12/14/16 0640 4 Operation Specialist: [id number] 5 Operation Specialist: [id number] 6 Operation Specialist: [id number] 7 Operation Specialist: [id number] Anuj Ulloa 8 Operation Specialist: [id number] MIKA PARK 9 Operation Specialist: [id number] Anuj Ulloa 10 Operation Specialist: [id number] ESTRELLITA COULTER 11 Operation Specialist: [id number] BENEHARJEETCT NOLA 12 Operation Specialist: [id number] ARMANDO MONDRAGON Procedures Date CPT Code Description Status 01/28/2017 44516 Moderate Sedation Services; Same Phys Intl 15 Mins; PT Completed >=5 Years 01/28/2017 54255 Color Flow Doppler/Interp & Reprt Completed 01/28/2017 47367 Pulse Wave/Continuous-Interp.RPT Completed 01/28/2017 29398 Echocardiography, Transesophageal, Real Time W/Image 2D Completed W/W/O M-M 01/27/2017 86642 ECHO Transthorasic Realtime 2D W Doppler & Color Completed Flow Hosp 2016 43637 EKG Tracing & Interpretation Completed 08/09/2016 46779 ECHO Transthoracic, Real-Time 2D With Doppler And Color Completed Flow 08/04/2016 30288 Treadmill Interp/Report Only Completed 08/04/2016 06984 Stress Test Supervsn W/Out I/R Completed 07/14/2016 85087 Remove Permanent Intraperitoneal Cannula Or Catheter Completed 06/28/2016 01449 EKG Tracing & Interpretation Completed 05/24/2016 24224 Removal Of Tunneled Central Venous Cath W/O Completed Subcutaneous Port/SUPERVISOR POST WAVE 03/01/2016 04190 Fluoroscopic Guidance For Cent Completed 03/01/2016 14465 Insertion Tunneled Cent Venous Cathr W Subcut Port 5 Completed Yrs Or Oldr 02/11/2016 97944 Laparoscopy w/ omentopexy Completed 02/11/2016 18710 Laparoscopy w/ omentopexy Completed 02/11/2016 21075 Lap W/Insert Intraperitoneal Cannula Or Catheter Completed Permanent 02/11/2016 63298 Lap W/Insert Intraperitoneal Cannula Or Catheter Completed Permanent 01/09/2015 60240 Carpal Tunnel Release Completed 01/09/2015 98112 Carpal Tunnel Release Completed 05/23/2014 38694 Carpal Tunnel Release Completed 05/23/2014 61480 Carpal Tunnel Release Completed Encounters Type Date Location Provider CPT E/M Dx Office Visit 01/29/2017 10:45a [facility], [place] [address] E11.8 Hospitalists I33.9 S81.801D N18.6 Office Visit 01/28/2017 8:02a [facility] Kike Adams, 31534 R06.00 Infectious Diseases M.D. R93.1 T81.4xxA E11.22 N18.6 Z99.2 Office Visit 01/28/2017 10:45a [facility], [place] [address] N18.6 Hospitalists J96.21 I33.9 E11.8 Office Visit 01/27/2017 10:45a [facility], [place] [address] N18.6 Hospitalists J96.21 I33.9 E11.8 Office Visit 01/26/2017 10:44a [facility], Anival Rousseau, 95534 N18.6 Hospitalists N.P. I73.9 E11.8 I10 Office Visit 01/14/2017 10:42a [facility], [place] [address] J96.01 Hospitalists N18.6 E87.79 Z99.2 Office Visit 01/13/2017 10:41a [facility] Juan , 96891 E87.79 Ass, Hospitalists M.D. N18.6 I77.9 Z99.2 Office Visit 01/13/2017 1:40p [facility] Kike Adams, 15761 I73.9 Infectious Diseases M.DColleen T81.4xxD B96.20 R11.0 R09.02 R00.0 Office Visit 12/28/2016 3:26p [facility], Anival Rousseau, 14499 L08.9 Hospitalists N.P. I10 I73.9 E78.5 Office Visit 12/22/2016 9:44a [facility], Choco Remy, 43098 L08.9 Hospitalists M.D. I73.9 D64.89 E11.9 Office Visit 12/21/2016 3:58p [facility] Kike Acuna 15814 T81.4xxA Infectious Diseases Kristin Adams L03.115 I97.648 E11.51 E11.22 N18.6 Office Visit 12/21/2016 9:43a [facility]pc Choco Remy, 09552 L08.9 Hospitalists M.D. D64.89 E11.9 I73.9 Office Visit 12/21/2016 7:00a [facility] Raphael Toscano, 57043 T81.4xxA Of [employer] PA D64.9 Office Visit 12/20/2016 7:00a [facility] Margarito Puentes, 01551 T81.4xxA Of [employer] D64.9 Office Visit 12/20/2016 9:43a [facility], Vane Orozco, 61040 L08.9 Hospitalists M.D. I73.9 D64.89 E11.9 Office Visit 12/19/2016 9:42a [facility] Vane Orozco, 55297 L08.9 Hospitalists M.D. D64.89 I73.9 E11.9 Office Visit 12/18/2016 9:42a [facility] Vane Orozco, 55477 L08.9 Hospitalists M.D. I73.9 D64.89 E11.9 Office Visit 12/17/2016 9:41a [facility] Vane Orozco, 56627 D64.89 Hospitalists M.D. I73.9 E11.9 Z79.4 Office Visit 12/16/2016 9:41a [facility] Vane Orozco, 58560 D64.89 Hospitalists M.D. E11.9 I73.9 Z79.4 Office Visit 12/15/2016 9:40a [facility] Vane Orozco, 35071 D64.89 Hospitalists M.D. I73.9 E11.9 Z79.4 Office Visit 12/14/2016 9:40a [facility] Vane Orozco, 92033 D64.89 Hospitalists Kristin I73.9 E11.9 Z79.4 Office Visit 12/14/2016 3:46p [facility] Kike Acuna 68675 T81.4xxA Infectious Diseases Kristin Adams E11.22 N18.6 Z99.2 L03.115 Office Visit 12/13/2016 9:39a [facility] Gabriele Alcantar, 39099 D64.89 Hospitalists Kristin E11.9 I73.9 Z79.4 Office Visit 2016 4:00p [facility] IVAN Fernandez 55642 I73.9 N18.6 I12.0 I35.0 I34.2 Office Visit 09/27/2016 10:00a [facility] 37714 N18.6 Bravo Martinez M.D. I10 E78.2 E11.8 I34.0 I34.2 I35.0 Office Visit 06/28/2016 9:00a [facility] SColleen Martinez, 29224 N18.6 Kristin I10 E78.2 E11.8 E66.9 R06.02 Office Visit 06/24/2016 11:30a [facility] [place] [address] N18.6 [facility] Office Visit 01/22/2016 10:45a [facility] Bailey Otto 62708 N18.6 [facility] ANDREA Stokes Z48.01 Office Visit 04/30/2014 9:00a [facility] Khloe Kasper, 91870 354.0 Of Deuce Foster 715.14 Plan of Care Future Appointment(s):04/28/2017 11:45 am - Sabrina Rosas MD at [facility]03/16/2017 - Kike Adams M.D.L97.119 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
[2017-04-11] MEDS ORDERED: Ondansetron INJ* 2 MG/ML VIAL IV PRN (00:27)
[2017-04-11] MEDS ORDERED: nitroGLYCERIN DRIP* 25,000 MCG/250 ML BTL IV SCH (01:00)
[2017-04-11] MEDS ORDERED: Cefepime(*) 1 GM in NS 0.9% 50 ML* 50 ML IVPB SCH ×2 (01:00→09:00)
[2017-04-11] MEDS: Cefepime 1 GM in Dextrose(*) 1 GM/50 ML BAG IV SCH (02:28)
[2017-04-11] MEDS: Heparin VIAL(*) 5000 UNITS/ML VIAL (FIVE THOUSAND) SUBCUT SCH ×3 (05:36→22:09)
--- NOTE | 2017-04-11 08:26 | RAD ---
Indication: Respiratory distress. COPD. Comparison: January 26, 2017 Technique: Upright AP 2332 hours Report: Cardiomegaly, prominent ill-defined central pulmonary vasculature. Diffuse prominence of interstitial markings and patchy alveolar opacities. Probable small RIGHT pleural effusion. IMPRESSION: The constellation of findings is most consistent with pulmonary edema.
--- NOTE | 2017-04-11 11:24 | HP ---
CC: Dr. Fontenot; Dr. Valiente * HISTORY AND PHYSICAL: DATE OF ADMISSION: 04/11/17 TIME OF MY EVALUATION: 1 a.m. PRIMARY CARE PROVIDER: Dipak Fontenot MD. SUPERVISOR FELTING: Dipak Valiente MD. CHIEF COMPLAINT: Shortness of breath, progressive and worsening. HISTORY OF PRESENT ILLNESS: Ms. Suero is a 51-year-old woman who was brought to the hospital by ambulance with the chief complaint of shortness of breath that was worsening over the past few days. The patient states that she was short of breath all weekend and tonight became unbearable. The patient is an endstage renal disease patient on chronic dialysis Tuesday, Tuesday, and Tuesday. She has been compliant with her dialysis. She also denies any dietary indiscretions or recent illness such as coughing or sputum production or sick contacts. The patient was managed urgently in the hospital with rescue BiPAP and immediately felt relief. She was also treated with a nitro patch and is doing well. She was placed in the ICU. She denies any accompanying symptoms such as chest pain. PAST MEDICAL HISTORY: 1. Endstage renal disease, on hemodialysis Tuesday, Tuesday, and Tuesday. 2. Diabetes. 3. COPD. 4. Peripheral artery disease. 5. Hyperlipidemia. 6. GERD. 7. Depression. 8. Anxiety. 9. Hypertension. 10. History of fem-pop bypass and subsequent wound infection, status post I and D and wound VAC. 11. AV fistula. 12. History of tubal ligation. OUTPATIENT MEDICATIONS: Med reconciliation is underway, but includes; 1. Amlodipine 2.5 mg by mouth daily. 2. Demadex 80 mg by mouth twice daily. 3. Kayexalate 15 g by mouth as directed by dialysis authority. 4. Renvela 2400 mg 3 times daily with meals. 5. Zoloft 50 mg by mouth at bedtime. 6. Lyrica 150 mg by mouth 3 times daily. 7. Zofran 4 mg by mouth every 8 hours as needed for nausea. 8. Prilosec 20 mg by mouth daily. 9. Multivitamin 1 tablet by mouth once daily. 10. Zaroxolyn 5 mg by mouth daily before Lasix. 11. Lisinopril 20 mg by mouth daily. 12. EMLA 1 application topically 3 times weekly prior to dialysis. 13. Insulin lispro 20 units subcu q.a.c. 14. Lantus 20 units subcu q.p.m. 15. Lopid 600 mg by mouth 3 times daily. 16. Colace 100 mg by mouth twice daily. 17. Sensipar 60 mg by mouth daily. 18. Zyrtec 10 mg by mouth daily. 19. Lipitor 20 mg by mouth daily. 20. Aspirin 81 mg by mouth daily. 21. Amitriptyline 25 mg by mouth at bedtime. 22. Ventolin 2 puffs inhaled every 4 hours as needed for shortness of breath. 23. Tylenol 650 mg every 4 hours as needed for pain/fever. ALLERGIES: PENICILLIN/GABAPENTIN. FAMILY HISTORY: Mother with seizures, father with diabetes. SOCIAL HISTORY: The patient is a former smoker, not presently. She does not drink alcohol. Her surrogate decision maker is her . REVIEW OF SYSTEMS: A review of 14 systems at the bedside was conducted, but the patient was wearing a BiPAP device and was not extremely interactive; every question caused hard thinking and delayed response. With that there were no pertinent positives other than what I mentioned in the HPI and past medical history. PHYSICAL EXAMINATION GENERAL APPEARANCE: Disheveled appearing woman, chronically ill appearing, appears stated age or older. VITAL SIGNS: On admission; temperature 98.5 Fahrenheit, pulse consistently in the low 100s or high 90s and later into the 80s, respirations initially 25 to 28 and then consistent and synched with BiPAP machine at 18 per minute and unlabored, oxygen saturation consistently in the high 90s to 100 range with supplemental oxygen as high as 60% down to 30 later and blood pressure had always been robust, initially 180s/100 down to 120s/60s after initiation of BiPAP and nitroglycerin. HEENT: Atraumatic, normocephalic. Eyes equal, round, and reactive to light and accommodation. Oral mucosa is normal. NECK: Supple. JVD is up to the angle of jaw at 45 degrees. LUNGS: Good air movement though rales bilaterally. HEART: Normal S1 and S2. Pansystolic murmur noted. ABDOMEN: Nontender. Obese. EXTREMITIES: 2+ pulses throughout. Minimal edema noted here, 5/5 strength. NEUROLOGIC: She is drowsy but awakens to voice. SKIN: Intact. ADMISSION DATA: White blood cell count elevated at 15.4, hemoglobin 11.9, and platelets 340. INR normal at 0.98. Blood gas significant for an arterial pH 7.33, pCO2 of 47, pO2 of 67 (on supplemental oxygen), again this is a VBG. Blood chemistry significant for sodium 136, potassium elevated at 6.1, chloride 95, bicarb 25, anion gap 16, BUN 93, creatinine 5.91 (on hemodialysis/ESRD - stage 5) Glucose 241. Lactic acid 1. AST and ALT 14 and 9, respectively. Alkaline phosphatase 191. BNP elevated at 799 (ESRD). Albumin and total protein are 4.1 and 8.1, respectively. Chest x-ray shows pulmonary edema. IMPRESSION: Ms. Suero is a 51-year-old woman with endstage renal disease with fluid overload and respiratory distress. She has been compliant with hemodialysis, so I am not sure the exact cause. BIPAP is working quite effectively as is her nitroglycerin drip. She was quite hypertensive at admission. The patient will be monitored overnight in the ICU with BIPAP supporting her. She is doing well with that support now. I will contact the nephrology team. The emergency room has been trying to contact them. This patient is known to the [facility]. The patient should have dialysis tomorrow anyway. I think she should have it in a monitored setting. If in- hospital capabilities are not possible and the patient is stable, in theory, she can be discharge to the outpatient setting, but I will leave that to the renal team to decide. Medication reconciliation will be completed and all outpatient medications will be continued. The patient is full code. Surrogate decision maker is the patient's . Renal, low salt diet when she can tolerate from respiratory point of view. TIME SPENT: Total time taken to admit Ms. Suero was 75 minutes, greater than half the time was spent at the bedside going over the history and physical examination and explaining the hospital plan of care to her. [id number]/[facility] #: [id number] LILLY
[2017-04-11] MEDS ORDERED: Dextrose 50% Syringe 50 ML* 25 GM/50 ML SYRINGE IV PUSH PRN (11:36)
[2017-04-11] MEDS ORDERED: Heparin DIALYSIS ONLY(*) 1,000 UNITS/ML VIAL ONE (13:00)
--- NOTE | 2017-04-11 16:08 | PN ---
Hospitalist Progress Note Date of Service: 04/11/17 Pt seen and examined in ICU. 51 yo ESRD, IDDM p/w hypoxic respiratory failure, leukocytoisis. 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 Pt on bipap, got urgent dialysis this AM, tolerated 3.5L off. Had some leg cramping afterward. Now near dry weight. Continue cefepime. f/u Cultures. Still feels very sob, and wanting back on bipap.
[2017-04-11] MEDS: Insulin LISPRO* 1 UNITS UNIT SUBCUT SCH ×2 (17:56→21:16)
[2017-04-11] MEDS ORDERED: Albuterol HFA INHALER* 8 gm MDI INH PRN (18:35)
[2017-04-11] MEDS ORDERED: Ondansetron ODT TAB* 4 MG PO PRN (18:35)
[2017-04-11] MEDS ORDERED: Spiriva Inhaler DEVICE* 1 EACH DEVICE INH ONE (19:00)
[2017-04-11] MEDS ORDERED: Lidocaine 2.5%/Prilocain 2.5%* 5 GM TUBE TOPICAL SCH (19:00)
[2017-04-11] MEDS: Pregabalin CAP(*) 50 MG PO SCH (19:33)
[2017-04-11] MEDS: Sevelamer TAB* 800 MG PO SCH (19:34)
[2017-04-11] MEDS: Torsemide TAB* 20 MG PO SCH (19:35)
[2017-04-11] MEDS: Acetaminophen TAB* 325 MG PO PRN (19:36)
[2017-04-11] MEDS: Mometasone/Formoter 100/5 MDI INH SCH (20:04)
[2017-04-11] MEDS: Mometasone 220 MCG MDI INH SCH (20:05)
[2017-04-11] MEDS: Gemfibrozil TAB* 600 MG PO SCH (21:16)
[2017-04-11] MEDS: Sertraline* 50 MG TAB PO SCH (21:16)
[2017-04-11] MEDS: Amitriptyline TAB* 25 MG PO SCH (21:16)
[2017-04-11] MEDS: Tiotropium CAP.INH* CAP.INH/18 MCG (USE ORDER SET !) INH SCH (21:20)
[2017-04-11] MEDS ORDERED: Benzonatate CAP* 100 MG ONE (22:04)
[2017-04-11] MEDS ORDERED: guaiFENesin LIQ* 100 MG/5 ML UDC ONE (22:04)
[2017-04-12] MEDS: Cefepime 1 GM in Dextrose(*) 1 GM/50 ML BAG IV SCH (02:26)
[2017-04-12] MEDS: guaiFENesin LIQ* 100 MG/5 ML UDC PO PRN ×2 (04:42→21:50)
[2017-04-12 04:43] LABS: Urine Appearance Cloudy; Urine Blood 1+ (Negative); Urine Color Yellow; Urine Ketones Negative (Negative); Urine Protein 3+(>=500 mg/dL) (Negative); Urine Specific Gravity 1.011 (1.010-1.030); Urine Urobilinogen Negative (Negative)
[2017-04-12] MEDS: Acetaminophen TAB* 325 MG PO PRN ×2 (05:50→21:48)
[2017-04-12] MEDS: Heparin VIAL(*) 5000 UNITS/ML VIAL (FIVE THOUSAND) SUBCUT SCH ×3 (05:50→21:49)
[2017-04-12] MEDS: Insulin LISPRO* 1 UNITS UNIT SUBCUT SCH ×4 (08:19→21:50)
[2017-04-12] MEDS: Multivitamins/Minerals TAB PO SCH (08:37)
[2017-04-12] MEDS: Omeprazole CAP* 20 MG PO SCH (08:37)
[2017-04-12] MEDS: Lisinopril TAB* 10 MG PO SCH (08:38)
[2017-04-12] MEDS: Aspirin EC Low Dose* 81 MG TAB.EC PO SCH (08:38)
[2017-04-12] MEDS: Gemfibrozil TAB* 600 MG PO SCH ×2 (08:38→21:51)
[2017-04-12] MEDS: Pregabalin CAP(*) 50 MG PO SCH ×3 (08:39→21:48)
[2017-04-12] MEDS: Cetirizine* 10 MG TAB PO SCH (08:39)
[2017-04-12] MEDS: Cinacalcet TAB* 30 MG PO SCH (08:40)
[2017-04-12] MEDS: Sevelamer TAB* 800 MG PO SCH ×3 (08:40→18:34)
[2017-04-12] MEDS: Torsemide TAB* 20 MG PO SCH ×2 (08:42→21:47)
[2017-04-12] MEDS: Mometasone/Formoter 100/5 MDI INH SCH ×2 (08:56→20:16)
[2017-04-12 09:52] LABS: EGFR Non-African American 8.3 (>60)
[2017-04-12 10:14] LABS: ABS Basophils 0.1 10^3/ul (0-0.2); ABS Eosinophils 0.3 10^3/ul (0-0.6); ABS Lymphocytes 1.1 10^3/ul (1.0-4.8); ABS Monocytes 0.9 10^3/ul (0-0.8); ABS Neutrophils 5.5 10^3/ul (1.5-7.7); ABS Nucleated RBC 0 10^3/ul; Eosinophil % 3.7 % (0-6); Hematocrit 32 % (35-47); Hemoglobin 10.6 g/dl (12.0-16.0); Lymphocyte % 14.3 % (25-47); Mean Corpuscular HGB Conc 33 g/dl (31-36); Mean Corpuscular Hemoglobin 30 pg (27-31); Mean Corpuscular Volume 89 fL (80-97); Mean Platelet Volume 9 um3 (7.4-10.4); Nucleated Red Blood Cells % 0; Platelet Count 280 10^3/ul (150-450); Red Blood Count 3.57 10^6/ul (4.0-5.4); Red Cell Distribution Width 15 % (10.5-15)
[2017-04-12] MEDS: Tiotropium CAP.INH* CAP.INH/18 MCG (USE ORDER SET !) INH SCH (17:58)
[2017-04-12] MEDS: amLODIPine TAB* 5 MG PO SCH (18:34)
[2017-04-12] MEDS: Metolazone TAB* 5 MG PO SCH (18:34)
[2017-04-12] MEDS: Mometasone 220 MCG MDI INH SCH (20:19)
[2017-04-12] MEDS ORDERED: Mometasone 220 MCG MDI INH SCH (21:00)
[2017-04-12] MEDS: Amitriptyline TAB* 25 MG PO SCH (21:46)
[2017-04-12] MEDS: Benzonatate CAP* 100 MG PO PRN (21:47)
[2017-04-12] MEDS: Sertraline* 50 MG TAB PO SCH (21:47)
--- NOTE | 2017-04-12 22:37 | PN ---
Subjective Date of Service: 04/12/17 Interval History: Febrile 101.2 last night. Stable 2L overnight. Very fatigued. WBC resolved on cefepime. Cultures negative , Flu negative. Transferred out of ICU Objective Active Medications: Acetaminophen (Tylenol Tab*) 650 mg PO Q4H PRN PRN Reason: FEVER/PAIN Last Admin: 04/12/17 21:48 Dose: 650 mg Albuterol (Ventolin Hfa Inhaler*) 2 puff INH Q4H PRN PRN Reason: SOB/WHEEZING Amitriptyline HCl (Elavil Tab*) 25 mg PO BEDTIME [facility] Last Admin: 04/12/17 21:46 Dose: 25 mg Amlodipine Besylate (Norvasc Tab*) 2.5 mg PO QPM [facility] Last Admin: 04/12/17 18:34 Dose: 2.5 mg Aspirin (Aspirin Ec Low Dose*) 81 mg PO QAM [facility] Last Admin: 04/12/17 08:38 Dose: 81 mg Benzonatate (Tessalon Cap*) 200 mg PO BID PRN PRN Reason: COUGH Last Admin: 04/12/17 21:47 Dose: 200 mg Cetirizine HCl (Zyrtec*) 10 mg PO QAM [facility] PRN Reason: Protocol Last Admin: 04/12/17 08:39 Dose: 10 mg Cinacalcet (Sensipar Tab*) 60 mg PO QAM [facility] Last Admin: 04/12/17 08:40 Dose: 60 mg Dextrose (D50w Syringe 50 Ml*) 12.5 gm IV PUSH .FOR FS < 60 - SS PRN PRN Reason: FS < 60 Gemfibrozil (Lopid Tab*) 600 mg PO BID [facility] Last Admin: 04/12/17 21:51 Dose: 600 mg Guaifenesin (Robitussin*) 5 ml PO Q6H PRN PRN Reason: COUGH Last Admin: 04/12/17 21:50 Dose: 5 ml Heparin Sodium (Porcine) (Heparin Vial(*)) 5,000 units SUBCUT Q8HR [facility] Last Admin: 04/12/17 21:49 Dose: 5,000 units Cefepime HCl (Maxipime 1 Gm In Dextrose Duplex (*)) 1 gm in 50 mls @ 100 mls/ hr IV Q24H [facility] Last Admin: 01/02/18 02:26 Dose: 100 mls/hr Insulin Human Lispro (Humalog*) 0 units SUBCUT ACHS [facility] PRN Reason: Protocol Last Admin: 04/12/17 21:50 Dose: 3 units Lidocaine/Prilocaine (Emla 5 Gm*) 1 applic TOPICAL .3 TIMES A WEEK [facility] Lisinopril (Prinivil Tab*) 20 mg PO QAM [facility] Last Admin: 04/12/17 08:38 Dose: 20 mg Metolazone (Zaroxolyn Tab*) 5 mg PO QPM [facility] Last Admin: 04/12/17 18:34 Dose: 5 mg Mometasone Furoate/Formoterol Fumar (Dulera 100/5 Mdi*) 2 puff INH BID [facility] Last Admin: 04/12/17 20:16 Dose: 2 puff Multivitamins/Minerals (Theragran/Minerals Tab*) 1 tab PO QAM [facility] Last Admin: 04/12/17 08:37 Dose: 1 tab Omeprazole ([facility]ilosec Cap*) [facility] [place] Last Admin: 04/12/17 08:37 Dose: 20 mg Ondansetron HCl (Zofran Inj*) 4 mg IV Q4H PRN PRN Reason: NAUSEA/VOMITING Ondansetron HCl (Zofran Odt Tab*) 4 mg PO Q8H PRN PRN Reason: NAUSEA Pregabalin (Lyrica Cap(*)) 150 mg PO TID [facility] Last Admin: 04/12/17 21:48 Dose: 150 mg Sertraline HCl (Zoloft*) 50 mg PO BEDTIME [facility] Last Admin: 04/12/17 21:47 Dose: 50 mg Sevelamer Carbonate (Renvela Tab*) 2,400 mg PO TID WITH MEALS [facility] Last Admin: 04/12/17 18:34 Dose: 2,400 mg Tiotropium [place] (Spiriva Cap.Inh*) 1 cap INH QAM [facility] Last Admin: 04/12/17 17:58 Dose: Not Given Torsemide (Demadex*) 80 mg PO BID [facility] Last Admin: 04/12/17 21:47 Dose: 80 mg Vital Signs - 8 hr 04/12/17 04/12/17 04/12/17 15:00 16:00 16:03 Temperature 99.5 F Pulse Rate 78 76 Respiratory 17 18 Rate Blood Pressure 148/76 142/77 (mmHg) O2 Sat by Pulse 98 98 Oximetry 04/12/17 04/12/17 17:00 21:48 Temperature 97.7 F Pulse Rate 74 Respiratory 18 18 Rate Blood Pressure 130/73 (mmHg) O2 Sat by Pulse 94 Oximetry Oxygen Devices in Use Now: None Appearance: fatigued. Eyes: No Scleral Icterus, PERRLA Ears/Nose/Mouth/Throat: NL Teeth, Lips, Gums, Mucous Membranes Moist Neck: NL Appearance and Movements; NL JVP, No Thyroid Enlargement, Masses Respiratory: Symmetrical Chest Expansion and Respiratory Effort, Clear to Auscultation Cardiovascular: - - 3/6 [place] LUSB/RUSB, no rubs or gallops. Abdominal: NL Sounds; No Tenderness; No Distention, No Hepatosplenomegaly Extremities: - - trace Skin: - - granulation tissue right thigh medially. Neurological: Alert and Oriented x 3, NL Sensation Result Diagrams: 04/12/17 09:55 04/12/17 08:50 Additional Lab and Data: Laboratory Results - last 24 hr 04/12/17 04/12/17 04/12/17 04:30 08:18 08:50 WBC RBC Hgb Hct MCV MCH MCHC RDW Plt Count MPV Neut % (Auto) Lymph % (Auto) [place] % (Auto) Eos % (Auto) Baso % (Auto) Absolute Neuts (auto) Absolute Lymphs (auto) Absolute Monos (auto) Absolute Eos (auto) Absolute Basos (auto) Absolute Nucleated RBC Nucleated RBC % Sodium 132 L Potassium 5.5 H Chloride 90 L Carbon Dioxide 28 Anion Gap 14 H BUN 64 H Creatinine 5.40 H Est GFR ( Amer) 10.7 Est GFR (Non-Af Amer) 8.3 BUN/Creatinine Ratio 11.9 Glucose 117 H POC Glucose (mg/dL) 130 H Calcium 9.7 Urine Color Yellow Urine Appearance Cloudy Urine pH 8.0 Ur Specific [place] 1.011 Urine Protein 3+(>=500 mg/dl) H Urine Ketones Negative Urine Blood 1+ H Urine Nitrate Negative Urine Bilirubin Negative Urine Urobilinogen Negative Ur Leukocyte Esterase Negative Urine WBC (Auto) 2+(11-20/hpf) H Urine RBC (Auto) 2+(6-10/hpf) H Ur Squamous Epith Cells Present H Urine Bacteria 1+ H Urine Glucose 3+(>=500 mg/dl) H 04/12/17 04/12/17 04/12/17 09:55 13:29 17:18 WBC 8.0 RBC 3.57 L Hgb 10.6 L Hct 32 L MCV 89 MCH 30 MCHC 33 RDW 15 Plt Count 280 MPV 9 Neut % (Auto) 68.8 Lymph % (Auto) 14.3 L [place] % (Auto) 11.8 H Eos % (Auto) 3.7 Baso % (Auto) 1.4 Absolute Neuts (auto) 5.5 Absolute Lymphs (auto) 1.1 Absolute Monos (auto) 0.9 H Absolute Eos (auto) 0.3 Absolute Basos (auto) 0.1 Absolute Nucleated RBC 0 Nucleated RBC % 0 Sodium Potassium Chloride Carbon Dioxide Anion Gap BUN Creatinine Est GFR ( Amer) Est GFR (Non-Af Amer) BUN/Creatinine Ratio Glucose POC Glucose (mg/dL) 110 H 144 H Calcium Urine Color Urine Appearance Urine pH Ur Specific [place] Urine Protein Urine Ketones Urine Blood Urine Nitrate Urine Bilirubin Urine Urobilinogen Ur Leukocyte Esterase Urine WBC (Auto) Urine RBC (Auto) Ur Squamous Epith Cells Urine Bacteria Urine Glucose 04/12/17 21:18 WBC RBC Hgb Hct MCV MCH MCHC RDW Plt Count MPV Neut % (Auto) Lymph % (Auto) [place] % (Auto) Eos % (Auto) Baso % (Auto) Absolute Neuts (auto) Absolute Lymphs (auto) Absolute Monos (auto) Absolute Eos (auto) Absolute Basos (auto) Absolute Nucleated RBC Nucleated RBC % Sodium Potassium Chloride Carbon Dioxide Anion Gap BUN Creatinine Est GFR ( Amer) Est GFR (Non-Af Amer) BUN/Creatinine Ratio Glucose POC Glucose (mg/dL) 170 H Calcium Urine Color Urine Appearance Urine pH Ur Specific [place] Urine Protein Urine Ketones Urine Blood Urine Nitrate Urine Bilirubin Urine Urobilinogen Ur Leukocyte Esterase Urine WBC (Auto) Urine RBC (Auto) Ur Squamous Epith Cells Urine Bacteria Urine Glucose Microbiology and Other Data: Microbiology 04/11/17 00:49 Blood Venous Aerobic Blood Culture - Preliminary No Growth Day 1 04/11/17 00:49 Blood Venous Anaerobic Blood Culture - Preliminary No Growth Day 1 04/10/17 23:30 Blood Venous Aerobic Blood Culture - Preliminary No Growth Day 1 04/10/17 23:30 Blood Venous Anaerobic Blood Culture - Preliminary No Growth Day 1 04/11/17 17:36 Nasal Influenza Types A,B Antigen (MADAY) - Final Specimen received for Influenza A/B Molecular testing Assess/Plan/Problems-Billing Assessment: 51 yo female PMH ESRD, fem pop bypass c/b ecoli infection, 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 fevers, chills, malaise, productive cough. Leukocytosis resolved with cefepime. #Hypoxic respiratory failure - f/u cultures, consideration to repeat ECHO given harsher murmur and known mobile mass - continue COPD meds - continue cefepime - no stigmata of IE #ESRD, 2/2 nephrotic syndrome - HD M/W/F - continue metolazone 5, torsemide 80mg BID (makes some urine still - sensipar, cinaclet #HTN - continue amlodipine, lisinopril, torsemide #IDDM - now off lantus and just using meal time sliding scale. - POCT qachs - carb consistent diet. lyrica 150mg BID elavil lopid aspirin zoloft 150 CODE: FULL Status and Disposition: medicine inpatient Attending: Ravinder Dobbs
[2017-04-13] MEDS: Cefepime 1 GM in Dextrose(*) 1 GM/50 ML BAG IV SCH (04:00)
[2017-04-13] MEDS: Heparin VIAL(*) 5000 UNITS/ML VIAL (FIVE THOUSAND) SUBCUT SCH ×3 (05:02→21:44)
[2017-04-13] MEDS: Mometasone/Formoter 100/5 MDI INH SCH ×2 (08:01→20:33)
[2017-04-13 08:26] LABS: ABS Basophils 0.1 10^3/ul (0-0.2); ABS Eosinophils 0.3 10^3/ul (0-0.6); ABS Monocytes 1.2 10^3/ul (0-0.8); ABS Nucleated RBC 0.01 10^3/ul; Hematocrit 31 % (35-47); Hemoglobin 10.4 g/dl (12.0-16.0); Lymphocyte % 11.4 % (25-47); Mean Corpuscular HGB Conc 34 g/dl (31-36); Mean Corpuscular Hemoglobin 30 pg (27-31); Mean Corpuscular Volume 90 fL (80-97); Mean Platelet Volume 9 um3 (7.4-10.4); Nucleated Red Blood Cells % 0.1; Platelet Count 271 10^3/ul (150-450); Red Blood Count 3.44 10^6/ul (4.0-5.4); Red Cell Distribution Width 14 % (10.5-15); White Blood Count 8.6 10^3/ul (3.5-10.8)
[2017-04-13] MEDS: Insulin LISPRO* 1 UNITS UNIT SUBCUT SCH ×4 (09:12→21:44)
[2017-04-13] MEDS: Multivitamins/Minerals TAB PO SCH (09:25)
[2017-04-13] MEDS: Sevelamer TAB* 800 MG PO SCH ×3 (09:25→18:05)
[2017-04-13] MEDS: Pregabalin CAP(*) 50 MG PO SCH ×3 (09:26→21:42)
[2017-04-13] MEDS: Torsemide TAB* 20 MG PO SCH ×2 (09:26→21:40)
[2017-04-13] MEDS: Gemfibrozil TAB* 600 MG PO SCH ×2 (09:26→21:41)
[2017-04-13] MEDS: Cinacalcet TAB* 30 MG PO SCH (09:28)
[2017-04-13] MEDS: Omeprazole CAP* 20 MG PO SCH (09:28)
[2017-04-13] MEDS: Aspirin EC Low Dose* 81 MG TAB.EC PO SCH (09:28)
[2017-04-13] MEDS: Cetirizine* 10 MG TAB PO SCH (09:29)
[2017-04-13] MEDS: Lisinopril TAB* 10 MG PO SCH (09:29)
[2017-04-13] MEDS: guaiFENesin LIQ* 100 MG/5 ML UDC PO PRN ×2 (12:44→21:43)
[2017-04-13] MEDS: Benzonatate CAP* 100 MG PO PRN ×2 (12:44→21:41)
[2017-04-13] MEDS: Tiotropium CAP.INH* CAP.INH/18 MCG (USE ORDER SET !) INH SCH (12:44)
[2017-04-13 13:03] LABS: EGFR Non-African American 6.9 (>60)
[2017-04-13] MEDS ORDERED: Heparin DIALYSIS ONLY(*) 1,000 UNITS/ML VIAL DIALYSIS ONE (15:00)
--- NOTE | 2017-04-13 17:40 | PN ---
Subjective Date of Service: 04/13/17 Interval History: Slept okay. 2L still. ECHO ordered. not eager to be discharged as anxious about recurrent breathing issues. ECHO ordered. HD planned. Objective Active Medications: Acetaminophen (Tylenol Tab*) 650 mg PO Q4H PRN PRN Reason: FEVER/PAIN Last Admin: 04/12/17 21:48 Dose: 650 mg Albuterol (Ventolin Hfa Inhaler*) 2 puff INH Q4H PRN PRN Reason: SOB/WHEEZING Amitriptyline HCl (Elavil Tab*) 25 mg PO BEDTIME [facility] Last Admin: 04/12/17 21:46 Dose: 25 mg Amlodipine Besylate (Norvasc Tab*) 2.5 mg PO QPM [facility] Last Admin: 04/12/17 18:34 Dose: 2.5 mg Aspirin (Aspirin Ec Low Dose*) 81 mg PO QAM [facility] Last Admin: 04/13/17 09:28 Dose: 81 mg Benzonatate (Tessalon Cap*) 200 mg PO BID PRN PRN Reason: COUGH Last Admin: 04/13/17 12:44 Dose: 200 mg Cetirizine HCl (Zyrtec*) 10 mg PO QAM [facility] PRN Reason: Protocol Last Admin: 04/13/17 09:29 Dose: 10 mg Cinacalcet (Sensipar Tab*) 60 mg PO QAM [facility] Last Admin: 04/13/17 09:28 Dose: 60 mg Dextrose (D50w Syringe 50 Ml*) 12.5 gm IV PUSH .FOR FS < 60 - SS PRN PRN Reason: FS < 60 Gemfibrozil (Lopid Tab*) 600 mg PO BID [facility] Last Admin: 04/13/17 09:26 Dose: 600 mg Guaifenesin (Robitussin*) 5 ml PO Q6H PRN PRN Reason: COUGH Last Admin: 04/13/17 12:44 Dose: 5 ml Heparin Sodium (Porcine) (Heparin Vial(*)) 5,000 units SUBCUT Q8HR [facility] Last Admin: 04/13/17 13:03 Dose: 5,000 units Cefepime HCl (Maxipime 1 Gm In Dextrose Duplex (*)) 1 gm in 50 mls @ 100 mls/ hr IV Q24H [facility] Last Admin: 04/13/17 04:00 Dose: 100 mls/hr Insulin Human Lispro (Humalog*) 0 units SUBCUT ACHS [facility] PRN Reason: Protocol Last Admin: 04/13/17 12:47 Dose: 2 units Lidocaine/Prilocaine (Emla 5 Gm*) 1 applic TOPICAL .3 TIMES A WEEK [facility] Lisinopril (Prinivil Tab*) 20 mg PO QAM [facility] Last Admin: 04/13/17 09:29 Dose: 20 mg Metolazone (Zaroxolyn Tab*) 5 mg PO QPM [facility] Last Admin: 04/12/17 18:34 Dose: 5 mg Mometasone Furoate/Formoterol Fumar (Dulera 100/5 Mdi*) 2 puff INH BID [facility] Last Admin: 04/13/17 08:01 Dose: 2 puff Multivitamins/Minerals (Theragran/Minerals Tab*) 1 tab PO QAM [facility] Last Admin: 04/13/17 09:25 Dose: 1 tab Omeprazole (Prilosec Cap*) [facility] Last Admin: 04/13/17 09:28 Dose: 20 mg Ondansetron HCl (Zofran Inj*) 4 mg IV Q4H PRN PRN Reason: NAUSEA/VOMITING Ondansetron HCl (Zofran Odt Tab*) 4 mg PO Q8H PRN PRN Reason: NAUSEA Pregabalin (Lyrica Cap(*)) 150 mg PO TID [facility] Last Admin: 04/13/17 13:03 Dose: 150 mg Sertraline HCl (Zoloft*) 50 mg PO BEDTIME [facility] Last Admin: 04/12/17 21:47 Dose: 50 mg Sevelamer Carbonate (Renvela Tab*) 2,400 mg PO TID WITH MEALS [facility] Last Admin: 04/13/17 13:03 Dose: 2,400 mg Tiotropium [place] (Spiriva Cap.Inh*) 1 cap INH QAM [facility] Last Admin: 04/13/17 12:44 Dose: 1 unit Torsemide (Demadex*) 80 mg PO BID [facility] Last Admin: 04/13/17 09:26 Dose: 80 mg Vital Signs - 8 hr 04/13/17 04/13/17 13:03 13:05 Respiratory 16 16 Rate Oxygen Devices in Use Now: Nasal Cannula Appearance: NAD Respiratory: Symmetrical Chest Expansion and Respiratory Effort, Clear to Auscultation Cardiovascular: - - 3/6 harsh [place] across precordium Abdominal: NL Sounds; No Tenderness; No Distention Extremities: No Edema Skin: No Rash or Ulcers, No Nodules or Sclerosis Neurological: Alert and Oriented x 3, NL Muscle Strength and Tone Result Diagrams: 04/13/17 07:57 04/13/17 07:57 Additional Lab and Data: Laboratory Tests 04/10/17 04/10/17 04/10/17 23:30 23:30 23:30 WBC 15.4 H RBC 3.98 L Hgb 11.9 L Hct 37 MCV 92 MCH 30 MCHC 33 RDW 15 Plt Count 340 MPV 9 Neut % (Auto) 74.1 Lymph % (Auto) 15.3 L [place] % (Auto) 7.9 Eos % (Auto) 2.1 Baso % (Auto) 0.6 Absolute Neuts (auto) 11.4 H Absolute Lymphs (auto) 2.3 Absolute Monos (auto) 1.2 H Absolute Eos (auto) 0.3 Absolute Basos (auto) 0.1 Absolute Nucleated RBC 0.01 Nucleated RBC % 0.1 INR (Anticoag Therapy) 0.98 APTT 55.0 H VBG pH VBG pCO2 VBG pO2 VBG HCO3 VBG O2 Saturation VBG Base Excess Sodium 136 Potassium 6.1 H* Chloride 95 L Carbon Dioxide 25 Anion Gap 16 H BUN 93 H Creatinine 5.91 H Est GFR ( Amer) 9.6 Est GFR (Non-Af Amer) 7.5 BUN/Creatinine Ratio 15.7 Glucose 241 H POC Glucose (mg/dL) Lactic Acid Calcium 8.9 Total Bilirubin 0.40 AST 14 ALT 9 Alkaline Phosphatase 191 H C-Reactive Protein 8.13 H B-Natriuretic Peptide Total Protein 8.1 Albumin 4.1 Globulin 4.0 Albumin/Globulin Ratio 1.0 Urine Color Urine Appearance Urine pH Ur Specific [place] Urine Protein Urine Ketones Urine Blood Urine Nitrate Urine Bilirubin Urine Urobilinogen Ur Leukocyte Esterase Urine WBC (Auto) Urine RBC (Auto) Ur Squamous Epith Cells Urine Bacteria Urine Glucose Influenza A (Rapid) Influenza B (Rapid) 04/10/17 04/10/17 04/11/17 23:30 23:30 00:56 WBC RBC Hgb Hct MCV MCH MCHC RDW Plt Count MPV Neut % (Auto) Lymph % (Auto) [place] % (Auto) Eos % (Auto) Baso % (Auto) Absolute Neuts (auto) Absolute Lymphs (auto) Absolute Monos (auto) Absolute Eos (auto) Absolute Basos (auto) Absolute Nucleated RBC Nucleated RBC % INR (Anticoag Therapy) APTT VBG pH 7.33 VBG pCO2 47 VBG pO2 67 H VBG HCO3 23.7 L VBG O2 Saturation 93.4 H VBG Base Excess -1.4 L Sodium Potassium Chloride Carbon Dioxide Anion Gap BUN Creatinine Est GFR ( Amer) Est GFR (Non-Af Amer) BUN/Creatinine Ratio Glucose POC Glucose (mg/dL) Lactic Acid 1.0 Calcium Total Bilirubin AST ALT Alkaline Phosphatase C-Reactive Protein B-Natriuretic Peptide 799 H Total Protein Albumin Globulin Albumin/Globulin Ratio Urine Color Urine Appearance Urine pH Ur Specific [place] Urine Protein Urine Ketones Urine Blood Urine Nitrate Urine Bilirubin Urine Urobilinogen Ur Leukocyte Esterase Urine WBC (Auto) Urine RBC (Auto) Ur Squamous Epith Cells Urine Bacteria Urine Glucose Influenza A (Rapid) Influenza B (Rapid) 04/11/17 04/11/17 04/11/17 02:34 06:50 13:15 WBC RBC Hgb Hct MCV MCH MCHC RDW Plt Count MPV Neut % (Auto) Lymph % (Auto) [place] % (Auto) Eos % (Auto) Baso % (Auto) Absolute Neuts (auto) Absolute Lymphs (auto) Absolute Monos (auto) Absolute Eos (auto) Absolute Basos (auto) Absolute Nucleated RBC Nucleated RBC % INR (Anticoag Therapy) APTT VBG pH 7.36 VBG pCO2 41 VBG pO2 106 H VBG HCO3 23.3 L VBG O2 Saturation 99.3 H VBG Base Excess -2.1 L Sodium Potassium Chloride Carbon Dioxide Anion Gap BUN Creatinine Est GFR ( Amer) Est GFR (Non-Af Amer) BUN/Creatinine Ratio Glucose POC Glucose (mg/dL) 115 H Lactic Acid 1.2 Calcium Total Bilirubin AST ALT Alkaline Phosphatase C-Reactive Protein B-Natriuretic Peptide Total Protein Albumin Globulin Albumin/Globulin Ratio Urine Color Urine Appearance Urine pH Ur Specific [place] Urine Protein Urine Ketones Urine Blood Urine Nitrate Urine Bilirubin Urine Urobilinogen Ur Leukocyte Esterase Urine WBC (Auto) Urine RBC (Auto) Ur Squamous Epith Cells Urine Bacteria Urine Glucose Influenza A (Rapid) Influenza B (Rapid) 04/11/17 04/11/17 04/11/17 17:36 17:40 20:44 WBC RBC Hgb Hct MCV MCH MCHC RDW Plt Count MPV Neut % (Auto) Lymph % (Auto) [place] % (Auto) Eos % (Auto) Baso % (Auto) Absolute Neuts (auto) Absolute Lymphs (auto) Absolute Monos (auto) Absolute Eos (auto) Absolute Basos (auto) Absolute Nucleated RBC Nucleated RBC % INR (Anticoag Therapy) APTT VBG pH VBG pCO2 VBG pO2 VBG HCO3 VBG O2 Saturation VBG Base Excess Sodium Potassium Chloride Carbon Dioxide Anion Gap BUN Creatinine Est GFR ( Amer) Est GFR (Non-Af Amer) BUN/Creatinine Ratio Glucose POC Glucose (mg/dL) 212 H 139 H Lactic Acid Calcium Total Bilirubin AST ALT Alkaline Phosphatase C-Reactive Protein B-Natriuretic Peptide Total Protein Albumin Globulin Albumin/Globulin Ratio Urine Color Urine Appearance Urine pH Ur Specific [place] Urine Protein Urine Ketones Urine Blood Urine Nitrate Urine Bilirubin Urine Urobilinogen Ur Leukocyte Esterase Urine WBC (Auto) Urine RBC (Auto) Ur Squamous Epith Cells Urine Bacteria Urine Glucose Influenza A (Rapid) Negative Influenza B (Rapid) Negative 04/12/17 04/12/17 04/12/17 04:30 08:18 08:50 WBC RBC Hgb Hct MCV MCH MCHC RDW Plt Count MPV Neut % (Auto) Lymph % (Auto) [place] % (Auto) Eos % (Auto) Baso % (Auto) Absolute Neuts (auto) Absolute Lymphs (auto) Absolute Monos (auto) Absolute Eos (auto) Absolute Basos (auto) Absolute Nucleated RBC Nucleated RBC % INR (Anticoag Therapy) APTT VBG pH VBG pCO2 VBG pO2 VBG HCO3 VBG O2 Saturation VBG Base Excess Sodium 132 L Potassium 5.5 H Chloride 90 L Carbon Dioxide 28 Anion Gap 14 H BUN 64 H Creatinine 5.40 H Est GFR ( Amer) 10.7 Est GFR (Non-Af Amer) 8.3 BUN/Creatinine Ratio 11.9 Glucose 117 H POC Glucose (mg/dL) 130 H Lactic Acid Calcium 9.7 Total Bilirubin AST ALT Alkaline Phosphatase C-Reactive Protein B-Natriuretic Peptide Total Protein Albumin Globulin Albumin/Globulin Ratio Urine Color Yellow Urine Appearance Cloudy Urine pH 8.0 Ur Specific [place] 1.011 Urine Protein 3+(>=500 mg/dl) H Urine Ketones Negative Urine Blood 1+ H Urine Nitrate Negative Urine Bilirubin Negative Urine Urobilinogen Negative Ur Leukocyte Esterase Negative Urine WBC (Auto) 2+(11-20/hpf) H Urine RBC (Auto) 2+(6-10/hpf) H Ur Squamous Epith Cells Present H Urine Bacteria 1+ H Urine Glucose 3+(>=500 mg/dl) H Influenza A (Rapid) Influenza B (Rapid) 04/12/17 04/12/17 04/12/17 09:55 13:29 17:18 WBC 8.0 RBC 3.57 L Hgb 10.6 L Hct 32 L MCV 89 MCH 30 MCHC 33 RDW 15 Plt Count 280 MPV 9 Neut % (Auto) 68.8 Lymph % (Auto) 14.3 L Gordon % (Auto) 11.8 H Eos % (Auto) 3.7 Baso % (Auto) 1.4 Absolute Neuts (auto) 5.5 Absolute Lymphs (auto) 1.1 Absolute Monos (auto) 0.9 H Absolute Eos (auto) 0.3 Absolute Basos (auto) 0.1 Absolute Nucleated RBC 0 Nucleated RBC % 0 INR (Anticoag Therapy) APTT VBG pH VBG pCO2 VBG pO2 VBG HCO3 VBG O2 Saturation VBG Base Excess Sodium Potassium Chloride Carbon Dioxide Anion Gap BUN Creatinine Est GFR ( Amer) Est GFR (Non-Af Amer) BUN/Creatinine Ratio Glucose POC Glucose (mg/dL) 110 H 144 H Lactic Acid Calcium Total Bilirubin AST ALT Alkaline Phosphatase C-Reactive Protein B-Natriuretic Peptide Total Protein Albumin Globulin Albumin/Globulin Ratio Urine Color Urine Appearance Urine pH Ur Specific [place] Urine Protein Urine Ketones Urine Blood Urine Nitrate Urine Bilirubin Urine Urobilinogen Ur Leukocyte Esterase Urine WBC (Auto) Urine RBC (Auto) Ur Squamous Epith Cells Urine Bacteria Urine Glucose Influenza A (Rapid) Influenza B (Rapid) 04/12/17 04/13/17 04/13/17 21:18 07:39 07:57 WBC 8.6 RBC 3.44 L Hgb 10.4 L Hct 31 L MCV 90 MCH 30 MCHC 34 RDW 14 Plt Count 271 MPV 9 Neut % (Auto) 69.5 Lymph % (Auto) 11.4 L [place] % (Auto) 14.0 H Eos % (Auto) 4.0 Baso % (Auto) 1.1 Absolute Neuts (auto) 6.0 Absolute Lymphs (auto) 1.0 Absolute Monos (auto) 1.2 H Absolute Eos (auto) 0.3 Absolute Basos (auto) 0.1 Absolute Nucleated RBC 0.01 Nucleated RBC % 0.1 INR (Anticoag Therapy) APTT VBG pH VBG pCO2 VBG pO2 VBG HCO3 VBG O2 Saturation VBG Base Excess Sodium Potassium Chloride Carbon Dioxide Anion Gap BUN Creatinine Est GFR ( Amer) Est GFR (Non-Af Amer) BUN/Creatinine Ratio Glucose POC Glucose (mg/dL) 170 H 99 Lactic Acid Calcium Total Bilirubin AST ALT Alkaline Phosphatase C-Reactive Protein B-Natriuretic Peptide Total Protein Albumin Globulin Albumin/Globulin Ratio Urine Color Urine Appearance Urine pH Ur Specific [place] Urine Protein Urine Ketones Urine Blood Urine Nitrate Urine Bilirubin Urine Urobilinogen Ur Leukocyte Esterase Urine WBC (Auto) Urine RBC (Auto) Ur Squamous Epith Cells Urine Bacteria Urine Glucose Influenza A (Rapid) Influenza B (Rapid) 04/13/17 04/13/17 04/13/17 07:57 11:29 17:42 WBC RBC Hgb Hct MCV MCH MCHC RDW Plt Count MPV Neut % (Auto) Lymph % (Auto) [place] % (Auto) Eos % (Auto) Baso % (Auto) Absolute Neuts (auto) Absolute Lymphs (auto) Absolute Monos (auto) Absolute Eos (auto) Absolute Basos (auto) Absolute Nucleated RBC Nucleated RBC % INR (Anticoag Therapy) APTT VBG pH VBG pCO2 VBG pO2 VBG HCO3 VBG O2 Saturation VBG Base Excess Sodium 133 Potassium 5.4 H Chloride 91 L Carbon Dioxide 23 Anion Gap 19 H BUN 86 H Creatinine 6.33 H Est GFR ( Amer) 8.9 Est GFR (Non-Af Amer) 6.9 BUN/Creatinine Ratio 13.6 Glucose 147 H POC Glucose (mg/dL) 139 H 151 H Lactic Acid Calcium 8.7 Total Bilirubin AST ALT Alkaline Phosphatase C-Reactive Protein B-Natriuretic Peptide Total Protein Albumin Globulin Albumin/Globulin Ratio Urine Color Urine Appearance Urine pH Ur Specific [place] Urine Protein Urine Ketones Urine Blood Urine Nitrate Urine Bilirubin Urine Urobilinogen Ur Leukocyte Esterase Urine WBC (Auto) Urine RBC (Auto) Ur Squamous Epith Cells Urine Bacteria Urine Glucose Influenza A (Rapid) Influenza B (Rapid) Microbiology and Other Data: Microbiology 04/12/17 04:30 Urine Urine Culture - Final 04/11/17 00:49 Blood Venous Aerobic Blood Culture - Preliminary No Growth Day 2 04/11/17 00:49 Blood Venous Anaerobic Blood Culture - Preliminary No Growth Day 2 04/10/17 23:30 Blood Venous Aerobic Blood Culture - Preliminary No Growth Day 2 04/10/17 23:30 Blood Venous Anaerobic Blood Culture - Preliminary No Growth Day 2 04/11/17 17:36 Nasal Influenza Types A,B Antigen (MADAY) - Final Specimen received for Influenza A/B Molecular testing Assess/Plan/Problems-Billing Assessment: 51 yo female PMH ESRD, fem pop bypass c/b ecoli infection, 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 fevers, chills, malaise, productive cough. Leukocytosis resolved with cefepime. #Acute Hypoxic respiratory failure, - cultures negative - ECHO (transthoracic) given harsher murmur and known mobile mass on mitral valve. Rule out worsening valvular CHF or IE - continue COPD meds - continue cefepime - no obvious cutaneous stigmata of IE #ESRD, 2/2 nephrotic syndrome - HD M/W/F - continue metolazone 5, torsemide 80mg BID (makes some urine still - sensipar, cinaclet #HTN - continue amlodipine, lisinopril, torsemide #IDDM - now off lantus and just using meal time sliding scale. - POCT qachs - carb consistent diet. lyrica 150mg BID elavil lopid aspirin zoloft 150 medicine inpatient, possible d/c after ECHO CODE: FULL Status and Disposition: medicine inpatient Attending: Ravinder Dobbs
[2017-04-13] MEDS: amLODIPine TAB* 5 MG PO SCH (18:06)
[2017-04-13] MEDS: Metolazone TAB* 5 MG PO SCH (18:06)
[2017-04-13] MEDS: Acetaminophen TAB* 325 MG PO PRN (21:41)
[2017-04-13] MEDS: Amitriptyline TAB* 25 MG PO SCH (21:42)
[2017-04-13] MEDS: Sertraline* 50 MG TAB PO SCH (21:42)
[2017-04-13] MEDS ORDERED: Saline NASAL SPRAY 0.65%* BTL BOTH NARES PRN (23:39)
[2017-04-14] MEDS: Cefepime 1 GM in Dextrose(*) 1 GM/50 ML BAG IV SCH (01:59)
[2017-04-14] MEDS: Acetaminophen TAB* 325 MG PO PRN (02:04)
[2017-04-14] MEDS: Heparin VIAL(*) 5000 UNITS/ML VIAL (FIVE THOUSAND) SUBCUT SCH ×3 (05:31→21:58)
[2017-04-14] MEDS: Insulin LISPRO* 1 UNITS UNIT SUBCUT SCH ×4 (08:02→22:03)
[2017-04-14] MEDS: Mometasone/Formoter 100/5 MDI INH SCH ×2 (08:05→20:30)
[2017-04-14] MEDS: Pregabalin CAP(*) 50 MG PO SCH ×3 (08:24→21:46)
[2017-04-14] MEDS: Sevelamer TAB* 800 MG PO SCH ×3 (08:24→17:57)
[2017-04-14] MEDS: Cinacalcet TAB* 30 MG PO SCH (08:24)
[2017-04-14] MEDS: Torsemide TAB* 20 MG PO SCH ×2 (08:24→21:44)
[2017-04-14] MEDS: Lisinopril TAB* 10 MG PO SCH (08:24)
[2017-04-14] MEDS: Tiotropium CAP.INH* CAP.INH/18 MCG (USE ORDER SET !) INH SCH (08:25)
[2017-04-14] MEDS: Omeprazole CAP* 20 MG PO SCH (08:25)
[2017-04-14] MEDS: Gemfibrozil TAB* 600 MG PO SCH ×2 (08:25→21:46)
[2017-04-14] MEDS: Multivitamins/Minerals TAB PO SCH (08:25)
[2017-04-14] MEDS: Aspirin EC Low Dose* 81 MG TAB.EC PO SCH (08:25)
[2017-04-14] MEDS: Cetirizine* 10 MG TAB PO SCH (08:25)
[2017-04-14] MEDS: guaiFENesin LIQ* 100 MG/5 ML UDC PO PRN (09:59)
[2017-04-14] MEDS: Benzonatate CAP* 100 MG PO PRN ×2 (09:59→21:46)
--- NOTE | 2017-04-14 11:08 | ED ---
Sharri Hanks Gabriel, scribed for Glynn Bull MD on 04/10/17 at 2334 . Shortness of Breath - HPI Summary HPI Summary: This patient is a 51 year old F BIBA to [facility] with a chief complaint of SOB since this morning that is worse now. Patient reports cough, chills, diaphoresis , respiratory failure, and fever. Patient denies CP. Patient has a history of renal failure with her last dialysis treatment being 04/08/17 and denies missing any treatments. EMS gave her duoneb on arrival with no success. She is currently on CPAP. - History of Current Complaint Time Seen by Provider: 04/10/17 23:28 Hx Obtained From: Patient, EMS Onset/Duration: Lasting Hours, Still Present Timing: Constant Current Severity: Moderate Dyspnea At: Rest Associated Signs & Symptoms: Cough (Nonproductive), Fever - Allergy/Home Medications Allergies/Adverse Reactions: Allergies Allergy/AdvReac Type Severity Reaction Status Date / Time Penicillins [PCN] Allergy Unknown Hives Verified 03/21/17 07:07 Gabapentin [From Neurontin] Allergy Hallucinati Verified 03/21/17 07:07 ons PMH/Surg Hx/FS Hx/Imm Hx Endocrine/Hematology History: Reports: Hx Diabetes, Hx Anemia - R/T KIDNEY FAILURE Denies: Hx Thyroid Disease Cardiovascular History: Reports: Hx Hypertension Denies: Hx Angina, Hx Pacemaker/ICD, Other Cardiovascular Problems/Disorders Respiratory History: Reports: Hx Asthma - HX OF WHEN WAS A SMOKER, Hx Chronic Obstructive Pulmonary Disease (COPD), Hx Seasonal Allergies GI History: Reports: Hx Gastroesophageal Reflux Disease - ON MEDICATION FOR Denies: Other GI Disorders History: Reports: Hx Chronic Renal Failure, Hx Dialysis, Hx Kidney Stones - HX OF, Other Problems/Disorders - HX OF RIGHT NEPHRECTOMY <1 YEAR OF AGE; ESRD - dialysis Musculoskeletal History: Reports: Hx Arthritis - KNEES, ELBOW, FINGERS Denies: Other Musculoskeletal History Sensory History: Reports: Hx Contacts or Glasses Denies: Hx Cataracts, Hx Hearing Aid Opthamlomology History: Reports: Hx Contacts or Glasses Denies: Hx Cataracts Neurological History: Denies: Hx CVA Psychiatric History: Reports: Hx Anxiety, Hx Depression - Surgical History Surgery Procedure, Year, and Place: ESWL APPROX 2005. RIGHT NEPHRECTOMY AN . 2 CARPAL TUNNELS, ONESIMO, 2014 , 2015. HEMODIALYSIS CATH, 12/2015. peritoneal dialysis catheter 01/2016. LUE fistula 11/2015 Hx Anesthesia Reactions: No - Family History Known Family History: Positive: Diabetes - MGF, Father - Social History Alcohol Use: Rare Substance Use Type: Reports: None Smoking Status (MU): Former Smoker Type: Cigarettes Amount Used/How Often: 1 PPD X 20 YEARS Length of Time of Smoking/Using Tobacco: 34 YEARS Have You Smoked in the Last Year: No Review of Systems Positive: Fever, Chills, Skin Diaphoresis Negative: Erythema Negative: Sore Throat Negative: Chest Pain Positive: Shortness Of Breath, Cough Negative: Abdominal Pain, Vomiting, Nausea Negative: dysuria, hematuria Negative: Edema Negative: Rash Neurological: Negative - dizziness All Other Systems Reviewed And Are Negative: Yes Physical Exam - Summary Physical Exam Summary: Constitutional: Well-developed, Well-nourished, Alert. (-) Distressed speaks in one word sentences Skin: Warm, Dry HENT: Normocephalic; Atraumatic Eyes: Conjunctiva normal Neck: Musculoskeletal ROM normal neck. (-) JVD, (-) Stridor, (-) Tracheal deviation Cardio: Rhythm regular, rate normal, Heart sounds normal; Intact distal pulses; The pedal pulses are 2+ and symmetric. Radial pulses are 2+ and symmetric. (-) Murmur Pulmonary/Chest wall: Effort normal. (+) Respiratory distress, (-) Wheezes, (+) Rales, tachypnea, Thrill at the fistula in the left wrist Abd: Soft, (-) Tenderness, (-) Distension, (-) Guarding, (-) Rebound Musculoskeletal: (-) Edema Lymph: (-) Cervical adenopathy Neuro: Alert, Oriented x3 Psych: Mood and affect Normal Triage Information Reviewed: Yes Vital Signs Reviewed: Yes Diagnostics - Laboratory Result Diagrams: 04/10/17 23:30 04/10/17 23:30 Lab Statement: Any lab studies that have been ordered have been reviewed, and results considered in the medical decision making process. - Radiology CXR Radiology Interpretation Completed By: ED Physician - extensive pulmonary edema - EKG 23:31 Cardiac Rate: Tachycardia EKG Rhythm: Sinus Tachycardia - at 103 BPM EKG Interpretation: No STEMI Re-Evaluation - Re-Evaluation First Eval Re-Evaluation Time: 23:45 Change: Unchanged Comment: Patient is drowsy but rousable, she will receive an ABG. Course/Dx - Course Assessment/Plan: This patient is a 51 year old F BIBA to [facility] with a chief complaint of SOB since this morning that is worse now. Patient reports cough, respiratory failure, and fever. Patient denies CP. Patient has a history of renal failure with her last dialysis treatment being 04/08/17 and denies missing any treatments. EMS gave her duoneb on arrival with no success. She is currently on CPAP. CXR reveals, per radiologist, extensive pulmonary edema. Test results with no significant abnormalities except for a potassium of 6.1. In the ED course the patient was given Heparin, NTG, Zofran, duoneb, and Cipro. Doctor Abhay has admitted the patient to ICU. We discussed patient care with Dr. Blank and he said given her sweats and chills it is likely PNA. He also stated her will continue to attempt to get in contact with dialysis. Patient will be admitted. The patient is agreeable with this plan. - Diagnoses Provider Diagnoses: Fluid overload, Respiratory failure, Healthcare-associated pneumonia - Physician Notifications Discussed Care of Patient With: Tab Blank Time Discussed With Above Provider: 00:23 Instructed by Provider To: Other - We discussed patient care with Dr. Blank and he said given her sweats and chills it is likely PNA. He also stated her will continue to attempt to get in contact with dialysis. Discharge - Discharge Plan Condition: Fair Disposition: ADMITTED TO [facility] The documentation as recorded by the Sharri toro Gabriel accurately reflects the service I personally performed and the decisions made by me, Glynn Bull MD.
--- NOTE | 2017-04-14 15:04 | ECHO ---
Patient: [facility] JOAQUIN [facility] Rec#: [id number] : 1965 Date: 04/14/2017 Age: 51y Height: 157.5 cm / 62.0 in Weight: 83.9 kg / 184.9 lbs Sex: F BSA: 1.85 Room#: [facility] Admit Date#: 04/11/2017 Type: Inpatient Referring: Ravinder Dobbs Reading: Fam Lay DO Filtrose Crusher: Lesley Barboza RN RDCS CC: Dipak Fontenot MD Transthoracic Echocardiogram Indication: SOB, chills, known mitral valve mass BP: 151/65 HR: 83 Rhythm: NSR Findings History: HTN, HLD, DM, PAD, fem-pop bypass 12/2016, ESRD, COPD, former smoker, mobile mass on mitral valve seen on prior transthoracic and transesophageal echocardiograms from 01/2017. Technical Comments: The study quality is fair. The study is technically limited due to patient body habitus. The study is technically limited due to the patient's history of COPD. The study is technically limited due to the patient's smoking history. Completed at 1245. Left Ventricle: The left ventricular chamber size is normal. Mild to moderate concentric left ventricular hypertrophy is observed. Global left ventricular wall motion and contractility are within normal limits. There is normal left ventricular systolic function. The estimated ejection fraction is 55-60%. The assessment of diastolic function is non-diagnostic. Left Atrium: The left atrium is moderately dilated. Right Ventricle: The right ventricular cavity size is normal. The right ventricular global systolic function is mildly reduced. Right Atrium: The right atrium is mildly dilated. Aortic Valve: The aortic valve is trileaflet. The aortic valve leaflets are moderately thickened. Moderate aortic leaflet calcification is visualized. Systolic excursion of the aortic valve cusps is reduced. There is no evidence of aortic regurgitation. There is severe aortic stenosis. The mean gradient of the aortic valve is 46.1 mmHg. hemoglobin 11 (stable). The peak instantaneous gradient of the aortic valve is 64 mmHg. The aortic valve area, by peak velocities, is calculated at 0.9 cm2. The aortic valve area, by VTI's, is calculated at 1.1 cm2. Highest aortic valve velocity was acquired with Pedoff in apical position. Mitral Valve: There is posterior mitral annular calcification.that is severe The anterior leaflet of the mitral valve is thickened. There is mild mitral regurgitation. There is mild to moderate mitral stenosis. , non-rheumatic The mean gradient across the mitral valve is 7.6 mmHg. while in sinus rhythm rate 80 bpm Tricuspid Valve: The tricuspid valve structure is not well visualized. There is trace to mild tricuspid regurgitation. There is evidence of mild to moderate pulmonary hypertension. There is no tricuspid stenosis. Pulmonic Valve: The pulmonic valve structure is not well visualized. There is a trace pulmonic regurgitation. There is no pulmonic stenosis. Pericardium: There is no significant pericardial effusion. Aorta: There is no dilatation of the ascending aorta. The aortic arch is not well visualized. There is no dilation of the aortic root. Pulmonary Artery: The main pulmonary artery is not well visualized. Venous: The inferior vena cava is dilated. There is less than 50% respiratory change in the inferior vena cava dimension. Conclusions The left ventricular chamber size is normal. Mild to moderate concentric left ventricular hypertrophy is observed. There is normal left ventricular systolic function. The estimated ejection fraction is 55-60%. The left atrium is moderately dilated. The right ventricular cavity size is normal. The right ventricular global systolic function is mildly reduced. There is severe aortic stenosis, mean gradient 46 mmHg, There is posterior mitral annular calcification that is severe, the mobile small calcified echodensity associated with the mitral valve is grossly unchanged. There is mild to moderate non-rheumatic mitral stenosis. There is evidence of mild to moderate pulmonary hypertension. Compared to prior study from 01/27/2017, severe aortic stenosis now present. Discussed with echosonographer who also performed last study and this study patient was able to have optimal positioning for evaluation. Measurements Name Value Normal Range RVDdMajor (2D) 3.8 cm (2.2 - 4.4) RAd ISD 4CH 5 cm (3.4 - 4.9) RA (A4C)W 4.2 cm (2.9 - 4.6) IVSd (2D) 1.3 cm (0.6 - 1) LVPWd (2D) 1.3 cm (0.6 - 1) LVIDd (2D) 4.5 cm (3.6 - 5.4) LVIDs (2D) 3.2 cm - LV FS (2D) 28 % (25 - 45) Aortic Annulus 1.8 cm (1.4 - 2.6) Ao root diameter (2D) 2.7 cm (2.1 - 3.5) Ascending Ao 3.1 cm (2.1 - 3.4) LA dimension (AP) 2D 4.7 cm (2.3 - 3.8) LAd ISD 4CH 5.3 cm (2.9 - 5.3) LA ISD 4CH W 5.1 cm (2.5 - 4.5) Name Value Normal Range LA ESV SP 4CH (A/L) 119 ml - LA ESV SP 2CH (A/L) 105 ml - LA ESV BP (A/L) 122 ml - LA ESV BP (A/L) index 66 ml/m2 - LA ESV SP 4CH (MOD) 116 ml - LA ESV SP 2CH (MOD) 99 ml - Name Value Normal Range MV E-wave Vmax 1.7 m/sec - MV deceleration time 204 msec - MV A-wave Vmax 1.5 m/sec - MV E:A ratio 1.1 ratio - LV septal e' Vmax 0.04 m/sec - LV lateral e' Vmax 0.04 m/sec - LV E:e' septal ratio 42.5 ratio - LV E:e' lateral ratio 42.5 ratio - Name Value Normal Range AV Vmax 4 m/sec - AV VTI 92.8 cm - AV peak gradient 64 mmHg - AV mean gradient 46.1 mmHg - LVOT diameter 1.9 cm - LVOT Vmax 1.3 m/sec - LVOT VTI 34.7 cm - LVOT peak gradient 7 mmHg - LVOT mean gradient 4.2 mmHg - DOI (VTI) 0.37 ratio - DOI (Vmax) 0.32 ratio - SV LVOT 98.3 ml - CO LVOT 8.2 l/min - Cardiac index 4.4 l/min/m2 - YUMIKO (continuity Vmax) 0.9 cm2 - YUMIKO (continuity VTI) 1.1 cm2 - Name Value Normal Range MV Vmax 2 m/sec - MV VTI 46 cm - MV peak gradient 16 mmHg - MV mean gradient 7.6 mmHg - MV PHT 65 msec - MVA (PHT) 3.3 cm2 - MVA (continuity VTI) 1.9 cm2 - Name Value Normal Range TR Vmax 3 m/sec - TR peak gradient 36 mmHg - RAP 15 mmHg - RVSP 51 mmHg - IVC diameter 2.7 cm - Name Value Normal Range PV Vmax 1.2 m/sec -
--- NOTE | 2017-04-14 16:35 | RAD ---
Indication: Hypoxia. 2 views of the chest including dual energy PA views demonstrate no mediastinal shift. Heart is of normal size and configuration. Mild interstitial prominence consistent with vascular congestion is noted. No pleural fluid is identified. IMPRESSION: Mild vascular congestion. No alveolar consolidation is noted.
--- NOTE | 2017-04-14 17:54 | CONSULT ---
Subjective Date of Service: 04/14/17 Interval History: Admission Date: 04/11/17 Date of consult 04/14/2017 PMD: Dr. Fontenot Nephrogist: Dr. Valiente [employer] Teacher: Dr. Martinez Vascular surgeon: Dr. York Service: Hospitalist CC: Dyspnea Reason for consult: Severe HISTORY OF PRESENT ILLNESS: Verito Suero is a 51-year-old woman admitted with severe dyspnea. She has been adherent with medications and dialysis. She was found with decompensated HF and possible a upper respiratory tract infection. She was hypertensive and improved with BIPAP, nitro patch and ultimately HD. She had 2 liters removed yesterday and is below dry weight. She has HD planned again tomorrow. She has difficulty with overdialysis with regards to cramping and orthostatic hypotension in the past She has had orthopnea since a fem-pop bypass last year. I laid her flat on room air for 3 minute and she maintained 02 saturations of 94%. She denies any CP, palpitations or syncope. She had an echocardiogram performed today that showed a normal LVEF and severe with a mean gradient of 46 mmHg with a peak velocity of 4 m/s and calculated YUMIKO of 0.9 cm^2. She has a heavily calcified mitral annulus with small mobile calcified echodensity that appears unchanged from TTE/SHANAE 01/2017. She does appear to have a bicuspid aortic valve based on review of her prior SHANAE. Her left and non-coronary cusps are fused. Her right coronary cusp is still relatively quite mobile. The BNP is elevated, hemoglobin stable about 11. and I do not appreciate an obvious A2. I discussed with Dr. Valiente and severe would explain and be consistent with her clinical course. PAST MEDICAL/surgical HISTORY: 1. Endstage renal disease, on hemodialysis Tuesday, Tuesday, and Tuesday. 2. Diabetes. 3. COPD. 4. Peripheral artery disease. 5. Hyperlipidemia. 6. GERD. 7. Depression. 8. Anxiety. 9. Hypertension. 10. History of fem-pop bypass 11/24/2016 Dr. York [facility] with subsequent wound infection 11. AV fistula left 12. History of tubal ligation. 13. DM ALLERGIES: PENICILLIN/GABAPENTIN. FAMILY HISTORY: Mother with seizures, father with diabetes. SOCIAL HISTORY: The patient is a former smoker, not presently. She does not drink alcohol. Her surrogate decision maker is her . Medications Active Medications: Acetaminophen (Tylenol Tab*) 650 mg PO Q4H PRN PRN Reason: FEVER/PAIN Last Admin: 04/14/17 02:04 Dose: 650 mg Albuterol (Ventolin Hfa Inhaler*) 2 puff INH Q4H PRN PRN Reason: SOB/WHEEZING Amitriptyline HCl (Elavil Tab*) [address] [facility] Last Admin: 04/13/17 21:42 Dose: 25 mg Amlodipine Besylate (Norvasc Tab*) 2.[address] [facility] Last Admin: 04/13/17 18:06 Dose: 2.5 mg Aspirin (Aspirin Ec Low Dose*) [address] [facility] Last Admin: 04/14/17 08:25 Dose: 81 mg Benzonatate (Tessalon Cap*) 200 mg PO BID PRN PRN Reason: COUGH Last Admin: 04/14/17 09:59 Dose: 200 mg Cetirizine HCl (Zyrtec*) [address] [facility] PRN Reason: Protocol Last Admin: 04/14/17 08:25 Dose: 10 mg Cinacalcet (Sensipar Tab*) [address] [facility] Last Admin: 04/14/17 08:24 Dose: 60 mg Dextrose (D50w Syringe 50 Ml*) 12.5 gm IV PUSH .FOR FS < 60 - SS PRN PRN Reason: FS < 60 Gemfibrozil (Lopid Tab*) [address] [facility] Last Admin: 04/14/17 08:25 Dose: 600 mg Guaifenesin (Robitussin*) 5 ml PO Q6H PRN PRN Reason: COUGH Last Admin: 04/14/17 09:59 Dose: 5 ml Heparin Sodium (Porcine) (Heparin Vial(*)) 5,[address] [facility] Last Admin: 04/14/17 14:51 Dose: 5,000 units Cefepime HCl (Maxipime 1 Gm In Dextrose Duplex (*)) 1 gm in 50 mls @ 100 mls/ hr IV Q24H [facility] Last Admin: 04/14/17 01:59 Dose: 100 mls/hr Insulin Human Lispro (Humalog*) [address] [facility] PRN Reason: Protocol Last Admin: 04/14/17 12:54 Dose: 3 units Lidocaine/Prilocaine (Emla 5 Gm*) 1 applic TOPICAL .[address] [facility] Lisinopril (Prinivil Tab*) [address] [facility] Last Admin: 04/14/17 08:24 Dose: 20 mg Metolazone (Zaroxolyn Tab*) [address] [facility] Last Admin: 04/13/17 18:06 Dose: 5 mg Mometasone Furoate/Formoterol Fumar (Dulera 100/5 Mdi*) [address] [facility] Last Admin: 04/14/17 08:05 Dose: 2 puff Multivitamins/Minerals (Theragran/Minerals Tab*) [address] [facility] Last Admin: 04/14/17 08:25 Dose: 1 tab Omeprazole (Prilosec Cap*) [address] [facility] Last Admin: 04/14/17 08:25 Dose: 20 mg Ondansetron HCl (Zofran Inj*) 4 mg IV Q4H PRN PRN Reason: NAUSEA/VOMITING Ondansetron HCl (Zofran Odt Tab*) 4 mg PO Q8H PRN PRN Reason: NAUSEA Pregabalin (Lyrica Cap(*)) [address] [facility] Last Admin: 04/14/17 14:52 Dose: 150 mg Sertraline HCl (Zoloft*) [address] [facility] Last Admin: 04/13/17 21:42 Dose: 50 mg Sevelamer Carbonate (Renvela Tab*) 2,400 mg PO TID WITH MEALS [facility] Last Admin: 04/14/17 12:54 Dose: 2,400 mg Sodium Chloride (Sodium Chloride 0.65% Nasal [place]*) 1 spray BOTH NARES Q4H PRN PRN Reason: nasal congestion Last Admin: 04/14/17 08:29 Dose: 1 spray Tiotropium Tucker (Spiriva Cap.Inh*) [address] [facility] Last Admin: 04/14/17 08:25 Dose: 1 inh Torsemide (Demadex*) [address] [facility] Last Admin: 04/14/17 08:24 Dose: 80 mg Home Medications: Sertraline* [Zoloft*] 50 mg PO BEDTIME 09/14/12 [History Confirmed 04/11/17] Omeprazole CAP* [Prilosec CAP* 20 MG] 20 mg PO QAM 02/04/16 [History Confirmed 04/11/17] Sevelamer TAB* [Renvela TAB*] 2,400 mg PO TID WITH MEALS 02/04/16 [History Confirmed 04/11/17] Torsemide TAB* [Demadex 20 MG*] 80 mg PO BID 02/04/16 [History Confirmed ] Acetaminophen TAB* [Tylenol TAB*] 650 mg PO Q4H PRN #0 tab 12/22/16 [Rx Confirmed 04/11/17] Albuterol HFA INHALER* [Ventolin HFA Inhaler*] 2 puff INH Q4H PRN 01/26/17 [ History Confirmed 04/11/17] Amitriptyline TAB* [Elavil TAB*] 25 mg PO BEDTIME 01/26/17 [History Confirmed ] Aspirin EC Low Dose* [Ecotrin EC Low Dose 81 MG*] 81 mg PO QAM 01/26/17 [ History Confirmed 04/11/17] Cetirizine* [ZyrTEC 10 MG TAB*] 10 mg PO QAM 01/26/17 [History Confirmed ] Cinacalcet TAB* [Sensipar TAB*] 60 mg PO QAM 01/26/17 [History Confirmed ] Gemfibrozil TAB* [Lopid TAB*] 600 mg PO BID 01/26/17 [History Confirmed ] Insulin Lispro [Humalog Kwikpen] 3 unit SUBCUT AC 01/26/17 [History Confirmed ] Lidocaine 2.5%/Prilocain 2.5%* [Emla 5 GM*] 1 applic TOPICAL .3 TIMES A WEEK [History Confirmed 04/11/17] Lisinopril TAB* [Prinivil TAB 10 MG*] 20 mg PO QAM 01/26/17 [History Confirmed 04/11/17] Metolazone TAB* [Zaroxolyn TAB*] 5 mg PO QPM 01/26/17 [History Confirmed ] Multivitamins/Minerals TAB* [Theragran/minerals TAB*] 1 tab PO QAM 01/26/17 [ History Confirmed 04/11/17] Ondansetron ODT TAB* [Zofran 4 MG Odt TAB*] 4 mg PO Q8H PRN 01/26/17 [History Confirmed 04/11/17] Pregabalin CAP(*) [Lyrica CAP(*)] 150 mg PO TID 01/26/17 [History Confirmed 04/28] amLODIPine TAB* [Norvasc 5 mg TAB*] 2.5 mg PO QPM 01/26/17 [History Confirmed ] Budesonide/Formote 80/4.5(NF) [Symbicort 80/4.5 (NF)] 2 puff INH BID 03/18/17 [ History Confirmed 04/11/17] Fluticasone HFA 110 mcg(NF) [Flovent HFA 110 mcg(NF)] 2 puff INH BID 03/18/17 [ History Confirmed 04/11/17] Tiotropium Tucker Monohydrate [Spiriva Respimat] 1 puff INH QAM 03/18/17 [ History Confirmed 04/11/17] Review of Systems - Measurements Intake and Output: Intake and Output Last 24 Hours 04/12/17 04/13/17 04/14/17 04/15/17 06:59 06:59 06:59 06:59 Intake Total 306 098 1874 220 Output Total 7600 478 9414 Balance -458 245 -190 220 Weight 185 lb 3.013 oz 185 lb 11.2 oz 184 lb 14.4 oz Intake: IV Fluids 15 20 35 ABX - CEFTRIAXONE 15 NS (0.9%) 20 35 IVPB 50 65 65 ABX - CEFTRIAXONE 50 65 65 Medicated IV 62 CC - Nitroglycerine/ 62 Tridil Oral 540 360 910 220 Output: Urine 8363 528 5058 Other: Date of Last Bowel 04/11/17 Movement # Bowel Movements 1 Estimated Stool Amount Small - Review of Systems Constitutional Symptoms: Negative: Weight Loss, Weakness, Fatigue, Fever, Night Sweats Dermatology: Negative: Rash, Skin Lesions, Skin Lumps HEENT: Negative: Change in Hearing, Vertigo, Tinnitus Eyes: Negative: Change in Vision, Double Vision Thyroid: Negative: Cold Intolerance, Heat Intolerance, Sweatiness, Weight Loss, Weight Gain Pulmonary: Positive: Cough, Shortness of Breath Negative: Hemoptysis, Wheezing Cardiology: Positive: Shortness of Breath, Orthopnea Negative: Palpitations, Swelling of Ankles, Peripheral Vascular Dis, Edema, Faintness, Syncope, Claudication Gastroenterology: Negative: Abdominal Pain, Nausea, Vomiting, Anorexia, Indigestion, Heartburn Genital - Urinary: Negative: Dysuria, Hematuria, Polyuria, Nocturia Musculoskeletal: Negative: Joint Pain, Joint Stiffness, Arthritis, Osteoporosis Endocrinology: Positive: Obesity, Diabetes Negative: Thyroid Problems, Family Hx Endocrine Disorders, Polydipsia, Polyuria Hematologic/Lymphatic: Positive: Use of Antiplatelet Drugs Negative: Easy Brusing, Hx Leukemia, Hx Lymphoma, Use of Anticoagulant Neurology: Negative: Headaches, Migraines, Diplopia, Dizziness, Change in Speech, Change in Sphincter Function Psychiatry: Negative: Guilt Feelings, Tearfulness, Unusual Fatigue Allergic/Immunologic: Positive: Hx Angioedema Negative: Hx HIV, Swollen Glands Lymph Nodes Review of Systems Statement: All other review of systems negative, unless stated above. Objective Vital Signs: Temp Pulse Resp BP Pulse Ox 98.3 F 81 16 146/79 92 04/14/17 07:27 04/14/17 07:27 04/14/17 14:52 04/14/17 07:27 04/14/17 15:10 Oxygen Devices in Use Now: Nasal Cannula Appearance: chronically ill appearing, pleasant, NAD Ears/Nose/Mouth/Throat: Clear Oropharnyx, Mucous Membranes Moist Neck: Trachea Midline, - - uncertain jvp Respiratory: Symmetrical Chest Expansion and Respiratory Effort, Clear to Auscultation Cardiovascular: RRR, No Edema, - - 3/6 systolic murmur at base, no obvious A2 appreciated Abdominal: NL Sounds; No Tenderness; No Distention Extremities: No Clubbing, Cyanosis Skin: - - right fem-pop wound without significant erythema or drainage Neurological: Alert and Oriented x 3 Laboratory Results: 04/13/17 07:57 04/13/17 07:57 INR (Anticoag Therapy) 0.98 (0.77-1.02) 04/10/17 23:30 APTT 55.0 seconds (26.0-36.3) H 04/10/17 23:30 Total Bilirubin 0.40 mg/dL (0.2-1.0) 04/10/17 23:30 AST 14 U/L (13-39) 04/10/17 23:30 ALT 9 U/L (7-52) 04/10/17 23:30 Alkaline Phosphatase 191 U/L (34-104) H 04/10/17 23:30 B-Natriuretic Peptide 799 pg/mL (-100) H 04/10/17 23:30 Total Protein 8.1 g/dL (6.4-8.9) 04/10/17 23:30 Albumin 4.1 g/dL (3.2-5.2) 04/10/17 23:30 Globulin 4.0 g/dL (2-4) 04/10/17 23:30 Albumin/Globulin Ratio 1.0 (1-3) 04/10/17 23:30 Diagnostic Imaging: cxr 04/11/2017: + pulmonary edema, small right effusion EKG Data: ekg 03/31/2017: sinus tachycardia, otherwise unremarkable Assessment/Plan Verito Suero is a 51 year old woman with a complex medical history as above including but not limited to ESRD on HD presents with decompensated HF in part due to severe aortic stenosis. Has improved with more intensive dialysis and medical treatment. LVEF normal. - I discussed with Dr. Martinez, Dr. Valiente and Dr. Velez. Plan will be for diagnostic pre-op C in AM tomorrow followed by hemodialysis. She would like to have [facility]. If she is determined to be high risk, she may be a TAVR candidate even with a bicuspid aortic valve but this is uncertain. Thank you for allowing me to participate in the cardiovascular care of this patient. Please do not hesitate to contact me with questions or concerns.
[2017-04-14] MEDS: amLODIPine TAB* 5 MG PO SCH (17:57)
[2017-04-14] MEDS: Metolazone TAB* 5 MG PO SCH (17:57)
--- NOTE | 2017-04-14 19:36 | PN ---
Subjective Date of Service: 04/14/17 Interval History: ECHO performed showing worsening of her aortic stenosis from moderate to now severe. cardiology consulted. seems bicuspid. planned for pre-op cath tomorrow then HD. repeat CXR showed improvement. Objective Active Medications: Acetaminophen (Tylenol Tab*) 650 mg PO Q4H PRN PRN Reason: FEVER/PAIN Last Admin: 04/14/17 02:04 Dose: 650 mg Albuterol (Ventolin Hfa Inhaler*) 2 puff INH Q4H PRN PRN Reason: SOB/WHEEZING Amitriptyline HCl (Elavil Tab*) 25 mg PO BEDTIME [facility] Last Admin: 04/13/17 21:42 Dose: 25 mg Amlodipine Besylate (Norvasc Tab*) 2.5 mg PO QPM [facility] Last Admin: 04/14/17 17:57 Dose: 2.5 mg Aspirin (Aspirin Ec Low Dose*) 81 mg PO QAM [facility] Last Admin: 04/14/17 08:25 Dose: 81 mg Benzonatate (Tessalon Cap*) 200 mg PO BID PRN PRN Reason: COUGH Last Admin: 04/14/17 09:59 Dose: 200 mg Cetirizine HCl (Zyrtec*) 10 mg PO QAM [facility] PRN Reason: Protocol Last Admin: 04/14/17 08:25 Dose: 10 mg Cinacalcet (Sensipar Tab*) 60 mg PO QAM [facility] Last Admin: 04/14/17 08:24 Dose: 60 mg Dextrose (D50w Syringe 50 Ml*) 12.5 gm IV PUSH .FOR FS < 60 - SS PRN PRN Reason: FS < 60 Gemfibrozil (Lopid Tab*) 600 mg PO BID [facility] Last Admin: 04/14/17 08:25 Dose: 600 mg Guaifenesin (Robitussin*) 5 ml PO Q6H PRN PRN Reason: COUGH Last Admin: 04/14/17 09:59 Dose: 5 ml Heparin Sodium (Porcine) (Heparin Vial(*)) 5,000 units SUBCUT Q8HR [facility] Last Admin: 04/14/17 14:51 Dose: 5,000 units Cefepime HCl (Maxipime 1 Gm In Dextrose Duplex (*)) 1 gm in 50 mls @ 100 mls/ hr IV Q24H [facility] Last Admin: 04/14/17 01:59 Dose: 100 mls/hr Insulin Human Lispro (Humalog*) 0 units SUBCUT ACHS [facility] PRN Reason: Protocol Last Admin: 04/14/17 18:00 Dose: Not Given Lidocaine/Prilocaine (Emla 5 Gm*) 1 applic TOPICAL .3 TIMES A WEEK [facility] Lisinopril (Prinivil Tab*) 20 mg PO QAM [facility] Last Admin: 04/14/17 08:24 Dose: 20 mg Metolazone (Zaroxolyn Tab*) 5 mg PO QPM [facility] Last Admin: 04/14/17 17:57 Dose: 5 mg Mometasone Furoate/Formoterol Fumar (Dulera 100/5 Mdi*) 2 puff INH BID [facility] Last Admin: 04/14/17 08:05 Dose: 2 puff Multivitamins/Minerals (Theragran/Minerals Tab*) 1 tab PO QAM [facility] Last Admin: 04/14/17 08:25 Dose: 1 tab Omeprazole (Prilosec Cap*) 20 mg PO QAM [facility] Last Admin: 04/14/17 08:25 Dose: 20 mg Ondansetron HCl (Zofran Inj*) 4 mg IV Q4H PRN PRN Reason: NAUSEA/VOMITING Ondansetron HCl (Zofran Odt Tab*) 4 mg PO Q8H PRN PRN Reason: NAUSEA Pregabalin (Lyrica Cap(*)) 150 mg PO TID [facility] Last Admin: 04/14/17 14:52 Dose: 150 mg Sertraline HCl (Zoloft*) 50 mg PO BEDTIME [facility] Last Admin: 04/13/17 21:42 Dose: 50 mg Sevelamer Carbonate (Renvela Tab*) 2,400 mg PO TID WITH MEALS [facility] Last Admin: 04/14/17 17:57 Dose: 2,400 mg Sodium Chloride (Sodium Chloride 0.65% Nasal [place]*) 1 spray BOTH NARES Q4H PRN PRN Reason: nasal congestion Last Admin: 04/14/17 08:29 Dose: 1 spray Tiotropium [place] (Spiriva Cap.Inh*) 1 cap INH 0830 [facility] Last Admin: 04/14/17 08:25 Dose: 1 inh Torsemide (Demadex*) 80 mg PO BID [facility] Last Admin: 04/14/17 08:24 Dose: 80 mg Vital Signs - 8 hr 04/14/17 04/14/17 04/14/17 12:12 14:52 15:10 Respiratory 16 16 Rate O2 Sat by Pulse 92 Oximetry 04/14/17 04/14/17 16:00 18:00 Respiratory 20 Rate O2 Sat by Pulse 95 Oximetry Oxygen Devices in Use Now: Nasal Cannula Appearance: NAD Respiratory: Symmetrical Chest Expansion and Respiratory Effort, Clear to Auscultation, - - faint rales at bases. Cardiovascular: - - 3/6 murmur worse RUSB/LUSB Abdominal: NL Sounds; No Tenderness; No Distention, No Hepatosplenomegaly Extremities: - - trace edema Skin: No Rash or Ulcers, - - granulation tissue at right medial thigh. Neurological: Alert and Oriented x 3, NL Muscle Strength and Tone Result Diagrams: 04/13/17 07:57 04/13/17 07:57 Additional Lab and Data: Laboratory Tests 04/10/17 04/10/17 04/10/17 23:30 23:30 23:30 WBC 15.4 H RBC 3.98 L Hgb 11.9 L Hct 37 MCV 92 MCH 30 MCHC 33 RDW 15 Plt Count 340 MPV 9 Neut % (Auto) 74.1 Lymph % (Auto) 15.3 L Sunflower % (Auto) 7.9 Eos % (Auto) 2.1 Baso % (Auto) 0.6 Absolute Neuts (auto) 11.4 H Absolute Lymphs (auto) 2.3 Absolute Monos (auto) 1.2 H Absolute Eos (auto) 0.3 Absolute Basos (auto) 0.1 Absolute Nucleated RBC 0.01 Nucleated RBC % 0.1 INR (Anticoag Therapy) 0.98 APTT 55.0 H VBG pH VBG pCO2 VBG pO2 VBG HCO3 VBG O2 Saturation VBG Base Excess Sodium 136 Potassium 6.1 H* Chloride 95 L Carbon Dioxide 25 Anion Gap 16 H BUN 93 H Creatinine 5.91 H Est GFR ( Amer) 9.6 Est GFR (Non-Af Amer) 7.5 BUN/Creatinine Ratio 15.7 Glucose 241 H POC Glucose (mg/dL) Lactic Acid Calcium 8.9 Total Bilirubin 0.40 AST 14 ALT 9 Alkaline Phosphatase 191 H C-Reactive Protein 8.13 H B-Natriuretic Peptide Total Protein 8.1 Albumin 4.1 Globulin 4.0 Albumin/Globulin Ratio 1.0 Urine Color Urine Appearance Urine pH Ur Specific [place] Urine Protein Urine Ketones Urine Blood Urine Nitrate Urine Bilirubin Urine Urobilinogen Ur Leukocyte Esterase Urine WBC (Auto) Urine RBC (Auto) Ur Squamous Epith Cells Urine Bacteria Urine Glucose Influenza A (Rapid) Influenza B (Rapid) 04/10/17 04/10/17 04/11/17 23:30 23:30 00:56 WBC RBC Hgb Hct MCV MCH MCHC RDW Plt Count MPV Neut % (Auto) Lymph % (Auto) Sunflower % (Auto) Eos % (Auto) Baso % (Auto) Absolute Neuts (auto) Absolute Lymphs (auto) Absolute Monos (auto) Absolute Eos (auto) Absolute Basos (auto) Absolute Nucleated RBC Nucleated RBC % INR (Anticoag Therapy) APTT VBG pH 7.33 VBG pCO2 47 VBG pO2 67 H VBG HCO3 23.7 L VBG O2 Saturation 93.4 H VBG Base Excess -1.4 L Sodium Potassium Chloride Carbon Dioxide Anion Gap BUN Creatinine Est GFR ( Amer) Est GFR (Non-Af Amer) BUN/Creatinine Ratio Glucose POC Glucose (mg/dL) Lactic Acid 1.0 Calcium Total Bilirubin AST ALT Alkaline Phosphatase C-Reactive Protein B-Natriuretic Peptide 799 H Total Protein Albumin Globulin Albumin/Globulin Ratio Urine Color Urine Appearance Urine pH Ur Specific [place] Urine Protein Urine Ketones Urine Blood Urine Nitrate Urine Bilirubin Urine Urobilinogen Ur Leukocyte Esterase Urine WBC (Auto) Urine RBC (Auto) Ur Squamous Epith Cells Urine Bacteria Urine Glucose Influenza A (Rapid) Influenza B (Rapid) 04/11/17 04/11/17 04/11/17 02:34 06:50 13:15 WBC RBC Hgb Hct MCV MCH MCHC RDW Plt Count MPV Neut % (Auto) Lymph % (Auto) Sunflower % (Auto) Eos % (Auto) Baso % (Auto) Absolute Neuts (auto) Absolute Lymphs (auto) Absolute Monos (auto) Absolute Eos (auto) Absolute Basos (auto) Absolute Nucleated RBC Nucleated RBC % INR (Anticoag Therapy) APTT VBG pH 7.36 VBG pCO2 41 VBG pO2 106 H VBG HCO3 23.3 L VBG O2 Saturation 99.3 H VBG Base Excess -2.1 L Sodium Potassium Chloride Carbon Dioxide Anion Gap BUN Creatinine Est GFR ( Amer) Est GFR (Non-Af Amer) BUN/Creatinine Ratio Glucose POC Glucose (mg/dL) 115 H Lactic Acid 1.2 Calcium Total Bilirubin AST ALT Alkaline Phosphatase C-Reactive Protein B-Natriuretic Peptide Total Protein Albumin Globulin Albumin/Globulin Ratio Urine Color Urine Appearance Urine pH Ur Specific [place] Urine Protein Urine Ketones Urine Blood Urine Nitrate Urine Bilirubin Urine Urobilinogen Ur Leukocyte Esterase Urine WBC (Auto) Urine RBC (Auto) Ur Squamous Epith Cells Urine Bacteria Urine Glucose Influenza A (Rapid) Influenza B (Rapid) 04/11/17 04/11/17 04/11/17 17:36 17:40 20:44 WBC RBC Hgb Hct MCV MCH MCHC RDW Plt Count MPV Neut % (Auto) Lymph % (Auto) Sunflower % (Auto) Eos % (Auto) Baso % (Auto) Absolute Neuts (auto) Absolute Lymphs (auto) Absolute Monos (auto) Absolute Eos (auto) Absolute Basos (auto) Absolute Nucleated RBC Nucleated RBC % INR (Anticoag Therapy) APTT VBG pH VBG pCO2 VBG pO2 VBG HCO3 VBG O2 Saturation VBG Base Excess Sodium Potassium Chloride Carbon Dioxide Anion Gap BUN Creatinine Est GFR ( Amer) Est GFR (Non-Af Amer) BUN/Creatinine Ratio Glucose POC Glucose (mg/dL) 212 H 139 H Lactic Acid Calcium Total Bilirubin AST ALT Alkaline Phosphatase C-Reactive Protein B-Natriuretic Peptide Total Protein Albumin Globulin Albumin/Globulin Ratio Urine Color Urine Appearance Urine pH Ur Specific [place] Urine Protein Urine Ketones Urine Blood Urine Nitrate Urine Bilirubin Urine Urobilinogen Ur Leukocyte Esterase Urine WBC (Auto) Urine RBC (Auto) Ur Squamous Epith Cells Urine Bacteria Urine Glucose Influenza A (Rapid) Negative Influenza B (Rapid) Negative 04/12/17 04/12/17 04/12/17 04:30 08:18 08:50 WBC RBC Hgb Hct MCV MCH MCHC RDW Plt Count MPV Neut % (Auto) Lymph % (Auto) Sunflower % (Auto) Eos % (Auto) Baso % (Auto) Absolute Neuts (auto) Absolute Lymphs (auto) Absolute Monos (auto) Absolute Eos (auto) Absolute Basos (auto) Absolute Nucleated RBC Nucleated RBC % INR (Anticoag Therapy) APTT VBG pH VBG pCO2 VBG pO2 VBG HCO3 VBG O2 Saturation VBG Base Excess Sodium 132 L Potassium 5.5 H Chloride 90 L Carbon Dioxide 28 Anion Gap 14 H BUN 64 H Creatinine 5.40 H Est GFR ( Amer) 10.7 Est GFR (Non-Af Amer) 8.3 BUN/Creatinine Ratio 11.9 Glucose 117 H POC Glucose (mg/dL) 130 H Lactic Acid Calcium 9.7 Total Bilirubin AST ALT Alkaline Phosphatase C-Reactive Protein B-Natriuretic Peptide Total Protein Albumin Globulin Albumin/Globulin Ratio Urine Color Yellow Urine Appearance Cloudy Urine pH 8.0 Ur Specific [place] 1.011 Urine Protein 3+(>=500 mg/dl) H Urine Ketones Negative Urine Blood 1+ H Urine Nitrate Negative Urine Bilirubin Negative Urine Urobilinogen Negative Ur Leukocyte Esterase Negative Urine WBC (Auto) 2+(11-20/hpf) H Urine RBC (Auto) 2+(6-10/hpf) H Ur Squamous Epith Cells Present H Urine Bacteria 1+ H Urine Glucose 3+(>=500 mg/dl) H Influenza A (Rapid) Influenza B (Rapid) 04/12/17 04/12/17 04/12/17 09:55 13:29 17:18 WBC 8.0 RBC 3.57 L Hgb 10.6 L Hct 32 L MCV 89 MCH 30 MCHC 33 RDW 15 Plt Count 280 MPV 9 Neut % (Auto) 68.8 Lymph % (Auto) 14.3 L Sunflower % (Auto) 11.8 H Eos % (Auto) 3.7 Baso % (Auto) 1.4 Absolute Neuts (auto) 5.5 Absolute Lymphs (auto) 1.1 Absolute Monos (auto) 0.9 H Absolute Eos (auto) 0.3 Absolute Basos (auto) 0.1 Absolute Nucleated RBC 0 Nucleated RBC % 0 INR (Anticoag Therapy) APTT VBG pH VBG pCO2 VBG pO2 VBG HCO3 VBG O2 Saturation VBG Base Excess Sodium Potassium Chloride Carbon Dioxide Anion Gap BUN Creatinine Est GFR ( Amer) Est GFR (Non-Af Amer) BUN/Creatinine Ratio Glucose POC Glucose (mg/dL) 110 H 144 H Lactic Acid Calcium Total Bilirubin AST ALT Alkaline Phosphatase C-Reactive Protein B-Natriuretic Peptide Total Protein Albumin Globulin Albumin/Globulin Ratio Urine Color Urine Appearance Urine pH Ur Specific [place] Urine Protein Urine Ketones Urine Blood Urine Nitrate Urine Bilirubin Urine Urobilinogen Ur Leukocyte Esterase Urine WBC (Auto) Urine RBC (Auto) Ur Squamous Epith Cells Urine Bacteria Urine Glucose Influenza A (Rapid) Influenza B (Rapid) 04/12/17 04/13/17 04/13/17 21:18 07:39 07:57 WBC 8.6 RBC 3.44 L Hgb 10.4 L Hct 31 L MCV 90 MCH 30 MCHC 34 RDW 14 Plt Count 271 MPV 9 Neut % (Auto) 69.5 Lymph % (Auto) 11.4 L Sunflower % (Auto) 14.0 H Eos % (Auto) 4.0 Baso % (Auto) 1.1 Absolute Neuts (auto) 6.0 Absolute Lymphs (auto) 1.0 Absolute Monos (auto) 1.2 H Absolute Eos (auto) 0.3 Absolute Basos (auto) 0.1 Absolute Nucleated RBC 0.01 Nucleated RBC % 0.1 INR (Anticoag Therapy) APTT VBG pH VBG pCO2 VBG pO2 VBG HCO3 VBG O2 Saturation VBG Base Excess Sodium Potassium Chloride Carbon Dioxide Anion Gap BUN Creatinine Est GFR ( Amer) Est GFR (Non-Af Amer) BUN/Creatinine Ratio Glucose POC Glucose (mg/dL) 170 H 99 Lactic Acid Calcium Total Bilirubin AST ALT Alkaline Phosphatase C-Reactive Protein B-Natriuretic Peptide Total Protein Albumin Globulin Albumin/Globulin Ratio Urine Color Urine Appearance Urine pH Ur Specific [place] Urine Protein Urine Ketones Urine Blood Urine Nitrate Urine Bilirubin Urine Urobilinogen Ur Leukocyte Esterase Urine WBC (Auto) Urine RBC (Auto) Ur Squamous Epith Cells Urine Bacteria Urine Glucose Influenza A (Rapid) Influenza B (Rapid) 04/13/17 04/13/17 04/13/17 07:57 11:29 17:42 WBC RBC Hgb Hct MCV MCH MCHC RDW Plt Count MPV Neut % (Auto) Lymph % (Auto) Sunflower % (Auto) Eos % (Auto) Baso % (Auto) Absolute Neuts (auto) Absolute Lymphs (auto) Absolute Monos (auto) Absolute Eos (auto) Absolute Basos (auto) Absolute Nucleated RBC Nucleated RBC % INR (Anticoag Therapy) APTT VBG pH VBG pCO2 VBG pO2 VBG HCO3 VBG O2 Saturation VBG Base Excess Sodium 133 Potassium 5.4 H Chloride 91 L Carbon Dioxide 23 Anion Gap 19 H BUN 86 H Creatinine 6.33 H Est GFR ( Amer) 8.9 Est GFR (Non-Af Amer) 6.9 BUN/Creatinine Ratio 13.6 Glucose 147 H POC Glucose (mg/dL) 139 H 151 H Lactic Acid Calcium 8.7 Total Bilirubin AST ALT Alkaline Phosphatase C-Reactive Protein B-Natriuretic Peptide Total Protein Albumin Globulin Albumin/Globulin Ratio Urine Color Urine Appearance Urine pH Ur Specific [place] Urine Protein Urine Ketones Urine Blood Urine Nitrate Urine Bilirubin Urine Urobilinogen Ur Leukocyte Esterase Urine WBC (Auto) Urine RBC (Auto) Ur Squamous Epith Cells Urine Bacteria Urine Glucose Influenza A (Rapid) Influenza B (Rapid) 04/13/17 04/14/17 04/14/17 21:23 07:44 11:45 WBC RBC Hgb Hct MCV MCH MCHC RDW Plt Count MPV Neut % (Auto) Lymph % (Auto) [place] % (Auto) Eos % (Auto) Baso % (Auto) Absolute Neuts (auto) Absolute Lymphs (auto) Absolute Monos (auto) Absolute Eos (auto) Absolute Basos (auto) Absolute Nucleated RBC Nucleated RBC % INR (Anticoag Therapy) APTT VBG pH VBG pCO2 VBG pO2 VBG HCO3 VBG O2 Saturation VBG Base Excess Sodium Potassium Chloride Carbon Dioxide Anion Gap BUN Creatinine Est GFR ( Amer) Est GFR (Non-Af Amer) BUN/Creatinine Ratio Glucose POC Glucose (mg/dL) 155 H 107 H 171 H Lactic Acid Calcium Total Bilirubin AST ALT Alkaline Phosphatase C-Reactive Protein B-Natriuretic Peptide Total Protein Albumin Globulin Albumin/Globulin Ratio Urine Color Urine Appearance Urine pH Ur Specific [place] Urine Protein Urine Ketones Urine Blood Urine Nitrate Urine Bilirubin Urine Urobilinogen Ur Leukocyte Esterase Urine WBC (Auto) Urine RBC (Auto) Ur Squamous Epith Cells Urine Bacteria Urine Glucose Influenza A (Rapid) Influenza B (Rapid) 04/14/17 17:57 WBC RBC Hgb Hct MCV MCH MCHC RDW Plt Count MPV Neut % (Auto) Lymph % (Auto) [place] % (Auto) Eos % (Auto) Baso % (Auto) Absolute Neuts (auto) Absolute Lymphs (auto) Absolute Monos (auto) Absolute Eos (auto) Absolute Basos (auto) Absolute Nucleated RBC Nucleated RBC % INR (Anticoag Therapy) APTT VBG pH VBG pCO2 VBG pO2 VBG HCO3 VBG O2 Saturation VBG Base Excess Sodium Potassium Chloride Carbon Dioxide Anion Gap BUN Creatinine Est GFR ( Amer) Est GFR (Non-Af Amer) BUN/Creatinine Ratio Glucose POC Glucose (mg/dL) 121 H Lactic Acid Calcium Total Bilirubin AST ALT Alkaline Phosphatase C-Reactive Protein B-Natriuretic Peptide Total Protein Albumin Globulin Albumin/Globulin Ratio Urine Color Urine Appearance Urine pH Ur Specific [place] Urine Protein Urine Ketones Urine Blood Urine Nitrate Urine Bilirubin Urine Urobilinogen Ur Leukocyte Esterase Urine WBC (Auto) Urine RBC (Auto) Ur Squamous Epith Cells Urine Bacteria Urine Glucose Influenza A (Rapid) Influenza B (Rapid) Microbiology and Other Data: Microbiology 04/11/17 00:49 Blood Venous Aerobic Blood Culture - Preliminary No Growth Day 3 04/11/17 00:49 Blood Venous Anaerobic Blood Culture - Preliminary No Growth Day 3 04/10/17 23:30 Blood Venous Aerobic Blood Culture - Preliminary No Growth Day 3 04/10/17 23:30 Blood Venous Anaerobic Blood Culture - Preliminary No Growth Day 3 04/12/17 04:30 Urine Urine Culture - Final 04/11/17 17:36 Nasal Influenza Types A,B Antigen (MADAY) - Final Specimen received for Influenza A/B Molecular testing Assess/Plan/Problems-Billing Assessment: 51 yo female PMH ESRD, fem pop bypass c/b ecoli infection, moderate aortic stenosis, 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 fevers, chills, malaise, productive cough. Leukocytosis resolved with cefepime. Repeat ECHO shows worsening of aortic stenosis, now severe. #Acute Hypoxic respiratory failure, likely 2/2 Acute valvular CHF 2/2 now severe aortic stenosis - appreciate cards recs. Cath planned in AM then likely to seek opinions at [facility]. - cultures negative - continue COPD meds - now 4th day cefepime, will stop. leukocytosis did resolve. may have had viral URI. - no obvious cutaneous stigmata of IE #ESRD, 2/2 nephrotic syndrome - HD M/W/F - continue metolazone 5, torsemide 80mg BID (makes some urine still) - sensipar, cinaclet #HTN - continue amlodipine, lisinopril, torsemide #IDDM - now off lantus and just using meal time sliding scale. - POCT qachs - carb consistent diet. lyrica 150mg BID elavil lopid aspirin zoloft 150 medicine inpatient, possible d/c after LHC and HD on 04/15. CODE: FULL Status and Disposition: medicine inpatient Attending: Ravinder Dobbs
[2017-04-14] MEDS: Sertraline* 50 MG TAB PO SCH (21:46)
[2017-04-14] MEDS: Amitriptyline TAB* 25 MG PO SCH (21:46)
[2017-04-15] MEDS: Cefepime 1 GM in Dextrose(*) 1 GM/50 ML BAG IV SCH (03:03)
[2017-04-15] MEDS: Mometasone/Formoter 100/5 MDI INH SCH (07:39)
[2017-04-15] MEDS: Insulin LISPRO* 1 UNITS UNIT SUBCUT SCH ×3 (07:43→16:45)
[2017-04-15] MEDS: Heparin VIAL(*) 5000 UNITS/ML VIAL (FIVE THOUSAND) SUBCUT SCH ×2 (07:54→16:35)
[2017-04-15] MEDS: Aspirin EC Low Dose* 81 MG TAB.EC PO SCH (08:00)
[2017-04-15] MEDS: Torsemide TAB* 20 MG PO SCH (08:00)
[2017-04-15] MEDS ORDERED: fentaNYL* 50 MCG/ML 2 ML VIAL (100 MCG VIAL) ONE (09:11)
[2017-04-15] MEDS ORDERED: Heparin 2 UNITS/ML IVPREMIX* 2,000 ML IV ONE (09:12)
[2017-04-15] MEDS ORDERED: Lidocaine 1% INJ* 10 MG/ML 30 ML SDV ONE (09:12)
[2017-04-15] MEDS ORDERED: Iodixanol* (CONTRAST) 320 MG/ML 100 ML SDV ONE (09:14)
[2017-04-15] MEDS ORDERED: Midazolam* 1 MG/ML 10 ML VIAL (10 MG) ONE (09:15)
--- NOTE | 2017-04-15 10:08 | RAD ---
Indication: Left femoral artery evaluation. Real-time sonography of the left inguinal region was performed to evaluate the left common femoral artery. The left common artery appears patent. There is atherosclerosis noted. The diameter of the femoral arteries 9 mm. IMPRESSION: Left common femoral artery is patent.
--- NOTE | 2017-04-15 10:43 | PN ---
Subjective Date of Service: 04/15/17 Interval History: f/u , CHF no change in breathing or chest discomfort Medications Active Medications: Acetaminophen (Tylenol Tab*) 650 mg PO Q4H PRN PRN Reason: FEVER/PAIN Last Admin: 04/14/17 02:04 Dose: 650 mg Albuterol (Ventolin Hfa Inhaler*) 2 puff INH Q4H PRN PRN Reason: SOB/WHEEZING Amitriptyline HCl (Elavil Tab*) 25 mg PO BEDTIME [facility] Last Admin: 04/14/17 21:46 Dose: 25 mg Amlodipine Besylate (Norvasc Tab*) 2.5 mg PO QPM [facility] Last Admin: 04/14/17 17:57 Dose: 2.5 mg Aspirin (Aspirin Ec Low Dose*) 81 mg PO QAM [facility] Last Admin: 04/15/17 08:00 Dose: 81 mg Benzonatate (Tessalon Cap*) 200 mg PO BID PRN PRN Reason: COUGH Last Admin: 04/14/17 21:46 Dose: 200 mg Cetirizine HCl (Zyrtec*) 10 mg PO QAM [facility] PRN Reason: Protocol Last Admin: 04/14/17 08:25 Dose: 10 mg Cinacalcet (Sensipar Tab*) 60 mg PO QAM [facility] Last Admin: 04/14/17 08:24 Dose: 60 mg Dextrose (D50w Syringe 50 Ml*) 12.5 gm IV PUSH .FOR FS < 60 - SS PRN PRN Reason: FS < 60 Gemfibrozil (Lopid Tab*) 600 mg PO BID [facility] Last Admin: 04/14/17 21:46 Dose: 600 mg Guaifenesin (Robitussin*) 5 ml PO Q6H PRN PRN Reason: COUGH Last Admin: 04/14/17 09:59 Dose: 5 ml Heparin Sodium (Porcine) (Heparin Vial(*)) 5,000 units SUBCUT Q8HR [facility] Last Admin: 04/15/17 07:54 Dose: Not Given Cefepime HCl (Maxipime 1 Gm In Dextrose Duplex (*)) 1 gm in 50 mls @ 100 mls/ hr IV Q24H [facility] Last Admin: 04/15/17 03:03 Dose: 100 mls/hr Insulin Human Lispro (Humalog*) 0 units SUBCUT ACHS [facility] PRN Reason: Protocol Last Admin: 04/15/17 07:43 Dose: Not Given Lidocaine/Prilocaine (Emla 5 Gm*) 1 applic TOPICAL .3 TIMES A WEEK [facility] Lisinopril (Prinivil Tab*) 20 mg PO QAM [facility] Last Admin: 04/14/17 08:24 Dose: 20 mg Metolazone (Zaroxolyn Tab*) 5 mg PO QPM [facility] Last Admin: 04/14/17 17:57 Dose: 5 mg Mometasone Furoate/Formoterol Fumar (Dulera 100/5 Mdi*) 2 puff INH BID [facility] Last Admin: 04/15/17 07:39 Dose: 2 puff Multivitamins/Minerals (Theragran/Minerals Tab*) 1 tab PO QAM [facility] Last Admin: 04/14/17 08:25 Dose: 1 tab Omeprazole (Prilosec Cap*) 20 mg PO QAM [facility] Last Admin: 04/14/17 08:25 Dose: 20 mg Ondansetron HCl (Zofran Inj*) 4 mg IV Q4H PRN PRN Reason: NAUSEA/VOMITING Ondansetron HCl (Zofran Odt Tab*) 4 mg PO Q8H PRN PRN Reason: NAUSEA Pregabalin (Lyrica Cap(*)) 150 mg PO TID [facility] Last Admin: 04/14/17 21:46 Dose: 150 mg Sertraline HCl (Zoloft*) 50 mg PO BEDTIME [facility] Last Admin: 04/14/17 21:46 Dose: 50 mg Sevelamer Carbonate (Renvela Tab*) 2,400 mg PO TID WITH MEALS [facility] Last Admin: 04/14/17 17:57 Dose: 2,400 mg Sodium Chloride (Sodium Chloride 0.65% Nasal [place]*) 1 spray BOTH NARES Q4H PRN PRN Reason: nasal congestion Last Admin: 04/14/17 08:29 Dose: 1 spray Tiotropium [place] (Spiriva Cap.Inh*) 1 cap INH 0830 [facility] Last Admin: 04/14/17 08:25 Dose: 1 inh Torsemide (Demadex*) 80 mg PO BID [facility] Last Admin: 04/15/17 08:00 Dose: 80 mg Objective Vital Signs: Temp Pulse Resp BP Pulse Ox 97.6 F 84 18 138/72 98 04/15/17 07:38 04/15/17 07:39 04/15/17 07:38 04/15/17 07:38 04/15/17 08:13 Oxygen Devices in Use Now: Nasal Cannula Appearance: chronically ill appearing, pleasant, NAD Ears/Nose/Mouth/Throat: Clear Oropharnyx, Mucous Membranes Moist Neck: Trachea Midline, - - uncertain jvp Respiratory: Symmetrical Chest Expansion and Respiratory Effort, Clear to Auscultation Cardiovascular: RRR, No Edema, - - 3/6 systolic murmur at base, no obvious A2 appreciated Abdominal: NL Sounds; No Tenderness; No Distention Extremities: No Clubbing, Cyanosis Skin: - - right fem-pop wound without significant erythema or drainage Neurological: Alert and Oriented x 3 Laboratory Results: 04/13/17 07:57 04/13/17 07:57 INR (Anticoag Therapy) 0.98 (0.77-1.02) 04/10/17 23:30 APTT 55.0 seconds (26.0-36.3) H 04/10/17 23:30 Total Bilirubin 0.40 mg/dL (0.2-1.0) 04/10/17 23:30 AST 14 U/L (13-39) 04/10/17 23:30 ALT 9 U/L (7-52) 04/10/17 23:30 Alkaline Phosphatase 191 U/L (34-104) H 04/10/17 23:30 B-Natriuretic Peptide 799 pg/mL (-100) H 04/10/17 23:30 Total Protein 8.1 g/dL (6.4-8.9) 04/10/17 23:30 Albumin 4.1 g/dL (3.2-5.2) 04/10/17 23:30 Globulin 4.0 g/dL (2-4) 04/10/17 23:30 Albumin/Globulin Ratio 1.0 (1-3) 04/10/17 23:30 Diagnostic Imaging: cxr 04/11/2017: + pulmonary edema, small right effusion EKG Data: ekg 03/31/2017: sinus tachycardia, otherwise unremarkable Assessment/Plan Verito Suero is a 51 year old woman with a complex medical history including but not limited to ESRD on HD (see consult note and admitting HPI for details) presents with decompensated HF in part due to severe aortic stenosis. Has improved with more intensive dialysis and medical treatment. LVEF normal, angiogram today with obstructive RPL and OM lesions, non-obstructive intermediate LAD lesion. - Continue current cardiac medications except would recommend to stop gemfibrozil and start statin - Patient to receive HD later today - She wants to be considered for SAVR vs. TAVR at [facility] in [place]. I have made a referral to cardiac surgery, Dr. Rito Storey and discussed with him on the phone. She can be discharged from a cardiac standpoint later today if ok with Nephrology and this will be arranged as an outpatient. Thank you for allowing me to participate in the cardiovascular care of this patient. Please do not hesitate to contact me with questions or concerns.
[2017-04-15] MEDS: Lisinopril TAB* 10 MG PO SCH (11:31)
[2017-04-15] MEDS: Sevelamer TAB* 800 MG PO SCH ×3 (12:35→17:32)
[2017-04-15] MEDS: Tiotropium CAP.INH* CAP.INH/18 MCG (USE ORDER SET !) INH SCH (12:37)
[2017-04-15] MEDS: Gemfibrozil TAB* 600 MG PO SCH (12:38)
[2017-04-15] MEDS: Cetirizine* 10 MG TAB PO SCH (12:38)
[2017-04-15] MEDS: Omeprazole CAP* 20 MG PO SCH (12:38)
[2017-04-15] MEDS: Multivitamins/Minerals TAB PO SCH (12:38)
[2017-04-15] MEDS: Pregabalin CAP(*) 50 MG PO SCH ×2 (12:55→16:35)
[2017-04-15] MEDS: Cinacalcet TAB* 30 MG PO SCH (12:55)
--- NOTE | 2017-04-15 13:56 | DCNOTE ---
Subjective Date of Service: 04/15/17 Interval History: No chest pain, SOB, cough. Anxious to go home. Objective Active Medications: Acetaminophen (Tylenol Tab*) 650 mg PO Q4H PRN PRN Reason: FEVER/PAIN Last Admin: 04/14/17 02:04 Dose: 650 mg Albuterol (Ventolin Hfa Inhaler*) 2 puff INH Q4H PRN PRN Reason: SOB/WHEEZING Amitriptyline HCl (Elavil Tab*) 25 mg PO BEDTIME [facility] Last Admin: 04/14/17 21:46 Dose: 25 mg Amlodipine Besylate (Norvasc Tab*) 2.5 mg PO QPM [facility] Last Admin: 04/14/17 17:57 Dose: 2.5 mg Aspirin (Aspirin Ec Low Dose*) 81 mg PO QAM [facility] Last Admin: 04/15/17 08:00 Dose: 81 mg Benzonatate (Tessalon Cap*) 200 mg PO BID PRN PRN Reason: COUGH Last Admin: 04/14/17 21:46 Dose: 200 mg Cetirizine HCl (Zyrtec*) 10 mg PO QAM [facility] PRN Reason: Protocol Last Admin: 04/15/17 12:38 Dose: 10 mg Cinacalcet (Sensipar Tab*) 60 mg PO QAM [facility] Last Admin: 04/15/17 12:55 Dose: Not Given Dextrose (D50w Syringe 50 Ml*) 12.5 gm IV PUSH .FOR FS < 60 - SS PRN PRN Reason: FS < 60 Gemfibrozil (Lopid Tab*) 600 mg PO BID [facility] Last Admin: 04/15/17 12:38 Dose: 600 mg Guaifenesin (Robitussin*) 5 ml PO Q6H PRN PRN Reason: COUGH Last Admin: 04/14/17 09:59 Dose: 5 ml Heparin Sodium (Porcine) (Heparin Vial(*)) 5,000 units SUBCUT Q8HR [facility] Last Admin: 04/15/17 07:54 Dose: Not Given Cefepime HCl (Maxipime 1 Gm In Dextrose Duplex (*)) 1 gm in 50 mls @ 100 mls/ hr IV Q24H [facility] Last Admin: 04/15/17 03:03 Dose: 100 mls/hr Insulin Human Lispro (Humalog*) 0 units SUBCUT ACHS [facility] PRN Reason: Protocol Last Admin: 04/15/17 12:39 Dose: Not Given Lidocaine/Prilocaine (Emla 5 Gm*) 1 applic TOPICAL .3 TIMES A WEEK [facility] Lisinopril (Prinivil Tab*) 20 mg PO QAM [facility] Last Admin: 04/15/17 11:31 Dose: 20 mg Metolazone (Zaroxolyn Tab*) 5 mg PO QPM [facility] Last Admin: 04/14/17 17:57 Dose: 5 mg Mometasone Furoate/Formoterol Fumar (Dulera 100/5 Mdi*) 2 puff INH BID [facility] Last Admin: 04/15/17 07:39 Dose: 2 puff Multivitamins/Minerals (Theragran/Minerals Tab*) 1 tab PO QAM [facility] Last Admin: 04/15/17 12:38 Dose: 1 tab Omeprazole (Prilosec Cap*) 20 mg PO QAM [facility] Last Admin: 04/15/17 12:38 Dose: 20 mg Ondansetron HCl (Zofran Inj*) 4 mg IV Q4H PRN PRN Reason: NAUSEA/VOMITING Ondansetron HCl (Zofran Odt Tab*) 4 mg PO Q8H PRN PRN Reason: NAUSEA Pregabalin (Lyrica Cap(*)) 150 mg PO TID [facility] Last Admin: 04/15/17 12:55 Dose: Not Given Sertraline HCl (Zoloft*) 50 mg PO BEDTIME [facility] Last Admin: 04/14/17 21:46 Dose: 50 mg Sevelamer Carbonate (Renvela Tab*) 2,400 mg PO TID WITH MEALS [facility] Last Admin: 04/15/17 12:56 Dose: Not Given Sodium Chloride (Sodium Chloride 0.65% Nasal [place]*) 1 spray BOTH NARES Q4H PRN PRN Reason: nasal congestion Last Admin: 04/14/17 08:29 Dose: 1 spray Tiotropium Axis (Spiriva Cap.Inh*) 1 cap INH 0830 [facility] Last Admin: 04/15/17 12:37 Dose: 1 inh Torsemide (Demadex*) 80 mg PO BID [facility] Last Admin: 04/15/17 08:00 Dose: 80 mg Vital Signs - 8 hr 01/05/18 01/05/18 01/05/18 07:38 07:39 08:00 Temperature 97.6 F Pulse Rate 84 Respiratory 18 20 Rate Blood Pressure 138/72 (mmHg) O2 Sat by Pulse 100 100 Oximetry 04/15/17 08:13 Temperature Pulse Rate Respiratory Rate Blood Pressure (mmHg) O2 Sat by Pulse 98 Oximetry Oxygen Devices in Use Now: None Appearance: Supine on dialysis chair. In good spirits. Looks comfortable. Eyes: No Scleral Icterus Respiratory: Symmetrical Chest Expansion and Respiratory Effort, Clear to Auscultation, Clear to Percussion Cardiovascular: No Edema, - - 2/6 systolic murmur RSB Extremities: No Edema, No Clubbing, Cyanosis, - Skin: No Rash or Ulcers, No Nodules or Sclerosis, - Neurological: Alert and Oriented x 3, NL Sensation Result Diagrams: 04/13/17 07:57 04/13/17 07:57 Additional Lab and Data: Laboratory Tests 04/10/17 04/10/17 04/10/17 23:30 23:30 23:30 WBC 15.4 H RBC 3.98 L Hgb 11.9 L Hct 37 MCV 92 MCH 30 MCHC 33 RDW 15 Plt Count 340 MPV 9 Neut % (Auto) 74.1 Lymph % (Auto) 15.3 L [place] % (Auto) 7.9 Eos % (Auto) 2.1 Baso % (Auto) 0.6 Absolute Neuts (auto) 11.4 H Absolute Lymphs (auto) 2.3 Absolute Monos (auto) 1.2 H Absolute Eos (auto) 0.3 Absolute Basos (auto) 0.1 Absolute Nucleated RBC 0.01 Nucleated RBC % 0.1 INR (Anticoag Therapy) 0.98 APTT 55.0 H VBG pH VBG pCO2 VBG pO2 VBG HCO3 VBG O2 Saturation VBG Base Excess Sodium 136 Potassium 6.1 H* Chloride 95 L Carbon Dioxide 25 Anion Gap 16 H BUN 93 H Creatinine 5.91 H Est GFR ( Amer) 9.6 Est GFR (Non-Af Amer) 7.5 BUN/Creatinine Ratio 15.7 Glucose 241 H POC Glucose (mg/dL) Lactic Acid Calcium 8.9 Total Bilirubin 0.40 AST 14 ALT 9 Alkaline Phosphatase 191 H C-Reactive Protein 8.13 H B-Natriuretic Peptide Total Protein 8.1 Albumin 4.1 Globulin 4.0 Albumin/Globulin Ratio 1.0 Urine Color Urine Appearance Urine pH Ur Specific [place] Urine Protein Urine Ketones Urine Blood Urine Nitrate Urine Bilirubin Urine Urobilinogen Ur Leukocyte Esterase Urine WBC (Auto) Urine RBC (Auto) Ur Squamous Epith Cells Urine Bacteria Urine Glucose Influenza A (Rapid) Influenza B (Rapid) 04/10/17 04/10/17 04/11/17 23:30 23:30 00:56 WBC RBC Hgb Hct MCV MCH MCHC RDW Plt Count MPV Neut % (Auto) Lymph % (Auto) [place] % (Auto) Eos % (Auto) Baso % (Auto) Absolute Neuts (auto) Absolute Lymphs (auto) Absolute Monos (auto) Absolute Eos (auto) Absolute Basos (auto) Absolute Nucleated RBC Nucleated RBC % INR (Anticoag Therapy) APTT VBG pH 7.33 VBG pCO2 47 VBG pO2 67 H VBG HCO3 23.7 L VBG O2 Saturation 93.4 H VBG Base Excess -1.4 L Sodium Potassium Chloride Carbon Dioxide Anion Gap BUN Creatinine Est GFR ( Amer) Est GFR (Non-Af Amer) BUN/Creatinine Ratio Glucose POC Glucose (mg/dL) Lactic Acid 1.0 Calcium Total Bilirubin AST ALT Alkaline Phosphatase C-Reactive Protein B-Natriuretic Peptide 799 H Total Protein Albumin Globulin Albumin/Globulin Ratio Urine Color Urine Appearance Urine pH Ur Specific [place] Urine Protein Urine Ketones Urine Blood Urine Nitrate Urine Bilirubin Urine Urobilinogen Ur Leukocyte Esterase Urine WBC (Auto) Urine RBC (Auto) Ur Squamous Epith Cells Urine Bacteria Urine Glucose Influenza A (Rapid) Influenza B (Rapid) 04/11/17 04/11/17 04/11/17 02:34 06:50 13:15 WBC RBC Hgb Hct MCV MCH MCHC RDW Plt Count MPV Neut % (Auto) Lymph % (Auto) [place] % (Auto) Eos % (Auto) Baso % (Auto) Absolute Neuts (auto) Absolute Lymphs (auto) Absolute Monos (auto) Absolute Eos (auto) Absolute Basos (auto) Absolute Nucleated RBC Nucleated RBC % INR (Anticoag Therapy) APTT VBG pH 7.36 VBG pCO2 41 VBG pO2 106 H VBG HCO3 23.3 L VBG O2 Saturation 99.3 H VBG Base Excess -2.1 L Sodium Potassium Chloride Carbon Dioxide Anion Gap BUN Creatinine Est GFR ( Amer) Est GFR (Non-Af Amer) BUN/Creatinine Ratio Glucose POC Glucose (mg/dL) 115 H Lactic Acid 1.2 Calcium Total Bilirubin AST ALT Alkaline Phosphatase C-Reactive Protein B-Natriuretic Peptide Total Protein Albumin Globulin Albumin/Globulin Ratio Urine Color Urine Appearance Urine pH Ur Specific [place] Urine Protein Urine Ketones Urine Blood Urine Nitrate Urine Bilirubin Urine Urobilinogen Ur Leukocyte Esterase Urine WBC (Auto) Urine RBC (Auto) Ur Squamous Epith Cells Urine Bacteria Urine Glucose Influenza A (Rapid) Influenza B (Rapid) 04/11/17 04/11/17 04/11/17 17:36 17:40 20:44 WBC RBC Hgb Hct MCV MCH MCHC RDW Plt Count MPV Neut % (Auto) Lymph % (Auto) [place] % (Auto) Eos % (Auto) Baso % (Auto) Absolute Neuts (auto) Absolute Lymphs (auto) Absolute Monos (auto) Absolute Eos (auto) Absolute Basos (auto) Absolute Nucleated RBC Nucleated RBC % INR (Anticoag Therapy) APTT VBG pH VBG pCO2 VBG pO2 VBG HCO3 VBG O2 Saturation VBG Base Excess Sodium Potassium Chloride Carbon Dioxide Anion Gap BUN Creatinine Est GFR ( Amer) Est GFR (Non-Af Amer) BUN/Creatinine Ratio Glucose POC Glucose (mg/dL) 212 H 139 H Lactic Acid Calcium Total Bilirubin AST ALT Alkaline Phosphatase C-Reactive Protein B-Natriuretic Peptide Total Protein Albumin Globulin Albumin/Globulin Ratio Urine Color Urine Appearance Urine pH Ur Specific [place] Urine Protein Urine Ketones Urine Blood Urine Nitrate Urine Bilirubin Urine Urobilinogen Ur Leukocyte Esterase Urine WBC (Auto) Urine RBC (Auto) Ur Squamous Epith Cells Urine Bacteria Urine Glucose Influenza A (Rapid) Negative Influenza B (Rapid) Negative 04/12/17 04/12/17 04/12/17 04:30 08:18 08:50 WBC RBC Hgb Hct MCV MCH MCHC RDW Plt Count MPV Neut % (Auto) Lymph % (Auto) [place] % (Auto) Eos % (Auto) Baso % (Auto) Absolute Neuts (auto) Absolute Lymphs (auto) Absolute Monos (auto) Absolute Eos (auto) Absolute Basos (auto) Absolute Nucleated RBC Nucleated RBC % INR (Anticoag Therapy) APTT VBG pH VBG pCO2 VBG pO2 VBG HCO3 VBG O2 Saturation VBG Base Excess Sodium 132 L Potassium 5.5 H Chloride 90 L Carbon Dioxide 28 Anion Gap 14 H BUN 64 H Creatinine 5.40 H Est GFR ( Amer) 10.7 Est GFR (Non-Af Amer) 8.3 BUN/Creatinine Ratio 11.9 Glucose 117 H POC Glucose (mg/dL) 130 H Lactic Acid Calcium 9.7 Total Bilirubin AST ALT Alkaline Phosphatase C-Reactive Protein B-Natriuretic Peptide Total Protein Albumin Globulin Albumin/Globulin Ratio Urine Color Yellow Urine Appearance Cloudy Urine pH 8.0 Ur Specific [place] 1.011 Urine Protein 3+(>=500 mg/dl) H Urine Ketones Negative Urine Blood 1+ H Urine Nitrate Negative Urine Bilirubin Negative Urine Urobilinogen Negative Ur Leukocyte Esterase Negative Urine WBC (Auto) 2+(11-20/hpf) H Urine RBC (Auto) 2+(6-10/hpf) H Ur Squamous Epith Cells Present H Urine Bacteria 1+ H Urine Glucose 3+(>=500 mg/dl) H Influenza A (Rapid) Influenza B (Rapid) 04/12/17 04/12/17 04/12/17 09:55 13:29 17:18 WBC 8.0 RBC 3.57 L Hgb 10.6 L Hct 32 L MCV 89 MCH 30 MCHC 33 RDW 15 Plt Count 280 MPV 9 Neut % (Auto) 68.8 Lymph % (Auto) 14.3 L [place] % (Auto) 11.8 H Eos % (Auto) 3.7 Baso % (Auto) 1.4 Absolute Neuts (auto) 5.5 Absolute Lymphs (auto) 1.1 Absolute Monos (auto) 0.9 H Absolute Eos (auto) 0.3 Absolute Basos (auto) 0.1 Absolute Nucleated RBC 0 Nucleated RBC % 0 INR (Anticoag Therapy) APTT VBG pH VBG pCO2 VBG pO2 VBG HCO3 VBG O2 Saturation VBG Base Excess Sodium Potassium Chloride Carbon Dioxide Anion Gap BUN Creatinine Est GFR ( Amer) Est GFR (Non-Af Amer) BUN/Creatinine Ratio Glucose POC Glucose (mg/dL) 110 H 144 H Lactic Acid Calcium Total Bilirubin AST ALT Alkaline Phosphatase C-Reactive Protein B-Natriuretic Peptide Total Protein Albumin Globulin Albumin/Globulin Ratio Urine Color Urine Appearance Urine pH Ur Specific [place] Urine Protein Urine Ketones Urine Blood Urine Nitrate Urine Bilirubin Urine Urobilinogen Ur Leukocyte Esterase Urine WBC (Auto) Urine RBC (Auto) Ur Squamous Epith Cells Urine Bacteria Urine Glucose Influenza A (Rapid) Influenza B (Rapid) 04/12/17 04/13/17 04/13/17 21:18 07:39 07:57 WBC 8.6 RBC 3.44 L Hgb 10.4 L Hct 31 L MCV 90 MCH 30 MCHC 34 RDW 14 Plt Count 271 MPV 9 Neut % (Auto) 69.5 Lymph % (Auto) 11.4 L [place] % (Auto) 14.0 H Eos % (Auto) 4.0 Baso % (Auto) 1.1 Absolute Neuts (auto) 6.0 Absolute Lymphs (auto) 1.0 Absolute Monos (auto) 1.2 H Absolute Eos (auto) 0.3 Absolute Basos (auto) 0.1 Absolute Nucleated RBC 0.01 Nucleated RBC % 0.1 INR (Anticoag Therapy) APTT VBG pH VBG pCO2 VBG pO2 VBG HCO3 VBG O2 Saturation VBG Base Excess Sodium Potassium Chloride Carbon Dioxide Anion Gap BUN Creatinine Est GFR ( Amer) Est GFR (Non-Af Amer) BUN/Creatinine Ratio Glucose POC Glucose (mg/dL) 170 H 99 Lactic Acid Calcium Total Bilirubin AST ALT Alkaline Phosphatase C-Reactive Protein B-Natriuretic Peptide Total Protein Albumin Globulin Albumin/Globulin Ratio Urine Color Urine Appearance Urine pH Ur Specific [place] Urine Protein Urine Ketones Urine Blood Urine Nitrate Urine Bilirubin Urine Urobilinogen Ur Leukocyte Esterase Urine WBC (Auto) Urine RBC (Auto) Ur Squamous Epith Cells Urine Bacteria Urine Glucose Influenza A (Rapid) Influenza B (Rapid) 04/13/17 04/13/17 04/13/17 07:57 11:29 17:42 WBC RBC Hgb Hct MCV MCH MCHC RDW Plt Count MPV Neut % (Auto) Lymph % (Auto) [place] % (Auto) Eos % (Auto) Baso % (Auto) Absolute Neuts (auto) Absolute Lymphs (auto) Absolute Monos (auto) Absolute Eos (auto) Absolute Basos (auto) Absolute Nucleated RBC Nucleated RBC % INR (Anticoag Therapy) APTT VBG pH VBG pCO2 VBG pO2 VBG HCO3 VBG O2 Saturation VBG Base Excess Sodium 133 Potassium 5.4 H Chloride 91 L Carbon Dioxide 23 Anion Gap 19 H BUN 86 H Creatinine 6.33 H Est GFR ( Amer) 8.9 Est GFR (Non-Af Amer) 6.9 BUN/Creatinine Ratio 13.6 Glucose 147 H POC Glucose (mg/dL) 139 H 151 H Lactic Acid Calcium 8.7 Total Bilirubin AST ALT Alkaline Phosphatase C-Reactive Protein B-Natriuretic Peptide Total Protein Albumin Globulin Albumin/Globulin Ratio Urine Color Urine Appearance Urine pH Ur Specific [place] Urine Protein Urine Ketones Urine Blood Urine Nitrate Urine Bilirubin Urine Urobilinogen Ur Leukocyte Esterase Urine WBC (Auto) Urine RBC (Auto) Ur Squamous Epith Cells Urine Bacteria Urine Glucose Influenza A (Rapid) Influenza B (Rapid) 04/13/17 04/14/17 04/14/17 21:23 07:44 11:45 WBC RBC Hgb Hct MCV MCH MCHC RDW Plt Count MPV Neut % (Auto) Lymph % (Auto) [place] % (Auto) Eos % (Auto) Baso % (Auto) Absolute Neuts (auto) Absolute Lymphs (auto) Absolute Monos (auto) Absolute Eos (auto) Absolute Basos (auto) Absolute Nucleated RBC Nucleated RBC % INR (Anticoag Therapy) APTT VBG pH VBG pCO2 VBG pO2 VBG HCO3 VBG O2 Saturation VBG Base Excess Sodium Potassium Chloride Carbon Dioxide Anion Gap BUN Creatinine Est GFR ( Amer) Est GFR (Non-Af Amer) BUN/Creatinine Ratio Glucose POC Glucose (mg/dL) 155 H 107 H 171 H Lactic Acid Calcium Total Bilirubin AST ALT Alkaline Phosphatase C-Reactive Protein B-Natriuretic Peptide Total Protein Albumin Globulin Albumin/Globulin Ratio Urine Color Urine Appearance Urine pH Ur Specific [place] Urine Protein Urine Ketones Urine Blood Urine Nitrate Urine Bilirubin Urine Urobilinogen Ur Leukocyte Esterase Urine WBC (Auto) Urine RBC (Auto) Ur Squamous Epith Cells Urine Bacteria Urine Glucose Influenza A (Rapid) Influenza B (Rapid) 04/14/17 17:57 WBC RBC Hgb Hct MCV MCH MCHC RDW Plt Count MPV Neut % (Auto) Lymph % (Auto) [place] % (Auto) Eos % (Auto) Baso % (Auto) Absolute Neuts (auto) Absolute Lymphs (auto) Absolute Monos (auto) Absolute Eos (auto) Absolute Basos (auto) Absolute Nucleated RBC Nucleated RBC % INR (Anticoag Therapy) APTT VBG pH VBG pCO2 VBG pO2 VBG HCO3 VBG O2 Saturation VBG Base Excess Sodium Potassium Chloride Carbon Dioxide Anion Gap BUN Creatinine Est GFR ( Amer) Est GFR (Non-Af Amer) BUN/Creatinine Ratio Glucose POC Glucose (mg/dL) 121 H Lactic Acid Calcium Total Bilirubin AST ALT Alkaline Phosphatase C-Reactive Protein B-Natriuretic Peptide Total Protein Albumin Globulin Albumin/Globulin Ratio Urine Color Urine Appearance Urine pH Ur Specific [place] Urine Protein Urine Ketones Urine Blood Urine Nitrate Urine Bilirubin Urine Urobilinogen Ur Leukocyte Esterase Urine WBC (Auto) Urine RBC (Auto) Ur Squamous Epith Cells Urine Bacteria Urine Glucose Influenza A (Rapid) Influenza B (Rapid) Microbiology and Other Data: Microbiology 04/11/17 00:49 Blood Venous Aerobic Blood Culture - Preliminary No Growth Day 3 04/11/17 00:49 Blood Venous Anaerobic Blood Culture - Preliminary No Growth Day 3 04/10/17 23:30 Blood Venous Aerobic Blood Culture - Preliminary No Growth Day 3 04/10/17 23:30 Blood Venous Anaerobic Blood Culture - Preliminary No Growth Day 3 04/12/17 04:30 Urine Urine Culture - Final 04/11/17 17:36 Nasal Influenza Types A,B Antigen (MADAY) - Final Specimen received for Influenza A/B Molecular testing Assess/Plan/Problems-Billing Assessment: 51 yo female PMH ESRD, fem pop bypass c/b ecoli infection, moderate aortic stenosis, 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 fevers, chills, malaise, productive cough. Leukocytosis resolved with cefepime. Repeat ECHO shows worsening of aortic stenosis, now severe. #Acute Hypoxic respiratory failure, likely 2/2 Acute valvular CHF 2/2 now severe aortic stenosis - appreciate cards recs. Cath planned in AM then likely to seek opinions at [facility]. - cultures negative - continue COPD meds - now 4th day cefepime, will stop. leukocytosis did resolve. may have had viral URI. - no obvious cutaneous stigmata of IE #ESRD, 2/2 nephrotic syndrome - HD M/W/F - continue metolazone 5, torsemide 80mg BID (makes some urine still) - sensipar, cinaclet #HTN - continue amlodipine, lisinopril, torsemide #IDDM - now off lantus and just using meal time sliding scale. - POCT qachs - carb consistent diet. lyrica 150mg BID elavil lopid aspirin zoloft 150 medicine inpatient, possible d/c after C and HD on 04/15. CODE: FULL - Patient Problems (1) ESRD (end stage renal disease) on dialysis Current Visit: No Status: Acute Code(s): N18.6 - END STAGE RENAL DISEASE; Z99.2 - DEPENDENCE ON RENAL DIALYSIS SNOMED Code(s): 736009308 Comment: Continue MWF dialysis. Continue sevelamer and sensipar. Finishing dialysis this PM. (2) Aortic stenosis, severe Current Visit: Yes Status: Acute Code(s): I35.0 - NONRHEUMATIC AORTIC (VALVE ) STENOSIS SNOMED Code(s): 32382446 Comment: Referred to Dr. Rahul Storey, [facility]. Discussed with Dr. Lay. (3) HTN (hypertension) Current Visit: No Status: Acute Code(s): I10 - ESSENTIAL (PRIMARY) HYPERTENSION SNOMED Code(s): 96174762 Comment: BP better controlled after HD 01/26. Continue torsemide, metolazone , amlodipine 2.5, lisinopril 20mg. (4) COPD (chronic obstructive pulmonary disease) Current Visit: No Status: Acute Code(s): J44.9 - CHRONIC OBSTRUCTIVE PULMONARY DISEASE, UNSPECIFIED SNOMED Code(s): 47598556 Comment: Continue prn albuterol. Quit smoking 3 yrs ago. Not currently wheezing, no cough. No signs bacterial infection. Continue budesonide/formoterol. Status and Disposition: Discharge after HD today. Fup Michelle Carney, Rahul Storey.
--- NOTE | 2017-04-15 14:20 | PN ---
Progress Note - Progress Note Date of Service: 04/15/17 Note: Time spent on discharge 50 minutes.
[2017-04-15 17:30] VITALS: BP 146/75
[2017-04-15] MEDS: Metolazone TAB* 5 MG PO SCH (17:32)
[2017-04-15] MEDS: amLODIPine TAB* 5 MG PO SCH (17:32)
--- NOTE | 2017-04-16 04:56 | CATH ---
CC: Dr. Dipak Fontenot; Dr. Mono Martinez; Dr. Rahul Storey, Department of Cardiovascular Surgery at [facility] in [place] * CARDIAC CATHETERIZATION REPORT: DATE OF PROCEDURE: 04/15/17 - ROOM #411 REASON FOR THE PROCEDURE: I was asked to perform coronary arteriography in light of the patient being diagnosed with severe aortic stenosis, rule out the presence of underlying coronary artery disease, and preparation for surgical or TAVR evaluation. PROCEDURE: Coronary arteriography. DESCRIPTION OF PROCEDURE: The patient was interviewed and examined on the floor of the hospital, where the risks and benefits were explained. She understood them and wished to proceed. Of note, in the holding area of the blood bank laboratory technician, the left femoral artery was visualized under ultrasound to assess patency of the vessel and was found to be patent. As such, left femoral approach was undertaken. The patient was brought to the cardiovascular laboratory, where a formal time-out was performed. The left groin area was prepped and draped in sterile fashion. The left femoral artery area was anesthetized with 1% lidocaine and the left femoral artery was cannulated and a 5-[place]or[place] introducer was placed (of note on injection into right femoral artery sheath). At the end of the case, the artery actually had gone into the superficial femoral artery branch leading to the common femoral area. Coronary arteriography was performed using a 5-[place] 4 Emily left coronary catheter and a 5-[place] 4 Emily right coronary catheter. Following this, an injection was made into the left femoral sheath and it was found that the entrance point of the sheath was in the superficial femoral artery at an area of stenosis. As such, the decision was made to have this manually pulled in the holding area. The sheath was pulled. I personally held pressure on the patient for 30 minutes and there was complete hemostasis and good distal pulses appreciated. The total contrast used was 65 cc of Visipaque dye. The radiation exposure included 2.7 minutes of fluoro time. The air kerma radiation was 420 milligray. The DAP radiation was 2548 microgray per meter square. RESULTS: CORONARY ARTERIOGRAPHY: A. Left coronary artery. 1. Left main - widely patent with no significant stenosis. 2. Left anterior descending artery. The left anterior descending artery had a [id number] narrowing in the mid portion of 40%. The diagonal branch had no significant stenosis seen. 3. Circumflex artery. A nondominant vessel supplying a moderate sized first obtuse marginal branch, which in its [id number] portion had areas of 35% to 40% narrowing seen. The continuation of the circumflex supplied a second obtuse marginal branch, which had an ostial narrowing of 80%. The artery then continued on supply a small low-lying posterior left ventricular branch. B. Right coronary artery - a dominant vessel supplying the PDA, which bifurcated and a thin first posterior left ventricular branch followed by a slightly larger caliber second posterior left ventricular branch. There was mild disease in the mid segment of the right coronary artery of approximately 35 % to 40%. The distal second posterior left ventricular branch had a mid area of narrowing that appeared to be approximately 70% to 75%. The caliber of the vessel was somewhat small in its distal aspect appearing perhaps 1.7 mm. OVERALL ASSESSMENT: Coronary artery disease as described above, [id number] in nature with the exception of the ostium of the second marginal branch, which had an 80% stenosis and a small caliber posterior left ventricular branch, which had a mid 70% to 75% blockage of the right coronary artery. These results were discussed with Dr. Fam Lay, the application systems architect, who is managing the patient in the hospital. These results will be sent to Dr. Rahul Storey, cardiothoracic surgeon in [place] at [facility] in addition to Dr. Martinez, her primary application systems architect. [id number]/[facility] #: [id number] LILLY
--- NOTE | 2017-04-16 12:19 | DS ---
CC: Dr. Fontenot; Dr. Martinez; Dr. Rahul Storey, [facility] DISCHARGE SUMMARY: DATE OF ADMISSION: DATE OF DISCHARGE: 04/15/17 HISTORY OF PRESENT ILLNESS: This 51-year-old woman presented with shortness of breath. She was foun d to have pulmonary edema. She has a long history of being on dialysis. She was compliant with her dialysis and her diet. She had a dialysis, shortly after arrival, she was found to have severe aorti c stenosis. Her symptoms were markedly improved in hospital. On the last hospitalization, she had c ardiac catheterization, no intervention was performed. She was finishing her dialysis which happened to be on her regular dialysis day today. None of her medications have been changed. She is referre d to Dr. Rahul Storey at [facility] for consideration of aortic valve repair. FINAL DIAGNOSES: 1. Severe aortic stenosis. 2. Coronary artery disease. 3. End-stage renal disease. 4. Chronic obstructive pulmonary disease. 5. Hypertension. 6. Diabetes. DISCHARGE MEDICATIONS: 1. Sertraline 50 mg h.s. 2. Sevelamer 2400 mg t.i.d. with meals. 3. Omeprazole 20 mg daily. 4. Torsemide 80 mg b.i.d. 5. Acetaminophen 650 mg every 4 hours p.r.n. 6. Multivitamin with mineral 1 daily. 7. Pregabalin 150 mg t.i.d. 8. Lisinopril 20 mg daily. 9. Lidocaine 2.5% topically for dialysis site. 10. Lispro as prescribed. 11. Cetirizine 10 mg daily. 12. Aspirin 81 mg daily. 13. Amlodipine 2.5 mg daily. 14. Amitriptyline 25 mg h.s. 15. Albuterol inhaler 2 puffs every 4 hours p.r.n. 16. Ondansetron ODT 4 mg every 8 hours p.r.n. 17. Metolazone 5 mg daily. 18. Gemfibrozil 600 mg b.i.d. 19. Cinacalcet 60 mg daily. 20. Fluticasone 110 mcg 2 puffs b.i.d. 21. Budesonide/formoterol 80/4.5 two puffs b.i.d. 22. Tiotropium 1 puff daily. [id number]/[facility] #: [id number]
== END 2017-04-15 18:30 | disposition home or self-care (01) | DRG 133 ==
LOC: ED 23:26 → ICU 04-11 00:27 → MED 04-12 16:58
PROVIDERS: ADMIT Internal Medicine; ATTEND Internal Medicine
PROC: 5A1D70Z Performance of Urinary Filtration, Intermittent, Less than 6 Hours Per Day (ICD-10-PCS; principal; 2017-04-11)
PROC: 5A09357 Assistance with Respiratory Ventilation, Less than 24 Consecutive Hours, Continuous Positive Airway Pressure (ICD-10-PCS; 2017-04-11)
PROC: 5A1D70Z Performance of Urinary Filtration, Intermittent, Less than 6 Hours Per Day (ICD-10-PCS; 2017-04-13)
PROC: 4A023N7 Measurement of Cardiac Sampling and Pressure, Left Heart, Percutaneous Approach (ICD-10-PCS; 2017-04-15)
PROC: B2111ZZ Fluoroscopy of Multiple Coronary Arteries using Low Osmolar Contrast (ICD-10-PCS; 2017-04-15)
PROC: B41G1ZZ Fluoroscopy of Left Lower Extremity Arteries using Low Osmolar Contrast (ICD-10-PCS; 2017-04-15)
DX: J96.01 Acute respiratory failure with hypoxia (principal); I13.2 Hypertensive heart and chronic kidney disease with heart failure and with stage 5 chronic kidney disease, or end stage renal disease; E11.22 Type 2 diabetes mellitus with diabetic chronic kidney disease; E11.51 Type 2 diabetes mellitus with diabetic peripheral angiopathy without gangrene; N18.6 End stage renal disease; J44.9 Chronic obstructive pulmonary disease, unspecified; K21.9 Gastro-esophageal reflux disease without esophagitis; M17.0 Bilateral primary osteoarthritis of knee; M19.022 Primary osteoarthritis, left elbow; M19.021 Primary osteoarthritis, right elbow; M19.042 Primary osteoarthritis, left hand; M19.041 Primary osteoarthritis, right hand; E78.5 Hyperlipidemia, unspecified; F32.9 Major depressive disorder, single episode, unspecified; F41.9 Anxiety disorder, unspecified; E87.70 Fluid overload, unspecified; I35.0 Nonrheumatic aortic (valve) stenosis; I25.10 Atherosclerotic heart disease of native coronary artery without angina pectoris; D72.829 Elevated white blood cell count, unspecified; I50.9 Heart failure, unspecified; Z79.82 Long term (current) use of aspirin; Z83.3 Family history of diabetes mellitus; Z98.51 Tubal ligation status; Z87.442 Personal history of urinary calculi; Z90.5 Acquired absence of kidney; Z82.0 Family history of epilepsy and other diseases of the nervous system; Z88.0 Allergy status to penicillin; Z99.2 Dependence on renal dialysis; Z88.8 Allergy status to other drugs, medicaments and biological substances; Z87.891 Personal history of nicotine dependence
CPT/HCPCS: 36415; 71010; 71046; 80048; 80053; 81003; 81015; 82803; 83605; 83880; 85025; 85610; 85730; 86140; 87040; 87086; 87502; 90935; 93005; 93306; 93454; 94640; 94660; 94760; 99156; 99285; A9270-GY; C1769; C1887; G0257; J0692; J0744; J1644; J2250; J3010